=== PATIENT | female | born 1985 | race Caucasian/White ===

== ENCOUNTER 2017-03-08 14:00 | Inpatient (IN) ==
[2017-03-08] MEDS ORDERED: SODIUM CHLORIDE 0.9% 1,000 ML IV STA ×2 (14:11→17:15)
[2017-03-08 14:52] LABS: Basophils # 0.1 10*3/uL (0.0-0.2); Basophils % 0.4 % (0.0-0.8); Eosinophils # 0.1 10*3/uL (0.0-0.87); Eosinophils % 0.6 % (0.00-10.9); Hematocrit 44.7 VOL% (35.7-47.0); Hemoglobin 14.1 GM/DL (12.0-16.0); Immature Granulocytes % 1.5 %; Immature Granulocytes Absolute 0.21 #; Lymphocytes # 2.1 10*3/uL (1.4-4.0); Lymphocytes % 15.2 % (21.3-54.2); Mean Corpuscular HGB Conc 31.5 GM/DL (32-36); Mean Corpuscular Hemoglobin 33 PG (27-34); Mean Platelet Volume 11.3 FL (9.6-12.0); Monocytes # 0.4 10*3/uL (0.11-0.8); Monocytes % 2.9 % (1.7-12.7); Neutrophils # 10.9 10*3/uL (1.4-7.4); Neutrophils % 79.4 % (38.7-73.9); Platelet Count 336 T/CUMM (130-400); Red Blood Count 4.34 MC/CUMM (3.8-5.5); White Blood Count 13.7 T/CUMM (4-12)
[2017-03-08 15:23] LABS: Albumin 3.5 G/DL (3.4-5.0); Bilirubin,Total 0.8 MG/DL (0.2-1.0); Calcium 9.5 MG/DL (8.5-10.1); Osmolality,Calculated 316.2 MOS/KG (273-304); Potassium 5.4 MMOL/L (3.5-5.1); Total Protein 7.7 G/DL (6.4-8.3)
[2017-03-08] MEDS ORDERED: INSULIN REGULAR 100 UNIT/ML SUBCUT STA (15:27)
[2017-03-08] MEDS ORDERED: LEVOFLOXACIN INJ 750 MG in PREMIX 1 EACH IV STA (15:27)
[2017-03-08] MEDS ORDERED: PANTOPRAZOLE 40 MG VIAL IV STA (15:27)
[2017-03-08] MEDS ORDERED: METOCLOPRAMIDE 10 MG/2 ML VIAL IV STA (15:27)
[2017-03-08] MEDS ORDERED: SODIUM CHLORIDE 0.9% 2,000 ML IV STA (15:27)
[2017-03-08] MEDS ORDERED: INSULIN REGULAR 100 UNIT/ML IV STA (15:27)
[2017-03-08] MEDS ORDERED: ONDANSETRON 4 MG/2 ML VIAL IV STA (15:27)
[2017-03-08 15:33] LABS: ABG Base Excess -27.3 MMOL/L (-2.5-2.5); ABG HCO3 6.6 MMOL/L (20-26); ABG Oxygen Saturation 98.2 % (95-100)
--- NOTE | 2017-03-08 15:33 | Emergency Department Note ---
Arrival - Arrival Chief Complaint: Nausea/Vomiting/Diarrhea Stated Complaint: diabetic,n/v,blood sugar not good ED Nursing Triage Note: C/O Nausea and vomiting since SAT., + Diarrhea, denies checking temp., + chills., patients family at bedside and states that the patient had some type of procedure on the scalp by Dr.Mackey. clarke in triage > 500 Mode of Arrival: Stretcher Limitations: Altered Mental Status Source: Family Time Seen by Provider: 03/08/17 15:27 - History of Present Illness HPI Narrative: This 32-year-old white female insulin-dependent diabetic with chronic gastroparesis presents with 2 days of nausea, vomiting, and diarrhea in association with increasing lethargy and hyperventilation. During this timeframe the family reports the patient has taken no insulin. Currently the patient is responsive but is in obvious distress. Onset (ago): day(s) (Patient presents 2 days post onset of symptoms) Date of Last Menstrual Period: now Allergies/Adverse Reactions: Allergies Allergy/AdvReac Type Severity Reaction Status Date / Time aspirin Allergy Gastrointestinal Verified 03/08/17 14:10 Upset ketorolac [From Toradol] Allergy HIVES Verified 03/08/17 14:10 vancomycin Allergy HIVES Verified 03/08/17 14:10 ceftriaxone [From Rocephin] AdvReac Nausea Verified 03/08/17 14:10 doxycycline AdvReac Nausea Verified 03/08/17 14:10 Home Medications: Home Medications Medication Instructions Recorded Confirmed Type Duloxetine HCl [Cymbalta] 60 mg PO BEDTIME 07/15/15 10/21/16 History Esomeprazole Magnesium 40 mg PO DAILY PRN 01/11/16 10/21/16 History [Esomeprazole] Insulin Glargine [Lantus] 50 unit SUBCUT DAILY injection 03/17/16 10/21/16 Rx Insulin Lispro [HumaLOG] 15 unit SUBCUT TID W/MEALS ml 03/17/16 10/21/16 Rx traZODone [Desyrel] 50 mg PO BEDTIME 04/06/16 10/21/16 History Metoclopramide Tab [Reglan Tab] 5 mg PO ACHS #120 tablet 08/30/16 10/21/16 Rx Pantoprazole Tab [Protonix Tab] 40 mg PO DAILY #30 tablet 08/30/16 10/21/16 Rx Review of System - Review of System 12 point system: reviewed and no additional remarkable complaints except as stated - Review of System Constitutional: Present: as per HPI Respiratory: Present: as per HPI Gastrointestinal: Present: as per HPI Medical,Surgical,& Family Hx - Medical History Cardio: No history of: CAD Psychological: No history of: Psychiatric Problems Neurology: History of: Migraine, Peripheral Neuropathy No history of: Brain Aneurysm, Cerebral Hemorrhage, Cerebrovascular Accident , Cerebral Palsy, Dementia, Multiple Sclerosis, Parkinson's Disease, Seizures, TIA, Vertigo, Neurologocal Cancer HEENT: History of: Dental Problems (Poor dentation) Endocrine: History of: Diabetes Mellitus (IDDM) Gastrointestinal: History of: Liver Problems (elevated hepatic enzymes in sep 15 ), GI Problems (gastroparesis) Musculoskeletal: History of: Back/Neck Problems (Chronic back pain from pinched nerve) - Surgical History Cardiac Surgeries: Patient Denies: Cardiac Catheterization Thoracic Surgeries: Patient denies;: Organ Transplant, Lobectomy Neurologic Surgeries: Patient denies: Brain Aneurysm, Cerebral Hemorrhage, Neurologic Surgery HEENT Surgeries: Surgical HX of: Tonsilectomy & Adenoidectomy Abdominal Surgeries: Surgical HX of: Abdominal Surgery (c section) Reproductive Surgeries: Surgical HX of;: Section, Gynecologic Surgery - Family History Family History: Reports;: Family Diabetes, Family Heart Disease, Family Hypertension Denies;: Family Anesthesia Reaction, Family Cancer, Family Psychiatric Problems, Family Stroke - Social History Smoking Status: Current every day smoker Frequency of Alcohol Use: None Type of Drug Use: None Exam Physical Examination: GENERAL: Well developed, well nourished hyperventilating white female in moderate distress. HEENT: Normocephalic. No trauma. Moist mucous membranes. EOMI. PERRLA. ENT NML NECK: Supple. No adenopathy. CARDIAC: Regular. No murmurs. Heart rate 110 CHEST: Clear to auscultation. No respiratory distress. O2 sat 100% ABDOMEN: Soft. Nontender. Hyperactive bowel sounds. EXTREMITIES: No trauma. Normal ROM. No pedal edema. SKIN: No diaphoresis. No rash. NEURO: Alert. Oriented 3 but lethargic. Motor, sensory, vibratory intact. No focal deficits. Vital Signs: Vital Signs Temperature 96.7 F L 03/08/17 14:03 Pulse Rate 110 H 03/08/17 14:03 Respiratory Rate 30 H 03/08/17 14:03 Blood Pressure 67/49 03/08/17 14:03 O2 Sat by Pulse Oximetry 100 03/08/17 14:03 Course - Reevaluation(s) Reevaluation #1: Discussed with family the obvious need for admission - Consultations Consultation #1: Discussed with hospitalist service who will admit for further evaluation treatment peer Results - Labs CBC & BMP: 03/08/17 14:42 03/08/17 14:42 Labs: I reviewed the laboratory noted the gross abnormalities including a glucose greater than 1000 and the pH is 7.0 Disposition Clinical Impression: Diabetic ketoacidosis, Gastroparesis Case discussed with: patient's family Disposition: Still a Patient Condition: Guarded Instructions: Upper Respiratory Infection (ED) Forms: Work/School Release Time of Disposition: 15:49
[2017-03-08 15:34] LABS: ABG TCO2 2.7 MMOL/L (23-27)
[2017-03-08 15:35] LABS: ABG PCO2 9.7 MM HG (35-48); ABG PH 7.079 (7.35-7.45)
[2017-03-08] MEDS ORDERED: SODIUM BICARBONATE 50 MEQ/50 ML SYRINGE IV ONE (16:05)
[2017-03-08] MEDS ORDERED: SODIUM BICARBONATE 50 MEQ/50 ML VIAL IV STA (16:07)
--- NOTE | 2017-03-08 16:33 | Hospitalist History & Physical ---
<Lida Templeton - Last Filed: 03/08/17 16:16> Assessment and Plan - Time spent with patient Time spent with patient: Greater than 30 minutes (1) DKA (diabetic ketoacidoses) Status: Acute Assessment and plan: 03/08/17 admit to Critical Care IV fluids Insulin infusion NaBicarb PRN zofran Labs: A1c, lactic acid, CBC, BMP Potassium replacement protocol Repeat a.m. labs, close monitoring of glucose Will discuss with Dr Valadez for further recommendations with care Current Visit: No History of Present Illness Chief complaint: nausea and vomiting/elevated blood sugar History of present illness: Ms. Olmstead is a 32 year old white female w/PMHx diabetes, peripheral neuropathy , migraine, poor dental and chronic gastroparesis presented to the ED via EMS for nausea, vomiting and diarrhea x 3days. She reports shortness of breath this a.m and feeling increasingly weak. Denies chest pain, fever, or chills. Denies any bright red or tarry stools. In ED: WBC 13.7, Na 127, K 5.4, Anion Gap 41.4, BUN 37 and Creatinine 1.80, Glucose 1049. ABG: pH 7.079, pCO2 9.7, pO2 170.0, HCO3 6.6, Base Excess -27.3. She reports having 3 areas on head/ scalp that have been followed by Dr Jorge and Dr Mccann. 2 areas are scabbed over the third area posteriorly has a small area of minimal drainage. She just completed a prescription of Bactrim for the scalp area. Patient denies alcohol use and drug use. Smokes a pack per day. She lives at home with , child and a friend. SHx: , T&A. PCP: Dr Beltre After discussion with Dr Almeida in the ED and Dr Valadez with Hospital Services, it was agreed to admit patient to Critical Care for further treatment and close monitoring. Home medications will be reviewed and reconciliation to follow. Home Medications Medication Instructions Recorded Confirmed Type Duloxetine HCl [Cymbalta] 60 mg PO BEDTIME 07/15/15 03/08/17 History traZODone [Desyrel] 50 mg PO BEDTIME 04/06/16 03/08/17 History Albuterol Inhaler [Proventil 2 puff INH Q6H PRN 03/08/17 03/08/17 History Inhaler] Insulin Glargine [Lantus] 70 unit SUBCUT QAM 03/08/17 History Insulin Lispro [HumaLOG] 20 unit SUBCUT TIDAC 03/08/17 History Pantoprazole Tab [Protonix Tab] 40 mg PO QAM 03/08/17 03/08/17 History Pregabalin [Lyrica] 150 mg PO BID 03/08/17 03/08/17 History Zolpidem Tartrate [Zolpidem 5 mg PO BEDTIME 03/08/17 03/08/17 History Tartrate] Allergies Allergy/AdvReac Type Severity Reaction Status Date / Time aspirin Allergy Gastrointestinal Verified 03/08/17 14:10 Upset ketorolac [From Toradol] Allergy HIVES Verified 03/08/17 14:10 vancomycin Allergy HIVES Verified 03/08/17 14:10 ceftriaxone [From Rocephin] AdvReac Nausea Verified 03/08/17 14:10 doxycycline AdvReac Nausea Verified 03/08/17 14:10 Medical,Surgical,& Family Hx - Medical History Cardio: No history of: CAD Psychological: No history of: Psychiatric Problems Neurology: History of: Migraine, Peripheral Neuropathy No history of: Brain Aneurysm, Cerebral Hemorrhage, Cerebrovascular Accident , Cerebral Palsy, Dementia, Multiple Sclerosis, Parkinson's Disease, Seizures, TIA, Vertigo, Neurologocal Cancer HEENT: History of: Dental Problems (Poor dentation) Endocrine: History of: Diabetes Mellitus (IDDM) Gastrointestinal: History of: Liver Problems (elevated hepatic enzymes in sep 15 ), GI Problems (gastroparesis) Musculoskeletal: History of: Back/Neck Problems (Chronic back pain from pinched nerve) - Surgical History Cardiac Surgeries: Patient Denies: Cardiac Catheterization Thoracic Surgeries: Patient denies;: Organ Transplant, Lobectomy Neurologic Surgeries: Patient denies: Brain Aneurysm, Cerebral Hemorrhage, Neurologic Surgery HEENT Surgeries: Surgical HX of: Tonsilectomy & Adenoidectomy Abdominal Surgeries: Surgical HX of: Abdominal Surgery (c section) Reproductive Surgeries: Surgical HX of;: Section, Gynecologic Surgery - Family History Family History: Reports;: Family Diabetes, Family Heart Disease, Family Hypertension Denies;: Family Anesthesia Reaction, Family Cancer, Family Psychiatric Problems, Family Stroke - Social History Smoking Status: Current every day smoker (a pack per day) Frequency of Alcohol Use: None Type of Drug Use: None Marital Status: Lives With:: Spouse Functional capacity: independent ambulation - Constitutional Constitutional: Present: fatigue. Absent: chills, fever(s) - EENT Eyes: Absent: blurry vision Ears: Absent: decreased hearing Nose, mouth and throat: Absent: dysphagia, headache(s), sore throat, throat swelling, tongue swelling - Cardiovascular Cardiovascular: Absent: chest pain at rest, chest pain with activity, edema - Respiratory Respiratory: Present: dyspnea. Absent: cough, hemoptysis, wheezing, pain on inspiration - Gastrointestinal Gastrointestinal: Present: diarrhea, nausea. Absent: abdominal pain - Genitourinary Genitourinary: Absent: dysuria, flank pain - Musculoskeletal Musculoskeletal: Present: back pain (chronic) - Neurological Neurological: Absent: abnormal speech Exam - Constitutional Vitals: Period Temp Pulse Resp BP Sys/Pelletier Pulse Ox Last 24 Hr 96.7 F 110 30 67/49 100 General appearance: normal weight, mild distress - Head Head exam: Present: other - Eye Eye exam: Present: EOMI Pupils: Present: LUCA - Neck Neck exam: Present: normal inspection. Absent: thyromegaly - Respiratory Respiratory exam: Present: clear to auscultation bilaterally. Absent: stridor, wheezes - Cardiovascular Cardiovascular exam: Present: regular rate and rhythm - GI/Abdominal GI/Abdominal exam: Present: normal bowel sounds, soft. Absent: tenderness - Extremities Exam Extremities exam: Present: full ROM. Absent: edema - Neurological Exam Neurological exam: Present: alert, oriented X3 - Psychiatric Psychiatric exam: Present: normal affect - Skin Skin exam: Present: normal color, warm, dry Results - Labs CBC & BMP: 03/08/17 14:42 03/08/17 14:42 Lab Results: I have reviewed the past 24 hour labs Labs: ABG pH 7.079 pCo2 9.7 pO2 170.0 HCO3 6.6 Base Excess -27.3 <Dean Valadez - Last Filed: 03/08/17 17:19> History of Present Illness History of present illness: Patient seen and examined independently of BROADB[employer] INSTALLER Templeton, agree with history, assessment and plan as documented. Patient reports s/p multiple days of nausea, vomiting and diarrhea. UA is not back. But glucose 1049 with bicarb of 7. ABG 7.08/9.7/170. On exam patient mildly tachypneic but awake and alert, able to answer all questions. Patient being admitted to the intensive care unit. DKA- IV fluids, insulin infusion, DKA protocol Metabolic Acidosis- 2/2 DKA, given amp of bicarb in ED, monitor closely Hypotension- possibly 2/2 dehydration, IV fluids SIRS-meets criteria for sirs, no signs of infection currently, f/u ua, xcr, blood cultures, stool studies PATRICIA- most likely 2/2 dehydration, IV fluids Hyponatremia- most likely 2/2 dehydration, IV fluids Hyperkalemia- monitor Leukocytosis- possibly reactive, infectious work-up underway Nausea/Vomiting/Diarrhea- IV fluids, zofran prn, stool studies, c.diff Exam - Constitutional Vitals: Period Temp Pulse Resp BP Sys/Pelletier Pulse Ox Last 24 Hr 96.7 F 110 30 67/49 100 Results - Labs CBC & BMP: 03/08/17 14:42 03/08/17 14:42
[2017-03-08] MEDS ORDERED: METOCLOPRAMIDE 10 MG/2 ML VIAL ONE (16:40)
[2017-03-08] MEDS ORDERED: ONDANSETRON 4 MG/2 ML VIAL ONE (16:40)
[2017-03-08] MEDS ORDERED: PANTOPRAZOLE 40 MG VIAL IV ONE (16:40)
[2017-03-08] MEDS ORDERED: INSULIN REGULAR 100 UNIT/ML ONE ×2 (16:41→16:44)
[2017-03-08] MEDS ORDERED: LEVOFLOXACIN INJ 150 ML IV ONE (17:03)
[2017-03-08 17:14] LABS: Apearance,Urine Slightly Hazy (Clear); Bacteria,Urine Few /HPF (Few); Bilirubin,Urine Negative (Negative); Blood, Urine Small mg/dL (Negative); Glucose,Urine (UA) >=500 mg/dL (Negative); Hyaline Casts,Urine 3 /LPF (0-3); Ketones,Urine 80 mg/dL (Negative); Mucus,Urine Occasional /LPF (Occasional); Nitrite,Urine Negative (Negative); Protein,Urine Negative; Urine Color Yellow (Yellow); Urine Specific Gravity 1.017 (1.001-1.035); Urine Urobilinogen < 2.0 EU/DL (0.2-1.0); WBC,Urine 3 /HPF (0-6)
[2017-03-08] MEDS ORDERED: STERILE WATER IV PRN (17:37)
[2017-03-08] MEDS ORDERED: ONDANSETRON 4 MG/2 ML VIAL IV PRN (17:37)
[2017-03-08] MEDS ORDERED: ALBUTEROL 2.5 MG/3 ML NEB RESP TX PRN ×2 (17:37→19:00)
[2017-03-08] MEDS ORDERED: SODIUM ACETATE IV PRN (17:37)
[2017-03-08] MEDS ORDERED: MAGNESIUM SULF RIDER 4 GM in PREMIX 1 EACH IV PRN (17:37)
[2017-03-08] MEDS ORDERED: DEXTROSE 50% 25 GM/50 ML SYRINGE IV PRN ×2 (17:37)
[2017-03-08] MEDS ORDERED: MAGNESIUM SULF RIDER 2 GM in PREMIX 1 EACH IV PRN (17:37)
[2017-03-08] MEDS ORDERED: INSULIN REGULAR 100 UNIT/ML IV ONE (17:37)
[2017-03-08] MEDS ORDERED: SODIUM CHLORIDE 0.9% 1,000 ML IV ONE (17:37)
[2017-03-08] MEDS: INSULIN REGULAR DRIP 100 ML IV SCH (17:58)
[2017-03-08] MEDS: PANTOPRAZOLE 40 MG VIAL IV SCH (17:59)
[2017-03-08] MEDS: SODIUM CHLORIDE 0.9% 1,000 ML IV SCH ×2 (17:59→19:48)
[2017-03-08] MEDS ORDERED: SODIUM ACETATE 100 MEQ in DEXTROSE 5% 1,000 ML IV SCH (18:00)
[2017-03-08 18:29] LABS: Basophils # 0.1 10*3/uL (0.0-0.2); Basophils % 0.3 % (0.0-0.8); Eosinophils % 0.1 % (0.00-10.9); Hematocrit 39.9 VOL% (35.7-47.0); Hemoglobin 13.2 GM/DL (12.0-16.0); Immature Granulocytes % 1.2 %; Immature Granulocytes Absolute 0.28 #; Lymphocytes % 4.4 % (21.3-54.2); Mean Corpuscular HGB Conc 33.1 GM/DL (32-36); Mean Corpuscular Hemoglobin 34 PG (27-34); Mean Corpuscular Volume 101.3 FL (87-102); Mean Platelet Volume 11.2 FL (9.6-12.0); Monocytes # 1.4 10*3/uL (0.11-0.8); Monocytes % 6.2 % (1.7-12.7); Neutrophils % 87.8 % (38.7-73.9); Platelet Count 246 T/CUMM (130-400); Red Blood Count 3.94 MC/CUMM (3.8-5.5); Red Cell Distribution Width 12.9 % (9.3-17.3); White Blood Count 22.8 T/CUMM (4-12)
[2017-03-08 18:44] LABS: Magnesium 2.9 MG/DL (1.8-2.4); Phosphorous 8.3 MG/DL (2.5-4.9)
[2017-03-08 19:23] LABS: Osmolality,Calculated 318.8 MOS/KG (273-304); Potassium 4.6 MMOL/L (3.5-5.1)
--- NOTE | 2017-03-08 19:54 | XRay Report ---
Portable chest March 08, 2017 Indication: Shortness of breath Comparison images not available Findings: Cardiomediastinal contours are normal. Lungs are clear bilaterally. No acute osseous abnormalities. Impression: Normal chest PROCEDURE INTERPRETED AT [facility] DEPARTMENT OF RADIOLOGY Final Report Signed by: Luis Enrique Bishop
[2017-03-08 20:20] LABS: Lymphocytes 6 % (20-55); Macrocytosis Slight; Platelet Estimate Normal; Segmented Neutrophils 91 % (50-85); Total Cells Counted 100
[2017-03-08] MEDS ORDERED: PHENOL 1.4% THROAT SPRAY 177 ML BOTTLE PO PRN (20:55)
[2017-03-08] MEDS ORDERED: SODIUM CHLORIDE 0.9% 1,000 ML IV SCH (21:12)
[2017-03-08] MEDS: PREGABALIN 75 MG CAPSULE PO SCH (21:20)
[2017-03-08] MEDS: DULoxetine 30 MG CAPSULE PO SCH (21:20)
[2017-03-08 21:21] LABS: ABG Base Excess -17.9 MMOL/L (-2.5-2.5); ABG HCO3 11.3 MMOL/L (20-26); ABG Oxygen Saturation 97.3 % (95-100); ABG PH 7.262 (7.35-7.45); ABG TCO2 7.2 MMOL/L (23-27)
[2017-03-08] MEDS: ENOXAPARIN 30 MG/0.3 ML SYRINGE SUBCUT SCH (21:21)
[2017-03-08] MEDS: traZODone 50 MG TABLET PO SCH (21:21)
[2017-03-08 21:22] LABS: ABG PCO2 17.6 MM HG (35-48)
[2017-03-08 23:32] LABS: Calcium 7.7 MG/DL (8.5-10.1); Osmolality,Calculated 300.7 MOS/KG (273-304); Potassium 4.1 MMOL/L (3.5-5.1)
[2017-03-09] MEDS ORDERED: DEXTROSE 5% NACL 0.45% 1,000 ML IV SCH (01:00)
[2017-03-09] MEDS: DEXT 5% NACL 0.45% KCL 20 MEQ 20 MEQ/1,000 ML BAG IV SCH ×2 (01:10→05:01)
[2017-03-09 04:37] LABS: Basophils % 0.1 % (0.0-0.8); Eosinophils % 0.1 % (0.00-10.9); Hematocrit 30.3 VOL% (35.7-47.0); Immature Granulocytes % 0.8 %; Immature Granulocytes Absolute 0.12 #; Lymphocytes # 1.3 10*3/uL (1.4-4.0); Lymphocytes % 9.3 % (21.3-54.2); Mean Corpuscular HGB Conc 36.3 GM/DL (32-36); Mean Corpuscular Hemoglobin 33 PG (27-34); Mean Platelet Volume 9.9 FL (9.6-12.0); Monocytes % 6.9 % (1.7-12.7); Neutrophils % 82.8 % (38.7-73.9); Platelet Count 219 T/CUMM (130-400); Red Blood Count 3.33 MC/CUMM (3.8-5.5); Red Cell Distribution Width 12.8 % (9.3-17.3); White Blood Count 14.5 T/CUMM (4-12)
[2017-03-09 05:02] LABS: Lactic Acid 1.8 MMOL/L (0.4-2.0)
[2017-03-09 05:04] LABS: Calcium 7.5 MG/DL (8.5-10.1); Osmolality,Calculated 294.4 MOS/KG (273-304); Potassium 3.4 MMOL/L (3.5-5.1)
[2017-03-09 05:25] LABS: Calcium 7.7 MG/DL (8.5-10.1); Magnesium 2.1 MG/DL (1.8-2.4); Osmolality,Calculated 291.6 MOS/KG (273-304); Phosphorous 1.2 MG/DL (2.5-4.9); Potassium 3.4 MMOL/L (3.5-5.1); Thyroid Stimulating Hormone 0.195 uIU/ml (0.358-3.74)
[2017-03-09] MEDS: INSULIN REGULAR DRIP 100 ML IV SCH (06:41)
[2017-03-09] MEDS: POTASSIUM CHLORIDE RIDER 10 MEQ in PREMIX 1 EACH IV PRN ×3 (06:53→08:32)
[2017-03-09] MEDS: PREGABALIN 75 MG CAPSULE PO SCH ×2 (08:36→21:24)
[2017-03-09] MEDS ORDERED: SODIUM CHLORIDE 0.45% 1,000 ML IV SCH ×2 (09:12→10:00)
[2017-03-09] MEDS ORDERED: GLUCAGON 1 MG VIAL IM PRN (09:51)
[2017-03-09] MEDS ORDERED: DEXTROSE 50% 25 GM/50 ML SYRINGE IV PRN (09:51)
[2017-03-09 09:59] LABS: Calcium 7.4 MG/DL (8.5-10.1); Magnesium 1.9 MG/DL (1.8-2.4); Osmolality,Calculated 291.6 MOS/KG (273-304); Potassium 4.2 MMOL/L (3.5-5.1)
--- NOTE | 2017-03-09 10:12 | Hospitalist Progress Note ---
Assessment and Plan (1) Metabolic acidosis Status: Resolved Assessment and plan: 2/2 DKA Corrected Current Visit: Yes (2) Hypotension Status: Acute Assessment and plan: Improved At her baseline Current Visit: Yes (3) Leukocytosis Status: Acute Assessment and plan: No overt signs of infection Possible reactive Afebrile F/u blood cultures Current Visit: Yes (4) Nausea & vomiting Status: Resolved Assessment and plan: Resolved Current Visit: Yes (5) Diarrhea Status: Resolved Assessment and plan: Resolved before able to get stool samples Current Visit: No (6) DKA (diabetic ketoacidoses) Status: Acute Assessment and plan: Anion gap and bicarb corrected Glucoses improved Will start Lantus and discontinue insulin infusion Change IV fluids to 1/2NS Diabetic diet Can probably move out of the ICU later today Current Visit: No (7) PATRICIA (acute kidney injury) Status: Resolved Assessment and plan: 2/2 dehydration Corrected with IV fluids Current Visit: No Hospitalist: Subjective Interval history: No acute events overnight. Patient denies nausea, vomiting and diarrhea. She reports that she is hungry. Exam - Constitutional Vitals: Period Temp Pulse Resp BP Sys/Pelletier Pulse Ox Last 24 Hr 96.7 F-98.7 F 101-122 15-34 67-97/36-60 93-100 General appearance: normal weight - Head Head exam: Present: normocephalic, atraumatic - Eye Eye exam: Present: EOMI Pupils: Present: LUCA - ENT ENT exam: Present: normal exam - Neck Neck exam: Present: normal inspection - Respiratory Respiratory exam: Present: clear to auscultation bilaterally. Absent: rhonchi, wheezes - Cardiovascular Cardiovascular exam: Present: regular rate and rhythm - GI/Abdominal GI/Abdominal exam: Present: normal bowel sounds, soft. Absent: tenderness, rebound - Extremities Exam Extremities exam: Present: normal inspection - Back Exam Back exam: Present: normal inspection - Neurological Exam Neurological exam: Present: alert, oriented X3 - Psychiatric Psychiatric exam: Present: normal affect, normal mood - Skin Skin exam: Present: warm, intact Results - Labs CBC & BMP: 03/09/17 04:09 03/09/17 09:16 Specialty Discharge - Follow Up or Referrals
[2017-03-09] MEDS ORDERED: INSULIN GLARGINE 100 UNIT/ML SUBCUT SCH (11:30)
[2017-03-09] MEDS ORDERED: INSULIN REGULAR 100 UNIT/ML SUBCUT SCH (11:30)
[2017-03-09] MEDS: INSULIN REGULAR 100 UNIT/ML SUBCUT SCH ×3 (11:48→21:24)
[2017-03-09 14:23] LABS: Calcium 7.4 MG/DL (8.5-10.1); Magnesium 1.8 MG/DL (1.8-2.4); Osmolality,Calculated 288.4 MOS/KG (273-304)
[2017-03-09] MEDS: SODIUM CHLORIDE 0.45% 1,000 ML IV SCH (16:43)
[2017-03-09] MEDS: PANTOPRAZOLE 40 MG VIAL IV SCH (17:27)
[2017-03-09] MEDS: DULoxetine 30 MG CAPSULE PO SCH (21:24)
[2017-03-09] MEDS: traZODone 50 MG TABLET PO SCH (21:24)
[2017-03-09] MEDS: ENOXAPARIN 30 MG/0.3 ML SYRINGE SUBCUT SCH (21:24)
[2017-03-10] MEDS: SODIUM CHLORIDE 0.45% 1,000 ML IV SCH ×5 (00:19→17:50)
[2017-03-10 04:26] LABS: Basophils % 0.1 % (0.0-0.8); Eosinophils # 0.1 10*3/uL (0.0-0.87); Eosinophils % 1.6 % (0.00-10.9); Hematocrit 31.2 VOL% (35.7-47.0); Hemoglobin 10.8 GM/DL (12.0-16.0); Immature Granulocytes Absolute 0.08 #; Lymphocytes # 1.3 10*3/uL (1.4-4.0); Lymphocytes % 16.9 % (21.3-54.2); Mean Corpuscular HGB Conc 34.6 GM/DL (32-36); Mean Corpuscular Hemoglobin 33 PG (27-34); Mean Corpuscular Volume 94.3 FL (87-102); Mean Platelet Volume 10.2 FL (9.6-12.0); Monocytes # 0.6 10*3/uL (0.11-0.8); Monocytes % 6.9 % (1.7-12.7); Neutrophils # 5.8 10*3/uL (1.4-7.4); Neutrophils % 73.5 % (38.7-73.9); Platelet Count 162 T/CUMM (130-400); Red Blood Count 3.31 MC/CUMM (3.8-5.5); Red Cell Distribution Width 13.3 % (9.3-17.3)
[2017-03-10 04:52] LABS: Calcium 8.4 MG/DL (8.5-10.1); Osmolality,Calculated 283.3 MOS/KG (273-304); Potassium 3.3 MMOL/L (3.5-5.1)
[2017-03-10] MEDS: INSULIN REGULAR 100 UNIT/ML SUBCUT SCH ×4 (08:14→21:40)
[2017-03-10] MEDS: PREGABALIN 75 MG CAPSULE PO SCH ×2 (08:14→21:40)
[2017-03-10] MEDS: INSULIN GLARGINE 100 UNIT/ML SUBCUT SCH (08:19)
[2017-03-10] MEDS: POTASSIUM CHLORIDE RIDER 10 MEQ in PREMIX 1 EACH IV PRN ×5 (08:19→17:50)
--- NOTE | 2017-03-10 11:45 | Hospitalist Progress Note ---
Assessment and Plan (1) Metabolic acidosis Status: Resolved Assessment and plan: 2/2 DKA Corrected Current Visit: Yes (2) Hypotension Status: Acute Assessment and plan: Improved At her baseline Current Visit: Yes (3) Leukocytosis Status: Acute Assessment and plan: No overt signs of infection Possible reactive Afebrile blood cultures no growth to date Current Visit: Yes (4) Nausea & vomiting Status: Resolved Assessment and plan: Resolved Current Visit: Yes (5) Diarrhea Status: Acute Assessment and plan: Still with diarrhea C.diff and stool cultures negative Current Visit: No (6) DKA (diabetic ketoacidoses) Status: Resolved Assessment and plan: Anion gap and bicarb corrected Glucoses improved Will start Lantus and discontinue insulin infusion Change IV fluids to 1/2NS Diabetic diet Current Visit: No (7) PATRICIA (acute kidney injury) Status: Resolved Assessment and plan: 2/2 dehydration Corrected with IV fluids Current Visit: No Hospitalist: Subjective Interval history: No acute events overnight. Patient reports diarrhea, denies nausea or vomiting. Probable discharge tomorrow. Exam - Constitutional Vitals: Period Temp Pulse Resp BP Sys/Pelletier Pulse Ox Last 24 Hr 97.3 F-99.3 F 18-105 16-22 90-118/56-74 90-100 General appearance: normal weight - Head Head exam: Present: normocephalic, atraumatic - Eye Eye exam: Present: EOMI Pupils: Present: LUCA - ENT ENT exam: Present: normal exam - Neck Neck exam: Present: normal inspection - Respiratory Respiratory exam: Present: clear to auscultation bilaterally. Absent: rhonchi, wheezes - Cardiovascular Cardiovascular exam: Present: regular rate and rhythm - GI/Abdominal GI/Abdominal exam: Present: normal bowel sounds, soft. Absent: tenderness, rebound - Extremities Exam Extremities exam: Present: normal inspection - Back Exam Back exam: Present: normal inspection - Neurological Exam Neurological exam: Present: alert, oriented X3 - Psychiatric Psychiatric exam: Present: normal affect, normal mood - Skin Skin exam: Present: warm, intact Results - Labs CBC & BMP: 03/10/17 03:30 03/10/17 03:30 Specialty Discharge - Follow Up or Referrals
[2017-03-10] MEDS: PANTOPRAZOLE 40 MG VIAL IV SCH (17:50)
[2017-03-10] MEDS: traZODone 50 MG TABLET PO SCH (21:39)
[2017-03-10] MEDS: ENOXAPARIN 30 MG/0.3 ML SYRINGE SUBCUT SCH (21:39)
[2017-03-10] MEDS: DULoxetine 30 MG CAPSULE PO SCH (21:40)
[2017-03-11] MEDS: POTASSIUM CHLORIDE RIDER 10 MEQ in PREMIX 1 EACH IV PRN (01:25)
[2017-03-11] MEDS: SODIUM CHLORIDE 0.45% 1,000 ML IV SCH ×2 (01:30→08:19)
[2017-03-11 03:52] LABS: Calcium 8.2 MG/DL (8.5-10.1); Osmolality,Calculated 280.1 MOS/KG (273-304); Potassium 3.5 MMOL/L (3.5-5.1)
[2017-03-11] MEDS: INSULIN REGULAR 100 UNIT/ML SUBCUT SCH ×2 (08:18→12:43)
[2017-03-11] MEDS ORDERED: MUPIROCIN 2% OINT 22 GM TUBE TOP SCH (09:30)
[2017-03-11] MEDS: PREGABALIN 75 MG CAPSULE PO SCH (09:31)
[2017-03-11] MEDS: INSULIN GLARGINE 100 UNIT/ML SUBCUT SCH (09:32)
[2017-03-11 09:48] VITALS: BP 100/65
--- NOTE | 2017-03-11 10:42 | Discharge Summary ---
<Vi Benedictda - Last Filed: 03/11/17 10:34> Hospital Course - Hospital Course Hospital Course: This is a 32-year-old female that presented to the ED at [facility] on March 08, 2017 for the evaluation of nausea, vomiting, and diarrhea. Patient reported a medical history significant for insulin-dependent diabetes mellitus, chronic diabetic gastroparesis, current nicotine use, migraine headaches, peripheral neuropathy, chronic neck and back pain. Patient reported a surgical history significant for tonsillectomy, adenoidectomy, and section. Patient reports the onset of symptoms 2 days prior to presentation. She reported a gradual onset of nausea, vomiting, and diarrhea. In addition, she reported increasing lethargy and hyperventilation. The family was present at bedside reported that the patient has been too sick to take her insulin. They became alarmed when the patient's symptoms continue to persist prompting them to transfer her to the ED at [facility] for further evaluation. The patient was assessed at the time of ED presentation. The patient was noted to be grossly hyperglycemic with a blood glucose level noted at greater than 500. Labs were obtained which were significant for white blood cell count at 13.7, sodium 127, potassium 5.4, anion gap 41.4, BUN 37, creatinine 1.80, and glucose at 1049. Arterial blood gas reported pH at 7.07, PCO2 9.7, PO2 170.0, HCO3 6.6, and base excess at -27.3. The patient was subsequently admitted to [facility] and the diabetic ketoacidosis protocol was initiated. The patient was aggressively rehydrated and intravenous insulin infusions were initiated. The patient's condition gradually improved. The patient was transferred to the general medical surgical floor on March 10, 2017. The patient's blood sugars have remained stable. Her anion gap and bicarb are within normal limits. The patient has not experienced any significant overnight events. Today, we feel that she is indeed appropriate for discharge home to follow-up with her primary care physician as indicated. Specialty Discharge - Follow Up or Referrals Discharge Plan - Discharge Data Disposition: Disch To Home/Self Care - Discharge Medications New Mupirocin 2% Oint [Bactroban 2% Oint] 1 applic TOP BID #1 applic Continue Duloxetine HCl [Cymbalta] 60 mg PO BEDTIME Pregabalin [Lyrica] 150 mg PO BID Insulin Lispro [HumaLOG] 15 unit SUBCUT TIDAC Albuterol Inhaler [Proventil Inhaler] 2 puff INH Q6H PRN PRN Reason: Shortness Of Breath/Wheezing Zolpidem Tartrate 5 mg PO BEDTIME No Action Insulin Glargine [Lantus] 67 unit SUBCUT QAM - Follow Up or Referral - Forms/Instructions Forms: Work/School Release Instructions: Upper Respiratory Infection (ED) Exam - Constitutional Vitals: Period Temp Pulse Resp BP Sys/Pelletier Pulse Ox Last 24 Hr 97 F-99.0 F 85-104 16-20 100-144/65-92 90-100 Discharge Results Procedures and tests throughout hospitalization: Pending Orders 03/08/17 16:28 Blood Culture Stat Labs on day of discharge: Labs from last 24 hours 03/11/17 03/11/17 03/11/17 07:35 04:38 01:56 Sodium 142 Potassium 3.5 Chloride 109 H Carbon Dioxide 27 Anion Gap 9.5 BUN 6 L Creatinine 0.60 GFR Calculation 126 BUN/Creatinine Ratio 10.00 Glucose 104 POC Glucose 148 H 88 Calculated Osmolality 280.1 Calcium 8.2 L 03/10/17 03/10/17 03/10/17 23:13 19:45 15:30 Sodium Potassium 3.6 Chloride Carbon Dioxide Anion Gap BUN Creatinine GFR Calculation BUN/Creatinine Ratio Glucose POC Glucose 288 H 195 H Calculated Osmolality Calcium 03/10/17 12:33 Sodium Potassium Chloride Carbon Dioxide Anion Gap BUN Creatinine GFR Calculation BUN/Creatinine Ratio Glucose POC Glucose 124 H Calculated Osmolality Calcium Preliminary micro results at discharge 03/08/17 16:28 Blood Culture - Preliminary Blood No growth at 1 day 03/08/17 16:28 Blood Culture - Preliminary Blood No growth at 1 day DS: Provider Date of admission: 03/08/17 15:52 Primary care physician: . No PCP Attending physician on admission: Dean Valadez MD Consults: 03/08/17 17:37 Consult to [facility], Educator [CONS] Routine Reason for Founder And Chief Executive Officer: Diabetes Education Initial Insulin Education Consult Comment: INSULIN EDUCATION 03/08/17 18:34 Consult to [facility] Center, Educator [CONS] Routine Reason for Founder And Chief Executive Officer: Diabetes Education Consult to Pastoral Services [CONS] Routine Comment: Pastoral Screen: Request Health Policy Manager Visit Discharging clinician: Josiah Benedict CNP <Poncho Valadeze - Last Filed: 03/11/17 11:11> Hospital Course - Time spent with patient Time with patient DS: Less than 30 minutes (25) Diagnosis - Discharge Diagnosis (1) Metabolic acidosis Status: Resolved (2) Hypotension Status: Resolved (3) Leukocytosis Status: Resolved (4) Nausea & vomiting Status: Resolved (5) Diarrhea Status: Resolved (6) DKA (diabetic ketoacidoses) Status: Resolved (7) PATRICIA (acute kidney injury) Status: Resolved Discharge Plan - Discharge Data Condition at Discharge: Stable Discharge Diet: diabetic diet Activity: increase activity as tolerated Hygiene: no restrictions Weight Bearing at Discharge: weight bear as tolerated Contact your physician if you experience:: Nausea/Vomiting Exam - Constitutional General appearance: normal weight - Head Head exam: Present: normocephalic, atraumatic - Eye Eye exam: Present: EOMI Pupils: Present: LUCA - ENT ENT exam: Present: normal exam - Neck Neck exam: Present: normal inspection - Respiratory Respiratory exam: Present: clear to auscultation bilaterally. Absent: rhonchi, wheezes - Cardiovascular Cardiovascular exam: Present: regular rate and rhythm - GI/Abdominal GI/Abdominal exam: Present: normal bowel sounds, soft. Absent: tenderness, rebound - Extremities Exam Extremities exam: Present: normal inspection - Back Exam Back exam: Present: normal inspection - Neurological Exam Neurological exam: Present: alert, oriented X3 - Psychiatric Psychiatric exam: Present: normal affect, normal mood - Skin Skin exam: Present: warm, intact
[2017-03-11] MEDS ORDERED: ENOXAPARIN 40 MG/0.4 ML SYRINGE SUBCUT SCH (21:00)
== END 2017-03-11 12:55 | disposition home or self-care (01) | DRG 420 ==
LOC: N.ED 14:00 → N.EDINP 15:52 → N.ICU 17:28 → N.5E 03-09 18:03
PROVIDERS: ADMIT Internal Medicine; ATTEND Internal Medicine

== ENCOUNTER 2017-09-10 09:52 | Inpatient (IN) ==
[2017-09-10] MEDS ORDERED: DEXTROSE 50% 25 GM/50 ML SYRINGE IV ONE ×2 (10:11→10:49)
[2017-09-10] MEDS ORDERED: DEXTROSE 50% 25 GM/50 ML VIAL IV STA ×3 (10:16→12:10)
[2017-09-10 11:00] LABS: Basophils % 0.6 % (0.0-0.8); Eosinophils # 0.1 10*3/uL (0.0-0.87); Eosinophils % 1.9 % (0.00-10.9); Hematocrit 35.5 VOL% (35.7-47.0); Hemoglobin 11.7 GM/DL (12.0-16.0); Immature Granulocytes % 0.6 %; Immature Granulocytes Absolute 0.03 #; Lymphocytes # 0.9 10*3/uL (1.4-4.0); Lymphocytes % 17.7 % (21.3-54.2); Mean Corpuscular Hemoglobin 31 PG (27-34); Mean Corpuscular Volume 94.2 FL (87-102); Mean Platelet Volume 10.1 FL (9.6-12.0); Monocytes # 0.5 10*3/uL (0.11-0.8); Monocytes % 9.9 % (1.7-12.7); Neutrophils # 3.4 10*3/uL (1.4-7.4); Neutrophils % 69.3 % (38.7-73.9); Platelet Count 228 T/CUMM (130-400); Red Blood Count 3.77 MC/CUMM (3.8-5.5); Red Cell Distribution Width 13.4 % (9.3-17.3); White Blood Count 4.9 T/CUMM (4-12)
[2017-09-10] MEDS ORDERED: DEXTROSE 5% NACL 0.45% 1,000 ML IV SCH (11:00)
[2017-09-10 11:29] LABS: Alanine Aminotransferase 43 U/L (13-56); Albumin 2.9 G/DL (3.4-5.0); Alkaline Phosphatase 129 U/L (45-117); Aspartate Amino Transferase 32 U/L (0-37); Bilirubin,Total < 0.39 MG/DL (0.2-1.0); Blood Urea Nitrogen 11 MG/DL (7-18); Calcium 8.7 MG/DL (8.5-10.1); Glucose 64 MG/DL (74-106); Osmolality,Calculated 277.3 MOS/KG (273-304); Potassium 3.3 MMOL/L (3.5-5.1); Sodium 141 MMOL/L (136-145); Total Protein 7.2 G/DL (6.4-8.3)
[2017-09-10] MEDS ORDERED: ONDANSETRON 4 MG/2 ML VIAL IV STA (11:38)
[2017-09-10] MEDS ORDERED: ONDANSETRON 4 MG/2 ML VIAL ONE (11:39)
[2017-09-10 12:10] LABS: Apearance,Urine CLEAR (Clear); Bilirubin,Urine Negative (Negative); Blood, Urine Moderate mg/dL (Negative); Glucose,Urine (UA) >=500 mg/dL (Negative); Ketones,Urine Negative (Negative); Mucus,Urine Occasional /LPF (Occasional); Nitrite,Urine Negative (Negative); Protein,Urine Negative; RBC,Urine 4 /HPF (0-4); Squamous Epithelial Cell,Urine Occasional /HPF (0-10); Urine Color Straw (Yellow); Urine Specific Gravity 1.015 (1.001-1.035); Urine Urobilinogen < 2.0 EU/DL (0.2-1.0); WBC,Urine 1 /HPF (0-6)
[2017-09-10 12:19] LABS: Barbiturates Screen,Urine Negative (Negative); Benzodiazepines Screen,Urine Negative (Negative); Cannabinoid Screen,Urine Negative (Negative); Opiate Screen,Urine Negative (Negative); Phencyclidine Screen,Urine Negative (Negative)
[2017-09-10] MEDS ORDERED: DEXTROSE 10% 250 ML IV ONE (12:59)
[2017-09-10] MEDS: DEXTROSE 10% 1,000 ML IV SCH ×2 (13:17→16:42)
[2017-09-10] MEDS ORDERED: GLUCAGON 1 MG VIAL IM PRN (13:28)
[2017-09-10] MEDS ORDERED: DEXTROSE 50% 25 GM/50 ML VIAL IV PRN (13:28)
[2017-09-10] MEDS ORDERED: ALBUTEROL 2.5 MG/3 ML NEB RESP TX PRN (13:31)
[2017-09-10] MEDS ORDERED: NON-FORMULARY MEDICATION (Tizanidine Hcl [Zanaflex] 2 MG) PO SCH (13:45)
[2017-09-10] MEDS ORDERED: AMITRIPTYLINE 10 MG TABLET PO SCH (14:00)
[2017-09-10] MEDS ORDERED: POTASSIUM CHLORIDE RIDER 10 MEQ in PREMIX 1 EACH IV PRN (15:39)
[2017-09-10] MEDS ORDERED: MAGNESIUM SULF RIDER 2 GM in PREMIX 1 EACH IV PRN (15:39)
[2017-09-10] MEDS ORDERED: MAGNESIUM SULF RIDER 4 GM in PREMIX 1 EACH IV PRN (15:39)
[2017-09-10] MEDS: NICOTINE 21 MG/24 HR PATCH TRANSDERM SCH (16:41)
[2017-09-10] MEDS ORDERED: NON-FORMULARY MEDICATION (Pregabalin [Lyrica] 150 MG) PO SCH (21:00)
[2017-09-10] MEDS: traMADol 50 MG TABLET PO PRN (21:56)
[2017-09-10] MEDS: DOCUSATE SODIUM 100 MG CAPSULE PO SCH (22:04)
[2017-09-11] MEDS: DEXTROSE 10% 1,000 ML IV SCH (04:45)
[2017-09-11 05:39] LABS: Basophils % 0.5 % (0.0-0.8); Eosinophils # 0.1 10*3/uL (0.0-0.87); Eosinophils % 1.8 % (0.00-10.9); Hematocrit 39.2 VOL% (35.7-47.0); Hemoglobin 12.8 GM/DL (12.0-16.0); Immature Granulocytes % 0.2 %; Immature Granulocytes Absolute 0.01 #; Lymphocytes # 1.6 10*3/uL (1.4-4.0); Mean Corpuscular HGB Conc 32.7 GM/DL (32-36); Mean Corpuscular Hemoglobin 31 PG (27-34); Mean Corpuscular Volume 94.2 FL (87-102); Mean Platelet Volume 9.5 FL (9.6-12.0); Monocytes # 0.6 10*3/uL (0.11-0.8); Monocytes % 9.3 % (1.7-12.7); Neutrophils % 63.2 % (38.7-73.9); Platelet Count 308 T/CUMM (130-400); Red Blood Count 4.16 MC/CUMM (3.8-5.5); Red Cell Distribution Width 13.4 % (9.3-17.3); White Blood Count 6.2 T/CUMM (4-12)
[2017-09-11 06:05] LABS: Bilirubin,Total 0.7 MG/DL (0.2-1.0); Calcium 8.7 MG/DL (8.5-10.1); Potassium 3.3 MMOL/L (3.5-5.1); Total Protein 7.3 G/DL (6.4-8.3)
[2017-09-11 08:08] VITALS: BP 105/61
[2017-09-11] MEDS: traMADol 50 MG TABLET PO PRN (08:55)
[2017-09-11] MEDS: DOCUSATE SODIUM 100 MG CAPSULE PO SCH (08:56)
[2017-09-11] MEDS ORDERED: PANTOPRAZOLE 40 MG TABLET PO SCH (09:00)
[2017-09-11] MEDS ORDERED: POTASSIUM CHLORIDE 20 MEQ TABLET PO ONE (10:00)
[2017-09-11] MEDS: NICOTINE 21 MG/24 HR PATCH TRANSDERM SCH (10:22)
[2017-09-11] MEDS ORDERED: ZALEPLON 5 MG CAPSULE PO SCH (21:00)
[2017-09-11] MEDS ORDERED: DULoxetine 30 MG CAPSULE PO SCH (21:00)
== END 2017-09-11 11:15 | disposition home or self-care (01) | DRG 420 ==
LOC: EDBD → EDUNIT# → N.ED 09:52 → N.2E 13:23

== ENCOUNTER 2017-11-18 11:33 | Inpatient (IN) ==
[2017-11-18] MEDS ORDERED: NICOTINE 21 MG/24 HR PATCH TRANSDERM PRN (11:43)
[2017-11-18] MEDS ORDERED: DEXTROSE 50% 25 GM/50 ML VIAL IV PRN (11:43)
[2017-11-18] MEDS ORDERED: MORPHINE 4 MG/1 ML VIAL IV PRN (11:43)
[2017-11-18] MEDS ORDERED: GLUCAGON 1 MG VIAL IM PRN ×2 (11:43→11:45)
[2017-11-18] MEDS ORDERED: ENOXAPARIN 40 MG/0.4 ML SYRINGE SUBCUT SCH (12:00)
[2017-11-18] MEDS: ONDANSETRON 4 MG/2 ML VIAL IV PRN (14:20)
[2017-11-18] MEDS: SODIUM CHLORIDE 0.9% 1,000 ML IV SCH ×2 (14:22→21:55)
[2017-11-18] MEDS ORDERED: SODIUM CHLORIDE 0.9% 1,000 ML IV ONE (14:51)
[2017-11-18] MEDS ORDERED: ACETAMINOPHEN 325 MG TABLET PO PRN ×2 (14:52)
[2017-11-18] MEDS ORDERED: ALBUTEROL 2.5 MG/3 ML NEB RESP TX PRN (15:21)
[2017-11-18 15:46] LABS: Basophils % 0.4 % (0.0-0.8); Eosinophils # 0.1 10*3/uL (0.0-0.87); Eosinophils % 2.4 % (0.00-10.9); Hematocrit 35.8 VOL% (35.7-47.0); Hemoglobin 12.1 GM/DL (12.0-16.0); Immature Granulocytes % 0.2 %; Immature Granulocytes Absolute 0.01 #; Lymphocytes # 0.9 10*3/uL (1.4-4.0); Lymphocytes % 19.1 % (21.3-54.2); Mean Corpuscular HGB Conc 33.8 GM/DL (32-36); Mean Corpuscular Hemoglobin 31 PG (27-34); Mean Corpuscular Volume 90.2 FL (87-102); Mean Platelet Volume 11.1 FL (9.6-12.0); Monocytes # 0.4 10*3/uL (0.11-0.8); Monocytes % 7.5 % (1.7-12.7); Neutrophils # 3.5 10*3/uL (1.4-7.4); Neutrophils % 70.4 % (38.7-73.9); Platelet Count 193 T/CUMM (130-400); Red Blood Count 3.97 MC/CUMM (3.8-5.5); Red Cell Distribution Width 13.3 % (9.3-17.3); White Blood Count 4.9 T/CUMM (4-12)
[2017-11-18 16:09] LABS: Albumin 2.8 G/DL (3.4-5.0); Bilirubin,Total 1.1 MG/DL (0.2-1.0)
[2017-11-18 16:10] LABS: ABG Base Excess 0.3 MMOL/L (-2.5-2.5); ABG HCO3 23.7 MMOL/L (20-26); ABG Oxygen Saturation 98.7 % (95-100); ABG PCO2 34.1 MM HG (35-48); ABG PH 7.459 (7.35-7.45); ABG TCO2 24.7 MMOL/L (23-27); Allen Test Positive; Pt O2 Delivery Device Room Air
[2017-11-18 16:10] LABS: Osmolality,Calculated 291.4 MOS/KG (273-304); Potassium 3.9 MMOL/L (3.5-5.1)
[2017-11-18 16:12] LABS: Calcium 8.4 MG/DL (8.5-10.1)
[2017-11-18] MEDS ORDERED: ERYTHROMYCIN ETHYLSUCCINATE 40 MG/ML 100 ML/BOTTLE PO SCH (16:30)
[2017-11-18] MEDS: INSULIN REGULAR 100 UNIT/ML SUBCUT SCH ×2 (17:52→21:59)
[2017-11-18] MEDS: INSULIN GLARGINE 100 UNIT/ML SUBCUT SCH (17:52)
[2017-11-18 18:27] LABS: Apearance,Urine CLEAR (Clear); Bacteria,Urine Occasional /HPF (Few); Bilirubin,Urine Negative (Negative); Blood, Urine Small mg/dL (Negative); Glucose,Urine (UA) >=500 mg/dL (Negative); Ketones,Urine 20 mg/dL (Negative); Nitrite,Urine Negative (Negative); Protein,Urine Negative; RBC,Urine 1 /HPF (0-4); Squamous Epithelial Cell,Urine Occasional /HPF (0-10); Urine Color Yellow (Yellow); Urine Specific Gravity 1.026 (1.001-1.035); Urine Urobilinogen < 2.0 EU/DL (0.2-1.0)
[2017-11-18] MEDS: DULoxetine 30 MG CAPSULE PO SCH (21:50)
[2017-11-18] MEDS: PREGABALIN 75 MG CAPSULE PO SCH (21:50)
[2017-11-18] MEDS: ENOXAPARIN 40 MG/0.4 ML SYRINGE SUBCUT SCH (21:51)
[2017-11-19] MEDS: DEXTROSE 50% 25 GM/50 ML VIAL IV PRN (02:01)
[2017-11-19] MEDS: SODIUM CHLORIDE 0.9% 1,000 ML IV SCH ×2 (04:33→11:45)
[2017-11-19 06:20] LABS: Basophils % 0.5 % (0.0-0.8); Eosinophils # 0.1 10*3/uL (0.0-0.87); Eosinophils % 1.4 % (0.00-10.9); Hematocrit 34.4 VOL% (35.7-47.0); Hemoglobin 11.9 GM/DL (12.0-16.0); Immature Granulocytes % 0.2 %; Immature Granulocytes Absolute 0.01 #; Lymphocytes # 1.2 10*3/uL (1.4-4.0); Mean Corpuscular HGB Conc 34.6 GM/DL (32-36); Mean Corpuscular Hemoglobin 31 PG (27-34); Mean Corpuscular Volume 88.2 FL (87-102); Mean Platelet Volume 10.4 FL (9.6-12.0); Monocytes # 0.5 10*3/uL (0.11-0.8); Monocytes % 9.2 % (1.7-12.7); Neutrophils # 3.9 10*3/uL (1.4-7.4); Neutrophils % 67.7 % (38.7-73.9); Platelet Count 198 T/CUMM (130-400); Red Cell Distribution Width 13.6 % (9.3-17.3); White Blood Count 5.8 T/CUMM (4-12)
[2017-11-19 06:45] LABS: Albumin 2.6 G/DL (3.4-5.0); Bilirubin,Total 0.4 MG/DL (0.2-1.0); Calcium 8.6 MG/DL (8.5-10.1); Total Protein 5.8 G/DL (6.4-8.3)
[2017-11-19 06:46] LABS: Potassium 3.6 MMOL/L (3.5-5.1)
[2017-11-19] MEDS: INSULIN REGULAR 100 UNIT/ML SUBCUT SCH ×4 (09:47→22:42)
[2017-11-19] MEDS: PREGABALIN 75 MG CAPSULE PO SCH ×3 (09:54→22:41)
[2017-11-19] MEDS: ENOXAPARIN 40 MG/0.4 ML SYRINGE SUBCUT SCH ×2 (09:54→22:42)
[2017-11-19] MEDS: INSULIN GLARGINE 100 UNIT/ML SUBCUT SCH (09:55)
[2017-11-19] MEDS: traMADol 50 MG TABLET PO PRN ×2 (14:35→22:48)
[2017-11-19] MEDS: LACTOBACILLUS ACIDOPHILUS/BULGARICUS CAPLET PO SCH (15:17)
[2017-11-19] MEDS: traZODone 50 MG TABLET PO SCH (22:41)
[2017-11-19] MEDS: DULoxetine 30 MG CAPSULE PO SCH (22:41)
[2017-11-20] MEDS: DEXTROSE 50% 25 GM/50 ML VIAL IV PRN (03:40)
[2017-11-20] MEDS: INSULIN REGULAR 100 UNIT/ML SUBCUT SCH ×4 (07:39→21:37)
[2017-11-20] MEDS: PREGABALIN 75 MG CAPSULE PO SCH ×3 (08:29→20:52)
[2017-11-20] MEDS: LACTOBACILLUS ACIDOPHILUS/BULGARICUS CAPLET PO SCH (08:29)
[2017-11-20] MEDS: ENOXAPARIN 40 MG/0.4 ML SYRINGE SUBCUT SCH (08:29)
[2017-11-20 10:01] LABS: Basophils % 0.8 % (0.0-0.8); Eosinophils # 0.1 10*3/uL (0.0-0.87); Hematocrit 37.4 VOL% (35.7-47.0); Hemoglobin 12.5 GM/DL (12.0-16.0); Immature Granulocytes % 0.4 %; Immature Granulocytes Absolute 0.02 #; Lymphocytes # 0.8 10*3/uL (1.4-4.0); Lymphocytes % 16.6 % (21.3-54.2); Mean Corpuscular HGB Conc 33.4 GM/DL (32-36); Mean Corpuscular Hemoglobin 31 PG (27-34); Mean Corpuscular Volume 92.1 FL (87-102); Monocytes # 0.4 10*3/uL (0.11-0.8); Monocytes % 7.9 % (1.7-12.7); Neutrophils # 3.6 10*3/uL (1.4-7.4); Neutrophils % 72.3 % (38.7-73.9); Platelet Count 216 T/CUMM (130-400); Red Blood Count 4.06 MC/CUMM (3.8-5.5); Red Cell Distribution Width 13.7 % (9.3-17.3)
[2017-11-20] MEDS: BISACODYL 5 MG TABLET PO SCH ×2 (11:34→17:22)
[2017-11-20] MEDS: traMADol 50 MG TABLET PO PRN (14:40)
[2017-11-20] MEDS: ONDANSETRON 4 MG/2 ML VIAL IV PRN (14:40)
[2017-11-20] MEDS ORDERED: POLYETHYLENE GLYCOL POWDER 255 GM BOTTLE PO ONE (18:00)
[2017-11-20] MEDS: traZODone 50 MG TABLET PO SCH (20:52)
[2017-11-20] MEDS: DULoxetine 30 MG CAPSULE PO SCH (20:52)
[2017-11-20] MEDS: PROMETHAZINE 25 MG/1 ML VIAL IM PRN (20:52)
[2017-11-20] MEDS ORDERED: MAGNESIUM CITRATE 300 ML BOTTLE PO ONE (21:00)
[2017-11-21] MEDS: BISACODYL 5 MG TABLET PO SCH
[2017-11-21] MEDS: DEXTROSE 50% 25 GM/50 ML VIAL IV PRN (03:55)
[2017-11-21 07:03] LABS: Basophils % 0.4 % (0.0-0.8); Eosinophils # 0.1 10*3/uL (0.0-0.87); Eosinophils % 1.7 % (0.00-10.9); Hematocrit 40.3 VOL% (35.7-47.0); Hemoglobin 13.3 GM/DL (12.0-16.0); Immature Granulocytes % 0.4 %; Immature Granulocytes Absolute 0.02 #; Lymphocytes # 1.1 10*3/uL (1.4-4.0); Lymphocytes % 22.6 % (21.3-54.2); Mean Corpuscular Hemoglobin 30 PG (27-34); Mean Platelet Volume 10.2 FL (9.6-12.0); Monocytes # 0.4 10*3/uL (0.11-0.8); Monocytes % 8.9 % (1.7-12.7); Neutrophils # 3.1 10*3/uL (1.4-7.4); Platelet Count 222 T/CUMM (130-400); Red Blood Count 4.38 MC/CUMM (3.8-5.5); Red Cell Distribution Width 13.8 % (9.3-17.3); White Blood Count 4.7 T/CUMM (4-12)
[2017-11-21 07:46] LABS: Calcium 8.6 MG/DL (8.5-10.1); Osmolality,Calculated 280.5 MOS/KG (273-304)
[2017-11-21] MEDS ORDERED: CIPROFLOXACIN 500 MG TABLET PO SCH (09:00)
[2017-11-21] MEDS ORDERED: COLESTIPOL 1 GM TABLET PO SCH (09:00)
[2017-11-21] MEDS: LACTOBACILLUS ACIDOPHILUS/BULGARICUS CAPLET PO SCH (09:31)
[2017-11-21] MEDS: PREGABALIN 75 MG CAPSULE PO SCH ×3 (09:31→20:29)
[2017-11-21] MEDS: INSULIN REGULAR 100 UNIT/ML SUBCUT SCH ×4 (09:31→21:38)
[2017-11-21] MEDS ORDERED: INSULIN GLARGINE 100 UNIT/ML SUBCUT SCH (11:30)
[2017-11-21] MEDS: traMADol 50 MG TABLET PO PRN (12:26)
[2017-11-21] MEDS: COLESTIPOL 1 GM TABLET PO SCH ×2 (12:27→20:29)
[2017-11-21] MEDS: ONDANSETRON 4 MG/2 ML VIAL IV PRN (12:58)
[2017-11-21] MEDS: INSULIN LISPRO 100 UNIT/ML SUBCUT SCH (17:19)
[2017-11-21] MEDS: traZODone 50 MG TABLET PO SCH (20:29)
[2017-11-21] MEDS: DULoxetine 30 MG CAPSULE PO SCH (20:29)
[2017-11-21] MEDS: INSULIN GLARGINE 100 UNIT/ML SUBCUT SCH (21:38)
[2017-11-22 06:22] LABS: Basophils % 0.6 % (0.0-0.8); Eosinophils # 0.1 10*3/uL (0.0-0.87); Eosinophils % 2.6 % (0.00-10.9); Hematocrit 35.2 VOL% (35.7-47.0); Hemoglobin 11.7 GM/DL (12.0-16.0); Immature Granulocytes % 0.4 %; Immature Granulocytes Absolute 0.02 #; Lymphocytes # 1.2 10*3/uL (1.4-4.0); Lymphocytes % 22.6 % (21.3-54.2); Mean Corpuscular HGB Conc 33.2 GM/DL (32-36); Mean Corpuscular Hemoglobin 31 PG (27-34); Mean Corpuscular Volume 91.9 FL (87-102); Mean Platelet Volume 10.1 FL (9.6-12.0); Monocytes # 0.5 10*3/uL (0.11-0.8); Neutrophils # 3.5 10*3/uL (1.4-7.4); Neutrophils % 64.8 % (38.7-73.9); Platelet Count 201 T/CUMM (130-400); Red Blood Count 3.83 MC/CUMM (3.8-5.5); Red Cell Distribution Width 13.7 % (9.3-17.3); White Blood Count 5.4 T/CUMM (4-12)
[2017-11-22 06:49] LABS: Calcium 8.2 MG/DL (8.5-10.1); Osmolality,Calculated 280.5 MOS/KG (273-304); Potassium 3.7 MMOL/L (3.5-5.1)
[2017-11-22] MEDS ORDERED: DIPHENOXYLATE/ATROPINE 2.5-0.025 MG TABLET PO PRN (07:07)
[2017-11-22] MEDS ORDERED: MAGNESIUM SULF RIDER 4 GM in PREMIX 1 EACH IV PRN (08:52)
[2017-11-22] MEDS ORDERED: MAGNESIUM SULF RIDER 2 GM in PREMIX 1 EACH IV PRN (08:52)
[2017-11-22] MEDS: PREGABALIN 75 MG CAPSULE PO SCH ×3 (09:05→21:07)
[2017-11-22] MEDS: CIPROFLOXACIN 500 MG TABLET PO SCH ×2 (09:05→21:07)
[2017-11-22] MEDS: INSULIN REGULAR 100 UNIT/ML SUBCUT SCH ×3 (09:05→16:08)
[2017-11-22] MEDS: INSULIN LISPRO 100 UNIT/ML SUBCUT SCH ×2 (09:05→16:09)
[2017-11-22] MEDS: INSULIN GLARGINE 100 UNIT/ML SUBCUT SCH (09:06)
[2017-11-22] MEDS ORDERED: FLUCONAZOLE 200 MG TABLET PO ONE (10:10)
[2017-11-22] MEDS: BACITRACIN OINT 0.9 GM PACK TOP SCH (16:51)
[2017-11-22] MEDS: PROMETHAZINE 25 MG/1 ML VIAL IM PRN (18:32)
[2017-11-22] MEDS: traMADol 50 MG TABLET PO PRN (21:07)
[2017-11-22] MEDS: traZODone 50 MG TABLET PO SCH (21:07)
[2017-11-23] MEDS: INSULIN REGULAR 100 UNIT/ML SUBCUT SCH ×5 (00:26→21:06)
[2017-11-23 06:27] LABS: Calcium 8.7 MG/DL (8.5-10.1); Osmolality,Calculated 285.8 MOS/KG (273-304); Potassium 3.9 MMOL/L (3.5-5.1)
[2017-11-23] MEDS: INSULIN LISPRO 100 UNIT/ML SUBCUT SCH ×2 (09:11→17:08)
[2017-11-23] MEDS: DIPHENOXYLATE/ATROPINE 2.5-0.025 MG TABLET PO SCH ×4 (09:12→21:05)
[2017-11-23] MEDS: PREGABALIN 75 MG CAPSULE PO SCH ×3 (09:12→21:05)
[2017-11-23] MEDS: BACITRACIN OINT 0.9 GM PACK TOP SCH (09:12)
[2017-11-23] MEDS: CIPROFLOXACIN 500 MG TABLET PO SCH ×2 (09:12→21:05)
[2017-11-23] MEDS: INSULIN GLARGINE 100 UNIT/ML SUBCUT SCH (09:16)
[2017-11-23] MEDS ORDERED: FLUCONAZOLE 150 MG TABLET PO ONE (10:10)
[2017-11-23] MEDS: traMADol 50 MG TABLET PO PRN (21:04)
[2017-11-23] MEDS: traZODone 50 MG TABLET PO SCH (21:04)
[2017-11-24 07:25] VITALS: BP 90/63
[2017-11-24] MEDS: INSULIN GLARGINE 100 UNIT/ML SUBCUT SCH (09:40)
[2017-11-24] MEDS: INSULIN REGULAR 100 UNIT/ML SUBCUT SCH ×2 (09:40→12:37)
[2017-11-24] MEDS: INSULIN LISPRO 100 UNIT/ML SUBCUT SCH (09:40)
[2017-11-24] MEDS: BACITRACIN OINT 0.9 GM PACK TOP SCH (09:41)
[2017-11-24] MEDS: traMADol 50 MG TABLET PO PRN (09:41)
[2017-11-24] MEDS: CIPROFLOXACIN 500 MG TABLET PO SCH (09:41)
[2017-11-24] MEDS: PREGABALIN 75 MG CAPSULE PO SCH (09:41)
[2017-11-24] MEDS: DIPHENOXYLATE/ATROPINE 2.5-0.025 MG TABLET PO SCH (09:41)
== END 2017-11-24 12:34 | disposition home or self-care (01) | DRG 249 ==
LOC: N.5E → SUATTDRO 16:42
PROVIDERS: ADMIT Family Medicine; ATTEND Family Medicine

== ENCOUNTER 2017-11-30 16:59 | Inpatient (IN) ==
[2017-11-30] MEDS ORDERED: SODIUM CHLORIDE 0.9% 2,000 ML IV STA (17:38)
[2017-11-30] MEDS ORDERED: ONDANSETRON 4 MG/2 ML VIAL IV STA (17:39)
[2017-11-30 18:12] LABS: Basophils % 0.2 % (0.0-0.8); Hemoglobin 15.1 GM/DL (12.0-16.0); Immature Granulocytes % 1.3 %; Immature Granulocytes Absolute 0.28 #; Lymphocytes # 0.7 10*3/uL (1.4-4.0); Lymphocytes % 3.2 % (21.3-54.2); Mean Corpuscular HGB Conc 36.9 GM/DL (32-36); Mean Corpuscular Hemoglobin 31 PG (27-34); Mean Corpuscular Volume 82.8 FL (87-102); Mean Platelet Volume 10.4 FL (9.6-12.0); Monocytes # 1.1 10*3/uL (0.11-0.8); Monocytes % 5.1 % (1.7-12.7); Neutrophils # 19.7 10*3/uL (1.4-7.4); Neutrophils % 90.2 % (38.7-73.9); Platelet Count 359 T/CUMM (130-400); Red Blood Count 4.94 MC/CUMM (3.8-5.5); Red Cell Distribution Width 12.9 % (9.3-17.3); White Blood Count 21.8 T/CUMM (4-12)
[2017-11-30 18:13] LABS: Hematocrit 41.1 VOL% (35.7-47.0)
[2017-11-30 18:13] LABS: Apearance,Urine Slightly Hazy (Clear); Bacteria,Urine Occasional /HPF (Few); Bilirubin,Urine Negative (Negative); Blood, Urine Moderate mg/dL (Negative); Glucose,Urine (UA) >=500 mg/dL (Negative); Ketones,Urine 80 mg/dL (Negative); Nitrite,Urine Negative (Negative); Protein,Urine 100 MG/DL; Squamous Epithelial Cell,Urine Occasional /HPF (0-10); Urine Color Yellow (Yellow); Urine Specific Gravity 1.015 (1.001-1.035); Urine Urobilinogen < 2.0 EU/DL (0.2-1.0); WBC,Urine <1 /HPF (0-6)
[2017-11-30 18:18] LABS: Albumin 3.4 G/DL (3.4-5.0); Bilirubin,Direct 0.1 MG/DL (0.0-0.20); Bilirubin,Indirect 0.4 MG/DL (0.0-1.0); Bilirubin,Total 0.5 MG/DL (0.2-1.0); Calcium 8.9 MG/DL (8.5-10.1); Osmolality,Calculated 262.6 MOS/KG (273-304); Potassium 5.7 MMOL/L (3.5-5.1); Total Protein 8.5 G/DL (6.4-8.3)
[2017-11-30 18:35] LABS: Barbiturates Screen,Urine Negative (Negative); Benzodiazepines Screen,Urine Negative (Negative); Cannabinoid Screen,Urine Negative (Negative); Opiate Screen,Urine Negative (Negative); Phencyclidine Screen,Urine Negative (Negative)
[2017-11-30] MEDS ORDERED: PIPERACILLIN/TAZOBACTAM 3,375 MG in SODIUM CHLORIDE 0.9% 100 ML IV STA (19:09)
[2017-11-30 19:14] LABS: Band Neutrophils 2 % (0-10); Lymphocytes 2 % (20-55); Platelet Estimate Normal; Segmented Neutrophils 92 % (50-85); Total Cells Counted 100
[2017-11-30] MEDS ORDERED: AZITHROMYCIN INJ 500 MG in SODIUM CHLORIDE 0.9% 250 ML IV STA (19:18)
[2017-11-30] MEDS ORDERED: ALBUTEROL 2.5 MG/3 ML NEB RESP TX PRN (21:45)
[2017-11-30] MEDS ORDERED: SODIUM CHLORIDE 0.9% 1,000 ML IV ONE (21:45)
[2017-11-30] MEDS: PREGABALIN 75 MG CAPSULE PO SCH (22:15)
[2017-11-30] MEDS: DULoxetine 30 MG CAPSULE PO SCH (22:15)
[2017-11-30] MEDS ORDERED: PROMETHAZINE 25 MG/1 ML VIAL IM PRN (22:42)
[2017-11-30] MEDS: ONDANSETRON 4 MG/2 ML VIAL IV PRN (23:35)
[2017-12-01] MEDS: LINEZOLID INJ 600 MG in PREMIX 1 EACH IV SCH ×2 (01:33→18:35)
[2017-12-01] MEDS ORDERED: SODIUM CHLORIDE 0.9% 500 ML IV ONE (02:06)
[2017-12-01] MEDS: SODIUM CHLORIDE 0.9% 1,000 ML IV SCH ×4 (02:37→23:06)
[2017-12-01] MEDS: ONDANSETRON 4 MG/2 ML VIAL IV PRN ×3 (04:17→15:44)
[2017-12-01] MEDS: PIPERACILLIN/TAZOBACTAM 3,375 MG in SODIUM CHLORIDE 0.9% 100 ML IV SCH ×3 (05:21→22:02)
[2017-12-01 06:02] LABS: Basophils % 0.1 % (0.0-0.8); Eosinophils % 0.3 % (0.00-10.9); Hematocrit 34.4 VOL% (35.7-47.0); Hemoglobin 12.3 GM/DL (12.0-16.0); Immature Granulocytes % 0.4 %; Immature Granulocytes Absolute 0.05 #; Lymphocytes % 9.2 % (21.3-54.2); Mean Corpuscular HGB Conc 35.8 GM/DL (32-36); Mean Corpuscular Hemoglobin 30 PG (27-34); Mean Corpuscular Volume 84.1 FL (87-102); Mean Platelet Volume 10.1 FL (9.6-12.0); Monocytes # 0.8 10*3/uL (0.11-0.8); Monocytes % 6.9 % (1.7-12.7); Neutrophils # 9.4 10*3/uL (1.4-7.4); Neutrophils % 83.1 % (38.7-73.9); Platelet Count 250 T/CUMM (130-400); Red Blood Count 4.09 MC/CUMM (3.8-5.5); Red Cell Distribution Width 13.4 % (9.3-17.3); White Blood Count 11.3 T/CUMM (4-12)
[2017-12-01 06:32] LABS: Calcium 8.1 MG/DL (8.5-10.1); Osmolality,Calculated 277.8 MOS/KG (273-304); Potassium 3.7 MMOL/L (3.5-5.1)
[2017-12-01] MEDS: INSULIN LISPRO 100 UNIT/ML SUBCUT SCH ×3 (08:12→19:27)
[2017-12-01] MEDS: PREGABALIN 75 MG CAPSULE PO SCH ×3 (08:45→20:20)
[2017-12-01] MEDS: ENOXAPARIN 40 MG/0.4 ML SYRINGE SUBCUT SCH (08:46)
[2017-12-01] MEDS: TOPIRAMATE 25 MG TABLET PO SCH (08:46)
[2017-12-01] MEDS: INSULIN GLARGINE 100 UNIT/ML SUBCUT SCH (08:47)
[2017-12-01 10:08] LABS: HIV Antigen/Antibody Result Nonreactive (Nonreactive)
[2017-12-01] MEDS ORDERED: DEXTROSE 50% 25 GM/50 ML VIAL IV PRN (11:49)
[2017-12-01] MEDS ORDERED: GLUCAGON 1 MG VIAL IM PRN (11:49)
[2017-12-01] MEDS: DULoxetine 30 MG CAPSULE PO SCH (20:20)
[2017-12-02] MEDS: LINEZOLID INJ 600 MG in PREMIX 1 EACH IV SCH ×2 (02:40→15:35)
[2017-12-02] MEDS: ONDANSETRON 4 MG/2 ML VIAL IV PRN (03:13)
[2017-12-02 04:28] LABS: Basophils % 0.1 % (0.0-0.8); Eosinophils % 0.2 % (0.00-10.9); Hematocrit 33.1 VOL% (35.7-47.0); Hemoglobin 12.2 GM/DL (12.0-16.0); Immature Granulocytes % 0.4 %; Immature Granulocytes Absolute 0.04 #; Lymphocytes # 1.1 10*3/uL (1.4-4.0); Lymphocytes % 11.5 % (21.3-54.2); Mean Corpuscular HGB Conc 36.9 GM/DL (32-36); Mean Corpuscular Hemoglobin 31 PG (27-34); Mean Platelet Volume 10.5 FL (9.6-12.0); Monocytes # 0.5 10*3/uL (0.11-0.8); Monocytes % 5.3 % (1.7-12.7); Neutrophils # 7.6 10*3/uL (1.4-7.4); Neutrophils % 82.5 % (38.7-73.9); Platelet Count 255 T/CUMM (130-400); Red Blood Count 3.94 MC/CUMM (3.8-5.5); Red Cell Distribution Width 14.4 % (9.3-17.3); White Blood Count 9.2 T/CUMM (4-12)
[2017-12-02 05:12] LABS: Calcium 8.1 MG/DL (8.5-10.1); Osmolality,Calculated 276.7 MOS/KG (273-304); Potassium 3.3 MMOL/L (3.5-5.1)
[2017-12-02] MEDS: SODIUM CHLORIDE 0.9% 1,000 ML IV SCH ×4 (05:42→18:08)
[2017-12-02] MEDS: PIPERACILLIN/TAZOBACTAM 3,375 MG in SODIUM CHLORIDE 0.9% 100 ML IV SCH ×3 (05:42→21:59)
[2017-12-02] MEDS: INSULIN LISPRO 100 UNIT/ML SUBCUT SCH ×4 (07:29→21:08)
[2017-12-02] MEDS: ENOXAPARIN 40 MG/0.4 ML SYRINGE SUBCUT SCH (09:27)
[2017-12-02] MEDS: PREGABALIN 75 MG CAPSULE PO SCH ×3 (09:29→21:06)
[2017-12-02] MEDS: INSULIN GLARGINE 100 UNIT/ML SUBCUT SCH (09:29)
[2017-12-02] MEDS: TOPIRAMATE 25 MG TABLET PO SCH (09:29)
[2017-12-02] MEDS ORDERED: DEXTROSE 50% 25 GM/50 ML VIAL IV PRN (11:42)
[2017-12-02] MEDS ORDERED: POTASSIUM CHLORIDE 20 MEQ TABLET PO ONE (11:42)
[2017-12-02] MEDS ORDERED: GLUCAGON 1 MG VIAL IM PRN (11:42)
[2017-12-02] MEDS: DULoxetine 30 MG CAPSULE PO SCH (21:06)
[2017-12-03] MEDS: ONDANSETRON 4 MG/2 ML VIAL IV PRN (01:28)
[2017-12-03] MEDS ORDERED: LINEZOLID 600 MG/300 ML PREMIX IV ONE (02:28)
[2017-12-03] MEDS: LINEZOLID INJ 600 MG in PREMIX 1 EACH IV SCH ×2 (02:31→16:19)
[2017-12-03] MEDS: PIPERACILLIN/TAZOBACTAM 3,375 MG in SODIUM CHLORIDE 0.9% 100 ML IV SCH ×3 (06:04→22:52)
[2017-12-03] MEDS: SODIUM CHLORIDE 0.9% 1,000 ML IV SCH ×2 (07:23→14:44)
[2017-12-03 07:53] LABS: Calcium 8.5 MG/DL (8.5-10.1); Osmolality,Calculated 287.5 MOS/KG (273-304); Potassium 3.1 MMOL/L (3.5-5.1)
[2017-12-03 08:31] LABS: Total Protein (Chem) 7.4 G/DL (6.4-8.3)
[2017-12-03] MEDS: PREGABALIN 75 MG CAPSULE PO SCH ×3 (09:03→20:33)
[2017-12-03] MEDS: TOPIRAMATE 25 MG TABLET PO SCH (09:03)
[2017-12-03] MEDS: ENOXAPARIN 40 MG/0.4 ML SYRINGE SUBCUT SCH (09:03)
[2017-12-03] MEDS: INSULIN LISPRO 100 UNIT/ML SUBCUT SCH ×4 (09:04→20:32)
[2017-12-03 10:22] LABS: Basophils % 0.4 % (0.0-0.8); Eosinophils # 0.1 10*3/uL (0.0-0.87); Hematocrit 30.6 VOL% (35.7-47.0); Hemoglobin 10.8 GM/DL (12.0-16.0); Immature Granulocytes % 0.8 %; Immature Granulocytes Absolute 0.04 #; Lymphocytes # 0.8 10*3/uL (1.4-4.0); Mean Corpuscular HGB Conc 35.3 GM/DL (32-36); Mean Corpuscular Hemoglobin 30 PG (27-34); Mean Platelet Volume 10.3 FL (9.6-12.0); Monocytes # 0.3 10*3/uL (0.11-0.8); Monocytes % 5.2 % (1.7-12.7); Neutrophils # 3.9 10*3/uL (1.4-7.4); Neutrophils % 77.6 % (38.7-73.9); Platelet Count 197 T/CUMM (130-400); Red Blood Count 3.56 MC/CUMM (3.8-5.5); Red Cell Distribution Width 14.5 % (9.3-17.3)
[2017-12-03 11:03] LABS: Albumin (SPE) 3.8 G/DL (3.2-5.3); Albumin (SPE) Rel % 51.3 %; Alpha 1 (SPE) 0.3 G/DL (0.1-0.4); Alpha 1 (SPE) Rel % 3.4 %; Alpha 2 (SPE) 0.9 G/DL (0.4-1.0); Alpha 2 (SPE) Rel % 13.2 %; Beta (SPE) 0.8 G/DL (0.5-1.1); Beta (SPE) Rel % 10.2 %; Gamma (SPE) 1.6 G/DL (0.7-1.7); Gamma (SPE) Rel % 21.9 %
[2017-12-03] MEDS: POTASSIUM CHLORIDE 20 MEQ TABLET PO SCH ×4 (12:24→22:51)
[2017-12-03] MEDS: DULoxetine 30 MG CAPSULE PO SCH (20:33)
[2017-12-04] MEDS: LINEZOLID INJ 600 MG in PREMIX 1 EACH IV SCH ×2 (03:53→14:43)
[2017-12-04] MEDS: SODIUM CHLORIDE 0.9% 1,000 ML IV SCH (03:57)
[2017-12-04] MEDS: ONDANSETRON 4 MG/2 ML VIAL IV PRN ×2 (04:01→08:06)
[2017-12-04] MEDS: PIPERACILLIN/TAZOBACTAM 3,375 MG in SODIUM CHLORIDE 0.9% 100 ML IV SCH ×3 (05:58→22:38)
[2017-12-04] MEDS: INSULIN LISPRO 100 UNIT/ML SUBCUT SCH ×4 (08:06→20:53)
[2017-12-04 08:39] LABS: Calcium 8.7 MG/DL (8.5-10.1); Osmolality,Calculated 290.2 MOS/KG (273-304); Potassium 4.8 MMOL/L (3.5-5.1)
[2017-12-04] MEDS: ENOXAPARIN 40 MG/0.4 ML SYRINGE SUBCUT SCH (08:59)
[2017-12-04] MEDS ORDERED: POTASSIUM CHLORIDE INJ 30 MEQ in LACTATED RINGERS 1,000 ML IV SCH (09:00)
[2017-12-04] MEDS ORDERED: LACTATED RINGERS 1,000 ML IV SCH (11:00)
[2017-12-04] MEDS: PREGABALIN 75 MG CAPSULE PO SCH ×3 (11:05→20:54)
[2017-12-04] MEDS: TOPIRAMATE 25 MG TABLET PO SCH (13:58)
[2017-12-04] MEDS ORDERED: GLUCAGON 1 MG VIAL IM PRN (16:12)
[2017-12-04] MEDS ORDERED: DEXTROSE 50% 25 GM/50 ML VIAL IV PRN (16:12)
[2017-12-04] MEDS ORDERED: INSULIN NPH 100 UNIT/ML SUBCUT SCH (16:30)
[2017-12-04] MEDS: DULoxetine 30 MG CAPSULE PO SCH (20:53)
[2017-12-05] MEDS: LINEZOLID INJ 600 MG in PREMIX 1 EACH IV SCH (04:20)
[2017-12-05 06:08] LABS: Calcium 8.8 MG/DL (8.5-10.1); Osmolality,Calculated 282.8 MOS/KG (273-304); Potassium 3.9 MMOL/L (3.5-5.1)
[2017-12-05] MEDS: PIPERACILLIN/TAZOBACTAM 3,375 MG in SODIUM CHLORIDE 0.9% 100 ML IV SCH (07:14)
[2017-12-05] MEDS: INSULIN NPH 100 UNIT/ML SUBCUT SCH ×2 (09:49→17:40)
[2017-12-05] MEDS: INSULIN LISPRO 100 UNIT/ML SUBCUT SCH ×4 (09:49→21:35)
[2017-12-05] MEDS: ENOXAPARIN 40 MG/0.4 ML SYRINGE SUBCUT SCH (09:50)
[2017-12-05] MEDS: TOPIRAMATE 25 MG TABLET PO SCH (09:53)
[2017-12-05] MEDS: PREGABALIN 75 MG CAPSULE PO SCH ×3 (09:53→21:34)
[2017-12-05] MEDS: METOCLOPRAMIDE 10 MG TABLET PO SCH ×2 (11:38→17:40)
[2017-12-05 17:31] LABS: Cryptosporidium Antigen Stool Negative (Negative)
[2017-12-05] MEDS: DULoxetine 30 MG CAPSULE PO SCH (21:34)
[2017-12-06] MEDS: INSULIN LISPRO 100 UNIT/ML SUBCUT SCH ×4 (09:12→21:54)
[2017-12-06] MEDS: CHOLESTYRAMINE/ASPARTAME 4 GM PACK PO SCH ×3 (09:13→21:57)
[2017-12-06] MEDS: INSULIN NPH 100 UNIT/ML SUBCUT SCH (09:14)
[2017-12-06] MEDS: PREGABALIN 75 MG CAPSULE PO SCH ×3 (09:15→21:53)
[2017-12-06] MEDS: METOCLOPRAMIDE 10 MG TABLET PO SCH ×3 (09:15→17:55)
[2017-12-06] MEDS: TOPIRAMATE 25 MG TABLET PO SCH (09:15)
[2017-12-06] MEDS ORDERED: SKIN HEALING OINT (AQUAPHOR) 50 GM TUBE TOP PRN (10:48)
[2017-12-06] MEDS: ENOXAPARIN 40 MG/0.4 ML SYRINGE SUBCUT SCH (11:30)
[2017-12-06 14:19] LABS: Coproporphyrin, Tetra 15 nmol/L (<=110); Interpretation SEE COMMENTS; Uroporphyrin, Octa 3 nmol/L (<=30)
[2017-12-06] MEDS ORDERED: INSULIN NPH 100 UNIT/ML SUBCUT SCH (16:30)
[2017-12-06] MEDS: DULoxetine 30 MG CAPSULE PO SCH (21:53)
[2017-12-07] MEDS: INSULIN NPH 100 UNIT/ML SUBCUT SCH (07:57)
[2017-12-07] MEDS: INSULIN LISPRO 100 UNIT/ML SUBCUT SCH ×4 (07:57→21:41)
[2017-12-07] MEDS: METOCLOPRAMIDE 10 MG TABLET PO SCH ×3 (07:57→18:26)
[2017-12-07] MEDS: PREGABALIN 75 MG CAPSULE PO SCH ×3 (08:00→21:41)
[2017-12-07] MEDS: ENOXAPARIN 40 MG/0.4 ML SYRINGE SUBCUT SCH (08:00)
[2017-12-07] MEDS: TOPIRAMATE 25 MG TABLET PO SCH (08:01)
[2017-12-07] MEDS: CHOLESTYRAMINE/ASPARTAME 4 GM PACK PO SCH ×2 (08:01→21:41)
[2017-12-07] MEDS ORDERED: ALUMINUM/MAGNES/SIMETH MAX STR 30 ML UDCUP PO PRN (11:32)
[2017-12-07] MEDS ORDERED: INSULIN NPH 100 UNIT/ML SUBCUT SCH (11:35)
[2017-12-07] MEDS: ALBUTEROL/IPRATROPIUM 3 ML NEB RESP TX SCH ×2 (14:24→19:19)
[2017-12-07] MEDS: DULoxetine 30 MG CAPSULE PO SCH (21:41)
[2017-12-07] MEDS: ONDANSETRON 4 MG/2 ML VIAL IV PRN (22:41)
[2017-12-08] MEDS: ALBUTEROL/IPRATROPIUM 3 ML NEB RESP TX SCH ×4 (00:19→11:00)
[2017-12-08 07:22] LABS: Basophils % 0.5 % (0.0-0.8); Eosinophils # 0.2 10*3/uL (0.0-0.87); Immature Granulocytes % 0.5 %; Immature Granulocytes Absolute 0.02 #; Lymphocytes # 1.3 10*3/uL (1.4-4.0); Lymphocytes % 32.5 % (21.3-54.2); Mean Corpuscular HGB Conc 34.4 GM/DL (32-36); Mean Corpuscular Hemoglobin 30 PG (27-34); Mean Corpuscular Volume 88.4 FL (87-102); Mean Platelet Volume 9.4 FL (9.6-12.0); Monocytes # 0.5 10*3/uL (0.11-0.8); Monocytes % 11.9 % (1.7-12.7); Neutrophils % 49.6 % (38.7-73.9); Platelet Count 253 T/CUMM (130-400); Red Blood Count 3.62 MC/CUMM (3.8-5.5); Red Cell Distribution Width 13.4 % (9.3-17.3)
[2017-12-08 07:30] VITALS: BP 112/73
[2017-12-08 07:50] LABS: Calcium 8.4 MG/DL (8.5-10.1); Osmolality,Calculated 285.7 MOS/KG (273-304); Potassium 3.7 MMOL/L (3.5-5.1)
[2017-12-08] MEDS: CHOLESTYRAMINE/ASPARTAME 4 GM PACK PO SCH (10:05)
[2017-12-08] MEDS: METOCLOPRAMIDE 10 MG TABLET PO SCH (10:05)
[2017-12-08] MEDS: TOPIRAMATE 25 MG TABLET PO SCH (10:06)
[2017-12-08] MEDS: ENOXAPARIN 40 MG/0.4 ML SYRINGE SUBCUT SCH (10:06)
[2017-12-08] MEDS: INSULIN NPH 100 UNIT/ML SUBCUT SCH (10:07)
[2017-12-08] MEDS: INSULIN LISPRO 100 UNIT/ML SUBCUT SCH (10:08)
[2017-12-08] MEDS ORDERED: PREGABALIN 75 MG CAPSULE PO SCH (10:17)
[2017-12-08] MEDS ORDERED: FLUCONAZOLE 150 MG TABLET PO ONE (10:23)
[2017-12-08] MEDS: PREGABALIN 75 MG CAPSULE PO SCH (11:30)
== END 2017-12-08 12:30 | disposition home or self-care (01) | DRG 720 ==
LOC: EDBD → EDUNIT# → N.ED 16:59 → N.EDINP 20:03 → SUATTDRO 20:03 → N.CC 21:39 → N.5E 12-02 17:25
PROVIDERS: ADMIT Internal Medicine Infectious Disease; ATTEND Internal Medicine

== ENCOUNTER 2018-02-23 06:12 | Inpatient (IN) ==
[2018-02-23] MEDS ORDERED: DEXTROSE 50% 25 GM/50 ML VIAL IV PRN (06:39)
[2018-02-23] MEDS ORDERED: INSULIN REGULAR 100 UNIT/ML IV ONE ×2 (06:39→13:12)
[2018-02-23] MEDS ORDERED: SODIUM CHLORIDE 0.9% 2,000 ML IV STA ×2 (06:42→08:04)
[2018-02-23 06:54] LABS: Basophils # 0.1 10*3/uL (0.0-0.2); Basophils % 0.4 % (0.0-0.8); Eosinophils # 0.2 10*3/uL (0.0-0.87); Eosinophils % 0.7 % (0.00-10.9); Hematocrit 36.8 VOL% (35.7-47.0); Hemoglobin 11.4 GM/DL (12.0-16.0); Immature Granulocytes % 0.9 %; Immature Granulocytes Absolute 0.21 #; Lymphocytes # 2.4 10*3/uL (1.4-4.0); Lymphocytes % 10.8 % (21.3-54.2); Mean Corpuscular Hemoglobin 31 PG (27-34); Mean Corpuscular Volume 101.4 FL (87-102); Mean Platelet Volume 9.9 FL (9.6-12.0); Monocytes # 0.7 10*3/uL (0.11-0.8); Neutrophils # 18.8 10*3/uL (1.4-7.4); Neutrophils % 84.2 % (38.7-73.9); Platelet Count 451 T/CUMM (130-400); Red Blood Count 3.63 MC/CUMM (3.8-5.5); Red Cell Distribution Width 13.2 % (9.3-17.3); White Blood Count 22.3 T/CUMM (4-12)
[2018-02-23] MEDS ORDERED: INSULIN REGULAR DRIP 100 ML IV SCH (07:00)
[2018-02-23 07:10] LABS: ABG Base Excess -30.2 MMOL/L (-2.5-2.5); ABG HCO3 1.5 MMOL/L (20-26); ABG Oxygen Saturation 97.2 % (95-100); ABG PH 6.878 (7.35-7.45); ABG PO2 149.4 MM HG (80-95); ABG TCO2 1.7 MMOL/L (23-27)
[2018-02-23 07:13] LABS: ABG PCO2 8.1 MM HG (35-48)
[2018-02-23 07:15] LABS: Calcium 8.2 MG/DL (8.5-10.1); Osmolality,Calculated 306.7 MOS/KG (273-304); Potassium 4.5 MMOL/L (3.5-5.1)
[2018-02-23] MEDS ORDERED: SODIUM BICARBONATE 50 MEQ/50 ML VIAL IV STA (07:17)
[2018-02-23] MEDS ORDERED: SODIUM BICARBONATE 50 MEQ/50 ML SYRINGE IV ONE (07:35)
[2018-02-23 07:48] LABS: Lymphocytes 9 % (20-55); Segmented Neutrophils 87 % (50-85); Total Cells Counted 100
[2018-02-23 07:56] LABS: Apearance,Urine CLEAR (Clear); Bacteria,Urine Occasional /HPF (Few); Bilirubin,Urine Negative (Negative); Blood, Urine Small mg/dL (Negative); Glucose,Urine (UA) >=500 mg/dL (Negative); Ketones,Urine 80 mg/dL (Negative); Nitrite,Urine Negative (Negative); Protein,Urine Negative; RBC,Urine 1 /HPF (0-4); Urine Color Straw (Yellow); Urine Specific Gravity 1.014 (1.001-1.035); Urine Urobilinogen < 2.0 EU/DL (0.2-1.0); WBC,Urine 2 /HPF (0-6)
[2018-02-23] MEDS ORDERED: SODIUM BICARBONATE 50 MEQ/50 ML SYRINGE IV STA (08:05)
[2018-02-23] MEDS ORDERED: ACETAMINOPHEN 325 MG TABLET PO PRN (09:18)
[2018-02-23] MEDS: SODIUM CHLORIDE 0.9% 1,000 ML IV SCH ×3 (09:50→11:35)
[2018-02-23 09:53] LABS: Calcium 7.6 MG/DL (8.5-10.1); Potassium 3.9 MMOL/L (3.5-5.1)
[2018-02-23 09:56] LABS: Osmolality,Calculated 312.8 MOS/KG (273-304)
[2018-02-23] MEDS: PANTOPRAZOLE 40 MG TABLET PO SCH (10:51)
[2018-02-23] MEDS: POTASSIUM CHLORIDE 10 MEQ TABLET PO SCH (10:51)
[2018-02-23] MEDS: INSULIN GLARGINE 100 UNIT/ML SUBCUT SCH (10:54)
[2018-02-23] MEDS: ENOXAPARIN 40 MG/0.4 ML SYRINGE SUBCUT SCH (10:55)
[2018-02-23] MEDS: MEROPENEM 1,000 MG in SODIUM CHLORIDE 0.9% 100 ML IV SCH ×2 (11:01→18:40)
[2018-02-23] MEDS: ONDANSETRON 4 MG/2 ML VIAL IV PRN ×2 (13:12→20:23)
[2018-02-23] MEDS ORDERED: DOPamine 800 MG/250 ML PREMIX IV PRN (13:24)
[2018-02-23] MEDS ORDERED: DOPamine 800 MG/250 ML PREMIX IV ONE (13:37)
[2018-02-23] MEDS ORDERED: SODIUM CHLORIDE 0.9% 1,000 ML IV SCH (14:00)
[2018-02-23 14:10] LABS: Potassium 3.7 MMOL/L (3.5-5.1)
[2018-02-23] MEDS: POTASSIUM CHLORIDE RIDER 10 MEQ in PREMIX 1 EACH IV SCH ×3 (15:25→20:01)
[2018-02-23 17:40] LABS: Calcium 6.9 MG/DL (8.5-10.1); Osmolality,Calculated 294.8 MOS/KG (273-304)
[2018-02-23] MEDS ORDERED: DEXTROSE 5% NACL 0.45% 1,000 ML IV SCH (20:00)
[2018-02-23] MEDS ORDERED: MAGNESIUM SULF RIDER 4 GM in PREMIX 1 EACH IV ONE (20:00)
[2018-02-23] MEDS ORDERED: POTASSIUM CHLORIDE RIDER 10 MEQ in PREMIX 1 EACH IV SCH (20:00)
[2018-02-23] MEDS: DEXT 5% NACL 0.45% KCL 10 MEQ 10 MEQ/1,000 ML BAG IV SCH (20:09)
[2018-02-24 00:59] LABS: Calcium 7.2 MG/DL (8.5-10.1)
[2018-02-24 01:00] LABS: Osmolality,Calculated 285.7 MOS/KG (273-304); Potassium 3.6 MMOL/L (3.5-5.1)
[2018-02-24] MEDS: MEROPENEM 1,000 MG in SODIUM CHLORIDE 0.9% 100 ML IV SCH ×3 (01:40→19:20)
[2018-02-24] MEDS: POTASSIUM CHLORIDE RIDER 10 MEQ in PREMIX 1 EACH IV PRN ×2 (01:41→02:36)
[2018-02-24] MEDS: DEXT 5% NACL 0.45% KCL 10 MEQ 10 MEQ/1,000 ML BAG IV SCH ×3 (02:37→16:06)
[2018-02-24 05:02] LABS: Basophils % 0.3 % (0.0-0.8); Eosinophils # 0.1 10*3/uL (0.0-0.87); Eosinophils % 0.5 % (0.00-10.9); Hematocrit 28.6 VOL% (35.7-47.0); Hemoglobin 9.6 GM/DL (12.0-16.0); Immature Granulocytes % 0.6 %; Immature Granulocytes Absolute 0.07 #; Lymphocytes # 1.5 10*3/uL (1.4-4.0); Mean Corpuscular HGB Conc 33.6 GM/DL (32-36); Mean Corpuscular Hemoglobin 31 PG (27-34); Mean Corpuscular Volume 91.7 FL (87-102); Mean Platelet Volume 10.3 FL (9.6-12.0); Monocytes # 0.5 10*3/uL (0.11-0.8); Monocytes % 4.5 % (1.7-12.7); Neutrophils # 9.2 10*3/uL (1.4-7.4); Neutrophils % 81.1 % (38.7-73.9); Platelet Count 262 T/CUMM (130-400); Red Blood Count 3.12 MC/CUMM (3.8-5.5); Red Cell Distribution Width 13.4 % (9.3-17.3); White Blood Count 11.4 T/CUMM (4-12)
[2018-02-24 05:25] LABS: Band Neutrophils 1 % (0-10); Eosinophils 3 % (0-10); Hypochromasia 1+; Lymphocytes 11 % (20-55); Platelet Estimate Adequate; Segmented Neutrophils 83 % (50-85); Total Cells Counted 100
[2018-02-24 07:58] LABS: Calcium 7.2 MG/DL (8.5-10.1); Osmolality,Calculated 283.8 MOS/KG (273-304); Potassium 3.7 MMOL/L (3.5-5.1)
[2018-02-24] MEDS: POTASSIUM CHLORIDE 10 MEQ TABLET PO SCH (09:54)
[2018-02-24] MEDS: INSULIN GLARGINE 100 UNIT/ML SUBCUT SCH (09:54)
[2018-02-24] MEDS: PANTOPRAZOLE 40 MG TABLET PO SCH (09:54)
[2018-02-24] MEDS: ENOXAPARIN 40 MG/0.4 ML SYRINGE SUBCUT SCH (09:55)
[2018-02-24 14:46] LABS: Calcium 7.7 MG/DL (8.5-10.1); Osmolality,Calculated 282.1 MOS/KG (273-304); Potassium 3.7 MMOL/L (3.5-5.1)
[2018-02-24] MEDS: ZINC OXIDE PASTE 113 GM TUBE TOP SCH ×2 (15:57→23:57)
[2018-02-24] MEDS ORDERED: GLUCAGON 1 MG VIAL IM PRN (17:07)
[2018-02-24] MEDS ORDERED: DEXTROSE 50% 25 GM/50 ML VIAL IV PRN (17:07)
[2018-02-24] MEDS ORDERED: INSULIN REGULAR 100 UNIT/ML SUBCUT SCH (20:00)
[2018-02-24] MEDS: INSULIN REGULAR 100 UNIT/ML SUBCUT SCH (23:57)
[2018-02-25] MEDS: MEROPENEM 1,000 MG in SODIUM CHLORIDE 0.9% 100 ML IV SCH ×2 (02:41→11:58)
[2018-02-25] MEDS: INSULIN REGULAR 100 UNIT/ML SUBCUT SCH ×2 (04:00→09:08)
[2018-02-25 04:17] VITALS: BP 128/81
[2018-02-25 04:50] LABS: Eosinophils # 0.1 10*3/uL (0.0-0.87); Eosinophils % 1.4 % (0.00-10.9); Hematocrit 27.1 VOL% (35.7-47.0); Hemoglobin 9.3 GM/DL (12.0-16.0); Immature Granulocytes % 0.3 %; Immature Granulocytes Absolute 0.02 #; Lymphocytes # 0.9 10*3/uL (1.4-4.0); Lymphocytes % 13.4 % (21.3-54.2); Mean Corpuscular HGB Conc 34.3 GM/DL (32-36); Mean Corpuscular Hemoglobin 31 PG (27-34); Mean Corpuscular Volume 90.9 FL (87-102); Mean Platelet Volume 9.5 FL (9.6-12.0); Monocytes # 0.4 10*3/uL (0.11-0.8); Monocytes % 6.2 % (1.7-12.7); Neutrophils # 5.1 10*3/uL (1.4-7.4); Neutrophils % 78.7 % (38.7-73.9); Platelet Count 197 T/CUMM (130-400); Red Blood Count 2.98 MC/CUMM (3.8-5.5); Red Cell Distribution Width 13.7 % (9.3-17.3); White Blood Count 6.4 T/CUMM (4-12)
[2018-02-25 05:28] LABS: Albumin 2.1 G/DL (3.4-5.0); Bilirubin,Total 0.6 MG/DL (0.2-1.0); Calcium 7.8 MG/DL (8.5-10.1); Osmolality,Calculated 275.4 MOS/KG (273-304); Potassium 3.3 MMOL/L (3.5-5.1); Total Protein 5.7 G/DL (6.4-8.3)
[2018-02-25] MEDS: PANTOPRAZOLE 40 MG TABLET PO SCH (09:04)
[2018-02-25] MEDS: POTASSIUM CHLORIDE 10 MEQ TABLET PO SCH (09:04)
[2018-02-25] MEDS: INSULIN GLARGINE 100 UNIT/ML SUBCUT SCH (09:05)
[2018-02-25] MEDS: ZINC OXIDE PASTE 113 GM TUBE TOP SCH (09:07)
[2018-02-25] MEDS: ENOXAPARIN 40 MG/0.4 ML SYRINGE SUBCUT SCH (12:01)
== END 2018-02-25 13:43 | disposition home or self-care (01) | DRG 420 ==
LOC: EDUNIT# → EDBD → N.ED 06:12 → SUATTDRO 07:23 → N.EDINP 07:23 → N.CC 08:55
PROVIDERS: ADMIT Internal Medicine; ATTEND Hospitalist

== ENCOUNTER 2018-03-11 00:08 | Inpatient (IN) ==
[2018-03-11] MEDS ORDERED: SODIUM CHLORIDE 0.9% 1,000 ML IV STA (00:21)
[2018-03-11 00:33] LABS: ABG Base Excess -29.6 MMOL/L (-2.5-2.5); ABG HCO3 1.5 MMOL/L (20-26); ABG PO2 146.9 MM HG (80-95); ABG TCO2 1.8 MMOL/L (23-27)
[2018-03-11 00:36] LABS: ABG PCO2 7.8 MM HG (35-48); ABG PH 6.905 (7.35-7.45)
[2018-03-11] MEDS ORDERED: SODIUM BICARBONATE 50 MEQ/50 ML SYRINGE IV ONE ×3 (00:36→03:52)
[2018-03-11 00:54] LABS: Basophils # 0.1 10*3/uL (0.0-0.2); Basophils % 0.6 % (0.0-0.8); Eosinophils # 0.1 10*3/uL (0.0-0.87); Eosinophils % 0.3 % (0.00-10.9); Hematocrit 39.8 VOL% (35.7-47.0); Immature Granulocytes % 2.1 %; Immature Granulocytes Absolute 0.42 #; Lymphocytes # 1.8 10*3/uL (1.4-4.0); Lymphocytes % 9.1 % (21.3-54.2); Mean Corpuscular HGB Conc 30.2 GM/DL (32-36); Mean Corpuscular Hemoglobin 32 PG (27-34); Mean Platelet Volume 11.3 FL (9.6-12.0); Monocytes % 5.2 % (1.7-12.7); NRBC # 0.03 10*3/uL; Neutrophils # 16.6 10*3/uL (1.4-7.4); Neutrophils % 82.7 % (38.7-73.9); Platelet Count 462 T/CUMM (130-400); Red Blood Count 3.79 MC/CUMM (3.8-5.5); Red Cell Distribution Width 13.6 % (9.3-17.3); White Blood Count 20.1 T/CUMM (4-12)
[2018-03-11 01:01] LABS: Calcium 8.9 MG/DL (8.5-10.1); Osmolality,Calculated 308.5 MOS/KG (273-304); Potassium 5.8 MMOL/L (3.5-5.1); Total Protein 7.5 G/DL (6.4-8.3)
[2018-03-11] MEDS ORDERED: INSULIN REGULAR 100 UNIT/ML IV STA (01:19)
[2018-03-11] MEDS ORDERED: INSULIN REGULAR DRIP 100 ML IV PRN (01:20)
[2018-03-11] MEDS ORDERED: LACTATED RINGERS 1,000 ML IV SCH (01:30)
[2018-03-11 01:41] LABS: ABG Base Excess -29.3 MMOL/L (-2.5-2.5); ABG HCO3 5.3 MMOL/L (20-26); ABG Oxygen Saturation 98.4 % (95-100); ABG TCO2 5.3 MMOL/L (23-27); Allen Test Positive; Pt O2 Delivery Device Ventilator
[2018-03-11 01:43] LABS: ABG PH 6.801 (7.35-7.45)
[2018-03-11 01:46] LABS: Band Neutrophils 4 % (0-10); Lymphocytes 12 % (20-55); Segmented Neutrophils 80 % (50-85); Total Cells Counted 100
[2018-03-11 01:49] LABS: Platelet Estimate Normal
[2018-03-11 01:50] LABS: Burr Cells Few; Macrocytosis 2+
[2018-03-11] MEDS ORDERED: LACTATED RINGERS 1,000 ML IV ONE (01:57)
[2018-03-11] MEDS ORDERED: SODIUM BICARB INJ 50 MEQ in SODIUM CHLORIDE 0.45% 1,000 ML IV SCH (02:00)
[2018-03-11] MEDS ORDERED: PROPOFOL 200 MG/20 ML VIAL IV ONE (02:03)
[2018-03-11] MEDS ORDERED: NOREPINEPHRINE 4 MG/4 ML VIAL IV ONE (02:05)
[2018-03-11] MEDS: fentaNYL INJ 1,250 MCG in SODIUM CHLORIDE 0.9% 225 ML IV PRN ×6 (02:09→22:10)
[2018-03-11] MEDS: NOREPINEPHRINE 8 MG in SODIUM CHLORIDE 0.9% 242 ML IV PRN ×2 (02:09→14:24)
[2018-03-11 02:18] LABS: Lactic Acid 2.3 MMOL/L (0.4-2.0)
[2018-03-11] MEDS ORDERED: VECURONIUM 10 MG VIAL IV ONE ×2 (02:18→02:20)
[2018-03-11 02:33] LABS: ABG Base Excess -28.4 MMOL/L (-2.5-2.5); ABG HCO3 5.7 MMOL/L (20-26); ABG Oxygen Saturation 97.9 % (95-100); ABG PCO2 27.6 MM HG (35-48); Allen Test Positive; Pt O2 Delivery Device Ventilator
[2018-03-11 02:36] LABS: ABG PH 6.858 (7.35-7.45)
[2018-03-11] MEDS ORDERED: SODIUM CHLORIDE 0.9% 1,000 ML IV SCH (03:00)
[2018-03-11 03:14] LABS: Apearance,Urine CLEAR (Clear); Bacteria,Urine Many /HPF (Few); Bilirubin,Urine Negative (Negative); Blood, Urine Small mg/dL (Negative); Glucose,Urine (UA) >=500 mg/dL (Negative); Ketones,Urine 80 mg/dL (Negative); Mucus,Urine Occasional /LPF (Occasional); Nitrite,Urine Negative (Negative); Protein,Urine 30 MG/DL; RBC,Urine <1 /HPF (0-4); Squamous Epithelial Cell,Urine Occasional /HPF (0-10); Urine Color Yellow (Yellow); Urine Specific Gravity 1.014 (1.001-1.035); Urine Urobilinogen < 2.0 EU/DL (0.2-1.0); WBC,Urine 2 /HPF (0-6)
[2018-03-11 03:18] LABS: Albumin 2.7 G/DL (3.4-5.0); Bilirubin,Total 0.5 MG/DL (0.2-1.0); Calcium 8.2 MG/DL (8.5-10.1); Osmolality,Calculated 315.1 MOS/KG (273-304); Potassium 5.4 MMOL/L (3.5-5.1); Total Protein 6.6 G/DL (6.4-8.3)
[2018-03-11 03:22] LABS: Lactic Acid 2.4 MMOL/L (0.4-2.0)
[2018-03-11] MEDS ORDERED: SODIUM BICARBONATE PEDIATRIC 5 MEQ/10 ML SYRINGE ONE (03:50)
[2018-03-11] MEDS ORDERED: SODIUM BICARBONATE 50 MEQ/50 ML VIAL IV ONE (03:55)
[2018-03-11] MEDS: PROPOFOL 1,000 MG/100 ML BOTTLE IV SCH ×3 (05:26→18:37)
[2018-03-11 05:27] LABS: ABG Base Excess -19.1 MMOL/L (-2.5-2.5); ABG HCO3 10.5 MMOL/L (20-26); ABG Oxygen Saturation 98.6 % (95-100); ABG PCO2 31.2 MM HG (35-48); ABG TCO2 9.2 MMOL/L (23-27)
[2018-03-11 05:28] LABS: ABG PH 7.104 (7.35-7.45)
[2018-03-11] MEDS: INSULIN REGULAR DRIP 100 ML IV PRN ×2 (05:30→07:22)
[2018-03-11] MEDS ORDERED: SODIUM CHLORIDE 0.9% 2,000 ML IV ONE (06:25)
[2018-03-11] MEDS ORDERED: ETOMIDATE 20 MG/10 ML VIAL IV ONE (06:28)
[2018-03-11] MEDS ORDERED: ROCURONIUM 100 MG/10 ML VIAL IV ONE (06:28)
[2018-03-11 07:00] LABS: Calcium 7.5 MG/DL (8.5-10.1); Potassium 3.7 MMOL/L (3.5-5.1)
[2018-03-11] MEDS ORDERED: PANTOPRAZOLE 40 MG VIAL IV SCH (09:00)
[2018-03-11] MEDS: ENOXAPARIN 40 MG/0.4 ML SYRINGE SUBCUT SCH (09:14)
[2018-03-11] MEDS: POTASSIUM CHLORIDE 20 MEQ/15 ML UDCUP PER TUBE SCH ×4 (09:14→17:40)
[2018-03-11] MEDS: PANTOPRAZOLE 40 MG VIAL IV SCH ×2 (09:21→21:45)
[2018-03-11] MEDS ORDERED: SODIUM CHLORIDE 0.9% 2,000 ML IV SCH (09:40)
[2018-03-11] MEDS ORDERED: SODIUM CHLORIDE 0.9% 1,000 ML IV ONE (09:49)
[2018-03-11 12:53] LABS: Osmolality,Calculated 295.6 MOS/KG (273-304); Potassium 3.4 MMOL/L (3.5-5.1)
[2018-03-11] MEDS: DEXT 5% NACL 0.9% KCL 20 MEQ 20 MEQ/1,000 ML BAG IV SCH ×2 (14:22→21:10)
[2018-03-11 19:44] LABS: Calcium 6.9 MG/DL (8.5-10.1); Osmolality,Calculated 299.6 MOS/KG (273-304); Potassium 4.8 MMOL/L (3.5-5.1)
[2018-03-12] MEDS: PROPOFOL 1,000 MG/100 ML BOTTLE IV SCH ×3 (01:31→16:01)
[2018-03-12] MEDS: fentaNYL INJ 2,500 MCG in SODIUM CHLORIDE 0.9% 450 ML IV PRN ×3 (01:34→18:21)
[2018-03-12 03:28] LABS: ABG Base Excess -1.5 MMOL/L (-2.5-2.5); ABG HCO3 23.2 MMOL/L (20-26); ABG Oxygen Saturation 99.8 % (95-100); ABG PCO2 33.4 MM HG (35-48); ABG PH 7.431 (7.35-7.45); ABG TCO2 20.2 MMOL/L (23-27)
[2018-03-12] MEDS: DEXT 5% NACL 0.9% KCL 20 MEQ 20 MEQ/1,000 ML BAG IV SCH ×4 (03:51→23:56)
[2018-03-12 04:41] LABS: Basophils % 0.3 % (0.0-0.8); Eosinophils # 0.1 10*3/uL (0.0-0.87); Eosinophils % 1.2 % (0.00-10.9); Hematocrit 26.7 VOL% (35.7-47.0); Hemoglobin 9.2 GM/DL (12.0-16.0); Immature Granulocytes % 0.5 %; Immature Granulocytes Absolute 0.04 #; Lymphocytes # 1.2 10*3/uL (1.4-4.0); Lymphocytes % 16.1 % (21.3-54.2); Mean Corpuscular HGB Conc 34.5 GM/DL (32-36); Mean Corpuscular Hemoglobin 32 PG (27-34); Mean Corpuscular Volume 91.8 FL (87-102); Mean Platelet Volume 9.6 FL (9.6-12.0); Monocytes # 0.5 10*3/uL (0.11-0.8); Monocytes % 7.1 % (1.7-12.7); Neutrophils # 5.6 10*3/uL (1.4-7.4); Neutrophils % 74.8 % (38.7-73.9); Platelet Count 237 T/CUMM (130-400); Red Blood Count 2.91 MC/CUMM (3.8-5.5); Red Cell Distribution Width 14.5 % (9.3-17.3); White Blood Count 7.5 T/CUMM (4-12)
[2018-03-12 05:06] LABS: Osmolality,Calculated 294.3 MOS/KG (273-304); Potassium 3.9 MMOL/L (3.5-5.1)
[2018-03-12] MEDS: ENOXAPARIN 40 MG/0.4 ML SYRINGE SUBCUT SCH (09:13)
[2018-03-12] MEDS: PANTOPRAZOLE 40 MG VIAL IV SCH ×2 (09:14→21:08)
[2018-03-12] MEDS ORDERED: MAGNESIUM SULF RIDER 4 GM in PREMIX 1 EACH IV ONE (09:53)
[2018-03-12] MEDS: INSULIN LISPRO 100 UNIT/ML SUBCUT SCH ×2 (12:07→18:04)
[2018-03-12] MEDS: INSULIN GLARGINE 100 UNIT/ML SUBCUT SCH (12:07)
[2018-03-13] MEDS: INSULIN LISPRO 100 UNIT/ML SUBCUT SCH ×4 (00:14→18:38)
[2018-03-13] MEDS: PROPOFOL 1,000 MG/100 ML BOTTLE IV SCH ×3 (00:15→23:00)
[2018-03-13] MEDS: NOREPINEPHRINE 8 MG in SODIUM CHLORIDE 0.9% 242 ML IV PRN (01:51)
[2018-03-13] MEDS: fentaNYL INJ 2,500 MCG in SODIUM CHLORIDE 0.9% 450 ML IV PRN ×2 (03:46→13:15)
[2018-03-13 04:12] LABS: ABG Base Excess -2.9 MMOL/L (-2.5-2.5); ABG HCO3 22.1 MMOL/L (20-26); ABG PCO2 39.4 MM HG (35-48); ABG PH 7.367 (7.35-7.45); ABG PO2 104.2 MM HG (80-95); ABG TCO2 23.3 MMOL/L (23-27); Pt O2 Delivery Device Ventilator
[2018-03-13 05:33] LABS: Calcium 7.5 MG/DL (8.5-10.1); Osmolality,Calculated 288.8 MOS/KG (273-304); Potassium 4.5 MMOL/L (3.5-5.1)
[2018-03-13] MEDS: DEXT 5% NACL 0.9% KCL 20 MEQ 20 MEQ/1,000 ML BAG IV SCH ×2 (05:54→06:13)
[2018-03-13 06:28] LABS: ABG Oxygen Saturation 97.6 % (95-100)
[2018-03-13] MEDS: PANTOPRAZOLE 40 MG VIAL IV SCH ×2 (09:51→21:38)
[2018-03-13] MEDS: INSULIN GLARGINE 100 UNIT/ML SUBCUT SCH (09:51)
[2018-03-13] MEDS: ENOXAPARIN 40 MG/0.4 ML SYRINGE SUBCUT SCH (09:52)
[2018-03-13] MEDS: LACTATED RINGERS 1,000 ML IV SCH ×2 (12:30→21:38)
[2018-03-13] MEDS: LEVOFLOXACIN INJ 750 MG in PREMIX 1 EACH IV SCH (14:31)
[2018-03-13 14:58] LABS: Apearance,Urine CLOUDY (Clear); Bacteria,Urine Occasional /HPF (Few); Bilirubin,Urine Negative (Negative); Blood, Urine Moderate mg/dL (Negative); Glucose,Urine (UA) Negative (Negative); Ketones,Urine Negative (Negative); Mucus,Urine Few /LPF (Occasional); Nitrite,Urine Positive (Negative); Protein,Urine Negative; RBC,Urine 39 /HPF (0-4); Squamous Epithelial Cell,Urine Occasional /HPF (0-10); Urine Color Red (Yellow); Urine Specific Gravity 1.011 (1.001-1.035); Urine Urobilinogen < 2.0 EU/DL (0.2-1.0); WBC,Urine 30 /HPF (0-6)
[2018-03-14] MEDS: fentaNYL INJ 2,500 MCG in SODIUM CHLORIDE 0.9% 450 ML IV PRN ×2 (01:32→11:53)
[2018-03-14] MEDS: INSULIN LISPRO 100 UNIT/ML SUBCUT SCH ×4 (01:33→18:07)
[2018-03-14 04:25] LABS: Pt O2 Delivery Device Ventilator
[2018-03-14 04:27] LABS: ABG Base Excess 2.3 MMOL/L (-2.5-2.5); ABG HCO3 26.5 MMOL/L (20-26); ABG Oxygen Saturation 99.1 % (95-100); ABG PCO2 42.2 MM HG (35-48); ABG PH 7.416 (7.35-7.45); ABG TCO2 25.2 MMOL/L (23-27)
[2018-03-14] MEDS: PROPOFOL 1,000 MG/100 ML BOTTLE IV SCH ×2 (06:12→09:01)
[2018-03-14] MEDS: LACTATED RINGERS 1,000 ML IV SCH ×3 (06:13→23:23)
[2018-03-14 06:52] LABS: Calcium 7.9 MG/DL (8.5-10.1); Osmolality,Calculated 278.3 MOS/KG (273-304); Potassium 3.9 MMOL/L (3.5-5.1)
[2018-03-14] MEDS: PANTOPRAZOLE 40 MG VIAL IV SCH ×2 (08:41→20:28)
[2018-03-14] MEDS: INSULIN GLARGINE 100 UNIT/ML SUBCUT SCH (08:48)
[2018-03-14] MEDS: ENOXAPARIN 40 MG/0.4 ML SYRINGE SUBCUT SCH (08:49)
[2018-03-14] MEDS: LEVOFLOXACIN INJ 750 MG in PREMIX 1 EACH IV SCH (12:14)
[2018-03-15] MEDS: ALBUTEROL/IPRATROPIUM 3 ML NEB RESP TX SCH ×7 (00:11→23:38)
[2018-03-15] MEDS: INSULIN LISPRO 100 UNIT/ML SUBCUT SCH ×4 (01:29→18:03)
[2018-03-15] MEDS: MORPHINE 4 MG/1 ML VIAL IV PRN ×4 (01:29→21:40)
[2018-03-15 06:19] LABS: Basophils % 0.2 % (0.0-0.8); Eosinophils # 0.1 10*3/uL (0.0-0.87); Eosinophils % 1.2 % (0.00-10.9); Hematocrit 23.9 VOL% (35.7-47.0); Hemoglobin 7.9 GM/DL (12.0-16.0); Immature Granulocytes % 0.4 %; Immature Granulocytes Absolute 0.02 #; Lymphocytes # 0.6 10*3/uL (1.4-4.0); Lymphocytes % 12.9 % (21.3-54.2); Mean Corpuscular HGB Conc 33.1 GM/DL (32-36); Mean Corpuscular Hemoglobin 32 PG (27-34); Monocytes # 0.4 10*3/uL (0.11-0.8); Monocytes % 7.2 % (1.7-12.7); Neutrophils # 3.8 10*3/uL (1.4-7.4); Neutrophils % 78.1 % (38.7-73.9); Platelet Count 138 T/CUMM (130-400); Red Blood Count 2.49 MC/CUMM (3.8-5.5); Red Cell Distribution Width 13.5 % (9.3-17.3); White Blood Count 4.9 T/CUMM (4-12)
[2018-03-15 06:52] LABS: Calcium 8.6 MG/DL (8.5-10.1); Osmolality,Calculated 279.1 MOS/KG (273-304); Potassium 3.5 MMOL/L (3.5-5.1)
[2018-03-15] MEDS: LACTATED RINGERS 1,000 ML IV SCH ×2 (07:39→17:16)
[2018-03-15] MEDS: PANTOPRAZOLE 40 MG VIAL IV SCH ×2 (08:58→20:27)
[2018-03-15] MEDS: ENOXAPARIN 40 MG/0.4 ML SYRINGE SUBCUT SCH (09:02)
[2018-03-15] MEDS: INSULIN GLARGINE 100 UNIT/ML SUBCUT SCH (09:03)
[2018-03-15] MEDS ORDERED: MAGNESIUM SULF RIDER 2 GM in PREMIX 1 EACH IV ONE (12:10)
[2018-03-15] MEDS ORDERED: GLUCAGON 1 MG VIAL IM PRN (14:09)
[2018-03-15] MEDS ORDERED: DEXTROSE 50% 25 GM/50 ML VIAL IV PRN (14:09)
[2018-03-15] MEDS: LEVOFLOXACIN INJ 750 MG in PREMIX 1 EACH IV SCH (14:22)
[2018-03-15] MEDS: LINEZOLID INJ 600 MG in PREMIX 1 EACH IV SCH (23:05)
[2018-03-16] MEDS: INSULIN LISPRO 100 UNIT/ML SUBCUT SCH ×6 (01:13→20:53)
[2018-03-16] MEDS: ALBUTEROL/IPRATROPIUM 3 ML NEB RESP TX SCH ×6 (01:30→22:40)
[2018-03-16] MEDS: LACTATED RINGERS 1,000 ML IV SCH ×3 (03:00→18:01)
[2018-03-16] MEDS: MORPHINE 4 MG/1 ML VIAL IV PRN ×2 (03:59→12:11)
[2018-03-16 05:52] LABS: Basophils % 0.2 % (0.0-0.8); Eosinophils # 0.1 10*3/uL (0.0-0.87); Eosinophils % 2.2 % (0.00-10.9); Hemoglobin 7.6 GM/DL (12.0-16.0); Immature Granulocytes % 0.7 %; Immature Granulocytes Absolute 0.03 #; Lymphocytes # 0.5 10*3/uL (1.4-4.0); Lymphocytes % 10.9 % (21.3-54.2); Mean Corpuscular HGB Conc 31.7 GM/DL (32-36); Mean Corpuscular Hemoglobin 30 PG (27-34); Mean Platelet Volume 9.8 FL (9.6-12.0); Monocytes # 0.4 10*3/uL (0.11-0.8); Monocytes % 8.5 % (1.7-12.7); Neutrophils # 3.5 10*3/uL (1.4-7.4); Neutrophils % 77.5 % (38.7-73.9); Platelet Count 160 T/CUMM (130-400); Red Cell Distribution Width 13.5 % (9.3-17.3); White Blood Count 4.5 T/CUMM (4-12)
[2018-03-16 06:10] LABS: Albumin 1.6 G/DL (3.4-5.0); Bilirubin,Total 0.4 MG/DL (0.2-1.0); Calcium 8.6 MG/DL (8.5-10.1); Osmolality,Calculated 282.1 MOS/KG (273-304); Potassium 3.3 MMOL/L (3.5-5.1); Total Protein 5.4 G/DL (6.4-8.3)
[2018-03-16] MEDS: INSULIN GLARGINE 100 UNIT/ML SUBCUT SCH (09:53)
[2018-03-16] MEDS: PANTOPRAZOLE 40 MG VIAL IV SCH (09:54)
[2018-03-16] MEDS: POTASSIUM CHLORIDE 20 MEQ TABLET PO SCH ×4 (12:04→20:52)
[2018-03-16] MEDS: LEVOFLOXACIN INJ 750 MG in PREMIX 1 EACH IV SCH (12:05)
[2018-03-16] MEDS ORDERED: DEXTROSE 50% 25 GM/50 ML VIAL IV PRN (12:33)
[2018-03-16] MEDS ORDERED: GLUCAGON 1 MG VIAL IM PRN (12:33)
[2018-03-16] MEDS: LINEZOLID INJ 600 MG in PREMIX 1 EACH IV SCH (15:21)
[2018-03-16] MEDS: PANTOPRAZOLE 40 MG TABLET PO SCH (20:54)
[2018-03-17] MEDS ORDERED: MORPHINE 4 MG/1 ML VIAL IV PRN (01:39)
[2018-03-17] MEDS: LINEZOLID INJ 600 MG in PREMIX 1 EACH IV SCH (01:44)
[2018-03-17] MEDS: ALBUTEROL/IPRATROPIUM 3 ML NEB RESP TX SCH ×3 (02:46→11:00)
[2018-03-17 06:26] LABS: Calcium 8.4 MG/DL (8.5-10.1); Osmolality,Calculated 291.3 MOS/KG (273-304); Potassium 4.7 MMOL/L (3.5-5.1)
[2018-03-17] MEDS: INSULIN LISPRO 100 UNIT/ML SUBCUT SCH ×4 (09:39→11:49)
[2018-03-17] MEDS: INSULIN GLARGINE 100 UNIT/ML SUBCUT SCH (09:40)
[2018-03-17] MEDS: PANTOPRAZOLE 40 MG TABLET PO SCH (09:41)
[2018-03-17] MEDS: LEVOFLOXACIN INJ 750 MG in PREMIX 1 EACH IV SCH (11:54)
[2018-03-17 12:09] VITALS: BP 109/80
[2018-03-18 16:27] LABS: HIT Interpretation Negative (Negative)
== END 2018-03-17 14:07 | disposition left against medical advice (07) | DRG 420 ==
LOC: EDUNIT# → N.ED 00:08 → SUATTDRO 03:01 → N.EDINP 03:01 → N.CC 03:18
PROVIDERS: ADMIT Internal Medicine; ATTEND Internal Medicine

== ENCOUNTER 2018-06-02 07:21 | Inpatient (IN) ==
[2018-06-02] MEDS ORDERED: SODIUM CHLORIDE 0.9% 1,000 ML IV ONE ×2 (07:44→08:40)
[2018-06-02] MEDS ORDERED: INSULIN REGULAR 100 UNIT/ML IV ONE ×2 (07:51→08:30)
[2018-06-02] MEDS ORDERED: LACTATED RINGERS 1,000 ML IV SCH (08:00)
[2018-06-02] MEDS ORDERED: ONDANSETRON 4 MG/2 ML VIAL ONE (08:04)
[2018-06-02 08:10] LABS: Calcium 9.6 MG/DL (8.5-10.1); Osmolality,Calculated 289.8 MOS/KG (273-304)
[2018-06-02] MEDS ORDERED: POTASSIUM CHLORIDE INJ 10 MEQ in SODIUM CHLORIDE 0.9% 1,000 ML IV SCH ×2 (09:00→12:00)
[2018-06-02] MEDS ORDERED: MORPHINE 4 MG/1 ML VIAL IV PRN (09:21)
[2018-06-02] MEDS ORDERED: INSULIN REGULAR DRIP 100 ML IV PRN (09:21)
[2018-06-02] MEDS ORDERED: SODIUM CHLORIDE 0.9% 1,000 ML IV SCH (09:21)
[2018-06-02] MEDS: ONDANSETRON 4 MG/2 ML VIAL IV PRN ×3 (09:41→23:34)
[2018-06-02] MEDS ORDERED: INFLUENZA VIRUS VACCINE 0.5 ML SYRINGE IM ONE (09:49)
[2018-06-02 10:08] LABS: Apearance,Urine CLEAR (Clear); Bilirubin,Urine Negative (Negative); Blood, Urine Moderate mg/dL (Negative); Glucose,Urine (UA) >=500 mg/dL (Negative); Hyaline Casts,Urine 12 /LPF (0-3); Ketones,Urine 80 mg/dL (Negative); Mucus,Urine Occasional /LPF (Occasional); Nitrite,Urine Negative (Negative); Protein,Urine 30 MG/DL; RBC,Urine 1 /HPF (0-4); Squamous Epithelial Cell,Urine Occasional /HPF (0-10); Urine Color Straw (Yellow); Urine Specific Gravity 1.014 (1.001-1.035); Urine Urobilinogen < 2.0 EU/DL (0.2-1.0); WBC,Urine <1 /HPF (0-6)
[2018-06-02 10:15] LABS: Basophils % 0.2 % (0.0-0.8); Eosinophils % 0.1 % (0.00-10.9); Hematocrit 38.7 VOL% (35.7-47.0); Hemoglobin 12.8 GM/DL (12.0-16.0); Immature Granulocytes % 0.6 %; Immature Granulocytes Absolute 0.09 #; Lymphocytes # 0.7 10*3/uL (1.4-4.0); Lymphocytes % 4.3 % (21.3-54.2); Mean Corpuscular HGB Conc 33.1 GM/DL (32-36); Mean Corpuscular Hemoglobin 30 PG (27-34); Mean Corpuscular Volume 91.7 FL (87-102); Mean Platelet Volume 10.5 FL (9.6-12.0); Monocytes # 0.5 10*3/uL (0.11-0.8); Monocytes % 3.3 % (1.7-12.7); Neutrophils # 14.2 10*3/uL (1.4-7.4); Neutrophils % 91.5 % (38.7-73.9); Platelet Count 313 T/CUMM (130-400); Red Blood Count 4.22 MC/CUMM (3.8-5.5); Red Cell Distribution Width 12.4 % (9.3-17.3); White Blood Count 15.5 T/CUMM (4-12)
[2018-06-02 10:23] LABS: Calcium 8.8 MG/DL (8.5-10.1); Osmolality,Calculated 296.2 MOS/KG (273-304)
[2018-06-02 10:26] LABS: Troponin I < 0.015 NG/ML (0.00-0.045)
[2018-06-02 10:27] LABS: Lactic Acid 1.6 MMOL/L (0.4-2.0)
[2018-06-02 10:42] LABS: Band Neutrophils 9 % (0-10); Lymphocytes 4 % (20-55); Platelet Estimate Normal; Segmented Neutrophils 86 % (50-85); Total Cells Counted 100
[2018-06-02 10:43] LABS: Anisocytosis Slight; Macrocytosis Slight
[2018-06-02] MEDS: ENOXAPARIN 30 MG/0.3 ML SYRINGE SUBCUT SCH (10:56)
[2018-06-02] MEDS: MUPIROCIN 2% OINT 22 GM TUBE TOP SCH ×2 (16:20→21:42)
[2018-06-02 16:42] LABS: Calcium 8.2 MG/DL (8.5-10.1); Osmolality,Calculated 279.8 MOS/KG (273-304)
[2018-06-02] MEDS: POTASSIUM CHLORIDE INJ 10 MEQ in DEXTROSE 5% NACL 0.9% 1,000 ML IV SCH (18:19)
[2018-06-02 21:35] LABS: Calcium 8.2 MG/DL (8.5-10.1); Osmolality,Calculated 277.5 MOS/KG (273-304); Potassium 3.9 MMOL/L (3.5-5.1)
[2018-06-02] MEDS: INSULIN GLARGINE 100 UNIT/ML SUBCUT SCH (21:42)
[2018-06-02] MEDS: PANTOPRAZOLE 40 MG VIAL IV SCH (21:43)
[2018-06-03] MEDS ORDERED: DEXTROSE 50% 25 GM/50 ML SYRINGE IV ONE (00:20)
[2018-06-03] MEDS ORDERED: DEXTROSE 50% 25 GM/50 ML SYRINGE IV PRN (00:23)
[2018-06-03] MEDS: POTASSIUM CHLORIDE INJ 10 MEQ in DEXTROSE 5% NACL 0.9% 1,000 ML IV SCH ×2 (02:12→10:12)
[2018-06-03 03:56] LABS: Basophils % 0.1 % (0.0-0.8); Eosinophils # 0.1 10*3/uL (0.0-0.87); Eosinophils % 1.6 % (0.00-10.9); Hematocrit 31.1 VOL% (35.7-47.0); Hemoglobin 10.4 GM/DL (12.0-16.0); Immature Granulocytes % 0.2 %; Immature Granulocytes Absolute 0.02 #; Lymphocytes # 1.7 10*3/uL (1.4-4.0); Lymphocytes % 21.1 % (21.3-54.2); Mean Corpuscular HGB Conc 33.4 GM/DL (32-36); Mean Corpuscular Hemoglobin 30 PG (27-34); Mean Corpuscular Volume 89.6 FL (87-102); Mean Platelet Volume 10.3 FL (9.6-12.0); Monocytes # 0.5 10*3/uL (0.11-0.8); Monocytes % 5.8 % (1.7-12.7); Neutrophils # 5.9 10*3/uL (1.4-7.4); Neutrophils % 71.2 % (38.7-73.9); Platelet Count 252 T/CUMM (130-400); Red Blood Count 3.47 MC/CUMM (3.8-5.5); Red Cell Distribution Width 12.5 % (9.3-17.3); White Blood Count 8.2 T/CUMM (4-12)
[2018-06-03 04:05] LABS: Osmolality,Calculated 280.3 MOS/KG (273-304); Potassium 3.5 MMOL/L (3.5-5.1)
[2018-06-03 04:10] LABS: Troponin I < 0.015 NG/ML (0.00-0.045)
[2018-06-03] MEDS ORDERED: GLUCAGON 1 MG VIAL IM PRN (04:37)
[2018-06-03] MEDS: INSULIN REGULAR 100 UNIT/ML SUBCUT SCH ×2 (06:28→07:43)
[2018-06-03] MEDS: PANTOPRAZOLE 40 MG VIAL IV SCH ×2 (09:30→21:07)
[2018-06-03] MEDS: ENOXAPARIN 30 MG/0.3 ML SYRINGE SUBCUT SCH (09:31)
[2018-06-03] MEDS: MUPIROCIN 2% OINT 22 GM TUBE TOP SCH ×2 (09:37→21:11)
[2018-06-03] MEDS: AZITHROMYCIN INJ 250 MG in SODIUM CHLORIDE 0.9% 250 ML IV SCH (09:51)
[2018-06-03] MEDS ORDERED: LIDOCAINE 100 MG/5 ML SYRINGE ONE (10:00)
[2018-06-03] MEDS ORDERED: PROPOFOL 200 MG/20 ML VIAL IV ONE (10:00)
[2018-06-03] MEDS ORDERED: INSULIN REGULAR 100 UNIT/ML SUBCUT SCH (12:00)
[2018-06-03] MEDS ORDERED: diphenhydrAMINE CAP 25 MG CAPSULE PO PRN (12:02)
[2018-06-03] MEDS: INSULIN LISPRO 100 UNIT/ML SUBCUT SCH ×2 (12:57→15:57)
[2018-06-03] MEDS ORDERED: MAGNESIUM CITRATE 300 ML BOTTLE PO ONE (18:00)
[2018-06-03] MEDS: INSULIN GLARGINE 100 UNIT/ML SUBCUT SCH (21:07)
[2018-06-04 06:26] LABS: Calcium 8.6 MG/DL (8.5-10.1); Osmolality,Calculated 284.4 MOS/KG (273-304); Potassium 3.1 MMOL/L (3.5-5.1)
[2018-06-04 07:59] VITALS: BP 138/92
[2018-06-04] MEDS ORDERED: ENOXAPARIN 40 MG/0.4 ML SYRINGE SUBCUT SCH (09:00)
[2018-06-04] MEDS ORDERED: INSULIN LISPRO 100 UNIT/ML SUBCUT SCH (09:00)
[2018-06-04] MEDS: INSULIN LISPRO 100 UNIT/ML SUBCUT SCH (10:38)
[2018-06-04] MEDS: MUPIROCIN 2% OINT 22 GM TUBE TOP SCH (10:39)
[2018-06-04] MEDS: PANTOPRAZOLE 40 MG VIAL IV SCH (10:39)
[2018-06-04] MEDS: AZITHROMYCIN INJ 250 MG in SODIUM CHLORIDE 0.9% 250 ML IV SCH (10:59)
== END 2018-06-04 11:29 | disposition home or self-care (01) | DRG 420 ==
LOC: SUATTDRO → N.GILAB 07:21 → N.ICU 08:33 → SUATTDRO 08:33 → N.ICU 09:14 → N.2E 06-03 11:59
PROVIDERS: ADMIT Internal Medicine Gastroenterology; ATTEND Internal Medicine
PROC: COLONBX (2018-06-03 08:05)

== ENCOUNTER 2018-06-10 07:19 | Inpatient (IN) ==
[2018-06-10] MEDS ORDERED: INSULIN REGULAR 100 UNIT/ML IV STA (07:33)
[2018-06-10] MEDS ORDERED: SODIUM CHLORIDE 0.9% 1,000 ML IV STA (07:33)
[2018-06-10] MEDS ORDERED: ONDANSETRON 4 MG/2 ML VIAL IV STA (07:34)
[2018-06-10 08:08] LABS: ABG Base Excess -22.7 MMOL/L (-2.5-2.5); ABG HCO3 4.2 MMOL/L (20-26); ABG Oxygen Saturation 96.7 % (95-100); ABG PO2 110.2 MM HG (80-95); ABG TCO2 4.6 MMOL/L (23-27)
[2018-06-10 08:08] LABS: Basophils % 0.3 % (0.0-0.8); Eosinophils % 0.3 % (0.00-10.9); Hematocrit 38.5 VOL% (35.7-47.0); Hemoglobin 12.3 GM/DL (12.0-16.0); Immature Granulocytes % 0.9 %; Lymphocytes # 0.9 10*3/uL (1.4-4.0); Lymphocytes % 7.7 % (21.3-54.2); Mean Corpuscular HGB Conc 31.9 GM/DL (32-36); Mean Corpuscular Hemoglobin 30 PG (27-34); Mean Corpuscular Volume 93.9 FL (87-102); Mean Platelet Volume 10.4 FL (9.6-12.0); Monocytes # 0.1 10*3/uL (0.11-0.8); Monocytes % 0.9 % (1.7-12.7); Neutrophils # 10.6 10*3/uL (1.4-7.4); Neutrophils % 89.9 % (38.7-73.9); Platelet Count 296 T/CUMM (130-400); Red Cell Distribution Width 12.4 % (9.3-17.3); White Blood Count 11.7 T/CUMM (4-12)
[2018-06-10 08:10] LABS: ABG PH 7.131 (7.35-7.45)
[2018-06-10] MEDS ORDERED: INSULIN REGULAR DRIP 100 ML IV PRN (08:16)
[2018-06-10 08:22] LABS: Apearance,Urine CLEAR (Clear); Bacteria,Urine Occasional /HPF (Few); Bilirubin,Urine Negative (Negative); Blood, Urine Small mg/dL (Negative); Glucose,Urine (UA) >=500 mg/dL (Negative); Ketones,Urine 80 mg/dL (Negative); Mucus,Urine Occasional /LPF (Occasional); Nitrite,Urine Positive (Negative); Protein,Urine Negative; RBC,Urine <1 /HPF (0-4); Squamous Epithelial Cell,Urine Occasional /HPF (0-10); Urine Color Straw (Yellow); Urine Specific Gravity 1.018 (1.001-1.035); Urine Urobilinogen < 2.0 EU/DL (0.2-1.0); WBC,Urine 1 /HPF (0-6)
[2018-06-10] MEDS ORDERED: SODIUM CHLORIDE 0.45% 1,000 ML IV SCH (08:30)
[2018-06-10 08:31] LABS: Alanine Aminotransferase 16 U/L (13-56); Albumin 3.2 G/DL (3.4-5.0); Alkaline Phosphatase 150 U/L (45-117); Aspartate Amino Transferase 7 U/L (0-37); Bilirubin,Total < 0.39 MG/DL (0.2-1.0); Blood Urea Nitrogen 22 MG/DL (7-18); Calcium 8.8 MG/DL (8.5-10.1); Potassium 3.3 MMOL/L (3.5-5.1); Sodium 136 MMOL/L (136-145)
[2018-06-10 08:40] LABS: Glucose 535 MG/DL (74-106)
[2018-06-10] MEDS ORDERED: SODIUM CHLORIDE 0.9% 1,000 ML IV SCH (09:03)
[2018-06-10] MEDS ORDERED: ALBUTEROL 2.5 MG/3 ML NEB RESP TX PRN (09:30)
[2018-06-10] MEDS: PARoxetine 20 MG TABLET PO SCH (10:27)
[2018-06-10] MEDS: PREGABALIN 75 MG CAPSULE PO SCH ×3 (10:27→20:46)
[2018-06-10] MEDS: ENOXAPARIN 40 MG/0.4 ML SYRINGE SUBCUT SCH (10:27)
[2018-06-10] MEDS: POTASSIUM CHLORIDE RIDER 10 MEQ in PREMIX 1 EACH IV SCH ×4 (10:27→13:25)
[2018-06-10] MEDS: PANTOPRAZOLE 40 MG VIAL IV SCH ×2 (10:28→20:46)
[2018-06-10 10:45] LABS: Calcium 8.5 MG/DL (8.5-10.1); Osmolality,Calculated 290.7 MOS/KG (273-304); Potassium 3.7 MMOL/L (3.5-5.1)
[2018-06-10] MEDS: DEXTROSE 5% NACL 0.9% 1,000 ML IV SCH ×3 (12:15→22:14)
[2018-06-10] MEDS: ONDANSETRON 4 MG/2 ML VIAL IV PRN (13:00)
[2018-06-10 15:03] LABS: Osmolality,Calculated 279.5 MOS/KG (273-304); Potassium 4.1 MMOL/L (3.5-5.1)
[2018-06-10] MEDS ORDERED: MAGNESIUM SULF RIDER 4 GM in PREMIX 1 EACH IV ONE (15:33)
[2018-06-10] MEDS: BACITRACIN OINT 0.9 GM PACK TOP SCH (15:57)
[2018-06-10] MEDS: INSULIN GLARGINE 100 UNIT/ML SUBCUT SCH (20:46)
[2018-06-10 21:00] LABS: Osmolality,Calculated 283.1 MOS/KG (273-304); Potassium 3.8 MMOL/L (3.5-5.1)
[2018-06-10] MEDS: POTASSIUM CHLORIDE 20 MEQ TABLET PO PRN (21:20)
[2018-06-11] MEDS ORDERED: DEXTROSE 50% 25 GM/50 ML SYRINGE IV ONE (01:03)
[2018-06-11] MEDS ORDERED: DEXTROSE 50% 25 GM/50 ML SYRINGE IV PRN ×2 (01:18→01:26)
[2018-06-11 02:43] LABS: Basophils % 0.1 % (0.0-0.8); Eosinophils # 0.1 10*3/uL (0.0-0.87); Eosinophils % 1.2 % (0.00-10.9); Hematocrit 29.5 VOL% (35.7-47.0); Hemoglobin 9.9 GM/DL (12.0-16.0); Immature Granulocytes % 0.4 %; Immature Granulocytes Absolute 0.03 #; Lymphocytes # 1.6 10*3/uL (1.4-4.0); Lymphocytes % 21.9 % (21.3-54.2); Mean Corpuscular HGB Conc 33.6 GM/DL (32-36); Mean Corpuscular Hemoglobin 30 PG (27-34); Mean Corpuscular Volume 90.2 FL (87-102); Mean Platelet Volume 10.1 FL (9.6-12.0); Monocytes # 0.5 10*3/uL (0.11-0.8); Monocytes % 7.3 % (1.7-12.7); Neutrophils # 5.1 10*3/uL (1.4-7.4); Neutrophils % 69.1 % (38.7-73.9); Platelet Count 207 T/CUMM (130-400); Red Blood Count 3.27 MC/CUMM (3.8-5.5); Red Cell Distribution Width 12.6 % (9.3-17.3); White Blood Count 7.4 T/CUMM (4-12)
[2018-06-11 03:04] LABS: Calcium 7.5 MG/DL (8.5-10.1); Potassium 3.5 MMOL/L (3.5-5.1)
[2018-06-11 03:08] LABS: Troponin I 0.023 NG/ML (0.00-0.045)
[2018-06-11] MEDS: DEXTROSE 5% NACL 0.9% 1,000 ML IV SCH ×3 (03:21→12:52)
[2018-06-11] MEDS: POTASSIUM CHLORIDE 20 MEQ TABLET PO PRN ×2 (03:30→05:20)
[2018-06-11] MEDS: INSULIN REGULAR 100 UNIT/ML SUBCUT SCH ×4 (08:49→21:11)
[2018-06-11] MEDS: BACITRACIN OINT 0.9 GM PACK TOP SCH (09:01)
[2018-06-11] MEDS: PARoxetine 20 MG TABLET PO SCH (09:01)
[2018-06-11] MEDS: PREGABALIN 75 MG CAPSULE PO SCH ×3 (09:01→21:10)
[2018-06-11] MEDS: PANTOPRAZOLE 40 MG TABLET PO SCH ×2 (09:01→21:11)
[2018-06-11] MEDS: ENOXAPARIN 40 MG/0.4 ML SYRINGE SUBCUT SCH (09:03)
[2018-06-11] MEDS: INSULIN GLARGINE 100 UNIT/ML SUBCUT SCH (21:11)
[2018-06-12] MEDS: ENOXAPARIN 40 MG/0.4 ML SYRINGE SUBCUT SCH (09:37)
[2018-06-12] MEDS: INSULIN REGULAR 100 UNIT/ML SUBCUT SCH ×4 (09:37→22:03)
[2018-06-12] MEDS: BACITRACIN OINT 0.9 GM PACK TOP SCH (09:38)
[2018-06-12] MEDS: PREGABALIN 75 MG CAPSULE PO SCH ×3 (09:38→22:02)
[2018-06-12] MEDS: PARoxetine 20 MG TABLET PO SCH (09:38)
[2018-06-12] MEDS: PANTOPRAZOLE 40 MG TABLET PO SCH ×2 (09:39→22:02)
[2018-06-12] MEDS ORDERED: LEVOFLOXACIN INJ 500 MG in PREMIX 1 EACH IV SCH (11:30)
[2018-06-12] MEDS: ONDANSETRON 4 MG/2 ML VIAL IV PRN (16:24)
[2018-06-12] MEDS: LISINOPRIL 10 MG TABLET PO SCH ×2 (16:25→22:09)
[2018-06-12] MEDS ORDERED: ZALEPLON 5 MG CAPSULE PO PRN (21:24)
[2018-06-12] MEDS: NITROFURANTOIN MACRO/MONO 100 MG CAPSULE PO SCH (22:02)
[2018-06-12] MEDS: INSULIN GLARGINE 100 UNIT/ML SUBCUT SCH (22:02)
[2018-06-13 04:47] LABS: Basophils % 0.3 % (0.0-0.8); Eosinophils # 0.1 10*3/uL (0.0-0.87); Eosinophils % 3.2 % (0.00-10.9); Hematocrit 32.2 VOL% (35.7-47.0); Hemoglobin 10.6 GM/DL (12.0-16.0); Immature Granulocytes % 0.3 %; Immature Granulocytes Absolute 0.01 #; Lymphocytes # 1.1 10*3/uL (1.4-4.0); Mean Corpuscular HGB Conc 32.9 GM/DL (32-36); Mean Corpuscular Hemoglobin 30 PG (27-34); Mean Corpuscular Volume 89.7 FL (87-102); Mean Platelet Volume 10.5 FL (9.6-12.0); Monocytes # 0.4 10*3/uL (0.11-0.8); Monocytes % 12.4 % (1.7-12.7); Neutrophils # 1.5 10*3/uL (1.4-7.4); Neutrophils % 47.8 % (38.7-73.9); Platelet Count 186 T/CUMM (130-400); Red Blood Count 3.59 MC/CUMM (3.8-5.5); Red Cell Distribution Width 12.5 % (9.3-17.3); White Blood Count 3.1 T/CUMM (4-12)
[2018-06-13 05:14] LABS: Calcium 8.5 MG/DL (8.5-10.1); Osmolality,Calculated 282.8 MOS/KG (273-304); Potassium 3.5 MMOL/L (3.5-5.1)
[2018-06-13 05:20] LABS: Risk Ratio 3.22; VLDL CHOLESTEROL 39.6 MG/DL
[2018-06-13] MEDS: INSULIN REGULAR 100 UNIT/ML SUBCUT SCH ×2 (09:11→11:59)
[2018-06-13] MEDS: INSULIN GLARGINE 100 UNIT/ML SUBCUT SCH (09:17)
[2018-06-13] MEDS: ENOXAPARIN 40 MG/0.4 ML SYRINGE SUBCUT SCH (09:17)
[2018-06-13] MEDS: PARoxetine 20 MG TABLET PO SCH (09:18)
[2018-06-13] MEDS: LISINOPRIL 10 MG TABLET PO SCH (09:18)
[2018-06-13] MEDS: PREGABALIN 75 MG CAPSULE PO SCH ×2 (09:18→15:05)
[2018-06-13] MEDS: BACITRACIN OINT 0.9 GM PACK TOP SCH (09:18)
[2018-06-13] MEDS: NITROFURANTOIN MACRO/MONO 100 MG CAPSULE PO SCH (09:18)
[2018-06-13] MEDS: PANTOPRAZOLE 40 MG TABLET PO SCH (09:18)
[2018-06-13 11:58] VITALS: BP 177/98
[2018-06-13] MEDS ORDERED: AMOXICILLIN/CLAV 875 MG TABLET PO SCH (15:00)
== END 2018-06-13 15:06 | disposition home or self-care (01) | DRG 420 ==
LOC: EDUNIT# → EDBD → N.ED 07:19 → SUATTDRO 08:33 → N.EDINP 08:48 → N.ICU 08:57 → N.2E 06-11 14:42
PROVIDERS: ADMIT Internal Medicine; ATTEND Internal Medicine

== ENCOUNTER 2018-06-27 19:31 | Inpatient (IN) ==
[2018-06-27] MEDS ORDERED: METOCLOPRAMIDE 10 MG/2 ML VIAL IV STA (19:51)
[2018-06-27] MEDS ORDERED: ONDANSETRON 4 MG/2 ML VIAL IV STA (19:51)
[2018-06-27] MEDS ORDERED: SODIUM CHLORIDE 0.9% 2,000 ML IV STA (19:51)
[2018-06-27] MEDS ORDERED: INSULIN REGULAR 100 UNIT/ML IV STA (19:55)
[2018-06-27] MEDS ORDERED: INSULIN REGULAR 100 UNIT/ML SUBCUT STA (19:55)
[2018-06-27 20:34] LABS: Basophils % 0.4 % (0.0-0.8); Eosinophils % 0.6 % (0.00-10.9); Hematocrit 42.8 VOL% (35.7-47.0); Hemoglobin 13.9 GM/DL (12.0-16.0); Immature Granulocytes % 0.3 %; Immature Granulocytes Absolute 0.02 #; Lymphocytes # 1.1 10*3/uL (1.4-4.0); Lymphocytes % 15.7 % (21.3-54.2); Mean Corpuscular HGB Conc 32.5 GM/DL (32-36); Mean Corpuscular Hemoglobin 30 PG (27-34); Mean Corpuscular Volume 92.2 FL (87-102); Mean Platelet Volume 10.7 FL (9.6-12.0); Monocytes # 0.2 10*3/uL (0.11-0.8); Monocytes % 2.7 % (1.7-12.7); Neutrophils # 5.4 10*3/uL (1.4-7.4); Neutrophils % 80.3 % (38.7-73.9); Platelet Count 311 T/CUMM (130-400); Red Blood Count 4.64 MC/CUMM (3.8-5.5); White Blood Count 6.7 T/CUMM (4-12)
[2018-06-27] MEDS ORDERED: CLINDAMYCIN INJ 900 MG in PREMIX 1 EACH IV STA (20:54)
[2018-06-27 20:58] LABS: Alanine Aminotransferase 23 U/L (13-56); Alkaline Phosphatase 184 U/L (45-117); Amylase 30 U/L (25-115); Aspartate Amino Transferase 7 U/L (0-37); Blood Urea Nitrogen 23 MG/DL (7-18); Calcium 10.2 MG/DL (8.5-10.1); Glucose 484 MG/DL (74-106); Osmolality,Calculated 282.9 MOS/KG (273-304); Potassium 3.9 MMOL/L (3.5-5.1); Sodium 129 MMOL/L (136-145)
[2018-06-27 21:03] LABS: Apearance,Urine CLEAR (Clear); Bilirubin,Urine Negative (Negative); Blood, Urine Small mg/dL (Negative); Glucose,Urine (UA) >=500 mg/dL (Negative); Ketones,Urine 80 mg/dL (Negative); Nitrite,Urine Negative (Negative); Protein,Urine Negative; RBC,Urine <1 /HPF (0-4); Squamous Epithelial Cell,Urine Occasional /HPF (0-10); Urine Color Yellow (Yellow); Urine Specific Gravity 1.021 (1.001-1.035); Urine Urobilinogen < 2.0 EU/DL (0.2-1.0); WBC,Urine <1 /HPF (0-6)
[2018-06-27 21:06] LABS: Lactic Acid 2.8 MMOL/L (0.4-2.0)
[2018-06-27 21:47] LABS: Sedimentation Rate-Westergren 7 MM/HR (0-20)
[2018-06-27] MEDS ORDERED: DEXTROSE 50% 25 GM/50 ML SYRINGE IV PRN ×2 (22:15)
[2018-06-27] MEDS ORDERED: MAGNESIUM SULF RIDER 4 GM in PREMIX 1 EACH IV PRN (22:15)
[2018-06-27] MEDS ORDERED: SODIUM PHOSPHATE INJ 18.1 MMOL in SODIUM CHLORIDE 0.9% 250 ML IV PRN (22:15)
[2018-06-27] MEDS ORDERED: SODIUM BICARB INJ 100 MEQ in STERILE WATER INJ 400 ML IV PRN (22:15)
[2018-06-27] MEDS ORDERED: MAGNESIUM SULF RIDER 2 GM in PREMIX 1 EACH IV PRN (22:15)
[2018-06-27] MEDS ORDERED: ONDANSETRON 4 MG/2 ML VIAL IV PRN (22:37)
[2018-06-27] MEDS ORDERED: ALBUTEROL 2.5 MG/3 ML NEB RESP TX PRN (22:37)
[2018-06-27] MEDS ORDERED: ACETAMINOPHEN 325 MG TABLET PO PRN (22:37)
[2018-06-27] MEDS: ENOXAPARIN 40 MG/0.4 ML SYRINGE SUBCUT SCH (23:08)
[2018-06-27] MEDS: CEFTAROLINE 400 MG in SODIUM CHLORIDE 0.9% 100 ML IV SCH (23:29)
[2018-06-28] MEDS: DEXTROSE 5% NACL 0.9% 1,000 ML IV SCH ×2 (00:29→04:30)
[2018-06-28 00:46] LABS: Basophils % 0.4 % (0.0-0.8); Eosinophils # 0.1 10*3/uL (0.0-0.87); Eosinophils % 0.7 % (0.00-10.9); Hematocrit 31.2 VOL% (35.7-47.0); Hemoglobin 10.6 GM/DL (12.0-16.0); Immature Granulocytes % 0.3 %; Immature Granulocytes Absolute 0.02 #; Lymphocytes % 26.7 % (21.3-54.2); Mean Corpuscular Hemoglobin 30 PG (27-34); Mean Corpuscular Volume 88.1 FL (87-102); Mean Platelet Volume 10.3 FL (9.6-12.0); Monocytes # 0.6 10*3/uL (0.11-0.8); Monocytes % 7.5 % (1.7-12.7); Neutrophils # 4.8 10*3/uL (1.4-7.4); Neutrophils % 64.4 % (38.7-73.9); Platelet Count 253 T/CUMM (130-400); Red Blood Count 3.54 MC/CUMM (3.8-5.5); Red Cell Distribution Width 12.8 % (9.3-17.3); White Blood Count 7.4 T/CUMM (4-12)
[2018-06-28 01:06] LABS: Calcium 8.1 MG/DL (8.5-10.1); Osmolality,Calculated 278.5 MOS/KG (273-304); Potassium 3.5 MMOL/L (3.5-5.1)
[2018-06-28 01:13] LABS: ABG Base Excess -5.1 MMOL/L (-2.5-2.5); ABG HCO3 20.1 MMOL/L (20-26); ABG Oxygen Saturation 93.5 % (95-100); ABG PCO2 38.1 MM HG (35-48); ABG PH 7.334 (7.35-7.45); ABG PO2 67.7 MM HG (80-95); ABG TCO2 18.5 MMOL/L (23-27); Allen Test Positive; Pt O2 Delivery Device Room Air
[2018-06-28] MEDS: POTASSIUM CHLORIDE RIDER 10 MEQ in PREMIX 1 EACH IV PRN ×3 (02:45→05:00)
[2018-06-28] MEDS ORDERED: INSULIN REGULAR DRIP 100 ML IV PRN (06:10)
[2018-06-28 07:12] LABS: Calcium 7.6 MG/DL (8.5-10.1); Osmolality,Calculated 286.7 MOS/KG (273-304); Potassium 4.7 MMOL/L (3.5-5.1)
[2018-06-28] MEDS ORDERED: ONDANSETRON 4 MG TABLET PO PRN (07:13)
[2018-06-28] MEDS ORDERED: POTASSIUM CHLORIDE INJ 10 MEQ in DEXTROSE 5% NACL 0.9% 1,000 ML IV SCH (08:00)
[2018-06-28] MEDS: INSULIN GLARGINE 100 UNIT/ML SUBCUT SCH ×2 (09:12→20:14)
[2018-06-28] MEDS: INSULIN REGULAR 100 UNIT/ML SUBCUT SCH ×5 (09:12→23:27)
[2018-06-28] MEDS: MUPIROCIN 2% OINT 22 GM TUBE TOP SCH ×2 (09:12→20:19)
[2018-06-28] MEDS: PARoxetine 20 MG TABLET PO SCH (09:13)
[2018-06-28] MEDS: PREGABALIN 75 MG CAPSULE PO SCH ×3 (09:13→20:13)
[2018-06-28] MEDS: PANTOPRAZOLE 40 MG TABLET PO SCH ×2 (09:13→20:14)
[2018-06-28] MEDS ORDERED: INSULIN REGULAR 100 UNIT/ML SUBCUT SCH (10:00)
[2018-06-28] MEDS ORDERED: ALBUTEROL 2.5 MG/3 ML NEB RESP TX PRN (11:00)
[2018-06-28] MEDS: CEFTAROLINE 400 MG in SODIUM CHLORIDE 0.9% 100 ML IV SCH ×2 (11:49→23:26)
[2018-06-28 12:04] LABS: Calcium 7.5 MG/DL (8.5-10.1); Osmolality,Calculated 283.8 MOS/KG (273-304); Potassium 3.9 MMOL/L (3.5-5.1)
[2018-06-28] MEDS ORDERED: LOPERAMIDE 2 MG CAPSULE PO PRN (17:12)
[2018-06-28] MEDS ORDERED: SODIUM CHLORIDE 0.65% NASAL SPRAY 45 ML BOTTLE BOTH NARES PRN (20:44)
[2018-06-28] MEDS: ENOXAPARIN 40 MG/0.4 ML SYRINGE SUBCUT SCH (23:26)
[2018-06-29] MEDS: INSULIN REGULAR 100 UNIT/ML SUBCUT SCH ×5 (04:09→21:38)
[2018-06-29 05:00] LABS: Osmolality,Calculated 284.8 MOS/KG (273-304); Potassium 3.4 MMOL/L (3.5-5.1)
[2018-06-29] MEDS: POTASSIUM CHLORIDE RIDER 10 MEQ in PREMIX 1 EACH IV PRN ×2 (06:13→07:58)
[2018-06-29] MEDS: MUPIROCIN 2% OINT 22 GM TUBE TOP SCH ×2 (08:48→21:39)
[2018-06-29] MEDS: POTASSIUM CHLORIDE 20 MEQ TABLET PO SCH ×3 (08:48→16:55)
[2018-06-29] MEDS: INSULIN GLARGINE 100 UNIT/ML SUBCUT SCH ×2 (08:48→21:32)
[2018-06-29] MEDS: PARoxetine 20 MG TABLET PO SCH (08:49)
[2018-06-29] MEDS: PREGABALIN 75 MG CAPSULE PO SCH ×3 (08:49→21:32)
[2018-06-29] MEDS: PANTOPRAZOLE 40 MG TABLET PO SCH ×2 (08:49→21:32)
[2018-06-29] MEDS: LISINOPRIL 5 MG TABLET PO SCH (12:39)
[2018-06-29] MEDS ORDERED: LEVOFLOXACIN 500 MG TABLET PO SCH (13:00)
[2018-06-29] MEDS: ENOXAPARIN 40 MG/0.4 ML SYRINGE SUBCUT SCH (21:31)
[2018-06-30 06:11] LABS: Calcium 8.7 MG/DL (8.5-10.1); Osmolality,Calculated 289.3 MOS/KG (273-304); Potassium 4.6 MMOL/L (3.5-5.1)
[2018-06-30 08:17] VITALS: BP 144/94
[2018-06-30] MEDS ORDERED: MORPHINE 4 MG/1 ML VIAL IV PRN (08:29)
[2018-06-30] MEDS: INSULIN GLARGINE 100 UNIT/ML SUBCUT SCH (09:51)
[2018-06-30] MEDS: PREGABALIN 75 MG CAPSULE PO SCH (09:52)
[2018-06-30] MEDS: PANTOPRAZOLE 40 MG TABLET PO SCH (09:52)
[2018-06-30] MEDS: INSULIN REGULAR 100 UNIT/ML SUBCUT SCH (09:52)
[2018-06-30] MEDS: LISINOPRIL 5 MG TABLET PO SCH (09:52)
[2018-06-30] MEDS: PARoxetine 20 MG TABLET PO SCH (09:52)
[2018-06-30] MEDS: MUPIROCIN 2% OINT 22 GM TUBE TOP SCH (09:53)
== END 2018-06-30 10:31 | disposition home or self-care (01) | DRG 420 ==
LOC: EDBD → EDUNIT# → N.ED 19:31 → SUATTDRO 22:12 → N.EDINP 22:12 → N.ICU 22:41 → N.2E 06-29 12:02
PROVIDERS: ADMIT Internal Medicine; ATTEND Internal Medicine Infectious Disease

== ENCOUNTER 2018-07-11 10:32 | Inpatient (IN) ==
[2018-07-11] MEDS ORDERED: ONDANSETRON 4 MG/2 ML VIAL IV STA (11:03)
[2018-07-11] MEDS ORDERED: SODIUM CHLORIDE 0.9% 1,000 ML IV STA ×2 (11:03→12:03)
[2018-07-11 11:15] LABS: Basophils % 0.3 % (0.0-0.8); Eosinophils % 0.2 % (0.00-10.9); Hematocrit 36.7 VOL% (35.7-47.0); Hemoglobin 11.9 GM/DL (12.0-16.0); Immature Granulocytes % 0.5 %; Immature Granulocytes Absolute 0.06 #; Lymphocytes # 1.7 10*3/uL (1.4-4.0); Lymphocytes % 13.9 % (21.3-54.2); Mean Corpuscular HGB Conc 32.4 GM/DL (32-36); Mean Corpuscular Hemoglobin 30 PG (27-34); Mean Corpuscular Volume 91.1 FL (87-102); Mean Platelet Volume 10.6 FL (9.6-12.0); Monocytes # 0.6 10*3/uL (0.11-0.8); Monocytes % 4.5 % (1.7-12.7); Neutrophils % 80.6 % (38.7-73.9); Platelet Count 251 T/CUMM (130-400); Red Blood Count 4.03 MC/CUMM (3.8-5.5); Red Cell Distribution Width 13.9 % (9.3-17.3); White Blood Count 12.4 T/CUMM (4-12)
[2018-07-11] MEDS ORDERED: INSULIN REGULAR 100 UNIT/ML IV STA (11:24)
[2018-07-11] MEDS ORDERED: ZALEPLON 5 MG CAPSULE PO PRN (12:17)
[2018-07-11] MEDS ORDERED: INSULIN REGULAR 100 UNIT/ML IV ONE (12:17)
[2018-07-11] MEDS ORDERED: SODIUM BICARB INJ 100 MEQ in STERILE WATER INJ 400 ML IV PRN (12:17)
[2018-07-11] MEDS ORDERED: SODIUM CHLORIDE 0.9% 1,000 ML IV ONE (12:17)
[2018-07-11] MEDS ORDERED: ONDANSETRON 4 MG/2 ML VIAL IV PRN (12:17)
[2018-07-11] MEDS ORDERED: SODIUM PHOSPHATE INJ 17 MMOL in SODIUM CHLORIDE 0.9% 250 ML IV PRN (12:17)
[2018-07-11] MEDS ORDERED: MAGNESIUM SULF RIDER 4 GM in PREMIX 1 EACH IV PRN (12:17)
[2018-07-11] MEDS ORDERED: GLUCAGON 1 MG VIAL IM PRN (12:17)
[2018-07-11] MEDS ORDERED: ACETAMINOPHEN 325 MG TABLET PO PRN (12:17)
[2018-07-11] MEDS ORDERED: DEXTROSE 50% 25 GM/50 ML VIAL IV PRN ×3 (12:17)
[2018-07-11] MEDS ORDERED: MAGNESIUM SULF RIDER 2 GM in PREMIX 1 EACH IV PRN (12:17)
[2018-07-11] MEDS ORDERED: POTASSIUM CHLORIDE RIDER 10 MEQ in PREMIX 1 EACH IV PRN (12:17)
[2018-07-11 12:18] LABS: Albumin 3.2 G/DL (3.4-5.0); Bilirubin,Total 0.4 MG/DL (0.2-1.0); Calcium 9.3 MG/DL (8.5-10.1); Osmolality,Calculated 281.4 MOS/KG (273-304); Potassium 3.4 MMOL/L (3.5-5.1)
[2018-07-11] MEDS ORDERED: INSULIN REGULAR DRIP 100 ML IV SCH (12:30)
[2018-07-11] MEDS ORDERED: POTASSIUM CHLORIDE 20 MEQ TABLET PO ONE (12:34)
[2018-07-11] MEDS ORDERED: DEXTROSE 5% NACL 0.9% 1,000 ML IV SCH ×2 (14:30→16:30)
[2018-07-11 14:43] LABS: Calcium 9.2 MG/DL (8.5-10.1); Osmolality,Calculated 276.8 MOS/KG (273-304); Potassium 4.1 MMOL/L (3.5-5.1)
[2018-07-11] MEDS: SODIUM CHLORIDE 0.9% 1,000 ML IV SCH ×2 (14:50→16:10)
[2018-07-11] MEDS: PREGABALIN 75 MG CAPSULE PO SCH ×2 (15:19→21:15)
[2018-07-11] MEDS: ENOXAPARIN 40 MG/0.4 ML SYRINGE SUBCUT SCH (15:19)
[2018-07-11] MEDS: LEVOFLOXACIN INJ 750 MG in PREMIX 1 EACH IV SCH (15:53)
[2018-07-11] MEDS ORDERED: SODIUM CHLORIDE 0.9% 1,000 ML IV SCH (17:17)
[2018-07-11 20:09] LABS: Osmolality,Calculated 279.5 MOS/KG (273-304); Potassium 4.2 MMOL/L (3.5-5.1)
[2018-07-11] MEDS: DEXT 5% NACL 0.45% KCL 20 MEQ 20 MEQ/1,000 ML BAG IV SCH (20:26)
[2018-07-11] MEDS: MUPIROCIN 2% OINT 22 GM TUBE TOP SCH (21:14)
[2018-07-11] MEDS: PANTOPRAZOLE 40 MG TABLET PO SCH (21:15)
[2018-07-11 22:16] LABS: Calcium 8.4 MG/DL (8.5-10.1); Osmolality,Calculated 278.4 MOS/KG (273-304); Potassium 3.9 MMOL/L (3.5-5.1)
[2018-07-11 23:10] LABS: Apearance,Urine Slightly Hazy (Clear); Bacteria,Urine Many /HPF (Few); Bilirubin,Urine Negative (Negative); Blood, Urine Small mg/dL (Negative); Glucose,Urine (UA) >=500 mg/dL (Negative); Ketones,Urine 20 mg/dL (Negative); Mucus,Urine Few /LPF (Occasional); Nitrite,Urine Positive (Negative); Protein,Urine Negative; Squamous Epithelial Cell,Urine Occasional /HPF (0-10); Urine Color Yellow (Yellow); Urine Specific Gravity 1.017 (1.001-1.035); Urine Urobilinogen < 2.0 EU/DL (0.2-1.0); WBC,Urine 11 /HPF (0-6)
[2018-07-12] MEDS: DEXT 5% NACL 0.45% KCL 20 MEQ 20 MEQ/1,000 ML BAG IV SCH (00:43)
[2018-07-12] MEDS ORDERED: DEXTROSE 50% 25 GM/50 ML SYRINGE IV PRN ×2 (01:30)
[2018-07-12] MEDS ORDERED: SODIUM CHLORIDE 0.45% 1,000 ML IV SCH (05:17)
[2018-07-12 07:36] LABS: Basophils % 0.4 % (0.0-0.8); Eosinophils # 0.1 10*3/uL (0.0-0.87); Eosinophils % 1.9 % (0.00-10.9); Hematocrit 31.1 VOL% (35.7-47.0); Hemoglobin 10.1 GM/DL (12.0-16.0); Immature Granulocytes % 0.2 %; Immature Granulocytes Absolute 0.01 #; Lymphocytes # 1.1 10*3/uL (1.4-4.0); Lymphocytes % 22.4 % (21.3-54.2); Mean Corpuscular HGB Conc 32.5 GM/DL (32-36); Mean Corpuscular Hemoglobin 30 PG (27-34); Mean Corpuscular Volume 92.3 FL (87-102); Mean Platelet Volume 10.1 FL (9.6-12.0); Monocytes # 0.3 10*3/uL (0.11-0.8); Monocytes % 7.1 % (1.7-12.7); Neutrophils # 3.2 10*3/uL (1.4-7.4); Platelet Count 164 T/CUMM (130-400); Red Blood Count 3.37 MC/CUMM (3.8-5.5); Red Cell Distribution Width 14.6 % (9.3-17.3); White Blood Count 4.8 T/CUMM (4-12)
[2018-07-12 08:04] LABS: Albumin 2.3 G/DL (3.4-5.0); Bilirubin,Total 0.4 MG/DL (0.2-1.0); Calcium 8.3 MG/DL (8.5-10.1); Osmolality,Calculated 282.3 MOS/KG (273-304); Potassium 4.2 MMOL/L (3.5-5.1); Total Protein 6.1 G/DL (6.4-8.3)
[2018-07-12] MEDS ORDERED: PANTOPRAZOLE 40 MG TABLET PO SCH (09:00)
[2018-07-12] MEDS: MUPIROCIN 2% OINT 22 GM TUBE TOP SCH ×2 (09:40→21:05)
[2018-07-12] MEDS: PANTOPRAZOLE 40 MG TABLET PO SCH ×2 (09:40→20:54)
[2018-07-12] MEDS: PREGABALIN 75 MG CAPSULE PO SCH ×3 (09:44→20:54)
[2018-07-12] MEDS ORDERED: INSULIN GLARGINE 100 UNIT/ML SUBCUT ONE (10:50)
[2018-07-12] MEDS: INSULIN REGULAR 100 UNIT/ML SUBCUT SCH ×3 (12:21→21:05)
[2018-07-12] MEDS: INSULIN LISPRO 100 UNIT/ML SUBCUT SCH ×2 (12:24→16:50)
[2018-07-12] MEDS: LEVOFLOXACIN INJ 750 MG in PREMIX 1 EACH IV SCH (15:08)
[2018-07-12] MEDS: ENOXAPARIN 40 MG/0.4 ML SYRINGE SUBCUT SCH (15:13)
[2018-07-12] MEDS ORDERED: INSULIN GLARGINE 100 UNIT/ML SUBCUT SCH ×3 (21:00)
[2018-07-13] MEDS: INSULIN REGULAR 100 UNIT/ML SUBCUT SCH ×3 (08:35→16:45)
[2018-07-13] MEDS: INSULIN LISPRO 100 UNIT/ML SUBCUT SCH ×3 (08:36→17:02)
[2018-07-13] MEDS: PANTOPRAZOLE 40 MG TABLET PO SCH (08:37)
[2018-07-13] MEDS: PREGABALIN 75 MG CAPSULE PO SCH ×2 (08:37→16:04)
[2018-07-13] MEDS: MUPIROCIN 2% OINT 22 GM TUBE TOP SCH (10:10)
[2018-07-13] MEDS: LEVOFLOXACIN INJ 750 MG in PREMIX 1 EACH IV SCH (13:18)
[2018-07-13] MEDS: ENOXAPARIN 40 MG/0.4 ML SYRINGE SUBCUT SCH (13:18)
[2018-07-13 16:29] VITALS: BP 134/101
== END 2018-07-13 18:07 | disposition home or self-care (01) | DRG 420 ==
LOC: N.ED 10:32 → N.EDINP 12:17 → SUATTDRO 12:17 → N.ICU 13:08 → N.5E 07-12 17:20
PROVIDERS: ADMIT Family Medicine; ATTEND Internal Medicine

== ENCOUNTER 2018-07-31 12:13 | Inpatient (IN) ==
[2018-07-31] MEDS ORDERED: SODIUM CHLORIDE 0.9% 1,000 ML IV STA (12:51)
[2018-07-31 13:09] LABS: Basophils % 0.3 % (0.0-0.8); Eosinophils % 0.3 % (0.00-10.9); Hematocrit 33.5 VOL% (35.7-47.0); Hemoglobin 11.1 GM/DL (12.0-16.0); Immature Granulocytes % 0.4 %; Immature Granulocytes Absolute 0.04 #; Mean Corpuscular HGB Conc 33.1 GM/DL (32-36); Mean Corpuscular Hemoglobin 31 PG (27-34); Mean Corpuscular Volume 93.3 FL (87-102); Mean Platelet Volume 10.4 FL (9.6-12.0); Monocytes # 0.4 10*3/uL (0.11-0.8); Monocytes % 4.9 % (1.7-12.7); Neutrophils # 7.5 10*3/uL (1.4-7.4); Neutrophils % 83.1 % (38.7-73.9); Platelet Count 283 T/CUMM (130-400); Red Blood Count 3.59 MC/CUMM (3.8-5.5); Red Cell Distribution Width 14.9 % (9.3-17.3)
[2018-07-31 13:31] LABS: Apearance,Urine Slightly Hazy (Clear); Bilirubin,Urine Negative (Negative); Blood, Urine Negative (Negative); Glucose,Urine (UA) >=500 mg/dL (Negative); Ketones,Urine 5 mg/dL (Negative); Mucus,Urine Occasional /LPF (Occasional); Nitrite,Urine Positive (Negative); Protein,Urine Negative; RBC,Urine 2 /HPF (0-4); Squamous Epithelial Cell,Urine Occasional /HPF (0-10); Urine Color Yellow (Yellow); Urine Specific Gravity 1.027 (1.001-1.035); Urine Urobilinogen < 2.0 EU/DL (0.2-1.0); WBC,Urine 4 /HPF (0-6)
[2018-07-31 13:34] LABS: Albumin 2.9 G/DL (3.4-5.0); Bilirubin,Total 0.7 MG/DL (0.2-1.0); Calcium 9.4 MG/DL (8.5-10.1); Osmolality,Calculated 288.9 MOS/KG (273-304); Potassium 4.8 MMOL/L (3.5-5.1); Total Protein 7.7 G/DL (6.4-8.3)
[2018-07-31] MEDS ORDERED: INSULIN REGULAR 100 UNIT/ML IV STA (13:49)
[2018-07-31] MEDS ORDERED: INSULIN REGULAR 100 UNIT/ML ONE (13:52)
[2018-07-31] MEDS ORDERED: PROMETHAZINE 25 MG/1 ML VIAL IM PRN (14:43)
[2018-07-31] MEDS ORDERED: ACETAMINOPHEN 325 MG TABLET PO PRN (14:43)
[2018-07-31] MEDS ORDERED: ONDANSETRON 4 MG/2 ML VIAL IV PRN (14:43)
[2018-07-31] MEDS ORDERED: GLUCAGON 1 MG VIAL IM PRN (14:43)
[2018-07-31] MEDS ORDERED: DEXTROSE 50% 25 GM/50 ML SYRINGE IV PRN (14:43)
[2018-07-31] MEDS ORDERED: ALBUTEROL 2.5 MG/3 ML NEB RESP TX PRN (14:47)
[2018-07-31] MEDS ORDERED: ONDANSETRON 4 MG TABLET PO PRN (14:47)
[2018-07-31] MEDS ORDERED: SODIUM CHLORIDE 0.9% 2,000 ML IV ONE (17:13)
[2018-07-31] MEDS: INSULIN REGULAR 100 UNIT/ML SUBCUT SCH (17:47)
[2018-07-31] MEDS: SODIUM CHLORIDE 0.9% 1,000 ML IV SCH (17:47)
[2018-07-31] MEDS: PIPERACILLIN/TAZOBACTAM 3,375 MG in SODIUM CHLORIDE 0.9% 100 ML IV SCH (17:47)
[2018-07-31] MEDS: INSULIN LISPRO 100 UNIT/ML SUBCUT SCH (17:48)
[2018-07-31] MEDS ORDERED: INSULIN GLARGINE 100 UNIT/ML SUBCUT SCH (21:00)
[2018-07-31] MEDS: ENOXAPARIN 40 MG/0.4 ML SYRINGE SUBCUT SCH (21:11)
[2018-07-31] MEDS: PREGABALIN 75 MG CAPSULE PO SCH (21:12)
[2018-07-31] MEDS: PANTOPRAZOLE 40 MG TABLET PO SCH (21:12)
[2018-07-31] MEDS: diphenhydrAMINE CAP 50 MG CAPSULE PO SCH (21:50)
[2018-07-31] MEDS: VANCOMYCIN INJ 1,000 MG in SODIUM CHLORIDE 0.9% 250 ML IV SCH (22:45)
[2018-08-01] MEDS: MUPIROCIN 2% OINT 22 GM TUBE TOP SCH ×3 (00:33→20:21)
[2018-08-01] MEDS: INSULIN REGULAR 100 UNIT/ML SUBCUT SCH ×5 (01:52→23:32)
[2018-08-01] MEDS: PIPERACILLIN/TAZOBACTAM 3,375 MG in SODIUM CHLORIDE 0.9% 100 ML IV SCH ×3 (01:53→20:22)
[2018-08-01 05:47] LABS: Basophils % 0.2 % (0.0-0.8); Eosinophils # 0.1 10*3/uL (0.0-0.87); Eosinophils % 1.7 % (0.00-10.9); Hematocrit 29.1 VOL% (35.7-47.0); Hemoglobin 9.3 GM/DL (12.0-16.0); Immature Granulocytes % 0.3 %; Immature Granulocytes Absolute 0.02 #; Lymphocytes # 1.3 10*3/uL (1.4-4.0); Lymphocytes % 21.7 % (21.3-54.2); Mean Corpuscular Hemoglobin 30 PG (27-34); Mean Corpuscular Volume 95.1 FL (87-102); Mean Platelet Volume 10.5 FL (9.6-12.0); Monocytes # 0.5 10*3/uL (0.11-0.8); Monocytes % 8.3 % (1.7-12.7); Neutrophils # 3.9 10*3/uL (1.4-7.4); Neutrophils % 67.8 % (38.7-73.9); Platelet Count 234 T/CUMM (130-400); Red Blood Count 3.06 MC/CUMM (3.8-5.5); Red Cell Distribution Width 15.3 % (9.3-17.3); White Blood Count 5.8 T/CUMM (4-12)
[2018-08-01 06:19] LABS: Albumin 2.2 G/DL (3.4-5.0); Bilirubin,Total 0.5 MG/DL (0.2-1.0); Calcium 8.2 MG/DL (8.5-10.1); Osmolality,Calculated 280.3 MOS/KG (273-304); Potassium 3.3 MMOL/L (3.5-5.1); Risk Ratio 3.86; Thyroid Stimulating Hormone 0.969 uIU/ml (0.358-3.74); Total Protein 6.2 G/DL (6.4-8.3); VLDL CHOLESTEROL 53.8 MG/DL
[2018-08-01] MEDS ORDERED: PANTOPRAZOLE 40 MG TABLET PO SCH (09:00)
[2018-08-01] MEDS: LISINOPRIL 5 MG TABLET PO SCH (09:40)
[2018-08-01] MEDS: POTASSIUM CHLORIDE 20 MEQ TABLET PO SCH ×2 (09:40→12:31)
[2018-08-01] MEDS: INSULIN LISPRO 100 UNIT/ML SUBCUT SCH ×4 (09:40→18:16)
[2018-08-01] MEDS: diphenhydrAMINE CAP 50 MG CAPSULE PO SCH (09:40)
[2018-08-01] MEDS: PREGABALIN 75 MG CAPSULE PO SCH ×2 (09:40→20:20)
[2018-08-01] MEDS: PANTOPRAZOLE 40 MG TABLET PO SCH ×2 (09:40→20:19)
[2018-08-01] MEDS: SODIUM CHLORIDE 0.9% 1,000 ML IV SCH ×3 (10:17→22:13)
[2018-08-01] MEDS: VANCOMYCIN INJ 1,000 MG in SODIUM CHLORIDE 0.9% 250 ML IV SCH (10:33)
[2018-08-01] MEDS ORDERED: LIDOCAINE 1% 20 ML VIAL ONE (12:24)
[2018-08-01] MEDS ORDERED: MIDAZOLAM 2 MG/2 ML VIAL ONE (14:29)
[2018-08-01] MEDS ORDERED: GLUCAGON 1 MG VIAL IM PRN (15:57)
[2018-08-01] MEDS ORDERED: DEXTROSE 50% 25 GM/50 ML VIAL IV PRN (15:57)
[2018-08-01] MEDS: ENOXAPARIN 40 MG/0.4 ML SYRINGE SUBCUT SCH (20:19)
[2018-08-01] MEDS: INSULIN GLARGINE 100 UNIT/ML SUBCUT SCH (20:21)
[2018-08-02] MEDS: diphenhydrAMINE CAP 50 MG CAPSULE PO SCH ×2 (01:05→13:15)
[2018-08-02] MEDS: VANCOMYCIN INJ 1,000 MG in SODIUM CHLORIDE 0.9% 250 ML IV SCH ×2 (01:42→14:05)
[2018-08-02] MEDS: PIPERACILLIN/TAZOBACTAM 3,375 MG in SODIUM CHLORIDE 0.9% 100 ML IV SCH ×2 (04:36→17:01)
[2018-08-02] MEDS: SODIUM CHLORIDE 0.9% 1,000 ML IV SCH (04:48)
[2018-08-02] MEDS: INSULIN REGULAR 100 UNIT/ML SUBCUT SCH ×3 (05:47→17:47)
[2018-08-02 06:52] LABS: Basophils % 0.5 % (0.0-0.8); Eosinophils # 0.1 10*3/uL (0.0-0.87); Eosinophils % 1.8 % (0.00-10.9); Hematocrit 28.5 VOL% (35.7-47.0); Hemoglobin 9.1 GM/DL (12.0-16.0); Immature Granulocytes % 0.5 %; Immature Granulocytes Absolute 0.02 #; Lymphocytes # 1.1 10*3/uL (1.4-4.0); Lymphocytes % 28.4 % (21.3-54.2); Mean Corpuscular HGB Conc 31.9 GM/DL (32-36); Mean Corpuscular Hemoglobin 31 PG (27-34); Mean Corpuscular Volume 97.6 FL (87-102); Mean Platelet Volume 10.5 FL (9.6-12.0); Monocytes # 0.4 10*3/uL (0.11-0.8); Monocytes % 9.1 % (1.7-12.7); Neutrophils # 2.4 10*3/uL (1.4-7.4); Neutrophils % 59.7 % (38.7-73.9); Platelet Count 195 T/CUMM (130-400); Red Blood Count 2.92 MC/CUMM (3.8-5.5); Red Cell Distribution Width 15.6 % (9.3-17.3); White Blood Count 3.9 T/CUMM (4-12)
[2018-08-02 07:06] LABS: Calcium 7.9 MG/DL (8.5-10.1); Osmolality,Calculated 289.3 MOS/KG (273-304); Potassium 3.7 MMOL/L (3.5-5.1)
[2018-08-02] MEDS: PREGABALIN 75 MG CAPSULE PO SCH ×2 (08:43→20:59)
[2018-08-02] MEDS: LISINOPRIL 5 MG TABLET PO SCH (08:43)
[2018-08-02] MEDS: PANTOPRAZOLE 40 MG TABLET PO SCH ×2 (08:43→20:59)
[2018-08-02] MEDS: INSULIN LISPRO 100 UNIT/ML SUBCUT SCH ×3 (08:44→17:48)
[2018-08-02] MEDS: MUPIROCIN 2% OINT 22 GM TUBE TOP SCH ×3 (08:46→21:01)
[2018-08-02] MEDS ORDERED: SODIUM CHLORIDE 0.9% 1,000 ML IV SCH (10:30)
[2018-08-02] MEDS: FLUCONAZOLE 200 MG TABLET PO SCH (12:22)
[2018-08-02] MEDS: SODIUM HYPOCHLORITE 0.25% IRRIG 473 ML BOTTLE TOP SCH (12:24)
[2018-08-02] MEDS: CHLORHEXIDINE 4% SOLN 118 ML BOTTLE TOP SCH (12:24)
[2018-08-02] MEDS ORDERED: hydrOXYzine HCL 25 MG TABLET PO PRN (13:29)
[2018-08-02] MEDS ORDERED: NICOTINE 21 MG/24 HR PATCH TRANSDERM PRN (18:30)
[2018-08-02] MEDS: INSULIN GLARGINE 100 UNIT/ML SUBCUT SCH (20:59)
[2018-08-02] MEDS: ENOXAPARIN 40 MG/0.4 ML SYRINGE SUBCUT SCH (20:59)
[2018-08-02] MEDS: oxyCODONE/ACETAMINOPHEN 5-325 MG TABLET PO PRN (22:35)
[2018-08-03] MEDS: INSULIN REGULAR 100 UNIT/ML SUBCUT SCH ×4 (00:57→17:00)
[2018-08-03] MEDS: VANCOMYCIN INJ 1,000 MG in SODIUM CHLORIDE 0.9% 250 ML IV SCH ×2 (01:35→18:20)
[2018-08-03] MEDS: PIPERACILLIN/TAZOBACTAM 3,375 MG in SODIUM CHLORIDE 0.9% 100 ML IV SCH (04:34)
[2018-08-03 05:55] LABS: Basophils % 0.6 % (0.0-0.8); Eosinophils # 0.1 10*3/uL (0.0-0.87); Eosinophils % 1.4 % (0.00-10.9); Hematocrit 30.6 VOL% (35.7-47.0); Hemoglobin 9.6 GM/DL (12.0-16.0); Lymphocytes % 29.8 % (21.3-54.2); Mean Corpuscular HGB Conc 31.4 GM/DL (32-36); Mean Corpuscular Hemoglobin 31 PG (27-34); Mean Corpuscular Volume 98.1 FL (87-102); Mean Platelet Volume 10.5 FL (9.6-12.0); Monocytes # 0.3 10*3/uL (0.11-0.8); Monocytes % 8.7 % (1.7-12.7); Neutrophils # 2.1 10*3/uL (1.4-7.4); Neutrophils % 59.5 % (38.7-73.9); Platelet Count 215 T/CUMM (130-400); Red Blood Count 3.12 MC/CUMM (3.8-5.5); Red Cell Distribution Width 15.5 % (9.3-17.3); White Blood Count 3.5 T/CUMM (4-12)
[2018-08-03 06:14] LABS: Calcium 8.1 MG/DL (8.5-10.1); Osmolality,Calculated 287.7 MOS/KG (273-304); Potassium 3.9 MMOL/L (3.5-5.1)
[2018-08-03] MEDS: LISINOPRIL 5 MG TABLET PO SCH (08:26)
[2018-08-03] MEDS ORDERED: INSULIN GLARGINE 100 UNIT/ML SUBCUT SCH (09:00)
[2018-08-03] MEDS: INSULIN LISPRO 100 UNIT/ML SUBCUT SCH ×3 (09:22→16:58)
[2018-08-03] MEDS: FLUCONAZOLE 200 MG TABLET PO SCH (09:23)
[2018-08-03] MEDS: MUPIROCIN 2% OINT 22 GM TUBE TOP SCH ×2 (09:23→20:32)
[2018-08-03] MEDS: PANTOPRAZOLE 40 MG TABLET PO SCH ×2 (09:24→20:34)
[2018-08-03] MEDS: INSULIN GLARGINE 100 UNIT/ML SUBCUT SCH ×2 (09:24→20:33)
[2018-08-03] MEDS: PREGABALIN 75 MG CAPSULE PO SCH ×2 (09:24→20:34)
[2018-08-03] MEDS: CIPROFLOXACIN INJ 400 MG in PREMIX 1 EACH IV SCH ×2 (10:51→22:43)
[2018-08-03] MEDS: CHLORHEXIDINE 4% SOLN 118 ML BOTTLE TOP SCH (11:10)
[2018-08-03] MEDS: SODIUM HYPOCHLORITE 0.25% IRRIG 473 ML BOTTLE TOP SCH (11:10)
[2018-08-03] MEDS ORDERED: DEXTROSE 50% 25 GM/50 ML SYRINGE IV PRN (11:21)
[2018-08-03] MEDS: diphenhydrAMINE CAP 50 MG CAPSULE PO SCH (17:45)
[2018-08-03] MEDS: oxyCODONE/ACETAMINOPHEN 5-325 MG TABLET PO PRN (17:48)
[2018-08-03] MEDS: ENOXAPARIN 40 MG/0.4 ML SYRINGE SUBCUT SCH (20:34)
[2018-08-03] MEDS ORDERED: SERTRALINE 25 MG TABLET PO SCH (21:00)
[2018-08-04] MEDS: INSULIN REGULAR 100 UNIT/ML SUBCUT SCH ×3 (00:30→11:53)
[2018-08-04] MEDS: diphenhydrAMINE CAP 50 MG CAPSULE PO SCH ×2 (00:32→08:12)
[2018-08-04] MEDS: VANCOMYCIN INJ 1,000 MG in SODIUM CHLORIDE 0.9% 250 ML IV SCH ×2 (01:58→09:06)
[2018-08-04 04:46] LABS: Basophils % 0.3 % (0.0-0.8); Eosinophils # 0.1 10*3/uL (0.0-0.87); Eosinophils % 1.7 % (0.00-10.9); Hematocrit 27.6 VOL% (35.7-47.0); Hemoglobin 8.7 GM/DL (12.0-16.0); Immature Granulocytes % 0.3 %; Immature Granulocytes Absolute 0.01 #; Lymphocytes # 1.2 10*3/uL (1.4-4.0); Mean Corpuscular HGB Conc 31.5 GM/DL (32-36); Mean Corpuscular Hemoglobin 31 PG (27-34); Mean Corpuscular Volume 97.5 FL (87-102); Mean Platelet Volume 10.3 FL (9.6-12.0); Monocytes # 0.4 10*3/uL (0.11-0.8); Monocytes % 10.5 % (1.7-12.7); Neutrophils # 1.9 10*3/uL (1.4-7.4); Neutrophils % 54.2 % (38.7-73.9); Platelet Count 200 T/CUMM (130-400); Red Blood Count 2.83 MC/CUMM (3.8-5.5); Red Cell Distribution Width 15.3 % (9.3-17.3); White Blood Count 3.5 T/CUMM (4-12)
[2018-08-04 05:13] LABS: Calcium 8.3 MG/DL (8.5-10.1); Osmolality,Calculated 285.1 MOS/KG (273-304); Potassium 3.7 MMOL/L (3.5-5.1)
[2018-08-04] MEDS: oxyCODONE/ACETAMINOPHEN 5-325 MG TABLET PO PRN (08:12)
[2018-08-04] MEDS: FLUCONAZOLE 200 MG TABLET PO SCH (09:04)
[2018-08-04] MEDS: PREGABALIN 75 MG CAPSULE PO SCH (09:04)
[2018-08-04] MEDS: LISINOPRIL 5 MG TABLET PO SCH (09:05)
[2018-08-04] MEDS: CHLORHEXIDINE 4% SOLN 118 ML BOTTLE TOP SCH (09:05)
[2018-08-04] MEDS: SODIUM HYPOCHLORITE 0.25% IRRIG 473 ML BOTTLE TOP SCH (09:05)
[2018-08-04] MEDS: INSULIN GLARGINE 100 UNIT/ML SUBCUT SCH (09:05)
[2018-08-04] MEDS: MUPIROCIN 2% OINT 22 GM TUBE TOP SCH (09:05)
[2018-08-04] MEDS: INSULIN LISPRO 100 UNIT/ML SUBCUT SCH ×2 (09:05→11:53)
[2018-08-04] MEDS: PANTOPRAZOLE 40 MG TABLET PO SCH (09:40)
[2018-08-04 11:42] VITALS: BP 140/92
[2018-08-04] MEDS: CIPROFLOXACIN INJ 400 MG in PREMIX 1 EACH IV SCH (11:53)
== END 2018-08-04 13:35 | disposition home health service (06) | DRG 305 ==
LOC: N.ED 12:13 → SUATTDRO 14:43 → N.EDINP 14:43 → N.3E 16:51
PROVIDERS: ADMIT Internal Medicine; ATTEND Internal Medicine

== ENCOUNTER 2018-08-06 15:51 | Inpatient (IN) ==
[2018-08-06] MEDS ORDERED: diphenhydrAMINE CAP 25 MG CAPSULE PO ONE (18:04)
[2018-08-06] MEDS ORDERED: ACETAMINOPHEN 325 MG TABLET PO PRN (19:00)
[2018-08-06] MEDS ORDERED: MORPHINE 4 MG/1 ML VIAL IV PRN (19:00)
[2018-08-06] MEDS ORDERED: ALBUTEROL 2.5 MG/3 ML NEB RESP TX PRN (19:03)
[2018-08-06] MEDS ORDERED: ONDANSETRON 4 MG TABLET PO PRN (19:03)
[2018-08-06] MEDS ORDERED: GLUCAGON 1 MG VIAL IM PRN (19:05)
[2018-08-06] MEDS ORDERED: DEXTROSE 50% 25 GM/50 ML SYRINGE IV PRN (19:05)
[2018-08-06 19:39] LABS: Basophils % 0.8 % (0.0-0.8); Eosinophils # 0.1 10*3/uL (0.0-0.87); Eosinophils % 2.2 % (0.00-10.9); Hematocrit 32.1 VOL% (35.7-47.0); Hemoglobin 10.3 GM/DL (12.0-16.0); Immature Granulocytes % 0.3 %; Immature Granulocytes Absolute 0.01 #; Lymphocytes # 0.9 10*3/uL (1.4-4.0); Lymphocytes % 24.1 % (21.3-54.2); Mean Corpuscular HGB Conc 32.1 GM/DL (32-36); Mean Corpuscular Hemoglobin 31 PG (27-34); Mean Corpuscular Volume 96.1 FL (87-102); Mean Platelet Volume 10.3 FL (9.6-12.0); Monocytes # 0.3 10*3/uL (0.11-0.8); Monocytes % 8.6 % (1.7-12.7); Neutrophils # 2.4 10*3/uL (1.4-7.4); Platelet Count 236 T/CUMM (130-400); Red Blood Count 3.34 MC/CUMM (3.8-5.5); White Blood Count 3.7 T/CUMM (4-12)
[2018-08-06] MEDS: INSULIN REGULAR 100 UNIT/ML SUBCUT SCH ×2 (19:45→22:29)
[2018-08-06] MEDS: SODIUM CHLORIDE 0.9% 1,000 ML IV SCH (19:45)
[2018-08-06 20:06] LABS: Alanine Aminotransferase 98 U/L (13-56); Alkaline Phosphatase 221 U/L (45-117); Aspartate Amino Transferase 147 U/L (0-37); Bilirubin,Total < 0.39 MG/DL (0.2-1.0); Blood Urea Nitrogen 19 MG/DL (7-18); Osmolality,Calculated 297.2 MOS/KG (273-304); Potassium 4.8 MMOL/L (3.5-5.1); Sodium 134 MMOL/L (136-145); Thyroid Stimulating Hormone 0.614 uIU/ml (0.358-3.74); Total Protein 7.7 G/DL (6.4-8.3)
[2018-08-06] MEDS: CIPROFLOXACIN 500 MG TABLET PO SCH (21:50)
[2018-08-06] MEDS: INSULIN GLARGINE 100 UNIT/ML SUBCUT SCH (21:50)
[2018-08-06] MEDS: SERTRALINE 25 MG TABLET PO SCH (21:50)
[2018-08-06] MEDS: ENOXAPARIN 40 MG/0.4 ML SYRINGE SUBCUT SCH (21:50)
[2018-08-06] MEDS: PREGABALIN 75 MG CAPSULE PO SCH (21:50)
[2018-08-06] MEDS: VANCOMYCIN INJ 1,250 MG in SODIUM CHLORIDE 0.9% 250 ML IV SCH (21:51)
[2018-08-06] MEDS: MUPIROCIN 2% OINT 22 GM TUBE TOP SCH (21:51)
[2018-08-07 03:44] LABS: Apearance,Urine CLEAR (Clear); Bilirubin,Urine Negative (Negative); Blood, Urine Negative (Negative); Glucose,Urine (UA) >=500 mg/dL (Negative); Ketones,Urine Negative (Negative); Mucus,Urine Occasional /LPF (Occasional); Nitrite,Urine Negative (Negative); Protein,Urine Negative; RBC,Urine 4 /HPF (0-4); Squamous Epithelial Cell,Urine Occasional /HPF (0-10); Urine Color Yellow (Yellow); Urine Urobilinogen < 2.0 EU/DL (0.2-1.0); WBC,Urine 2 /HPF (0-6)
[2018-08-07 06:24] LABS: Basophils % 0.5 % (0.0-0.8); Eosinophils # 0.1 10*3/uL (0.0-0.87); Eosinophils % 2.5 % (0.00-10.9); Hematocrit 29.1 VOL% (35.7-47.0); Hemoglobin 9.2 GM/DL (12.0-16.0); Immature Granulocytes % 0.3 %; Immature Granulocytes Absolute 0.01 #; Lymphocytes # 1.1 10*3/uL (1.4-4.0); Lymphocytes % 28.7 % (21.3-54.2); Mean Corpuscular HGB Conc 31.6 GM/DL (32-36); Mean Corpuscular Hemoglobin 31 PG (27-34); Monocytes # 0.4 10*3/uL (0.11-0.8); Monocytes % 10.9 % (1.7-12.7); Neutrophils # 2.1 10*3/uL (1.4-7.4); Neutrophils % 57.1 % (38.7-73.9); Platelet Count 207 T/CUMM (130-400); Red Cell Distribution Width 14.9 % (9.3-17.3); White Blood Count 3.7 T/CUMM (4-12)
[2018-08-07 06:26] LABS: Glucose 594 MG/DL (74-106)
[2018-08-07 06:47] LABS: Calcium 8.9 MG/DL (8.5-10.1); Osmolality,Calculated 288.5 MOS/KG (273-304); Potassium 3.8 MMOL/L (3.5-5.1); Risk Ratio 3.61; VLDL CHOLESTEROL 51.6 MG/DL
[2018-08-07] MEDS: SODIUM CHLORIDE 0.9% 1,000 ML IV SCH ×3 (08:05→22:01)
[2018-08-07] MEDS: INSULIN GLARGINE 100 UNIT/ML SUBCUT SCH (09:41)
[2018-08-07] MEDS: INSULIN LISPRO 100 UNIT/ML SUBCUT SCH ×3 (09:41→17:10)
[2018-08-07] MEDS: CIPROFLOXACIN 500 MG TABLET PO SCH ×2 (09:42→21:06)
[2018-08-07] MEDS: diphenhydrAMINE CAP 25 MG CAPSULE PO SCH ×2 (09:42→21:06)
[2018-08-07] MEDS: PANTOPRAZOLE 40 MG TABLET PO SCH (09:42)
[2018-08-07] MEDS: LISINOPRIL 5 MG TABLET PO SCH (09:42)
[2018-08-07] MEDS: INSULIN REGULAR 100 UNIT/ML SUBCUT SCH ×4 (09:42→21:12)
[2018-08-07] MEDS: FLUCONAZOLE 200 MG TABLET PO SCH (09:42)
[2018-08-07] MEDS: PREGABALIN 75 MG CAPSULE PO SCH ×2 (09:42→21:07)
[2018-08-07] MEDS ORDERED: INSULIN GLARGINE 100 UNIT/ML SUBCUT SCH (09:43)
[2018-08-07] MEDS: MUPIROCIN 2% OINT 22 GM TUBE TOP SCH ×2 (09:44→21:07)
[2018-08-07] MEDS: CHLORHEXIDINE 4% SOLN 118 ML BOTTLE TOP SCH (09:44)
[2018-08-07] MEDS: SODIUM HYPOCHLORITE 0.25% IRRIG 473 ML BOTTLE TOP SCH (09:44)
[2018-08-07] MEDS: VANCOMYCIN INJ 1,250 MG in SODIUM CHLORIDE 0.9% 250 ML IV SCH ×2 (10:47→22:01)
[2018-08-07] MEDS: OMEGA 3 ACID ETHYL ESTERS 1 GM CAPSULE PO SCH ×2 (15:34→21:06)
[2018-08-07] MEDS: FENOFIBRATE 145 MG TABLET PO SCH (15:34)
[2018-08-07 16:54] LABS: Barbiturates Screen,Urine Negative (Negative); Benzodiazepines Screen,Urine Negative (Negative); Cannabinoid Screen,Urine Negative (Negative); Opiate Screen,Urine Negative (Negative); Phencyclidine Screen,Urine Negative (Negative)
[2018-08-07] MEDS ORDERED: ZALEPLON 5 MG CAPSULE PO PRN (17:47)
[2018-08-07] MEDS: ENOXAPARIN 40 MG/0.4 ML SYRINGE SUBCUT SCH (21:04)
[2018-08-07] MEDS: SERTRALINE 25 MG TABLET PO SCH (21:06)
[2018-08-08] MEDS ORDERED: SODIUM CHLORIDE 0.9% 1,000 ML IV SCH (07:00)
[2018-08-08] MEDS ORDERED: MIDAZOLAM 10 MG/2 ML VIAL ONE (07:12)
[2018-08-08] MEDS ORDERED: MIDAZOLAM 2 MG/2 ML VIAL IV ONE (08:00)
[2018-08-08] MEDS ORDERED: DEXTROSE 50% 25 GM/50 ML VIAL IV PRN (08:13)
[2018-08-08] MEDS ORDERED: GLUCAGON 1 MG VIAL IM PRN (08:13)
[2018-08-08] MEDS ORDERED: buPROPion XL 150 MG TABLET PO SCH (09:00)
[2018-08-08] MEDS ORDERED: NICOTINE 21 MG/24 HR PATCH TRANSDERM SCH (09:00)
[2018-08-08] MEDS ORDERED: INSULIN GLARGINE 100 UNIT/ML SUBCUT SCH (09:00)
[2018-08-08] MEDS: PREGABALIN 75 MG CAPSULE PO SCH (09:49)
[2018-08-08] MEDS: LISINOPRIL 5 MG TABLET PO SCH (09:49)
[2018-08-08] MEDS: PANTOPRAZOLE 40 MG TABLET PO SCH (09:49)
[2018-08-08] MEDS: OMEGA 3 ACID ETHYL ESTERS 1 GM CAPSULE PO SCH (09:49)
[2018-08-08] MEDS: FLUCONAZOLE 200 MG TABLET PO SCH (09:49)
[2018-08-08] MEDS: FENOFIBRATE 145 MG TABLET PO SCH (09:49)
[2018-08-08] MEDS: CIPROFLOXACIN 500 MG TABLET PO SCH (09:49)
[2018-08-08] MEDS: diphenhydrAMINE CAP 25 MG CAPSULE PO SCH (09:49)
[2018-08-08] MEDS: INSULIN REGULAR 100 UNIT/ML SUBCUT SCH ×2 (09:50→12:05)
[2018-08-08] MEDS: INSULIN LISPRO 100 UNIT/ML SUBCUT SCH ×2 (09:50→12:05)
[2018-08-08] MEDS: CHLORHEXIDINE 4% SOLN 118 ML BOTTLE TOP SCH (10:15)
[2018-08-08] MEDS: SODIUM HYPOCHLORITE 0.25% IRRIG 473 ML BOTTLE TOP SCH (10:15)
[2018-08-08] MEDS: MUPIROCIN 2% OINT 22 GM TUBE TOP SCH (10:15)
[2018-08-08] MEDS: VANCOMYCIN INJ 1,250 MG in SODIUM CHLORIDE 0.9% 250 ML IV SCH (10:32)
[2018-08-08] MEDS: SODIUM CHLORIDE 0.9% 1,000 ML IV SCH (12:04)
[2018-08-08 12:13] VITALS: BP 130/92
== END 2018-08-08 12:36 | disposition home health service (06) | DRG 721 ==
LOC: SUPCPDRO 15:55 → N.5E 15:55
PROVIDERS: ADMIT Surgery; ATTEND Surgery

== ENCOUNTER 2018-08-18 22:57 | Inpatient (IN) ==
[2018-08-19] MEDS ORDERED: SODIUM CHLORIDE 0.9% 1,000 ML IV STA ×2 (00:51→01:52)
[2018-08-19] MEDS ORDERED: VANCOMYCIN INJ 1,000 MG in SODIUM CHLORIDE 0.9% 250 ML IV STA ×2 (00:51→00:58)
[2018-08-19] MEDS ORDERED: CEFEPIME 2,000 MG in SODIUM CHLORIDE 0.9% 100 ML IV STA (00:51)
[2018-08-19] MEDS ORDERED: INSULIN REGULAR 100 UNIT/ML IV STA (00:52)
[2018-08-19 00:58] LABS: Basophils % 0.5 % (0.0-0.8); Eosinophils # 0.1 10*3/uL (0.0-0.87); Eosinophils % 1.2 % (0.00-10.9); Hematocrit 31.9 VOL% (35.7-47.0); Hemoglobin 10.3 GM/DL (12.0-16.0); Immature Granulocytes % 0.3 %; Immature Granulocytes Absolute 0.02 #; Lymphocytes # 1.4 10*3/uL (1.4-4.0); Lymphocytes % 18.4 % (21.3-54.2); Mean Corpuscular HGB Conc 32.3 GM/DL (32-36); Mean Corpuscular Hemoglobin 31 PG (27-34); Mean Corpuscular Volume 95.8 FL (87-102); Mean Platelet Volume 11.2 FL (9.6-12.0); Monocytes # 0.4 10*3/uL (0.11-0.8); Monocytes % 5.3 % (1.7-12.7); Neutrophils # 5.5 10*3/uL (1.4-7.4); Neutrophils % 74.3 % (38.7-73.9); Platelet Count 332 T/CUMM (130-400); Red Blood Count 3.33 MC/CUMM (3.8-5.5); Red Cell Distribution Width 13.7 % (9.3-17.3); White Blood Count 7.4 T/CUMM (4-12)
[2018-08-19 01:28] LABS: Alanine Aminotransferase 31 U/L (13-56); Albumin 3.1 G/DL (3.4-5.0); Alkaline Phosphatase 222 U/L (45-117); Aspartate Amino Transferase 18 U/L (0-37); Bilirubin,Total < 0.39 MG/DL (0.2-1.0); Blood Urea Nitrogen 23 MG/DL (7-18); Calcium 9.6 MG/DL (8.5-10.1); Osmolality,Calculated 289.8 MOS/KG (273-304); Potassium 4.3 MMOL/L (3.5-5.1); Sodium 130 MMOL/L (136-145); Total Protein 8.3 G/DL (6.4-8.3)
[2018-08-19 01:31] LABS: Glucose 562 MG/DL (74-106)
[2018-08-19] MEDS ORDERED: diphenhydrAMINE 50 MG/1 ML VIAL ONE (01:46)
[2018-08-19] MEDS ORDERED: diphenhydrAMINE 50 MG/1 ML VIAL IV STA (01:49)
[2018-08-19] MEDS ORDERED: DEXTROSE 50% 25 GM/50 ML SYRINGE IV ONE ×2 (02:14→03:17)
[2018-08-19] MEDS ORDERED: DEXTROSE 50% 25 GM/50 ML VIAL IV STA ×2 (02:15→03:15)
[2018-08-19] MEDS ORDERED: DEXTROSE 5% 500 ML IV SCH ×2 (03:15)
[2018-08-19] MEDS ORDERED: DEXTROSE 50% 25 GM/50 ML VIAL IV PRN ×2 (03:57)
[2018-08-19] MEDS ORDERED: GLUCAGON 1 MG VIAL IM PRN ×2 (03:57)
[2018-08-19] MEDS ORDERED: ACETAMINOPHEN 325 MG TABLET PO PRN (03:57)
[2018-08-19] MEDS ORDERED: ENOXAPARIN 40 MG/0.4 ML SYRINGE SUBCUT SCH (04:00)
[2018-08-19] MEDS ORDERED: SODIUM CHLORIDE 0.9% 1,000 ML IV SCH (04:00)
[2018-08-19 07:09] LABS: Basophils % 0.8 % (0.0-0.8); Eosinophils # 0.1 10*3/uL (0.0-0.87); Eosinophils % 2.1 % (0.00-10.9); Hematocrit 28.6 VOL% (35.7-47.0); Hemoglobin 9.4 GM/DL (12.0-16.0); Immature Granulocytes % 0.2 %; Immature Granulocytes Absolute 0.01 #; Lymphocytes % 20.8 % (21.3-54.2); Mean Corpuscular HGB Conc 32.9 GM/DL (32-36); Mean Corpuscular Hemoglobin 31 PG (27-34); Mean Corpuscular Volume 95.7 FL (87-102); Mean Platelet Volume 10.2 FL (9.6-12.0); Monocytes # 0.4 10*3/uL (0.11-0.8); Monocytes % 9.1 % (1.7-12.7); Neutrophils # 3.2 10*3/uL (1.4-7.4); Platelet Count 251 T/CUMM (130-400); Red Blood Count 2.99 MC/CUMM (3.8-5.5); Red Cell Distribution Width 14.1 % (9.3-17.3); White Blood Count 4.8 T/CUMM (4-12)
[2018-08-19] MEDS ORDERED: INSULIN REGULAR 100 UNIT/ML SUBCUT SCH (07:30)
[2018-08-19 07:37] LABS: Albumin 2.6 G/DL (3.4-5.0); Calcium 8.8 MG/DL (8.5-10.1); Potassium 4.5 MMOL/L (3.5-5.1); Total Protein 7.1 G/DL (6.4-8.3)
[2018-08-19 10:32] VITALS: BP 100/64
[2018-08-19] MEDS ORDERED: VANCOMYCIN INJ 1,000 MG in SODIUM CHLORIDE 0.9% 250 ML IV SCH (15:00)
== END 2018-08-19 13:45 | disposition home health service (06) | DRG 349 ==
LOC: N.ED 22:57 → N.5E 08-19 03:47
PROVIDERS: ADMIT Hospitalist; ATTEND Hospitalist

== ENCOUNTER 2018-08-26 14:23 | Inpatient (IN) ==
[2018-08-26 17:10] LABS: Basophils % 0.4 % (0.0-0.8); Eosinophils # 0.2 10*3/uL (0.0-0.87); Eosinophils % 1.6 % (0.00-10.9); Hematocrit 34.7 VOL% (35.7-47.0); Hemoglobin 11.3 GM/DL (12.0-16.0); Immature Granulocytes % 0.5 %; Immature Granulocytes Absolute 0.05 #; Lymphocytes # 2.5 10*3/uL (1.4-4.0); Lymphocytes % 22.9 % (21.3-54.2); Mean Corpuscular HGB Conc 32.6 GM/DL (32-36); Mean Corpuscular Hemoglobin 31 PG (27-34); Mean Corpuscular Volume 94.6 FL (87-102); Mean Platelet Volume 9.7 FL (9.6-12.0); Monocytes # 0.8 10*3/uL (0.11-0.8); Monocytes % 7.4 % (1.7-12.7); Neutrophils # 7.2 10*3/uL (1.4-7.4); Neutrophils % 67.2 % (38.7-73.9); Platelet Count 409 T/CUMM (130-400); Red Blood Count 3.67 MC/CUMM (3.8-5.5); Red Cell Distribution Width 13.4 % (9.3-17.3); White Blood Count 10.7 T/CUMM (4-12)
[2018-08-26 17:30] LABS: Alanine Aminotransferase 35 U/L (13-56); Albumin 3.2 G/DL (3.4-5.0); Alkaline Phosphatase 191 U/L (45-117); Aspartate Amino Transferase 24 U/L (0-37); Bilirubin,Total < 0.39 MG/DL (0.2-1.0); Blood Urea Nitrogen 23 MG/DL (7-18); Calcium 9.7 MG/DL (8.5-10.1); Osmolality,Calculated 274.7 MOS/KG (273-304); Potassium 3.4 MMOL/L (3.5-5.1); Sodium 138 MMOL/L (136-145); Total Protein 8.8 G/DL (6.4-8.3)
[2018-08-26 17:32] LABS: Glucose 32 MG/DL (74-106)
[2018-08-26 17:46] LABS: Apearance,Urine CLOUDY (Clear); Bacteria,Urine Occasional /HPF (Few); Bilirubin,Urine Negative (Negative); Blood, Urine Moderate mg/dL (Negative); Glucose,Urine (UA) >=500 mg/dL (Negative); Hyaline Casts,Urine 4 /LPF (0-3); Ketones,Urine Negative (Negative); Mucus,Urine Many /LPF (Occasional); Nitrite,Urine Negative (Negative); Protein,Urine 30 MG/DL; RBC,Urine 2 /HPF (0-4); Squamous Epithelial Cell,Urine Occasional /HPF (0-10); Urine Color Yellow (Yellow); Urine Specific Gravity 1.022 (1.001-1.035); Urine Urobilinogen < 2.0 EU/DL (0.2-1.0); WBC,Urine 30 /HPF (0-6)
[2018-08-26] MEDS ORDERED: PIPERACILLIN/TAZOBACTAM 3,375 MG in SODIUM CHLORIDE 0.9% 100 ML IV STA (18:07)
[2018-08-26] MEDS ORDERED: GLUCAGON 1 MG VIAL IM PRN (18:26)
[2018-08-26] MEDS ORDERED: DEXTROSE 50% 25 GM/50 ML SYRINGE IV PRN (18:26)
[2018-08-26] MEDS ORDERED: ALBUTEROL 2.5 MG/3 ML NEB RESP TX PRN (19:29)
[2018-08-26] MEDS ORDERED: ACETAMINOPHEN 325 MG TABLET PO PRN (19:29)
[2018-08-26] MEDS: ENOXAPARIN 30 MG/0.3 ML SYRINGE SUBCUT SCH (20:57)
[2018-08-26] MEDS: SODIUM CHLORIDE 0.9% 1,000 ML IV SCH (20:57)
[2018-08-26] MEDS: SERTRALINE 25 MG TABLET PO SCH (20:57)
[2018-08-26] MEDS: PREGABALIN 75 MG CAPSULE PO SCH (20:57)
[2018-08-26] MEDS: INSULIN LISPRO 100 UNIT/ML SUBCUT SCH (20:57)
[2018-08-26] MEDS ORDERED: VANCOMYCIN INJ 1,500 MG in SODIUM CHLORIDE 0.9% 500 ML IV ONE (22:00)
[2018-08-26] MEDS: MORPHINE 4 MG/1 ML VIAL IV PRN (23:52)
[2018-08-27] MEDS: LEVOFLOXACIN INJ 500 MG in PREMIX 1 EACH IV SCH (01:52)
[2018-08-27] MEDS: diphenhydrAMINE 50 MG/1 ML VIAL IM PRN ×2 (03:01→17:07)
[2018-08-27 05:14] LABS: Basophils % 0.5 % (0.0-0.8); Eosinophils # 0.1 10*3/uL (0.0-0.87); Eosinophils % 1.9 % (0.00-10.9); Hematocrit 31.2 VOL% (35.7-47.0); Hemoglobin 9.9 GM/DL (12.0-16.0); Immature Granulocytes % 0.5 %; Immature Granulocytes Absolute 0.03 #; Lymphocytes # 1.5 10*3/uL (1.4-4.0); Lymphocytes % 25.9 % (21.3-54.2); Mean Corpuscular HGB Conc 31.7 GM/DL (32-36); Mean Corpuscular Hemoglobin 31 PG (27-34); Mean Platelet Volume 9.7 FL (9.6-12.0); Monocytes # 0.5 10*3/uL (0.11-0.8); Monocytes % 7.7 % (1.7-12.7); Neutrophils # 3.7 10*3/uL (1.4-7.4); Neutrophils % 63.5 % (38.7-73.9); Platelet Count 307 T/CUMM (130-400); Red Blood Count 3.25 MC/CUMM (3.8-5.5); Red Cell Distribution Width 13.3 % (9.3-17.3); White Blood Count 5.8 T/CUMM (4-12)
[2018-08-27 05:41] LABS: Osmolality,Calculated 287.4 MOS/KG (273-304); Potassium 4.7 MMOL/L (3.5-5.1)
[2018-08-27] MEDS ORDERED: GLUCAGON 1 MG VIAL IM PRN ×2 (07:53→15:13)
[2018-08-27] MEDS: INSULIN LISPRO 100 UNIT/ML SUBCUT SCH ×3 (09:22→22:35)
[2018-08-27] MEDS: INSULIN GLARGINE 100 UNIT/ML SUBCUT SCH (09:26)
[2018-08-27] MEDS: COLLAGENASE OINT 30 GM TUBE TOP SCH (09:26)
[2018-08-27] MEDS: PREGABALIN 75 MG CAPSULE PO SCH ×2 (09:27→21:17)
[2018-08-27] MEDS: FENOFIBRATE 145 MG TABLET PO SCH (09:27)
[2018-08-27] MEDS: LISINOPRIL 5 MG TABLET PO SCH (09:27)
[2018-08-27] MEDS: PANTOPRAZOLE 40 MG TABLET PO SCH (09:27)
[2018-08-27] MEDS: CHLORHEXIDINE 4% SOLN 118 ML BOTTLE TOP SCH (09:56)
[2018-08-27] MEDS ORDERED: INSULIN LISPRO 100 UNIT/ML SUBCUT SCH (11:30)
[2018-08-27] MEDS: MORPHINE 4 MG/1 ML VIAL IV PRN (14:14)
[2018-08-27] MEDS: VANCOMYCIN INJ 1,250 MG in SODIUM CHLORIDE 0.9% 250 ML IV SCH (17:06)
[2018-08-27] MEDS: ENOXAPARIN 30 MG/0.3 ML SYRINGE SUBCUT SCH (21:17)
[2018-08-27] MEDS: SERTRALINE 25 MG TABLET PO SCH (21:17)
[2018-08-27] MEDS: SODIUM CHLORIDE 0.9% 1,000 ML IV SCH ×2 (21:18→22:36)
[2018-08-28] MEDS: LEVOFLOXACIN INJ 500 MG in PREMIX 1 EACH IV SCH (01:15)
[2018-08-28] MEDS: VANCOMYCIN INJ 1,250 MG in SODIUM CHLORIDE 0.9% 250 ML IV SCH ×2 (03:06→16:12)
[2018-08-28] MEDS: diphenhydrAMINE 50 MG/1 ML VIAL IM PRN ×2 (04:30→15:07)
[2018-08-28 04:40] LABS: Eosinophils # 0.1 10*3/uL (0.0-0.87); Eosinophils % 2.1 % (0.00-10.9); Hematocrit 32.3 VOL% (35.7-47.0); Immature Granulocytes % 0.6 %; Immature Granulocytes Absolute 0.03 #; Lymphocytes # 0.7 10*3/uL (1.4-4.0); Lymphocytes % 15.1 % (21.3-54.2); Mean Corpuscular Hemoglobin 30 PG (27-34); Mean Platelet Volume 9.9 FL (9.6-12.0); Monocytes # 0.2 10*3/uL (0.11-0.8); Monocytes % 4.5 % (1.7-12.7); Neutrophils # 3.7 10*3/uL (1.4-7.4); Neutrophils % 77.7 % (38.7-73.9); Platelet Count 234 T/CUMM (130-400); Red Blood Count 3.33 MC/CUMM (3.8-5.5); Red Cell Distribution Width 13.2 % (9.3-17.3); White Blood Count 4.7 T/CUMM (4-12)
[2018-08-28 04:59] LABS: Calcium 8.1 MG/DL (8.5-10.1); Osmolality,Calculated 282.2 MOS/KG (273-304); Potassium 4.3 MMOL/L (3.5-5.1)
[2018-08-28] MEDS: PREGABALIN 75 MG CAPSULE PO SCH ×2 (08:17→21:17)
[2018-08-28] MEDS: LISINOPRIL 5 MG TABLET PO SCH (08:18)
[2018-08-28] MEDS: PANTOPRAZOLE 40 MG TABLET PO SCH (08:18)
[2018-08-28] MEDS: FENOFIBRATE 145 MG TABLET PO SCH (08:18)
[2018-08-28] MEDS: COLLAGENASE OINT 30 GM TUBE TOP SCH (09:37)
[2018-08-28] MEDS: CHLORHEXIDINE 4% SOLN 118 ML BOTTLE TOP SCH (09:37)
[2018-08-28] MEDS: INSULIN GLARGINE 100 UNIT/ML SUBCUT SCH (09:37)
[2018-08-28] MEDS: INSULIN LISPRO 100 UNIT/ML SUBCUT SCH ×4 (09:50→21:28)
[2018-08-28] MEDS ORDERED: LIDOCAINE 1% 20 ML VIAL ONE (13:20)
[2018-08-28] MEDS ORDERED: fentaNYL 100 MCG/2 ML VIAL ONE (14:01)
[2018-08-28] MEDS ORDERED: ONDANSETRON 4 MG/2 ML VIAL ONE (14:01)
[2018-08-28] MEDS ORDERED: PROPOFOL 200 MG/20 ML VIAL IV ONE (14:01)
[2018-08-28] MEDS ORDERED: MIDAZOLAM 2 MG/2 ML VIAL ONE (14:01)
[2018-08-28] MEDS: MEROPENEM 1,000 MG in SODIUM CHLORIDE 0.9% 100 ML IV SCH (14:59)
[2018-08-28] MEDS: SODIUM CHLORIDE 0.9% 1,000 ML IV SCH (16:13)
[2018-08-28] MEDS: MORPHINE 4 MG/1 ML VIAL IV PRN ×2 (18:02→22:54)
[2018-08-28] MEDS: ENOXAPARIN 30 MG/0.3 ML SYRINGE SUBCUT SCH (21:17)
[2018-08-28] MEDS: SERTRALINE 25 MG TABLET PO SCH (21:17)
[2018-08-29] MEDS: MEROPENEM 1,000 MG in SODIUM CHLORIDE 0.9% 100 ML IV SCH ×2 (01:24→15:10)
[2018-08-29] MEDS: SODIUM CHLORIDE 0.9% 1,000 ML IV SCH ×2 (01:29→15:10)
[2018-08-29] MEDS: diphenhydrAMINE 50 MG/1 ML VIAL IM PRN ×2 (02:39→18:07)
[2018-08-29] MEDS: VANCOMYCIN INJ 1,250 MG in SODIUM CHLORIDE 0.9% 250 ML IV SCH (02:39)
[2018-08-29 06:47] LABS: Basophils % 0.2 % (0.0-0.8); Eosinophils # 0.1 10*3/uL (0.0-0.87); Eosinophils % 2.8 % (0.00-10.9); Hematocrit 29.6 VOL% (35.7-47.0); Hemoglobin 9.5 GM/DL (12.0-16.0); Immature Granulocytes % 0.4 %; Immature Granulocytes Absolute 0.02 #; Lymphocytes # 1.1 10*3/uL (1.4-4.0); Lymphocytes % 22.6 % (21.3-54.2); Mean Corpuscular HGB Conc 32.1 GM/DL (32-36); Mean Corpuscular Hemoglobin 31 PG (27-34); Mean Corpuscular Volume 96.4 FL (87-102); Mean Platelet Volume 9.7 FL (9.6-12.0); Monocytes # 0.5 10*3/uL (0.11-0.8); Neutrophils # 3.2 10*3/uL (1.4-7.4); Platelet Count 232 T/CUMM (130-400); Red Blood Count 3.07 MC/CUMM (3.8-5.5); Red Cell Distribution Width 13.2 % (9.3-17.3); White Blood Count 4.9 T/CUMM (4-12)
[2018-08-29 07:18] LABS: Calcium 8.3 MG/DL (8.5-10.1); Osmolality,Calculated 286.8 MOS/KG (273-304); Potassium 4.1 MMOL/L (3.5-5.1)
[2018-08-29] MEDS: INSULIN GLARGINE 100 UNIT/ML SUBCUT SCH (09:05)
[2018-08-29] MEDS: INSULIN LISPRO 100 UNIT/ML SUBCUT SCH ×4 (09:05→20:32)
[2018-08-29] MEDS: LISINOPRIL 5 MG TABLET PO SCH (09:06)
[2018-08-29] MEDS: PREGABALIN 75 MG CAPSULE PO SCH ×2 (09:06→20:32)
[2018-08-29] MEDS: FENOFIBRATE 145 MG TABLET PO SCH (09:06)
[2018-08-29] MEDS: PANTOPRAZOLE 40 MG TABLET PO SCH (09:07)
[2018-08-29] MEDS: CHLORHEXIDINE 4% SOLN 118 ML BOTTLE TOP SCH (09:07)
[2018-08-29] MEDS: COLLAGENASE OINT 30 GM TUBE TOP SCH (09:07)
[2018-08-29] MEDS: MORPHINE 4 MG/1 ML VIAL IV PRN ×2 (10:36→19:33)
[2018-08-29] MEDS: FLUCONAZOLE 200 MG TABLET PO SCH (12:04)
[2018-08-29] MEDS ORDERED: SILVER NITRATE STICK 1 EACH TOP ONE (13:11)
[2018-08-29] MEDS: SODIUM HYPOCHLORITE 0.25% IRRIG 473 ML BOTTLE TOP SCH (13:48)
[2018-08-29] MEDS: VANCOMYCIN INJ 1,500 MG in SODIUM CHLORIDE 0.9% 500 ML IV SCH (18:40)
[2018-08-29] MEDS: ENOXAPARIN 40 MG/0.4 ML SYRINGE SUBCUT SCH (20:31)
[2018-08-29] MEDS: SERTRALINE 25 MG TABLET PO SCH (20:32)
[2018-08-30] MEDS: MEROPENEM 1,000 MG in SODIUM CHLORIDE 0.9% 100 ML IV SCH ×2 (02:50→13:10)
[2018-08-30 04:44] LABS: Basophils % 0.3 % (0.0-0.8); Eosinophils # 0.1 10*3/uL (0.0-0.87); Eosinophils % 1.7 % (0.00-10.9); Hematocrit 29.8 VOL% (35.7-47.0); Hemoglobin 9.4 GM/DL (12.0-16.0); Immature Granulocytes % 0.5 %; Immature Granulocytes Absolute 0.03 #; Lymphocytes # 1.2 10*3/uL (1.4-4.0); Lymphocytes % 20.3 % (21.3-54.2); Mean Corpuscular HGB Conc 31.5 GM/DL (32-36); Mean Corpuscular Hemoglobin 31 PG (27-34); Mean Corpuscular Volume 97.1 FL (87-102); Mean Platelet Volume 10.1 FL (9.6-12.0); Monocytes # 0.5 10*3/uL (0.11-0.8); Monocytes % 8.8 % (1.7-12.7); Neutrophils % 68.4 % (38.7-73.9); Platelet Count 239 T/CUMM (130-400); Red Blood Count 3.07 MC/CUMM (3.8-5.5); Red Cell Distribution Width 13.1 % (9.3-17.3); White Blood Count 5.8 T/CUMM (4-12)
[2018-08-30 04:59] LABS: Calcium 8.4 MG/DL (8.5-10.1); Osmolality,Calculated 282.8 MOS/KG (273-304); Potassium 4.2 MMOL/L (3.5-5.1)
[2018-08-30] MEDS: diphenhydrAMINE 50 MG/1 ML VIAL IM PRN ×2 (05:36→17:26)
[2018-08-30] MEDS: VANCOMYCIN INJ 1,500 MG in SODIUM CHLORIDE 0.9% 500 ML IV SCH ×2 (06:26→18:00)
[2018-08-30] MEDS: INSULIN LISPRO 100 UNIT/ML SUBCUT SCH ×4 (07:49→21:25)
[2018-08-30] MEDS: COLLAGENASE OINT 30 GM TUBE TOP SCH (08:12)
[2018-08-30] MEDS: CHLORHEXIDINE 4% SOLN 118 ML BOTTLE TOP SCH (08:12)
[2018-08-30] MEDS: SODIUM HYPOCHLORITE 0.25% IRRIG 473 ML BOTTLE TOP SCH (08:12)
[2018-08-30] MEDS: PANTOPRAZOLE 40 MG TABLET PO SCH (09:25)
[2018-08-30] MEDS: PREGABALIN 75 MG CAPSULE PO SCH ×2 (09:25→21:27)
[2018-08-30] MEDS: FENOFIBRATE 145 MG TABLET PO SCH (09:25)
[2018-08-30] MEDS: LISINOPRIL 5 MG TABLET PO SCH (09:25)
[2018-08-30] MEDS: INSULIN GLARGINE 100 UNIT/ML SUBCUT SCH (09:26)
[2018-08-30] MEDS: FLUCONAZOLE 200 MG TABLET PO SCH (09:26)
[2018-08-30] MEDS: MORPHINE 4 MG/1 ML VIAL IV PRN ×3 (09:27→19:06)
[2018-08-30] MEDS: SODIUM CHLORIDE 0.9% 1,000 ML IV SCH (18:01)
[2018-08-30] MEDS: ENOXAPARIN 40 MG/0.4 ML SYRINGE SUBCUT SCH (21:27)
[2018-08-30] MEDS: SERTRALINE 25 MG TABLET PO SCH (21:27)
[2018-08-31] MEDS: MORPHINE 4 MG/1 ML VIAL IV PRN ×5 (00:02→23:55)
[2018-08-31] MEDS: MEROPENEM 1,000 MG in SODIUM CHLORIDE 0.9% 100 ML IV SCH ×2 (01:19→13:46)
[2018-08-31 05:43] LABS: Basophils % 0.4 % (0.0-0.8); Eosinophils # 0.1 10*3/uL (0.0-0.87); Eosinophils % 2.2 % (0.00-10.9); Hematocrit 28.4 VOL% (35.7-47.0); Hemoglobin 9.1 GM/DL (12.0-16.0); Immature Granulocytes % 0.6 %; Immature Granulocytes Absolute 0.03 #; Lymphocytes # 1.3 10*3/uL (1.4-4.0); Lymphocytes % 25.2 % (21.3-54.2); Mean Corpuscular Hemoglobin 31 PG (27-34); Mean Corpuscular Volume 96.3 FL (87-102); Mean Platelet Volume 9.5 FL (9.6-12.0); Monocytes # 0.4 10*3/uL (0.11-0.8); Monocytes % 6.8 % (1.7-12.7); Neutrophils # 3.3 10*3/uL (1.4-7.4); Neutrophils % 64.8 % (38.7-73.9); Platelet Count 234 T/CUMM (130-400); Red Blood Count 2.95 MC/CUMM (3.8-5.5); White Blood Count 5.1 T/CUMM (4-12)
[2018-08-31 05:59] LABS: Calcium 8.3 MG/DL (8.5-10.1); Osmolality,Calculated 286.5 MOS/KG (273-304)
[2018-08-31] MEDS: diphenhydrAMINE 50 MG/1 ML VIAL IM PRN ×2 (06:08→18:02)
[2018-08-31] MEDS: VANCOMYCIN INJ 1,500 MG in SODIUM CHLORIDE 0.9% 500 ML IV SCH ×2 (06:35→18:33)
[2018-08-31] MEDS: INSULIN LISPRO 100 UNIT/ML SUBCUT SCH ×4 (08:41→22:39)
[2018-08-31] MEDS: INSULIN GLARGINE 100 UNIT/ML SUBCUT SCH (08:42)
[2018-08-31] MEDS: LISINOPRIL 5 MG TABLET PO SCH (08:43)
[2018-08-31] MEDS: PANTOPRAZOLE 40 MG TABLET PO SCH (08:43)
[2018-08-31] MEDS: FENOFIBRATE 145 MG TABLET PO SCH (08:43)
[2018-08-31] MEDS: PREGABALIN 75 MG CAPSULE PO SCH ×2 (08:43→22:33)
[2018-08-31] MEDS: FLUCONAZOLE 200 MG TABLET PO SCH (08:43)
[2018-08-31] MEDS: CHLORHEXIDINE 4% SOLN 118 ML BOTTLE TOP SCH (11:50)
[2018-08-31] MEDS: SODIUM HYPOCHLORITE 0.25% IRRIG 473 ML BOTTLE TOP SCH (11:50)
[2018-08-31] MEDS: COLLAGENASE OINT 30 GM TUBE TOP SCH (11:50)
[2018-08-31] MEDS: SODIUM CHLORIDE 0.9% 1,000 ML IV SCH (16:29)
[2018-08-31] MEDS: SERTRALINE 25 MG TABLET PO SCH (22:33)
[2018-08-31] MEDS: ENOXAPARIN 40 MG/0.4 ML SYRINGE SUBCUT SCH (22:35)
[2018-09-01] MEDS: MEROPENEM 1,000 MG in SODIUM CHLORIDE 0.9% 100 ML IV SCH (01:54)
[2018-09-01] MEDS: SODIUM CHLORIDE 0.9% 1,000 ML IV SCH (06:27)
[2018-09-01] MEDS: diphenhydrAMINE 50 MG/1 ML VIAL IM PRN (06:37)
[2018-09-01] MEDS: VANCOMYCIN INJ 1,500 MG in SODIUM CHLORIDE 0.9% 500 ML IV SCH (07:16)
[2018-09-01] MEDS: INSULIN LISPRO 100 UNIT/ML SUBCUT SCH ×2 (07:48→11:30)
[2018-09-01] MEDS: FLUCONAZOLE 200 MG TABLET PO SCH (08:00)
[2018-09-01] MEDS: PANTOPRAZOLE 40 MG TABLET PO SCH (08:01)
[2018-09-01] MEDS: PREGABALIN 75 MG CAPSULE PO SCH (08:01)
[2018-09-01] MEDS: LISINOPRIL 5 MG TABLET PO SCH (08:01)
[2018-09-01] MEDS: FENOFIBRATE 145 MG TABLET PO SCH (08:01)
[2018-09-01] MEDS: INSULIN GLARGINE 100 UNIT/ML SUBCUT SCH (08:02)
[2018-09-01] MEDS: SODIUM HYPOCHLORITE 0.25% IRRIG 473 ML BOTTLE TOP SCH (08:45)
[2018-09-01] MEDS: CHLORHEXIDINE 4% SOLN 118 ML BOTTLE TOP SCH (08:45)
[2018-09-01] MEDS: COLLAGENASE OINT 30 GM TUBE TOP SCH (13:24)
[2018-09-01 16:17] VITALS: BP 129/84
== END 2018-09-01 16:15 | disposition home health service (06) | DRG 314 ==
LOC: N.EDINP 14:23 → N.ED 14:23 → N.3E 19:28 → SUATTDRO 08-28 07:10
PROVIDERS: ADMIT Internal Medicine; ATTEND Internal Medicine

== ENCOUNTER 2019-02-16 11:47 | Inpatient (IN) ==
[2019-02-16] MEDS ORDERED: SODIUM CHLORIDE 0.9% 1,000 ML IV STA (12:01)
[2019-02-16] MEDS ORDERED: ONDANSETRON 4 MG/2 ML VIAL ONE (12:13)
[2019-02-16 12:44] LABS: Calcium 9.3 MG/DL (8.5-10.1); Osmolality,Calculated 300.2 MOS/KG (273-304)
[2019-02-16 12:46] LABS: Apearance,Urine CLEAR (Clear); Bilirubin,Urine Negative (Negative); Blood, Urine Moderate mg/dL (Negative); Glucose,Urine (UA) >=500 mg/dL (Negative); Ketones,Urine 80 mg/dL (Negative); Mucus,Urine Occasional /LPF (Occasional); Nitrite,Urine Negative (Negative); Protein,Urine Negative; RBC,Urine 1 /HPF (0-4); Squamous Epithelial Cell,Urine Occasional /HPF (0-10); Urine Color Straw (Yellow); Urine Urobilinogen < 2.0 EU/DL (0.2-1.0)
[2019-02-16] MEDS ORDERED: INSULIN REGULAR 100 UNIT/ML IV STA (12:54)
[2019-02-16] MEDS ORDERED: INSULIN REGULAR 100 UNIT/ML ONE (12:57)
[2019-02-16] MEDS ORDERED: ACETAMINOPHEN 325 MG TABLET PO PRN (13:09)
[2019-02-16] MEDS ORDERED: MAGNESIUM SULF RIDER 2 GM in PREMIX 1 EACH IV PRN (13:09)
[2019-02-16] MEDS ORDERED: INSULIN REGULAR 100 UNIT/ML IV ONE (13:09)
[2019-02-16] MEDS ORDERED: BISACODYL 5 MG TABLET PO PRN (13:09)
[2019-02-16] MEDS ORDERED: DEXTROSE 50% 25 GM/50 ML VIAL IV PRN ×2 (13:09)
[2019-02-16] MEDS ORDERED: MAGNESIUM SULF RIDER 4 GM in PREMIX 1 EACH IV PRN (13:09)
[2019-02-16] MEDS ORDERED: SODIUM PHOSPHATE INJ 15.9 MMOL in SODIUM CHLORIDE 0.9% 250 ML IV PRN (13:09)
[2019-02-16] MEDS ORDERED: SODIUM BICARB INJ 100 MEQ in STERILE WATER INJ 400 ML IV PRN (13:09)
[2019-02-16] MEDS ORDERED: SODIUM CHLORIDE 0.9% 1,000 ML IV ONE (13:09)
[2019-02-16] MEDS ORDERED: ONDANSETRON 4 MG/2 ML VIAL IV PRN (13:09)
[2019-02-16] MEDS ORDERED: ALBUTEROL 2.5 MG/3 ML NEB RESP TX PRN (13:09)
[2019-02-16 13:27] LABS: Basophils % 0.2 % (0.0-0.8); Eosinophils % 0.1 % (0.00-10.9); Immature Granulocytes % 0.5 %; Immature Granulocytes Absolute 0.06 #; Lymphocytes # 0.9 10*3/uL (1.4-4.0); Lymphocytes % 7.4 % (21.3-54.2); Mean Corpuscular HGB Conc 31.3 GM/DL (32-36); Mean Corpuscular Volume 99.4 FL (87-102); Mean Platelet Volume 9.7 FL (9.6-12.0); Monocytes % 2.7 % (1.7-12.7); Neutrophils % 89.1 % (38.7-73.9); Platelet Count 414 T/CUMM (130-400); Red Blood Count 3.22 MC/CUMM (3.8-5.5); Red Cell Distribution Width 13.8 % (9.3-17.3); White Blood Count 12.5 T/CUMM (4-12)
[2019-02-16] MEDS ORDERED: INSULIN REGULAR DRIP 100 ML IV SCH (13:30)
[2019-02-16 14:07] LABS: Calcium 9.3 MG/DL (8.5-10.1); Osmolality,Calculated 304.5 MOS/KG (273-304)
[2019-02-16] MEDS ORDERED: LEVOFLOXACIN INJ 750 MG in PREMIX 1 EACH IV SCH (14:30)
[2019-02-16] MEDS: SODIUM CHLORIDE 0.9% 1,000 ML IV SCH ×2 (14:35→17:02)
[2019-02-16 14:41] LABS: ABG Base Excess -16.5 MMOL/L (-2.5-2.5); ABG HCO3 12.1 MMOL/L (20-26); ABG Oxygen Saturation 95.3 % (95-100); ABG PCO2 21.9 MM HG (35-48); ABG PH 7.249 (7.35-7.45); ABG PO2 80.9 MM HG (80-95); ABG TCO2 8.7 MMOL/L (23-27)
[2019-02-16] MEDS: PREGABALIN 75 MG CAPSULE PO SCH ×2 (15:32→21:58)
[2019-02-16] MEDS: FAMOTIDINE 20 MG/2 ML VIAL IV SCH (15:32)
[2019-02-16] MEDS ORDERED: MORPHINE 4 MG/1 ML VIAL IV PRN (17:03)
[2019-02-16 17:27] LABS: Calcium 8.1 MG/DL (8.5-10.1); Osmolality,Calculated 293.4 MOS/KG (273-304)
[2019-02-16] MEDS: INSULIN REGULAR 100 UNIT/ML IV PRN ×2 (18:03→21:30)
[2019-02-16] MEDS ORDERED: SODIUM CHLORIDE 0.9% 1,000 ML IV SCH (18:10)
[2019-02-16 19:28] LABS: Apearance,Urine CLEAR (Clear); Bilirubin,Urine Negative (Negative); Blood, Urine Moderate mg/dL (Negative); Glucose,Urine (UA) >=500 mg/dL (Negative); Hyaline Casts,Urine 4 /LPF (0-3); Ketones,Urine 80 mg/dL (Negative); Mucus,Urine Occasional /LPF (Occasional); Nitrite,Urine Negative (Negative); Protein,Urine 30 MG/DL; RBC,Urine <1 /HPF (0-4); Squamous Epithelial Cell,Urine Occasional /HPF (0-10); Urine Color Straw (Yellow); Urine Specific Gravity 1.021 (1.001-1.035); Urine Urobilinogen < 2.0 EU/DL (0.2-1.0)
[2019-02-16 21:47] LABS: Calcium 8.2 MG/DL (8.5-10.1); Osmolality,Calculated 294.1 MOS/KG (273-304)
[2019-02-16] MEDS: DEXTROSE 5% NACL 0.9% 1,000 ML IV SCH (22:45)
[2019-02-17] MEDS: FAMOTIDINE 20 MG/2 ML VIAL IV SCH (01:47)
[2019-02-17 02:28] LABS: Basophils % 0.3 % (0.0-0.8); Eosinophils # 0.1 10*3/uL (0.0-0.87); Eosinophils % 1.5 % (0.00-10.9); Immature Granulocytes % 0.4 %; Immature Granulocytes Absolute 0.04 #; Lymphocytes # 1.3 10*3/uL (1.4-4.0); Mean Corpuscular Volume 97.2 FL (87-102); Monocytes % 3.7 % (1.7-12.7); Neutrophils % 80.1 % (38.7-73.9); Platelet Count 282 T/CUMM (130-400); Red Blood Count 2.54 MC/CUMM (3.8-5.5); Red Cell Distribution Width 14.1 % (9.3-17.3); White Blood Count 9.3 T/CUMM (4-12)
[2019-02-17 02:34] LABS: Hematocrit 24.7 VOL% (35.7-47.0); Hemoglobin 7.9 GM/DL (12.0-16.0)
[2019-02-17 02:42] LABS: Calcium 8.3 MG/DL (8.5-10.1); Osmolality,Calculated 290.7 MOS/KG (273-304)
[2019-02-17] MEDS: DEXTROSE 5% NACL 0.9% 1,000 ML IV SCH (03:30)
[2019-02-17] MEDS ORDERED: DEXT 5% NACL 0.45% KCL 20 MEQ 20 MEQ/1,000 ML BAG IV SCH (04:00)
[2019-02-17] MEDS ORDERED: SODIUM CHLORIDE 0.45% 1,000 ML IV SCH (06:10)
[2019-02-17] MEDS ORDERED: GLUCOSE GEL 15 GM TUBE PO ONE ×2 (06:12→06:14)
[2019-02-17 06:18] LABS: Calcium 8.1 MG/DL (8.5-10.1)
[2019-02-17] MEDS ORDERED: DEXTROSE 50% 25 GM/50 ML VIAL IV PRN (07:43)
[2019-02-17] MEDS ORDERED: GLUCAGON 1 MG VIAL IM PRN (07:43)
[2019-02-17 07:49] LABS: ABG HCO3 21.1 MMOL/L (20-26); ABG Oxygen Saturation 98.9 % (95-100); ABG PCO2 41.1 MM HG (35-48); ABG PH 7.329 (7.35-7.45); ABG TCO2 20.2 MMOL/L (23-27)
[2019-02-17] MEDS: SODIUM CHLORIDE 0.45% 1,000 ML IV SCH ×3 (07:49→23:13)
[2019-02-17] MEDS ORDERED: INSULIN REGULAR 100 UNIT/ML SUBCUT SCH (08:00)
[2019-02-17] MEDS: VANCOMYCIN INJ 1,000 MG in SODIUM CHLORIDE 0.9% 250 ML IV SCH ×2 (09:01→21:54)
[2019-02-17] MEDS: MEROPENEM 500 MG in SODIUM CHLORIDE 0.9% 100 ML IV SCH ×3 (09:01→21:35)
[2019-02-17] MEDS: CLINDAMYCIN INJ 900 MG in PREMIX 1 EACH IV SCH ×2 (09:01→16:24)
[2019-02-17] MEDS: FLUoxetine 20 MG CAPSULE PO SCH (09:02)
[2019-02-17] MEDS: PREGABALIN 75 MG CAPSULE PO SCH ×3 (09:02→21:35)
[2019-02-17 09:59] LABS: Calcium 8.5 MG/DL (8.5-10.1)
[2019-02-17] MEDS: INSULIN GLARGINE 100 UNIT/ML SUBCUT SCH (10:58)
[2019-02-17] MEDS: INSULIN LISPRO 100 UNIT/ML SUBCUT SCH ×5 (11:08→21:35)
[2019-02-17] MEDS: ENOXAPARIN 40 MG/0.4 ML SYRINGE SUBCUT SCH (12:47)
[2019-02-18] MEDS: CLINDAMYCIN INJ 900 MG in PREMIX 1 EACH IV SCH ×3 (00:46→16:26)
[2019-02-18] MEDS: MEROPENEM 500 MG in SODIUM CHLORIDE 0.9% 100 ML IV SCH ×4 (02:30→20:47)
[2019-02-18] MEDS: SODIUM CHLORIDE 0.45% 1,000 ML IV SCH ×3 (06:10→16:27)
[2019-02-18] MEDS: INSULIN LISPRO 100 UNIT/ML SUBCUT SCH ×7 (08:48→21:07)
[2019-02-18] MEDS: INSULIN GLARGINE 100 UNIT/ML SUBCUT SCH (08:49)
[2019-02-18] MEDS: FLUoxetine 20 MG CAPSULE PO SCH (09:21)
[2019-02-18] MEDS: PREGABALIN 75 MG CAPSULE PO SCH ×3 (09:21→20:47)
[2019-02-18 10:15] LABS: Basophils % 0.4 % (0.0-0.8); Eosinophils # 0.1 10*3/uL (0.0-0.87); Eosinophils % 2.9 % (0.00-10.9); Hematocrit 27.9 VOL% (35.7-47.0); Hemoglobin 8.9 GM/DL (12.0-16.0); Immature Granulocytes % 0.2 %; Immature Granulocytes Absolute 0.01 #; Lymphocytes # 0.9 10*3/uL (1.4-4.0); Lymphocytes % 18.9 % (21.3-54.2); Mean Corpuscular HGB Conc 31.9 GM/DL (32-36); Mean Corpuscular Volume 97.2 FL (87-102); Mean Platelet Volume 8.9 FL (9.6-12.0); Monocytes % 5.9 % (1.7-12.7); Neutrophils % 71.7 % (38.7-73.9); Platelet Count 222 T/CUMM (130-400); Red Blood Count 2.87 MC/CUMM (3.8-5.5); Red Cell Distribution Width 13.2 % (9.3-17.3); White Blood Count 4.6 T/CUMM (4-12)
[2019-02-18 10:30] LABS: Calcium 8.5 MG/DL (8.5-10.1); Osmolality,Calculated 285.2 MOS/KG (273-304)
[2019-02-18] MEDS: VANCOMYCIN INJ 1,000 MG in SODIUM CHLORIDE 0.9% 250 ML IV SCH ×2 (11:14→21:20)
[2019-02-18] MEDS: ENOXAPARIN 40 MG/0.4 ML SYRINGE SUBCUT SCH (12:00)
[2019-02-18] MEDS: POTASSIUM CHLORIDE RIDER 10 MEQ in PREMIX 1 EACH IV PRN ×3 (12:20→16:26)
[2019-02-18] MEDS ORDERED: POTASSIUM CHLORIDE 20 MEQ TABLET PO ONE (13:59)
[2019-02-19] MEDS: SODIUM CHLORIDE 0.45% 1,000 ML IV SCH ×3 (01:08→20:00)
[2019-02-19] MEDS: CLINDAMYCIN INJ 900 MG in PREMIX 1 EACH IV SCH ×2 (01:10→09:16)
[2019-02-19] MEDS: MEROPENEM 500 MG in SODIUM CHLORIDE 0.9% 100 ML IV SCH ×3 (02:46→16:51)
[2019-02-19 06:07] LABS: Basophils % 0.5 % (0.0-0.8); Eosinophils # 0.3 10*3/uL (0.0-0.87); Eosinophils % 6.9 % (0.00-10.9); Hematocrit 26.5 VOL% (35.7-47.0); Hemoglobin 8.6 GM/DL (12.0-16.0); Immature Granulocytes % 0.5 %; Immature Granulocytes Absolute 0.02 #; Lymphocytes # 0.9 10*3/uL (1.4-4.0); Lymphocytes % 21.8 % (21.3-54.2); Mean Corpuscular HGB Conc 32.5 GM/DL (32-36); Mean Corpuscular Volume 95.7 FL (87-102); Mean Platelet Volume 9.6 FL (9.6-12.0); Monocytes % 6.4 % (1.7-12.7); Neutrophils % 63.9 % (38.7-73.9); Platelet Count 262 T/CUMM (130-400); Red Blood Count 2.77 MC/CUMM (3.8-5.5); Red Cell Distribution Width 12.9 % (9.3-17.3); White Blood Count 4.2 T/CUMM (4-12)
[2019-02-19 06:08] LABS: Calcium 9.1 MG/DL (8.5-10.1); Osmolality,Calculated 289.5 MOS/KG (273-304)
[2019-02-19] MEDS: INSULIN LISPRO 100 UNIT/ML SUBCUT SCH ×7 (09:15→22:33)
[2019-02-19] MEDS: INSULIN GLARGINE 100 UNIT/ML SUBCUT SCH (09:15)
[2019-02-19] MEDS: FLUoxetine 20 MG CAPSULE PO SCH (09:19)
[2019-02-19] MEDS: PREGABALIN 75 MG CAPSULE PO SCH ×3 (09:19→21:16)
[2019-02-19] MEDS: VANCOMYCIN INJ 1,000 MG in SODIUM CHLORIDE 0.9% 250 ML IV SCH ×2 (13:26→22:33)
[2019-02-19] MEDS: ENOXAPARIN 40 MG/0.4 ML SYRINGE SUBCUT SCH (13:34)
[2019-02-19] MEDS: LACTOBACILLUS ACIDOPHILUS/BULGARICUS CHEW TABLET PO SCH ×2 (13:34→22:39)
[2019-02-19] MEDS: CEFUROXIME 500 MG TABLET PO SCH (21:16)
[2019-02-20] MEDS: SODIUM CHLORIDE 0.45% 1,000 ML IV SCH ×3 (02:40→09:48)
[2019-02-20 05:16] LABS: Basophils % 0.5 % (0.0-0.8); Eosinophils # 0.4 10*3/uL (0.0-0.87); Eosinophils % 10.7 % (0.00-10.9); Hematocrit 27.3 VOL% (35.7-47.0); Hemoglobin 8.6 GM/DL (12.0-16.0); Immature Granulocytes % 0.5 %; Immature Granulocytes Absolute 0.02 #; Lymphocytes % 23.7 % (21.3-54.2); Mean Corpuscular HGB Conc 31.5 GM/DL (32-36); Mean Corpuscular Volume 97.5 FL (87-102); Mean Platelet Volume 9.5 FL (9.6-12.0); Monocytes % 6.5 % (1.7-12.7); Neutrophils % 58.1 % (38.7-73.9); Platelet Count 265 T/CUMM (130-400); Red Cell Distribution Width 13.1 % (9.3-17.3)
[2019-02-20 05:48] LABS: Osmolality,Calculated 283.3 MOS/KG (273-304)
[2019-02-20] MEDS: INSULIN LISPRO 100 UNIT/ML SUBCUT SCH ×3 (08:10→12:45)
[2019-02-20] MEDS ORDERED: INSULIN LISPRO 100 UNIT/ML SUBCUT SCH (08:33)
[2019-02-20] MEDS ORDERED: INSULIN GLARGINE 100 UNIT/ML SUBCUT SCH (08:34)
[2019-02-20] MEDS: FLUoxetine 20 MG CAPSULE PO SCH (09:47)
[2019-02-20] MEDS: LACTOBACILLUS ACIDOPHILUS/BULGARICUS CHEW TABLET PO SCH (09:47)
[2019-02-20] MEDS: CEFUROXIME 500 MG TABLET PO SCH (09:47)
[2019-02-20] MEDS: PREGABALIN 75 MG CAPSULE PO SCH ×2 (09:48→16:06)
[2019-02-20] MEDS: VANCOMYCIN INJ 1,000 MG in SODIUM CHLORIDE 0.9% 250 ML IV SCH (09:48)
[2019-02-20 11:33] VITALS: BP 133/96
[2019-02-20] MEDS: ENOXAPARIN 40 MG/0.4 ML SYRINGE SUBCUT SCH (16:05)
== END 2019-02-20 15:20 | disposition home or self-care (01) | DRG 420 ==
LOC: EDBD → EDUNIT# → N.ED 11:47 → N.EDINP 13:09 → SUATTDRO 13:09 → N.ICU 14:15 → N.2E 02-18 16:46
PROVIDERS: ADMIT Internal Medicine; ATTEND Internal Medicine

== ENCOUNTER 2019-04-10 23:18 | Inpatient (IN) ==
[2019-04-10] MEDS ORDERED: PIPERACILLIN/TAZOBACTAM 3,375 MG in SODIUM CHLORIDE 0.9% 100 ML IV STA (23:48)
[2019-04-11 00:42] LABS: Basophils % 0.4 % (0.0-0.8); Eosinophils # 0.1 10*3/uL (0.0-0.87); Eosinophils % 1.3 % (0.00-10.9); Hematocrit 28.8 VOL% (35.7-47.0); Hemoglobin 9.3 GM/DL (12.0-16.0); Immature Granulocytes % 1.2 %; Lymphocytes % 12.1 % (21.3-54.2); Mean Corpuscular HGB Conc 32.3 GM/DL (32-36); Mean Corpuscular Volume 90.3 FL (87-102); Mean Platelet Volume 10.5 FL (9.6-12.0); Monocytes % 7.1 % (1.7-12.7); Neutrophils % 77.9 % (38.7-73.9); Platelet Count 237 T/CUMM (130-400); Red Blood Count 3.19 MC/CUMM (3.8-5.5); Red Cell Distribution Width 12.7 % (9.3-17.3); White Blood Count 8.5 T/CUMM (4-12)
[2019-04-11 00:47] LABS: Albumin 2.7 G/DL (3.4-5.0); Bilirubin,Total 0.4 MG/DL (0.2-1.0); Calcium 8.5 MG/DL (8.5-10.1); Osmolality,Calculated 288.2 MOS/KG (273-304); Total Protein 7.7 G/DL (6.4-8.3)
[2019-04-11] MEDS ORDERED: VANCOMYCIN INJ 1,000 MG in SODIUM CHLORIDE 0.9% 250 ML IV STA ×2 (01:00→01:02)
[2019-04-11] MEDS ORDERED: INSULIN REGULAR 100 UNIT/ML IV STA (01:28)
[2019-04-11] MEDS ORDERED: MORPHINE 4 MG/1 ML VIAL IV STA (02:32)
[2019-04-11] MEDS ORDERED: ONDANSETRON 4 MG/2 ML VIAL IV ONE (02:32)
[2019-04-11] MEDS ORDERED: DEXTROSE 50% 25 GM/50 ML VIAL IV PRN ×3 (04:29→20:53)
[2019-04-11] MEDS ORDERED: GLUCAGON 1 MG VIAL IM PRN ×3 (04:29→20:53)
[2019-04-11] MEDS ORDERED: ONDANSETRON 4 MG/2 ML VIAL IV PRN (04:29)
[2019-04-11 04:44] LABS: Apearance,Urine Slightly Hazy (Clear); Bacteria,Urine Occasional /HPF (Few); Bilirubin,Urine Negative (Negative); Blood, Urine Moderate mg/dL (Negative); Glucose,Urine (UA) >=500 mg/dL (Negative); Hyaline Casts,Urine 3 /LPF (0-3); Ketones,Urine Negative (Negative); Nitrite,Urine Negative (Negative); Protein,Urine 100 MG/DL; RBC,Urine 7 /HPF (0-4); Urine Color Yellow (Yellow); Urine Specific Gravity 1.014 (1.001-1.035); Urine Urobilinogen < 2.0 EU/DL (0.2-1.0); WBC,Urine 46 /HPF (0-6)
[2019-04-11] MEDS: SODIUM CHLORIDE 0.9% 1,000 ML IV SCH ×2 (05:26→13:30)
[2019-04-11] MEDS: PIPERACILLIN/TAZOBACTAM 3,375 MG in SODIUM CHLORIDE 0.9% 100 ML IV SCH ×3 (07:38→20:08)
[2019-04-11] MEDS: FLUoxetine 20 MG CAPSULE PO SCH (10:07)
[2019-04-11] MEDS: LACTOBACILLUS ACIDOPHILUS/BULGARICUS CHEW TABLET PO SCH (10:07)
[2019-04-11] MEDS: ENOXAPARIN 40 MG/0.4 ML SYRINGE SUBCUT SCH (10:07)
[2019-04-11] MEDS: PANTOPRAZOLE 40 MG TABLET PO SCH (10:07)
[2019-04-11] MEDS: VANCOMYCIN INJ 1,250 MG in SODIUM CHLORIDE 0.9% 250 ML IV SCH (11:35)
[2019-04-11] MEDS: MORPHINE 4 MG/1 ML VIAL IV PRN (21:19)
[2019-04-11] MEDS: INSULIN LISPRO 100 UNIT/ML SUBCUT SCH (21:20)
[2019-04-12] MEDS: VANCOMYCIN INJ 1,250 MG in SODIUM CHLORIDE 0.9% 250 ML IV SCH ×3 (00:10→20:55)
[2019-04-12] MEDS: INSULIN LISPRO 100 UNIT/ML SUBCUT SCH ×5 (01:51→20:52)
[2019-04-12] MEDS: MORPHINE 4 MG/1 ML VIAL IV PRN ×3 (01:51→18:50)
[2019-04-12] MEDS: INSULIN GLARGINE 100 UNIT/ML SUBCUT SCH ×2 (01:52→09:10)
[2019-04-12 04:30] LABS: Basophils % 0.7 % (0.0-0.8); Eosinophils # 0.2 10*3/uL (0.0-0.87); Eosinophils % 3.7 % (0.00-10.9); Hematocrit 25.2 VOL% (35.7-47.0); Immature Granulocytes % 0.3 %; Immature Granulocytes Absolute 0.02 #; Lymphocytes # 0.9 10*3/uL (1.4-4.0); Lymphocytes % 15.3 % (21.3-54.2); Mean Corpuscular HGB Conc 31.7 GM/DL (32-36); Mean Corpuscular Volume 92.3 FL (87-102); Mean Platelet Volume 10.4 FL (9.6-12.0); Monocytes % 6.4 % (1.7-12.7); Neutrophils % 73.6 % (38.7-73.9); Platelet Count 257 T/CUMM (130-400); Red Blood Count 2.73 MC/CUMM (3.8-5.5); Red Cell Distribution Width 12.6 % (9.3-17.3); White Blood Count 5.7 T/CUMM (4-12)
[2019-04-12 04:49] LABS: Alanine Aminotransferase 12 U/L (13-56); Albumin 2.1 G/DL (3.4-5.0); Alkaline Phosphatase 140 U/L (45-117); Aspartate Amino Transferase 11 U/L (0-37); Bilirubin,Total < 0.39 MG/DL (0.2-1.0); Blood Urea Nitrogen 20 MG/DL (7-18); Calcium 8.1 MG/DL (8.5-10.1); Estimated Glom Filtration Rate 66 ML/MIN; Glucose 305 MG/DL (74-106); Osmolality,Calculated 286.8 MOS/KG (273-304); Total Protein 6.6 G/DL (6.4-8.3)
[2019-04-12] MEDS: PIPERACILLIN/TAZOBACTAM 3,375 MG in SODIUM CHLORIDE 0.9% 100 ML IV SCH ×3 (04:49→23:08)
[2019-04-12] MEDS ORDERED: INSULIN GLARGINE 100 UNIT/ML SUBCUT SCH (07:30)
[2019-04-12] MEDS ORDERED: INSULIN LISPRO 100 UNIT/ML SUBCUT SCH (07:30)
[2019-04-12] MEDS: SODIUM CHLORIDE 0.9% 1,000 ML IV SCH ×4 (09:08→19:35)
[2019-04-12] MEDS: ENOXAPARIN 40 MG/0.4 ML SYRINGE SUBCUT SCH (09:40)
[2019-04-12] MEDS ORDERED: LIDOCAINE 1% 20 ML VIAL ONE (09:42)
[2019-04-12] MEDS ORDERED: MIDAZOLAM 2 MG/2 ML VIAL ONE (10:28)
[2019-04-12] MEDS ORDERED: PROPOFOL 200 MG/20 ML VIAL IV ONE (10:28)
[2019-04-12] MEDS ORDERED: LIDOCAINE 2% 5 ML VIAL ONE (10:28)
[2019-04-12] MEDS ORDERED: fentaNYL 100 MCG/2 ML VIAL ONE (10:28)
[2019-04-12] MEDS ORDERED: ONDANSETRON 4 MG/2 ML VIAL ONE (10:29)
[2019-04-12] MEDS: PANTOPRAZOLE 40 MG TABLET PO SCH (13:02)
[2019-04-12] MEDS: FLUoxetine 20 MG CAPSULE PO SCH (13:02)
[2019-04-12] MEDS: LACTOBACILLUS ACIDOPHILUS/BULGARICUS CHEW TABLET PO SCH ×3 (13:03→20:51)
[2019-04-12] MEDS: POTASSIUM CHLORIDE 20 MEQ TABLET PO PRN (19:16)
[2019-04-13] MEDS: MORPHINE 4 MG/1 ML VIAL IV PRN ×4 (00:09→20:29)
[2019-04-13] MEDS: PIPERACILLIN/TAZOBACTAM 3,375 MG in SODIUM CHLORIDE 0.9% 100 ML IV SCH ×3 (05:17→20:56)
[2019-04-13] MEDS: POTASSIUM CHLORIDE 20 MEQ TABLET PO PRN ×2 (07:07→09:11)
[2019-04-13] MEDS: VANCOMYCIN INJ 1,250 MG in SODIUM CHLORIDE 0.9% 250 ML IV SCH (09:11)
[2019-04-13] MEDS: PANTOPRAZOLE 40 MG TABLET PO SCH (09:11)
[2019-04-13] MEDS: ENOXAPARIN 40 MG/0.4 ML SYRINGE SUBCUT SCH (09:11)
[2019-04-13] MEDS: INSULIN GLARGINE 100 UNIT/ML SUBCUT SCH (09:12)
[2019-04-13] MEDS: LACTOBACILLUS ACIDOPHILUS/BULGARICUS CHEW TABLET PO SCH ×2 (09:12→20:30)
[2019-04-13] MEDS: FLUoxetine 20 MG CAPSULE PO SCH (09:12)
[2019-04-13] MEDS: INSULIN LISPRO 100 UNIT/ML SUBCUT SCH ×4 (09:12→20:30)
[2019-04-13] MEDS: SODIUM CHLORIDE 0.9% 1,000 ML IV SCH ×3 (09:15→20:27)
[2019-04-13] MEDS: SODIUM HYPOCHLORITE 0.25% IRRIG 473 ML BOTTLE TOP SCH (16:20)
[2019-04-14] MEDS: MORPHINE 4 MG/1 ML VIAL IV PRN ×2 (00:16→05:51)
[2019-04-14] MEDS: VANCOMYCIN INJ 1,250 MG in SODIUM CHLORIDE 0.9% 250 ML IV SCH (00:37)
[2019-04-14] MEDS: SODIUM CHLORIDE 0.9% 1,000 ML IV SCH ×2 (04:46→15:30)
[2019-04-14] MEDS: PIPERACILLIN/TAZOBACTAM 3,375 MG in SODIUM CHLORIDE 0.9% 100 ML IV SCH (04:58)
[2019-04-14] MEDS: INSULIN GLARGINE 100 UNIT/ML SUBCUT SCH (07:57)
[2019-04-14] MEDS: INSULIN LISPRO 100 UNIT/ML SUBCUT SCH ×2 (07:58→11:42)
[2019-04-14] MEDS: ENOXAPARIN 40 MG/0.4 ML SYRINGE SUBCUT SCH (09:03)
[2019-04-14] MEDS: PANTOPRAZOLE 40 MG TABLET PO SCH (09:04)
[2019-04-14] MEDS: FLUoxetine 20 MG CAPSULE PO SCH (09:04)
[2019-04-14] MEDS: LACTOBACILLUS ACIDOPHILUS/BULGARICUS CHEW TABLET PO SCH (09:04)
[2019-04-14] MEDS: SODIUM HYPOCHLORITE 0.25% IRRIG 473 ML BOTTLE TOP SCH (09:04)
[2019-04-14] MEDS ORDERED: INFLUENZA VIRUS VACCINE 0.5 ML SYRINGE IM ONE (12:27)
[2019-04-14 16:20] VITALS: BP 150/86
[2019-04-14] MEDS ORDERED: CEFUROXIME 500 MG TABLET PO SCH (21:00)
== END 2019-04-14 17:35 | disposition home or self-care (01) | DRG 364 ==
LOC: N.ED 23:18 → SUATTDRO 04-11 03:11 → N.EDINP 04-11 03:11 → N.3E 04-11 03:36
PROVIDERS: ADMIT Internal Medicine Geriatric Medicine; ATTEND Internal Medicine

== ENCOUNTER 2019-09-15 19:51 | Inpatient (IN) ==
[2019-09-15] MEDS ORDERED: VANCOMYCIN INJ 1,000 MG in SODIUM CHLORIDE 0.9% 250 ML IV STA (21:44)
[2019-09-15] MEDS ORDERED: HYDROmorphone 2 MG/1 ML VIAL IV STA (21:44)
[2019-09-15] MEDS ORDERED: ONDANSETRON 4 MG/2 ML VIAL IV STA (21:44)
[2019-09-15] MEDS ORDERED: SODIUM CHLORIDE 0.9% 1,000 ML IV STA (21:44)
[2019-09-15] MEDS ORDERED: diphenhydrAMINE 50 MG/1 ML VIAL ONE (22:15)
[2019-09-15 22:18] LABS: Basophils % 0.5 % (0.0-0.8); Eosinophils # 0.1 10*3/uL (0.0-0.87); Eosinophils % 1.4 % (0.00-10.9); Hematocrit 37.1 VOL% (35.7-47.0); Hemoglobin 12.1 GM/DL (12.0-16.0); Immature Granulocytes % 0.4 %; Immature Granulocytes Absolute 0.02 #; Lymphocytes # 0.9 10*3/uL (1.4-4.0); Lymphocytes % 15.9 % (21.3-54.2); Mean Corpuscular HGB Conc 32.6 GM/DL (32-36); Mean Corpuscular Volume 98.7 FL (87-102); Monocytes % 6.1 % (1.7-12.7); Neutrophils % 75.7 % (38.7-73.9); Platelet Count 250 T/CUMM (130-400); Red Blood Count 3.76 MC/CUMM (3.8-5.5); Red Cell Distribution Width 13.1 % (9.3-17.3); White Blood Count 5.6 T/CUMM (4-12)
[2019-09-15] MEDS ORDERED: diphenhydrAMINE 50 MG/1 ML VIAL IV STA (22:24)
[2019-09-15 22:29] LABS: Apearance,Urine CLEAR (Clear); Bilirubin,Urine Negative (Negative); Blood, Urine Moderate mg/dL (Negative); Glucose,Urine (UA) >=500 mg/dL (Negative); Ketones,Urine Negative (Negative); Mucus,Urine Occasional /LPF (Occasional); Nitrite,Urine Positive (Negative); Protein,Urine 30 MG/DL; RBC,Urine 4 /HPF (0-4); Squamous Epithelial Cell,Urine Occasional /HPF (0-10); Urine Color Yellow (Yellow); Urine Specific Gravity 1.021 (1.001-1.035); Urine Urobilinogen < 2.0 EU/DL (0.2-1.0); WBC,Urine 4 /HPF (0-6)
[2019-09-15 22:33] LABS: Barbiturates Screen,Urine Negative (Negative); Benzodiazepines Screen,Urine Negative (Negative); Cannabinoid Screen,Urine Negative (Negative); Opiate Screen,Urine Positive (Negative); Phencyclidine Screen,Urine Negative (Negative)
[2019-09-15 22:37] LABS: Amylase 26 U/L (25-115)
[2019-09-15 22:40] LABS: Albumin 2.7 G/DL (3.4-5.0); Bilirubin,Total 0.4 MG/DL (0.2-1.0); Osmolality,Calculated 295.1 MOS/KG (273-304); Total Protein 7.6 G/DL (6.4-8.3)
[2019-09-15] MEDS ORDERED: INSULIN REGULAR 100 UNIT/ML ONE (22:45)
[2019-09-15] MEDS ORDERED: INSULIN REGULAR 100 UNIT/ML IV STA (22:51)
[2019-09-15 23:48] LABS: ABG Base Excess -4.9 MMOL/L (-2.5-2.5); ABG HCO3 20.4 MMOL/L (20-26); ABG Oxygen Saturation 98.9 % (95-100); ABG PCO2 38.5 MM HG (35-48); ABG PH 7.335 (7.35-7.45); ABG TCO2 18.5 MMOL/L (23-27)
[2019-09-16] MEDS ORDERED: ONDANSETRON 4 MG/2 ML VIAL IV PRN (01:46)
[2019-09-16] MEDS ORDERED: DEXTROSE 50% 25 GM/50 ML SYRINGE IV PRN (01:46)
[2019-09-16] MEDS ORDERED: ACETAMINOPHEN 325 MG TABLET PO PRN (01:46)
[2019-09-16] MEDS ORDERED: DOCUSATE SODIUM 100 MG CAPSULE PO PRN (01:46)
[2019-09-16] MEDS ORDERED: PROMETHAZINE 25 MG/1 ML VIAL IM PRN (01:46)
[2019-09-16] MEDS ORDERED: GLUCAGON 1 MG VIAL IM PRN (01:46)
[2019-09-16] MEDS: INSULIN REGULAR 100 UNIT/ML SUBCUT SCH ×6 (02:47→18:49)
[2019-09-16] MEDS: SODIUM CHLORIDE 0.9% 1,000 ML IV SCH ×3 (02:52→17:46)
[2019-09-16] MEDS: PIPERACILLIN/TAZOBACTAM 3,375 MG in SODIUM CHLORIDE 0.9% 100 ML IV SCH ×3 (02:53→18:51)
[2019-09-16 06:09] LABS: Basophils % 0.5 % (0.0-0.8); Eosinophils # 0.1 10*3/uL (0.0-0.87); Eosinophils % 1.5 % (0.00-10.9); Hematocrit 36.3 VOL% (35.7-47.0); Immature Granulocytes % 0.4 %; Immature Granulocytes Absolute 0.03 #; Lymphocytes # 1.3 10*3/uL (1.4-4.0); Lymphocytes % 15.6 % (21.3-54.2); Mean Corpuscular HGB Conc 33.1 GM/DL (32-36); Mean Corpuscular Volume 97.1 FL (87-102); Platelet Count 285 T/CUMM (130-400); Red Blood Count 3.74 MC/CUMM (3.8-5.5); Red Cell Distribution Width 13.5 % (9.3-17.3); White Blood Count 8.2 T/CUMM (4-12)
[2019-09-16 06:26] LABS: Alanine Aminotransferase 99 U/L (13-56); Albumin 2.5 G/DL (3.4-5.0); Alkaline Phosphatase 270 U/L (45-117); Aspartate Amino Transferase 75 U/L (0-37); Bilirubin,Total < 0.39 MG/DL (0.2-1.0); Blood Urea Nitrogen 18 MG/DL (7-18); Calcium 9.5 MG/DL (8.5-10.1); Estimated Glom Filtration Rate 82 ML/MIN; Glucose 209 MG/DL (74-106); Osmolality,Calculated 277.1 MOS/KG (273-304); Total Protein 7.4 G/DL (6.4-8.3)
[2019-09-16] MEDS: ENOXAPARIN 40 MG/0.4 ML SYRINGE SUBCUT SCH (09:41)
[2019-09-16] MEDS: diphenhydrAMINE 50 MG/1 ML VIAL IV SCH ×2 (09:42→23:25)
[2019-09-16] MEDS: VANCOMYCIN INJ 1,000 MG in SODIUM CHLORIDE 0.9% 250 ML IV SCH ×2 (09:48→23:22)
[2019-09-16] MEDS ORDERED: CHLORHEXIDINE 4% SOLN 118 ML BOTTLE TOP PRN (15:39)
[2019-09-16] MEDS: MUPIROCIN 2% OINT 22 GM TUBE TOP SCH ×2 (17:25→20:55)
[2019-09-17] MEDS: INSULIN REGULAR 100 UNIT/ML SUBCUT SCH ×7 (00:26→23:21)
[2019-09-17] MEDS: SODIUM CHLORIDE 0.9% 1,000 ML IV SCH ×3 (02:42→17:46)
[2019-09-17] MEDS: PIPERACILLIN/TAZOBACTAM 3,375 MG in SODIUM CHLORIDE 0.9% 100 ML IV SCH ×3 (02:46→14:16)
[2019-09-17 05:03] LABS: Basophils % 0.3 % (0.0-0.8); Eosinophils # 0.1 10*3/uL (0.0-0.87); Eosinophils % 1.9 % (0.00-10.9); Hematocrit 38.3 VOL% (35.7-47.0); Hemoglobin 12.5 GM/DL (12.0-16.0); Immature Granulocytes % 0.3 %; Immature Granulocytes Absolute 0.02 #; Lymphocytes # 1.3 10*3/uL (1.4-4.0); Lymphocytes % 20.2 % (21.3-54.2); Mean Corpuscular HGB Conc 32.6 GM/DL (32-36); Mean Corpuscular Volume 99.5 FL (87-102); Mean Platelet Volume 9.9 FL (9.6-12.0); Monocytes % 6.4 % (1.7-12.7); Neutrophils % 70.9 % (38.7-73.9); Platelet Count 282 T/CUMM (130-400); Red Blood Count 3.85 MC/CUMM (3.8-5.5); Red Cell Distribution Width 13.7 % (9.3-17.3); White Blood Count 6.3 T/CUMM (4-12)
[2019-09-17 05:42] LABS: Albumin 2.8 G/DL (3.4-5.0); Bilirubin,Total 0.4 MG/DL (0.2-1.0); Calcium 9.4 MG/DL (8.5-10.1); Osmolality,Calculated 283.1 MOS/KG (273-304); Total Protein 8.1 G/DL (6.4-8.3)
[2019-09-17] MEDS: ENOXAPARIN 40 MG/0.4 ML SYRINGE SUBCUT SCH (09:05)
[2019-09-17] MEDS ORDERED: LIDOCAINE 1%/EPI INJ 20 ML VIAL MISC INJ ONE (09:05)
[2019-09-17] MEDS: MUPIROCIN 2% OINT 22 GM TUBE TOP SCH ×2 (09:57→22:27)
[2019-09-17] MEDS: diphenhydrAMINE 50 MG/1 ML VIAL IV SCH ×2 (11:33→22:26)
[2019-09-17] MEDS: VANCOMYCIN INJ 1,000 MG in SODIUM CHLORIDE 0.9% 250 ML IV SCH ×2 (11:43→22:27)
[2019-09-17] MEDS ORDERED: FLUCONAZOLE 150 MG TABLET PO ONE (12:33)
[2019-09-17] MEDS: INSULIN GLARGINE 100 UNIT/ML SUBCUT SCH (17:10)
[2019-09-17] MEDS: NYSTATIN CREAM 15 GM TUBE TOP SCH ×2 (17:11→22:28)
[2019-09-18] MEDS: PIPERACILLIN/TAZOBACTAM 3,375 MG in SODIUM CHLORIDE 0.9% 100 ML IV SCH ×2 (00:27→08:44)
[2019-09-18] MEDS: SODIUM CHLORIDE 0.9% 1,000 ML IV SCH ×3 (02:21→20:19)
[2019-09-18] MEDS: INSULIN REGULAR 100 UNIT/ML SUBCUT SCH ×5 (03:38→18:52)
[2019-09-18 05:43] LABS: Basophils # 0.1 10*3/uL (0.0-0.2); Basophils % 0.8 % (0.0-0.8); Eosinophils # 0.1 10*3/uL (0.0-0.87); Eosinophils % 2.2 % (0.00-10.9); Hematocrit 36.9 VOL% (35.7-47.0); Hemoglobin 11.5 GM/DL (12.0-16.0); Immature Granulocytes % 0.3 %; Immature Granulocytes Absolute 0.02 #; Lymphocytes # 1.2 10*3/uL (1.4-4.0); Lymphocytes % 19.1 % (21.3-54.2); Mean Corpuscular HGB Conc 31.2 GM/DL (32-36); Mean Corpuscular Volume 101.9 FL (87-102); Mean Platelet Volume 9.9 FL (9.6-12.0); Monocytes % 7.6 % (1.7-12.7); Platelet Count 246 T/CUMM (130-400); Red Blood Count 3.62 MC/CUMM (3.8-5.5); Red Cell Distribution Width 13.4 % (9.3-17.3); White Blood Count 6.3 T/CUMM (4-12)
[2019-09-18 06:32] LABS: Albumin 2.3 G/DL (3.4-5.0); Bilirubin,Direct 0.1 MG/DL (0.0-0.20); Bilirubin,Indirect 1.7 MG/DL (0.0-1.0); Bilirubin,Total 1.8 MG/DL (0.2-1.0); Calcium 9.2 MG/DL (8.5-10.1); Osmolality,Calculated 271.8 MOS/KG (273-304); Total Protein 7.3 G/DL (6.4-8.3)
[2019-09-18 07:18] LABS: Hepatitis B Core IgM Quant 0.15 Index; Hepatitis B Surface Ag Quant < 0.10 Index; Hepatitis B Surface Ag Result Negative (Negative); Hepatitis C Virus Ab Quant < 0.02 Index; Hepatitis C Virus Ab Result Negative (Negative)
[2019-09-18] MEDS: ENOXAPARIN 40 MG/0.4 ML SYRINGE SUBCUT SCH (08:46)
[2019-09-18] MEDS: diphenhydrAMINE 50 MG/1 ML VIAL IV SCH ×2 (08:47→23:20)
[2019-09-18] MEDS: MUPIROCIN 2% OINT 22 GM TUBE TOP SCH ×2 (08:48→20:24)
[2019-09-18] MEDS: INSULIN GLARGINE 100 UNIT/ML SUBCUT SCH (08:57)
[2019-09-18] MEDS: NYSTATIN CREAM 15 GM TUBE TOP SCH ×3 (08:58→20:25)
[2019-09-18] MEDS: VANCOMYCIN INJ 1,000 MG in SODIUM CHLORIDE 0.9% 250 ML IV SCH ×2 (13:20→23:18)
[2019-09-18] MEDS: MEROPENEM 500 MG in SODIUM CHLORIDE 0.9% 100 ML IV SCH ×2 (16:23→20:23)
[2019-09-19] MEDS: INSULIN REGULAR 100 UNIT/ML SUBCUT SCH ×7 (00:30→19:14)
[2019-09-19] MEDS: MEROPENEM 500 MG in SODIUM CHLORIDE 0.9% 100 ML IV SCH ×4 (03:22→21:44)
[2019-09-19 05:54] LABS: Alanine Aminotransferase 274 U/L (13-56); Albumin 2.2 G/DL (3.4-5.0); Alkaline Phosphatase 346 U/L (45-117); Aspartate Amino Transferase 445 U/L (0-37); Bilirubin,Direct < 0.100 MG/DL (0.0-0.20); Bilirubin,Indirect 0.3 MG/DL (0.0-1.0); Blood Urea Nitrogen 22 MG/DL (7-18); Calcium 8.9 MG/DL (8.5-10.1); Estimated Glom Filtration Rate 95 ML/MIN; Glucose 136 MG/DL (74-106); Osmolality,Calculated 283.4 MOS/KG (273-304); Total Protein 6.9 G/DL (6.4-8.3)
[2019-09-19] MEDS: SODIUM CHLORIDE 0.9% 1,000 ML IV SCH ×3 (06:00→23:16)
[2019-09-19] MEDS: INSULIN GLARGINE 100 UNIT/ML SUBCUT SCH (09:32)
[2019-09-19] MEDS: ENOXAPARIN 40 MG/0.4 ML SYRINGE SUBCUT SCH (09:33)
[2019-09-19] MEDS: MUPIROCIN 2% OINT 22 GM TUBE TOP SCH ×2 (09:33→21:46)
[2019-09-19] MEDS: NYSTATIN CREAM 15 GM TUBE TOP SCH ×3 (09:34→21:44)
[2019-09-19] MEDS: diphenhydrAMINE 50 MG/1 ML VIAL IV SCH ×2 (12:30→23:13)
[2019-09-19] MEDS: VANCOMYCIN INJ 1,000 MG in SODIUM CHLORIDE 0.9% 250 ML IV SCH ×2 (12:54→23:16)
[2019-09-20] MEDS: INSULIN REGULAR 100 UNIT/ML SUBCUT SCH ×6 (02:18→23:08)
[2019-09-20 04:46] LABS: Basophils % 0.5 % (0.0-0.8); Eosinophils # 0.1 10*3/uL (0.0-0.87); Eosinophils % 3.5 % (0.00-10.9); Hematocrit 30.5 VOL% (35.7-47.0); Immature Granulocytes % 0.3 %; Immature Granulocytes Absolute 0.01 #; Lymphocytes # 1.3 10*3/uL (1.4-4.0); Lymphocytes % 33.6 % (21.3-54.2); Mean Corpuscular HGB Conc 32.8 GM/DL (32-36); Mean Platelet Volume 9.8 FL (9.6-12.0); Monocytes % 11.3 % (1.7-12.7); Neutrophils % 50.8 % (38.7-73.9); Platelet Count 189 T/CUMM (130-400); Red Blood Count 3.08 MC/CUMM (3.8-5.5); Red Cell Distribution Width 13.3 % (9.3-17.3); White Blood Count 3.7 T/CUMM (4-12)
[2019-09-20] MEDS: MEROPENEM 500 MG in SODIUM CHLORIDE 0.9% 100 ML IV SCH ×4 (04:47→21:42)
[2019-09-20 05:14] LABS: Alanine Aminotransferase 262 U/L (13-56); Albumin 1.9 G/DL (3.4-5.0); Alkaline Phosphatase 358 U/L (45-117); Aspartate Amino Transferase 381 U/L (0-37); Bilirubin,Direct < 0.100 MG/DL (0.0-0.20); Bilirubin,Indirect 0.3 MG/DL (0.0-1.0); Blood Urea Nitrogen 27 MG/DL (7-18); Calcium 9.1 MG/DL (8.5-10.1); Estimated Glom Filtration Rate 95 ML/MIN; Glucose 241 MG/DL (74-106); Osmolality,Calculated 285.8 MOS/KG (273-304); Total Protein 6.1 G/DL (6.4-8.3)
[2019-09-20] MEDS: INSULIN GLARGINE 100 UNIT/ML SUBCUT SCH (10:16)
[2019-09-20] MEDS: MUPIROCIN 2% OINT 22 GM TUBE TOP SCH ×2 (10:18→21:42)
[2019-09-20] MEDS: ENOXAPARIN 40 MG/0.4 ML SYRINGE SUBCUT SCH (10:18)
[2019-09-20] MEDS: SODIUM CHLORIDE 0.9% 1,000 ML IV SCH ×2 (10:19→12:10)
[2019-09-20] MEDS: NYSTATIN CREAM 15 GM TUBE TOP SCH ×3 (10:19→21:43)
[2019-09-20] MEDS: diphenhydrAMINE 50 MG/1 ML VIAL IV SCH ×2 (12:09→23:49)
[2019-09-20] MEDS: VANCOMYCIN INJ 1,000 MG in SODIUM CHLORIDE 0.9% 250 ML IV SCH ×2 (12:12→23:39)
[2019-09-20] MEDS ORDERED: hydrALAZINE 20 MG/1 ML VIAL IV ONE (15:25)
[2019-09-21] MEDS: MEROPENEM 500 MG in SODIUM CHLORIDE 0.9% 100 ML IV SCH ×2 (03:36→10:29)
[2019-09-21] MEDS: INSULIN REGULAR 100 UNIT/ML SUBCUT SCH ×4 (03:41→15:08)
[2019-09-21 05:01] LABS: Basophils % 0.7 % (0.0-0.8); Eosinophils # 0.1 10*3/uL (0.0-0.87); Eosinophils % 3.4 % (0.00-10.9); Hematocrit 30.8 VOL% (35.7-47.0); Hemoglobin 9.8 GM/DL (12.0-16.0); Immature Granulocytes % 0.5 %; Immature Granulocytes Absolute 0.02 #; Lymphocytes # 1.2 10*3/uL (1.4-4.0); Lymphocytes % 28.4 % (21.3-54.2); Mean Corpuscular HGB Conc 31.8 GM/DL (32-36); Mean Corpuscular Volume 100.7 FL (87-102); Mean Platelet Volume 9.9 FL (9.6-12.0); Monocytes % 9.9 % (1.7-12.7); Neutrophils % 57.1 % (38.7-73.9); Platelet Count 213 T/CUMM (130-400); Red Blood Count 3.06 MC/CUMM (3.8-5.5); Red Cell Distribution Width 13.2 % (9.3-17.3); White Blood Count 4.2 T/CUMM (4-12)
[2019-09-21 05:23] LABS: Alanine Aminotransferase 296 U/L (13-56); Alkaline Phosphatase 371 U/L (45-117); Aspartate Amino Transferase 428 U/L (0-37); Bilirubin,Direct < 0.100 MG/DL (0.0-0.20); Bilirubin,Indirect 0.4 MG/DL (0.0-1.0); Blood Urea Nitrogen 34 MG/DL (7-18); Calcium 8.9 MG/DL (8.5-10.1); Estimated Glom Filtration Rate 95 ML/MIN; Glucose 269 MG/DL (74-106); Osmolality,Calculated 293.5 MOS/KG (273-304); Total Protein 6.2 G/DL (6.4-8.3)
[2019-09-21] MEDS ORDERED: ERTAPENEM 1,000 MG in SODIUM CHLORIDE 0.9% 100 ML IV SCH (08:00)
[2019-09-21] MEDS: ENOXAPARIN 40 MG/0.4 ML SYRINGE SUBCUT SCH (09:19)
[2019-09-21] MEDS: NYSTATIN CREAM 15 GM TUBE TOP SCH ×2 (09:21→15:08)
[2019-09-21] MEDS: INSULIN GLARGINE 100 UNIT/ML SUBCUT SCH (10:24)
[2019-09-21] MEDS: MUPIROCIN 2% OINT 22 GM TUBE TOP SCH (10:54)
[2019-09-21] MEDS: diphenhydrAMINE 50 MG/1 ML VIAL IV SCH (11:47)
[2019-09-21 12:28] VITALS: BP 171/101
== END 2019-09-21 15:08 | disposition home or self-care (01) | DRG 420 ==
LOC: N.ED 19:51 → SUATTDRO 09-16 00:22 → N.EDINP 09-16 00:22 → N.3E 09-16 01:44
PROVIDERS: ADMIT Internal Medicine; ATTEND Internal Medicine Geriatric Medicine

== ENCOUNTER 2019-10-22 15:59 | Observation (INO) ==
[2019-10-22] MEDS ORDERED: SODIUM CHLORIDE 0.9% 1,000 ML IV STA (17:19)
[2019-10-22] MEDS ORDERED: ONDANSETRON 4 MG/2 ML VIAL IV STA (17:19)
[2019-10-22 17:24] LABS: Basophils % 0.2 % (0.0-0.8); Eosinophils # 0.1 10*3/uL (0.0-0.87); Eosinophils % 0.8 % (0.00-10.9); Hematocrit 31.2 VOL% (35.7-47.0); Hemoglobin 10.4 GM/DL (12.0-16.0); Immature Granulocytes % 0.5 %; Immature Granulocytes Absolute 0.07 #; Mean Corpuscular HGB Conc 33.3 GM/DL (32-36); Mean Corpuscular Volume 92.9 FL (87-102); Monocytes % 3.5 % (1.7-12.7); Platelet Count 406 T/CUMM (130-400); Red Blood Count 3.36 MC/CUMM (3.8-5.5); Red Cell Distribution Width 12.6 % (9.3-17.3); White Blood Count 12.8 T/CUMM (4-12)
[2019-10-22 17:38] LABS: Albumin 2.4 G/DL (3.4-5.0); Bilirubin,Total 0.4 MG/DL (0.2-1.0); Calcium 9.3 MG/DL (8.5-10.1); Osmolality,Calculated 297.8 MOS/KG (273-304); Total Protein 7.2 G/DL (6.4-8.3)
[2019-10-22] MEDS ORDERED: LACTATED RINGERS 2,000 ML IV ONE (18:35)
[2019-10-22] MEDS ORDERED: GLUCAGON 1 MG VIAL IM PRN (18:36)
[2019-10-22] MEDS ORDERED: DEXTROSE 10% 250 ML BAG IV PRN (18:36)
[2019-10-22] MEDS ORDERED: ALBUTEROL 2.5 MG/3 ML NEB RESP TX PRN (18:37)
[2019-10-22 19:27] LABS: Apearance,Urine CLEAR (Clear); Bacteria,Urine Occasional /HPF (Few); Bilirubin,Urine Negative (Negative); Blood, Urine Moderate mg/dL (Negative); Glucose,Urine (UA) >=500 mg/dL (Negative); Ketones,Urine 20 mg/dL (Negative); Mucus,Urine Occasional /LPF (Occasional); Nitrite,Urine Negative (Negative); Protein,Urine 30 MG/DL; RBC,Urine 2 /HPF (0-4); Squamous Epithelial Cell,Urine Occasional /HPF (0-10); Urine Color Yellow (Yellow); Urine Specific Gravity 1.015 (1.001-1.035); Urine Urobilinogen < 2.0 EU/DL (0.2-1.0); WBC,Urine 4 /HPF (0-6)
[2019-10-22] MEDS ORDERED: SIMETHICONE CHEW 125 MG TABLET PO PRN (19:54)
[2019-10-22] MEDS ORDERED: ONDANSETRON 4 MG/2 ML VIAL IV PRN (19:54)
[2019-10-22] MEDS: PREGABALIN 75 MG CAPSULE PO SCH (21:00)
[2019-10-22] MEDS ORDERED: ESCITALOPRAM 10 MG TABLET PO SCH (21:00)
[2019-10-22] MEDS: INSULIN LISPRO 100 UNIT/ML SUBCUT SCH (21:00)
[2019-10-22] MEDS: LACTATED RINGERS 1,000 ML IV SCH (21:00)
[2019-10-22] MEDS ORDERED: ENOXAPARIN 40 MG/0.4 ML SYRINGE SUBCUT SCH (21:00)
[2019-10-23] MEDS: INSULIN LISPRO 100 UNIT/ML SUBCUT SCH ×4 (00:29→12:21)
[2019-10-23] MEDS: LACTATED RINGERS 1,000 ML IV SCH ×2 (05:03→11:32)
[2019-10-23 06:24] LABS: Calcium 9.5 MG/DL (8.5-10.1); Osmolality,Calculated 282.7 MOS/KG (273-304)
[2019-10-23] MEDS: PREGABALIN 75 MG CAPSULE PO SCH (08:46)
[2019-10-23] MEDS ORDERED: INSULIN GLARGINE 100 UNIT/ML SUBCUT SCH (09:00)
[2019-10-23 12:06] VITALS: BP 133/92
== END 2019-10-23 12:20 | disposition home or self-care (01) ==
LOC: N.ED 15:59 → INTOOBSV 18:39 → N.EDINP 18:39 → N.3E 19:09
PROVIDERS: ADMIT Internal Medicine; ATTEND Internal Medicine

== ENCOUNTER 2020-01-29 23:27 | Inpatient (IN) ==
[2020-01-30] MEDS ORDERED: SODIUM CHLORIDE 0.9% 1,000 ML IV STA ×3 (00:02→01:45)
[2020-01-30] MEDS ORDERED: INSULIN REGULAR 100 UNIT/ML IV STA (00:15)
[2020-01-30 00:27] LABS: Albumin 2.2 G/DL (3.4-5.0); Bilirubin,Total 0.7 MG/DL (0.2-1.0); Calcium 8.8 MG/DL (8.5-10.1); Osmolality,Calculated 301.5 MOS/KG (273-304); Total Protein 7.8 G/DL (6.4-8.3)
[2020-01-30 00:32] LABS: Basophils # 0.1 10*3/uL (0.0-0.2); Basophils % 0.3 % (0.0-0.8); Eosinophils # 0.1 10*3/uL (0.0-0.87); Eosinophils % 0.5 % (0.00-10.9); Hematocrit 33.6 VOL% (35.7-47.0); Hemoglobin 10.1 GM/DL (12.0-16.0); Immature Granulocytes % 0.8 %; Immature Granulocytes Absolute 0.21 #; Lymphocytes # 1.7 10*3/uL (1.4-4.0); Lymphocytes % 6.9 % (21.3-54.2); Mean Corpuscular HGB Conc 30.1 GM/DL (32-36); Mean Corpuscular Volume 97.4 FL (87-102); Mean Platelet Volume 10.5 FL (9.6-12.0); Monocytes % 2.8 % (1.7-12.7); Neutrophils % 88.7 % (38.7-73.9); Platelet Count 577 T/CUMM (130-400); Red Blood Count 3.45 MC/CUMM (3.8-5.5); Red Cell Distribution Width 14.6 % (9.3-17.3); White Blood Count 25.4 T/CUMM (4-12)
[2020-01-30] MEDS ORDERED: INSULIN REGULAR DRIP 100 ML IV PRN (00:39)
[2020-01-30 00:44] LABS: Ferritin 74.1 ng/ml (8-252)
[2020-01-30 00:50] LABS: ABG Base Excess -27.8 MMOL/L (-2.5-2.5); ABG HCO3 5.3 MMOL/L (20-26); ABG Oxygen Saturation 97.4 % (95-100)
[2020-01-30 00:56] LABS: ABG TCO2 2.6 MMOL/L (23-27)
[2020-01-30 00:57] LABS: ABG PCO2 10.6 MM HG (35-48); ABG PH 6.997 (7.35-7.45)
[2020-01-30 01:05] LABS: Apearance,Urine Slightly Hazy (Clear); Bilirubin,Urine Negative (Negative); Blood, Urine Small mg/dL (Negative); Glucose,Urine (UA) >=500 mg/dL (Negative); Granular Casts,Urine 1 /LPF (0-1); Hyaline Casts,Urine 5 /LPF (0-3); Ketones,Urine 80 mg/dL (Negative); Mucus,Urine Occasional /LPF (Occasional); Nitrite,Urine Negative (Negative); Protein,Urine 100 MG/DL; RBC,Urine 1 /HPF (0-4); Urine Color Yellow (Yellow); Urine Specific Gravity 1.014 (1.001-1.035); Urine Urobilinogen < 2.0 EU/DL (0.2-1.0)
[2020-01-30 01:10] LABS: Barbiturates Screen,Urine Negative (Negative); Benzodiazepines Screen,Urine Negative (Negative); Cannabinoid Screen,Urine Negative (Negative); Opiate Screen,Urine Negative (Negative); Phencyclidine Screen,Urine Negative (Negative)
[2020-01-30] MEDS ORDERED: LEVOFLOXACIN INJ 750 MG in PREMIX 1 EACH IV STA (02:05)
[2020-01-30 02:33] LABS: Band Neutrophils 4 % (0-10); Lymphocytes 5 % (20-55); Platelet Estimate Increased; Segmented Neutrophils 88 % (50-85); Total Cells Counted 100
[2020-01-30] MEDS ORDERED: DEXTROSE 50% 25 GM/50 ML VIAL IV PRN ×5 (03:08→21:15)
[2020-01-30] MEDS ORDERED: SODIUM BICARB INJ 100 MEQ in STERILE WATER INJ 400 ML IV PRN (03:08)
[2020-01-30] MEDS ORDERED: SODIUM CHLORIDE 0.9% 1,000 ML IV ONE (03:08)
[2020-01-30] MEDS ORDERED: GLUCAGON 1 MG VIAL IM PRN ×3 (03:08→21:15)
[2020-01-30] MEDS ORDERED: INSULIN REGULAR 100 UNIT/ML IV ONE (03:08)
[2020-01-30] MEDS ORDERED: MAGNESIUM SULF RIDER 2 GM in PREMIX 1 EACH IV PRN (03:08)
[2020-01-30] MEDS ORDERED: SODIUM PHOSPHATE INJ 18.1 MMOL in SODIUM CHLORIDE 0.9% 250 ML IV PRN ×2 (03:08→03:25)
[2020-01-30] MEDS ORDERED: MAGNESIUM SULF RIDER 4 GM in PREMIX 1 EACH IV PRN (03:08)
[2020-01-30] MEDS ORDERED: ONDANSETRON 4 MG/2 ML VIAL IV PRN (03:08)
[2020-01-30] MEDS ORDERED: ACETAMINOPHEN 325 MG TABLET PO PRN (03:08)
[2020-01-30] MEDS ORDERED: POTASSIUM CHLORIDE RIDER 10 MEQ in PREMIX 1 EACH IV PRN (03:08)
[2020-01-30 03:18] LABS: Basophils % 0.1 % (0.0-0.8); Eosinophils # 0.1 10*3/uL (0.0-0.87); Eosinophils % 0.2 % (0.00-10.9); Hematocrit 30.1 VOL% (35.7-47.0); Hemoglobin 9.3 GM/DL (12.0-16.0); Immature Granulocytes % 0.9 %; Immature Granulocytes Absolute 0.24 #; Lymphocytes # 0.8 10*3/uL (1.4-4.0); Mean Corpuscular HGB Conc 30.9 GM/DL (32-36); Mean Corpuscular Volume 96.8 FL (87-102); Mean Platelet Volume 9.4 FL (9.6-12.0); Monocytes % 3.4 % (1.7-12.7); Neutrophils % 92.4 % (38.7-73.9); Platelet Count 484 T/CUMM (130-400); Red Blood Count 3.11 MC/CUMM (3.8-5.5); Red Cell Distribution Width 14.4 % (9.3-17.3); White Blood Count 26.8 T/CUMM (4-12)
[2020-01-30] MEDS ORDERED: INSULIN REGULAR DRIP 100 ML IV SCH (03:30)
[2020-01-30 03:34] LABS: Albumin 1.9 G/DL (3.4-5.0); Bilirubin,Total 0.4 MG/DL (0.2-1.0); Calcium 7.8 MG/DL (8.5-10.1); Osmolality,Calculated 304.4 MOS/KG (273-304); Total Protein 6.6 G/DL (6.4-8.3)
[2020-01-30 03:52] LABS: Allen Test Positive
[2020-01-30 03:53] LABS: ABG Base Excess -24.7 MMOL/L (-2.5-2.5); ABG HCO3 6.9 MMOL/L (20-26); ABG Oxygen Saturation 97.8 % (95-100); ABG TCO2 4.4 MMOL/L (23-27)
[2020-01-30 03:55] LABS: ABG PCO2 15.8 MM HG (35-48); ABG PH 7.062 (7.35-7.45)
[2020-01-30] MEDS: SODIUM CHLORIDE 0.9% 1,000 ML IV SCH ×2 (04:30→06:37)
[2020-01-30 05:12] LABS: Eosinophils 1 % (0-10); Hypochromasia 1+; Lymphocytes 7 % (20-55); Platelet Estimate Adequate; Segmented Neutrophils 87 % (50-85); Total Cells Counted 100
[2020-01-30 05:35] LABS: Allen Test Positive
[2020-01-30 05:36] LABS: ABG Base Excess -21.1 MMOL/L (-2.5-2.5); ABG Oxygen Saturation 98.4 % (95-100); ABG TCO2 6.5 MMOL/L (23-27)
[2020-01-30 05:39] LABS: ABG PCO2 20.1 MM HG (35-48)
[2020-01-30] MEDS ORDERED: SODIUM BICARBONATE 50 MEQ/50 ML VIAL IV ONE (05:54)
[2020-01-30 07:00] LABS: Risk Ratio 3.18; Thyroid Stimulating Hormone 0.956 uIU/ml (0.358-3.74); VLDL CHOLESTEROL 49.4 MG/DL
[2020-01-30 07:03] LABS: Calcium 7.4 MG/DL (8.5-10.1); Osmolality,Calculated 294.2 MOS/KG (273-304)
[2020-01-30] MEDS: ALBUTEROL/IPRATROPIUM 3 ML NEB RESP TX SCH ×3 (08:03→19:35)
[2020-01-30 08:06] LABS: ABG Base Excess -13.4 MMOL/L (-2.5-2.5); ABG PCO2 32.3 MM HG (35-48); ABG PH 7.224 (7.35-7.45); ABG TCO2 12.6 MMOL/L (23-27); Allen Test Positive
[2020-01-30] MEDS ORDERED: SODIUM CHLORIDE 0.9% 1,000 ML IV SCH (08:10)
[2020-01-30] MEDS ORDERED: ENOXAPARIN 40 MG/0.4 ML SYRINGE SUBCUT SCH (09:00)
[2020-01-30] MEDS: LACTATED RINGERS 1,000 ML IV SCH ×3 (09:20→21:32)
[2020-01-30] MEDS: ENOXAPARIN 30 MG/0.3 ML SYRINGE SUBCUT SCH (10:08)
[2020-01-30] MEDS: PANTOPRAZOLE 40 MG TABLET PO SCH (10:08)
[2020-01-30] MEDS: MUPIROCIN 2% OINT 22 GM TUBE TOP SCH ×2 (10:08→20:30)
[2020-01-30 11:59] LABS: Calcium 7.1 MG/DL (8.5-10.1); Osmolality,Calculated 295.7 MOS/KG (273-304)
[2020-01-30] MEDS: POTASSIUM CHLORIDE RIDER 10 MEQ in PREMIX 1 EACH IV SCH ×3 (14:18→16:24)
[2020-01-30 15:55] LABS: Calcium 7.3 MG/DL (8.5-10.1); Osmolality,Calculated 286.8 MOS/KG (273-304)
[2020-01-30] MEDS ORDERED: DEXTROSE 5% LACTATED RINGERS 1,000 ML IV SCH (19:30)
[2020-01-30 19:44] LABS: Calcium 7.2 MG/DL (8.5-10.1)
[2020-01-30] MEDS ORDERED: SODIUM CHLORIDE 0.45% 1,000 ML IV SCH (20:10)
[2020-01-30] MEDS: PREGABALIN 75 MG CAPSULE PO SCH (20:31)
[2020-01-30] MEDS: INSULIN GLARGINE 100 UNIT/ML SUBCUT SCH (21:31)
[2020-01-31] MEDS: ALBUTEROL/IPRATROPIUM 3 ML NEB RESP TX SCH ×4 (01:30→19:31)
[2020-01-31 05:46] LABS: Basophils % 0.1 % (0.0-0.8); Eosinophils # 0.3 10*3/uL (0.0-0.87); Hematocrit 24.4 VOL% (35.7-47.0); Immature Granulocytes % 0.3 %; Immature Granulocytes Absolute 0.03 #; Lymphocytes # 1.1 10*3/uL (1.4-4.0); Lymphocytes % 12.7 % (21.3-54.2); Mean Corpuscular HGB Conc 32.8 GM/DL (32-36); Mean Corpuscular Volume 90.4 FL (87-102); Mean Platelet Volume 9.6 FL (9.6-12.0); Monocytes % 4.7 % (1.7-12.7); Neutrophils % 79.2 % (38.7-73.9); Platelet Count 293 T/CUMM (130-400); Red Cell Distribution Width 15.2 % (9.3-17.3); White Blood Count 8.7 T/CUMM (4-12)
[2020-01-31 05:57] LABS: Alanine Aminotransferase 12 U/L (13-56); Albumin 1.5 G/DL (3.4-5.0); Alkaline Phosphatase 134 U/L (45-117); Aspartate Amino Transferase 9 U/L (0-37); Bilirubin,Total < 0.39 MG/DL (0.2-1.0); Blood Urea Nitrogen 19 MG/DL (7-18); Calcium 7.3 MG/DL (8.5-10.1); Estimated Glom Filtration Rate 59 ML/MIN; Glucose 190 MG/DL (74-106); Osmolality,Calculated 285.4 MOS/KG (273-304); Total Protein 5.8 G/DL (6.4-8.3)
[2020-01-31] MEDS ORDERED: POTASSIUM CHLORIDE RIDER 20 MEQ in PREMIX 1 EACH IV PRN (07:12)
[2020-01-31] MEDS: LACTATED RINGERS 1,000 ML IV SCH ×2 (07:28→19:30)
[2020-01-31] MEDS: INSULIN LISPRO 100 UNIT/ML SUBCUT SCH ×4 (07:46→20:44)
[2020-01-31] MEDS: PANTOPRAZOLE 40 MG TABLET PO SCH (09:31)
[2020-01-31] MEDS: ENOXAPARIN 30 MG/0.3 ML SYRINGE SUBCUT SCH (09:31)
[2020-01-31] MEDS: PREGABALIN 75 MG CAPSULE PO SCH ×3 (09:31→20:39)
[2020-01-31] MEDS: MUPIROCIN 2% OINT 22 GM TUBE TOP SCH ×2 (09:31→20:45)
[2020-01-31] MEDS: INSULIN GLARGINE 100 UNIT/ML SUBCUT SCH (20:43)
[2020-02-01] MEDS: ALBUTEROL/IPRATROPIUM 3 ML NEB RESP TX SCH ×2 (02:34→07:31)
[2020-02-01] MEDS ORDERED: LEVOFLOXACIN INJ 750 MG in PREMIX 1 EACH IV SCH (03:30)
[2020-02-01] MEDS: LACTATED RINGERS 1,000 ML IV SCH (04:24)
[2020-02-01 05:42] LABS: Basophils % 0.2 % (0.0-0.8); Eosinophils # 0.2 10*3/uL (0.0-0.87); Eosinophils % 4.2 % (0.00-10.9); Hematocrit 25.5 VOL% (35.7-47.0); Hemoglobin 7.8 GM/DL (12.0-16.0); Immature Granulocytes % 0.4 %; Immature Granulocytes Absolute 0.02 #; Lymphocytes # 0.7 10*3/uL (1.4-4.0); Lymphocytes % 13.7 % (21.3-54.2); Mean Corpuscular HGB Conc 30.6 GM/DL (32-36); Mean Corpuscular Volume 93.8 FL (87-102); Mean Platelet Volume 9.5 FL (9.6-12.0); Monocytes % 8.4 % (1.7-12.7); Neutrophils % 73.1 % (38.7-73.9); Platelet Count 241 T/CUMM (130-400); Red Blood Count 2.72 MC/CUMM (3.8-5.5); Red Cell Distribution Width 15.2 % (9.3-17.3); White Blood Count 5.2 T/CUMM (4-12)
[2020-02-01 06:05] LABS: Calcium 7.8 MG/DL (8.5-10.1); Osmolality,Calculated 282.5 MOS/KG (273-304)
[2020-02-01] MEDS ORDERED: MAGNESIUM SULF RIDER 2 GM in PREMIX 1 EACH IV ONE (09:06)
[2020-02-01] MEDS: PANTOPRAZOLE 40 MG TABLET PO SCH (09:50)
[2020-02-01] MEDS: PREGABALIN 75 MG CAPSULE PO SCH (09:50)
[2020-02-01] MEDS: MUPIROCIN 2% OINT 22 GM TUBE TOP SCH (09:51)
[2020-02-01] MEDS: INSULIN LISPRO 100 UNIT/ML SUBCUT SCH ×2 (09:53→13:46)
[2020-02-01] MEDS: ENOXAPARIN 30 MG/0.3 ML SYRINGE SUBCUT SCH (10:02)
[2020-02-01 11:16] VITALS: BP 143/85
[2020-02-02] MEDS ORDERED: LEVOFLOXACIN INJ 750 MG in PREMIX 1 EACH IV SCH (10:00)
== END 2020-02-01 14:54 | disposition home or self-care (01) | DRG 420 ==
LOC: N.ED 23:27 → N.EDINP 01-30 02:07 → SUATTDRO 01-30 02:07 → N.ICU 01-30 02:36 → N.3E 01-31 13:18
PROVIDERS: ADMIT Phlebology; ATTEND Internal Medicine

== ENCOUNTER 2020-03-10 15:26 | Inpatient (IN) ==
[2020-03-10 16:06] LABS: Basophils # 0.1 10*3/uL (0.0-0.2); Basophils % 0.3 % (0.0-0.8); Eosinophils % 0.2 % (0.00-10.9); Hemoglobin 10.9 GM/DL (12.0-16.0); Immature Granulocytes % 0.5 %; Immature Granulocytes Absolute 0.12 #; Lymphocytes % 4.1 % (21.3-54.2); Mean Corpuscular HGB Conc 31.1 GM/DL (32-36); Mean Corpuscular Volume 96.2 FL (87-102); Monocytes % 3.7 % (1.7-12.7); Neutrophils % 91.2 % (38.7-73.9); Platelet Count 326 T/CUMM (130-400); Red Blood Count 3.64 MC/CUMM (3.8-5.5); Red Cell Distribution Width 14.1 % (9.3-17.3); White Blood Count 23.4 T/CUMM (4-12)
[2020-03-10] MEDS ORDERED: LACTATED RINGERS 1,000 ML IV ONE ×2 (16:12→16:50)
[2020-03-10 16:18] LABS: Albumin 2.3 G/DL (3.4-5.0); Bilirubin,Total 0.5 MG/DL (0.2-1.0); Osmolality,Calculated 306.5 MOS/KG (273-304); Total Protein 7.3 G/DL (6.4-8.3)
[2020-03-10] MEDS ORDERED: INSULIN REGULAR DRIP 100 ML IV PRN (16:41)
[2020-03-10 17:17] LABS: Lymphocytes 4 % (20-55); Segmented Neutrophils 96 % (50-85); Total Cells Counted 100
[2020-03-10 17:21] LABS: Apearance,Urine CLOUDY (Clear); Bacteria,Urine Many /HPF (Few); Bilirubin,Urine Negative (Negative); Blood, Urine Small mg/dL (Negative); Glucose,Urine (UA) >=500 mg/dL (Negative); Ketones,Urine 20 mg/dL (Negative); Mucus,Urine Occasional /LPF (Occasional); Nitrite,Urine Negative (Negative); Protein,Urine 100 MG/DL; Squamous Epithelial Cell,Urine Occasional /HPF (0-10); Urine Color Yellow (Yellow); Urine Specific Gravity 1.016 (1.001-1.035); Urine Urobilinogen < 2.0 EU/DL (0.2-1.0); WBC,Urine 53 /HPF (0-6)
[2020-03-10] MEDS ORDERED: LEVOFLOXACIN INJ 750 MG in PREMIX 1 EACH IV STA (17:38)
[2020-03-10] MEDS ORDERED: LEVOFLOXACIN INJ 150 ML IV ONE (17:39)
[2020-03-10] MEDS ORDERED: LACTATED RINGERS 2,000 ML IV ONE (17:44)
[2020-03-10] MEDS ORDERED: ONDANSETRON 4 MG/2 ML VIAL IV ONE (17:46)
[2020-03-10 17:49] LABS: ABG HCO3 5.3 MMOL/L (20-26); ABG Oxygen Saturation 97.5 % (95-100)
[2020-03-10 17:50] LABS: ABG TCO2 2.6 MMOL/L (23-27)
[2020-03-10 17:51] LABS: ABG PCO2 12.1 MM HG (35-48); ABG PH 6.951 (7.35-7.45)
[2020-03-10] MEDS ORDERED: DEXTROSE 50% 25 GM/50 ML VIAL IV PRN ×3 (18:35)
[2020-03-10] MEDS ORDERED: ALUMINUM/MAGNES/SIMETH MAX STR 30 ML UDCUP PO PRN (18:35)
[2020-03-10] MEDS ORDERED: MAGNESIUM SULF RIDER 4 GM in PREMIX 1 EACH IV PRN (18:35)
[2020-03-10] MEDS ORDERED: GLUCAGON 1 MG VIAL IM PRN (18:35)
[2020-03-10] MEDS ORDERED: ONDANSETRON 4 MG/2 ML VIAL IV PRN (18:35)
[2020-03-10] MEDS ORDERED: MAGNESIUM SULF RIDER 2 GM in PREMIX 1 EACH IV PRN (18:35)
[2020-03-10] MEDS ORDERED: ALBUTEROL 2.5 MG/3 ML NEB RESP TX PRN (18:35)
[2020-03-10] MEDS ORDERED: INSULIN GLARGINE 100 UNIT/ML SUBCUT STA (18:44)
[2020-03-10] MEDS ORDERED: LACTATED RINGERS 1,000 ML IV SCH (21:00)
[2020-03-10 21:11] LABS: Calcium 8.5 MG/DL (8.5-10.1); Osmolality,Calculated 306.6 MOS/KG (273-304)
[2020-03-10 21:36] LABS: Allen Test Positive
[2020-03-10 21:41] LABS: ABG Base Excess -21.5 MMOL/L (-2.5-2.5); ABG HCO3 5.6 MMOL/L (20-26); ABG Oxygen Saturation 97.2 % (95-100); ABG PO2 107.1 MM HG (80-95); ABG TCO2 6.1 MMOL/L (23-27)
[2020-03-10 21:42] LABS: ABG PH 7.138 (7.35-7.45)
[2020-03-10 21:43] LABS: ABG PCO2 16.9 MM HG (35-48)
[2020-03-10] MEDS: ENOXAPARIN 40 MG/0.4 ML SYRINGE SUBCUT SCH (22:22)
[2020-03-10] MEDS: PREGABALIN 75 MG CAPSULE PO SCH (22:22)
[2020-03-10] MEDS: PANTOPRAZOLE 40 MG VIAL IV SCH (22:24)
[2020-03-10 23:16] LABS: Bacteria,Urine Many /HPF (Few); Bilirubin,Urine Negative (Negative); Blood, Urine Small mg/dL (Negative); Glucose,Urine (UA) 150 mg/dL (Negative); Ketones,Urine 20 mg/dL (Negative); Nitrite,Urine Negative (Negative); Protein,Urine 100 MG/DL; Red Blood Cell Casts,Urine 308 /LPF (<1); Urine Specific Gravity 1.014 (1.001-1.035); Urine Urobilinogen < 2.0 EU/DL (0.2-1.0); WBC,Urine 8163 /HPF (0-6)
[2020-03-10 23:17] LABS: Apearance,Urine Turbid (Clear); Urine Color Light Yellow (Yellow)
[2020-03-11 00:35] LABS: Calcium 8.5 MG/DL (8.5-10.1); Osmolality,Calculated 292.1 MOS/KG (273-304)
[2020-03-11] MEDS ORDERED: NOREPINEPHRINE 8 MG in SODIUM CHLORIDE 0.9% 242 ML IV PRN (01:20)
[2020-03-11] MEDS ORDERED: NOREPINEPHRINE 4 MG/4 ML VIAL IV ONE (01:25)
[2020-03-11] MEDS: SODIUM CHLORIDE 0.9% 1,000 ML IV SCH ×2 (01:44→04:52)
[2020-03-11 02:01] LABS: ABG Base Excess -13.5 MMOL/L (-2.5-2.5); ABG HCO3 11.9 MMOL/L (20-26); ABG Oxygen Saturation 94.8 % (95-100); ABG PCO2 25.8 MM HG (35-48); ABG PO2 78.2 MM HG (80-95); ABG TCO2 12.6 MMOL/L (23-27); Allen Test Positive
[2020-03-11] MEDS ORDERED: SODIUM CHLORIDE 0.9% 1,000 ML IV SCH (03:30)
[2020-03-11 04:41] LABS: Allen Test Positive
[2020-03-11 04:42] LABS: ABG Base Excess -7.9 MMOL/L (-2.5-2.5); ABG Oxygen Saturation 99.1 % (95-100); ABG PH 7.319 (7.35-7.45); ABG TCO2 16.3 MMOL/L (23-27)
[2020-03-11 05:28] LABS: Basophils % 0.2 % (0.0-0.8); Eosinophils # 0.1 10*3/uL (0.0-0.87); Eosinophils % 0.3 % (0.00-10.9); Hematocrit 22.9 VOL% (35.7-47.0); Immature Granulocytes % 0.4 %; Immature Granulocytes Absolute 0.07 #; Lymphocytes % 6.2 % (21.3-54.2); Mean Corpuscular HGB Conc 35.8 GM/DL (32-36); Mean Corpuscular Volume 84.2 FL (87-102); Mean Platelet Volume 10.1 FL (9.6-12.0); Monocytes % 3.6 % (1.7-12.7); Neutrophils % 89.3 % (38.7-73.9); Platelet Count 228 T/CUMM (130-400); Red Cell Distribution Width 13.6 % (9.3-17.3); White Blood Count 16.4 T/CUMM (4-12)
[2020-03-11 05:35] LABS: Hemoglobin 8.2 GM/DL (12.0-16.0); Red Blood Count 2.72 MC/CUMM (3.8-5.5)
[2020-03-11] MEDS: ACETAMINOPHEN 325 MG TABLET PO PRN ×2 (06:18→20:39)
[2020-03-11 06:48] LABS: Calcium 8.3 MG/DL (8.5-10.1); Osmolality,Calculated 291.4 MOS/KG (273-304)
[2020-03-11] MEDS ORDERED: POTASSIUM CHLORIDE INJ 10 MEQ in LACTATED RINGERS 1,000 ML IV SCH (08:00)
[2020-03-11] MEDS: PREGABALIN 75 MG CAPSULE PO SCH ×3 (08:07→20:40)
[2020-03-11] MEDS: INSULIN GLARGINE 100 UNIT/ML SUBCUT SCH (08:08)
[2020-03-11] MEDS ORDERED: MAGNESIUM SULF RIDER 4 GM in PREMIX 1 EACH IV ONE (09:30)
[2020-03-11] MEDS: LEVOFLOXACIN INJ 750 MG in PREMIX 1 EACH IV SCH (09:39)
[2020-03-11] MEDS: POTASSIUM CHLORIDE INJ 10 MEQ in DEXTROSE 5% LACTATED RINGERS 1,000 ML IV SCH ×2 (09:59→17:59)
[2020-03-11 12:21] LABS: Calcium 8.1 MG/DL (8.5-10.1); Osmolality,Calculated 291.1 MOS/KG (273-304)
[2020-03-11 19:46] LABS: Calcium 8.5 MG/DL (8.5-10.1); Osmolality,Calculated 286.5 MOS/KG (273-304)
[2020-03-11] MEDS: PANTOPRAZOLE 40 MG VIAL IV SCH (20:40)
[2020-03-11] MEDS: ENOXAPARIN 40 MG/0.4 ML SYRINGE SUBCUT SCH (20:42)
[2020-03-12] MEDS: POTASSIUM CHLORIDE INJ 10 MEQ in DEXTROSE 5% LACTATED RINGERS 1,000 ML IV SCH ×3 (01:01→13:05)
[2020-03-12 04:17] LABS: Calcium 8.4 MG/DL (8.5-10.1); Osmolality,Calculated 287.3 MOS/KG (273-304)
[2020-03-12] MEDS: POTASSIUM CHLORIDE RIDER 10 MEQ in PREMIX 1 EACH IV PRN ×2 (06:23→07:35)
[2020-03-12] MEDS: INSULIN LISPRO 100 UNIT/ML SUBCUT SCH ×9 (07:39→23:22)
[2020-03-12] MEDS: LEVOFLOXACIN INJ 750 MG in PREMIX 1 EACH IV SCH (08:01)
[2020-03-12] MEDS: INSULIN GLARGINE 100 UNIT/ML SUBCUT SCH (08:01)
[2020-03-12] MEDS: PREGABALIN 75 MG CAPSULE PO SCH ×3 (08:01→20:20)
[2020-03-12] MEDS ORDERED: POTASSIUM CHLORIDE 20 MEQ TABLET PO SCH (08:30)
[2020-03-12] MEDS: POTASSIUM CHLORIDE 20 MEQ/15 ML UDCUP PO SCH ×3 (09:39→18:10)
[2020-03-12] MEDS ORDERED: HYDROCORTISONE 100 MG VIAL IV ONE (15:13)
[2020-03-12] MEDS ORDERED: INSULIN GLARGINE 100 UNIT/ML SUBCUT SCH (15:14)
[2020-03-12] MEDS: PANTOPRAZOLE 40 MG VIAL IV SCH (20:21)
[2020-03-12] MEDS: ENOXAPARIN 40 MG/0.4 ML SYRINGE SUBCUT SCH (20:21)
[2020-03-13] MEDS: INSULIN LISPRO 100 UNIT/ML SUBCUT SCH ×6 (01:19→11:38)
[2020-03-13] MEDS: POTASSIUM CHLORIDE INJ 10 MEQ in DEXTROSE 5% LACTATED RINGERS 1,000 ML IV SCH ×3 (03:25→11:40)
[2020-03-13 06:03] LABS: Calcium 8.3 MG/DL (8.5-10.1); Osmolality,Calculated 289.1 MOS/KG (273-304)
[2020-03-13 08:13] VITALS: BP 160/91
[2020-03-13] MEDS: PREGABALIN 75 MG CAPSULE PO SCH (10:05)
== END 2020-03-13 12:15 | disposition home or self-care (01) | DRG 420 ==
LOC: EDBD → EDUNIT# → N.ED 15:26 → N.EDINP 17:45 → SUATTDRO 17:45 → N.ICU 19:30 → N.3E 03-12 10:54
PROVIDERS: ADMIT Internal Medicine; ATTEND Internal Medicine

== ENCOUNTER 2020-03-24 19:06 | Inpatient (IN) ==
[2020-03-24] MEDS ORDERED: SODIUM CHLORIDE 0.9% 1,000 ML IV ONE ×2 (19:56→22:13)
[2020-03-24] MEDS ORDERED: MAGNESIUM SULF RIDER 4 GM in PREMIX 1 EACH IV PRN (19:56)
[2020-03-24] MEDS ORDERED: MAGNESIUM SULF RIDER 2 GM in PREMIX 1 EACH IV PRN (19:56)
[2020-03-24] MEDS ORDERED: SODIUM BICARB INJ 100 MEQ in STERILE WATER INJ 400 ML IV PRN (19:56)
[2020-03-24] MEDS ORDERED: SODIUM CHLORIDE 0.9% IV PRN (19:56)
[2020-03-24] MEDS ORDERED: DEXTROSE 50% 25 GM/50 ML VIAL IV PRN ×2 (19:56)
[2020-03-24] MEDS ORDERED: POTASSIUM CHLORIDE RIDER 10 MEQ in PREMIX 1 EACH IV PRN ×2 (19:56→22:13)
[2020-03-24] MEDS ORDERED: SODIUM PHOSPHATE IV PRN (19:56)
[2020-03-24] MEDS ORDERED: INSULIN REGULAR 100 UNIT/ML IV ONE (19:56)
[2020-03-24] MEDS ORDERED: INSULIN REGULAR DRIP 100 ML IV SCH (20:00)
[2020-03-24 20:17] LABS: Basophils % 0.3 % (0.0-0.8); Eosinophils % 0.1 % (0.00-10.9); Hematocrit 33.1 VOL% (35.7-47.0); Hemoglobin 9.8 GM/DL (12.0-16.0); Immature Granulocytes % 0.7 %; Immature Granulocytes Absolute 0.09 #; Lymphocytes # 0.8 10*3/uL (1.4-4.0); Lymphocytes % 5.9 % (21.3-54.2); Mean Corpuscular HGB Conc 29.6 GM/DL (32-36); Mean Corpuscular Volume 99.1 FL (87-102); Mean Platelet Volume 10.6 FL (9.6-12.0); Monocytes % 2.7 % (1.7-12.7); Neutrophils % 90.3 % (38.7-73.9); Platelet Count 378 T/CUMM (130-400); Red Blood Count 3.34 MC/CUMM (3.8-5.5); Red Cell Distribution Width 13.7 % (9.3-17.3); White Blood Count 13.6 T/CUMM (4-12)
[2020-03-24 20:18] LABS: Calcium 8.9 MG/DL (8.5-10.1); Osmolality,Calculated 306.9 MOS/KG (273-304)
[2020-03-24 21:08] LABS: ABG Base Excess -27.8 MMOL/L (-2.5-2.5); ABG HCO3 1.9 MMOL/L (20-26); ABG Oxygen Saturation 96.9 % (95-100); ABG PO2 133.4 MM HG (80-95); ABG TCO2 2.2 MMOL/L (23-27)
[2020-03-24] MEDS: SODIUM CHLORIDE 0.9% 1,000 ML IV SCH (21:08)
[2020-03-24 21:12] LABS: ABG PCO2 8.7 MM HG (35-48); ABG PH 6.968 (7.35-7.45)
[2020-03-24 21:26] LABS: Amorphous Crystals,Urine Occasional /HPF (Few); Apearance,Urine CLOUDY (Clear); Bacteria,Urine Many /HPF (Few); Bilirubin,Urine Negative (Negative); Blood, Urine Small mg/dL (Negative); Glucose,Urine (UA) >=500 mg/dL (Negative); Hyaline Casts,Urine 3 /LPF (0-3); Ketones,Urine 20 mg/dL (Negative); Nitrite,Urine Negative (Negative); Protein,Urine 100 MG/DL; Squamous Epithelial Cell,Urine Occasional /HPF (0-10); Urine Color Yellow (Yellow); Urine Specific Gravity 1.015 (1.001-1.035); Urine Urobilinogen < 2.0 EU/DL (0.2-1.0); WBC,Urine 3 /HPF (0-6)
[2020-03-24] MEDS ORDERED: ALBUTEROL 2.5 MG/3 ML NEB RESP TX PRN (22:13)
[2020-03-24] MEDS ORDERED: ONDANSETRON 4 MG/2 ML VIAL IV PRN (22:13)
[2020-03-24] MEDS ORDERED: GLUCAGON 1 MG VIAL IM PRN (22:13)
[2020-03-24] MEDS: PANTOPRAZOLE 40 MG VIAL IV SCH (23:30)
[2020-03-24 23:39] LABS: Thyroid Stimulating Hormone 0.832 uIU/ml (0.358-3.74)
[2020-03-24 23:50] LABS: ABG Base Excess -24.9 MMOL/L (-2.5-2.5); ABG HCO3 3.8 MMOL/L (20-26); ABG Oxygen Saturation 97.3 % (95-100); ABG TCO2 4.2 MMOL/L (23-27)
[2020-03-24 23:54] LABS: ABG PCO2 14.5 MM HG (35-48); ABG PH 7.034 (7.35-7.45)
[2020-03-25 00:17] LABS: Calcium 7.7 MG/DL (8.5-10.1); Osmolality,Calculated 312.4 MOS/KG (273-304)
[2020-03-25] MEDS: SODIUM CHLORIDE 0.9% 1,000 ML IV SCH ×4 (00:18→17:15)
[2020-03-25] MEDS ORDERED: SODIUM CHLORIDE 0.9% 1,000 ML IV SCH ×2 (00:56→03:14)
[2020-03-25] MEDS ORDERED: DOPamine 800 MG/250 ML PREMIX IV PRN (01:10)
[2020-03-25 01:35] LABS: Calcium 7.4 MG/DL (8.5-10.1)
[2020-03-25] MEDS ORDERED: PHENYLEPHRINE DRIP 40 MG/250 ML PREMIX IV ONE (02:08)
[2020-03-25] MEDS: PHENYLEPHRINE DRIP 40 MG/250 ML PREMIX IV PRN ×2 (02:17→14:42)
[2020-03-25 02:34] LABS: ABG Base Excess -20.9 MMOL/L (-2.5-2.5); ABG HCO3 9.2 MMOL/L (20-26); ABG Oxygen Saturation 96.8 % (95-100); ABG PCO2 23.2 MM HG (35-48); ABG TCO2 7.1 MMOL/L (23-27); Allen Test Positive; Pt O2 Delivery Device Room Air
[2020-03-25 02:36] LABS: ABG PH 7.115 (7.35-7.45)
[2020-03-25 03:53] LABS: Basophils # 0.1 10*3/uL (0.0-0.2); Basophils % 0.2 % (0.0-0.8); Hematocrit 26.9 VOL% (35.7-47.0); Hemoglobin 8.9 GM/DL (12.0-16.0); Immature Granulocytes % 0.6 %; Immature Granulocytes Absolute 0.16 #; Lymphocytes # 1.1 10*3/uL (1.4-4.0); Lymphocytes % 4.5 % (21.3-54.2); Mean Corpuscular HGB Conc 33.1 GM/DL (32-36); Mean Platelet Volume 9.7 FL (9.6-12.0); Monocytes % 3.6 % (1.7-12.7); Neutrophils % 91.1 % (38.7-73.9); Platelet Count 399 T/CUMM (130-400); Red Blood Count 2.99 MC/CUMM (3.8-5.5); Red Cell Distribution Width 13.3 % (9.3-17.3); White Blood Count 25.1 T/CUMM (4-12)
[2020-03-25 04:09] LABS: Calcium 7.7 MG/DL (8.5-10.1)
[2020-03-25 04:24] LABS: Band Neutrophils 1 % (0-10); Lymphocytes 1 % (20-55); Platelet Estimate Increased; Segmented Neutrophils 98 % (50-85); Total Cells Counted 100
[2020-03-25 04:38] LABS: Allen Test Positive; Pt O2 Delivery Device Room Air
[2020-03-25 04:39] LABS: ABG Base Excess -20.2 MMOL/L (-2.5-2.5); ABG HCO3 9.6 MMOL/L (20-26); ABG Oxygen Saturation 96.3 % (95-100); ABG PCO2 23.3 MM HG (35-48); ABG PO2 93.9 MM HG (80-95); ABG TCO2 7.5 MMOL/L (23-27)
[2020-03-25 04:40] LABS: ABG PH 7.134 (7.35-7.45)
[2020-03-25] MEDS: SODIUM CHLOR 0.45% KCL 20 MEQ 20 MEQ/1,000 ML BAG IV SCH ×2 (04:43→13:40)
[2020-03-25 06:25] LABS: ABG Base Excess -17.4 MMOL/L (-2.5-2.5); ABG HCO3 8.4 MMOL/L (20-26); ABG Oxygen Saturation 94.2 % (95-100); ABG PH 7.227 (7.35-7.45); ABG PO2 77.4 MM HG (80-95); ABG TCO2 9.1 MMOL/L (23-27); Allen Test Positive; Pt O2 Delivery Device Room Air
[2020-03-25 06:27] LABS: ABG PCO2 20.7 MM HG (35-48)
[2020-03-25 07:28] LABS: Calcium 7.8 MG/DL (8.5-10.1)
[2020-03-25] MEDS: ENOXAPARIN 40 MG/0.4 ML SYRINGE SUBCUT SCH (07:52)
[2020-03-25 08:56] LABS: ABG Base Excess -13.5 MMOL/L (-2.5-2.5); ABG HCO3 13.8 MMOL/L (20-26); ABG PCO2 25.4 MM HG (35-48); ABG PH 7.284 (7.35-7.45); ABG TCO2 11.3 MMOL/L (23-27); Allen Test Positive
[2020-03-25] MEDS: PIPERACILLIN/TAZOBACTAM 3,375 MG in SODIUM CHLORIDE 0.9% 100 ML IV SCH ×2 (08:57→17:16)
[2020-03-25] MEDS: MORPHINE 4 MG/1 ML VIAL IV PRN ×3 (09:15→21:50)
[2020-03-25 10:33] LABS: Calcium 7.8 MG/DL (8.5-10.1); Osmolality,Calculated 292.5 MOS/KG (273-304)
[2020-03-25] MEDS ORDERED: DEXT 5% NACL 0.45% KCL 20 MEQ 20 MEQ/1,000 ML BAG IV SCH (13:30)
[2020-03-25 14:13] LABS: Calcium 7.6 MG/DL (8.5-10.1); Osmolality,Calculated 288.5 MOS/KG (273-304)
[2020-03-25] MEDS ORDERED: SODIUM CHLORIDE 0.45% 1,000 ML IV SCH (15:14)
[2020-03-25] MEDS: INSULIN LISPRO 100 UNIT/ML SUBCUT SCH ×2 (17:02→20:39)
[2020-03-25] MEDS: INSULIN GLARGINE 100 UNIT/ML SUBCUT SCH (17:26)
[2020-03-25 17:55] LABS: Barbiturates Screen,Urine Negative (Negative); Benzodiazepines Screen,Urine Negative (Negative); Cannabinoid Screen,Urine Negative (Negative); Opiate Screen,Urine Positive (Negative); Phencyclidine Screen,Urine Negative (Negative)
[2020-03-25] MEDS: PANTOPRAZOLE 40 MG VIAL IV SCH (21:50)
[2020-03-26] MEDS: SODIUM CHLORIDE 0.9% 1,000 ML IV SCH ×5 (01:46→23:50)
[2020-03-26] MEDS: PIPERACILLIN/TAZOBACTAM 3,375 MG in SODIUM CHLORIDE 0.9% 100 ML IV SCH ×3 (01:47→16:45)
[2020-03-26] MEDS: MORPHINE 4 MG/1 ML VIAL IV PRN ×3 (04:11→23:48)
[2020-03-26 04:31] LABS: Basophils % 0.5 % (0.0-0.8); Eosinophils # 0.2 10*3/uL (0.0-0.87); Hematocrit 23.6 VOL% (35.7-47.0); Hemoglobin 7.8 GM/DL (12.0-16.0); Immature Granulocytes % 0.5 %; Immature Granulocytes Absolute 0.04 #; Lymphocytes # 1.4 10*3/uL (1.4-4.0); Lymphocytes % 18.3 % (21.3-54.2); Mean Corpuscular HGB Conc 33.1 GM/DL (32-36); Mean Corpuscular Volume 89.7 FL (87-102); Mean Platelet Volume 9.4 FL (9.6-12.0); Monocytes % 4.3 % (1.7-12.7); Neutrophils % 74.4 % (38.7-73.9); Red Blood Count 2.63 MC/CUMM (3.8-5.5); Red Cell Distribution Width 14.4 % (9.3-17.3)
[2020-03-26 04:33] LABS: Platelet Count 277 T/CUMM (130-400); White Blood Count 7.5 T/CUMM (4-12)
[2020-03-26 04:38] LABS: Alanine Aminotransferase 31 U/L (13-56); Albumin 1.5 G/DL (3.4-5.0); Alkaline Phosphatase 129 U/L (45-117); Aspartate Amino Transferase 17 U/L (0-37); Bilirubin,Direct < 0.100 MG/DL (0.0-0.20); Bilirubin,Indirect 0.9 MG/DL (0.0-1.0); Blood Urea Nitrogen 21 MG/DL (7-18); Calcium 7.8 MG/DL (8.5-10.1); Estimated Glom Filtration Rate 73 ML/MIN; Glucose 137 MG/DL (74-106); Osmolality,Calculated 290.8 MOS/KG (273-304); Total Protein 5.3 G/DL (6.4-8.3)
[2020-03-26] MEDS: INSULIN LISPRO 100 UNIT/ML SUBCUT SCH ×4 (08:56→21:49)
[2020-03-26] MEDS: ENOXAPARIN 40 MG/0.4 ML SYRINGE SUBCUT SCH (08:57)
[2020-03-26] MEDS: INSULIN GLARGINE 100 UNIT/ML SUBCUT SCH (09:15)
[2020-03-26] MEDS: PANTOPRAZOLE 40 MG VIAL IV SCH (21:50)
[2020-03-27] MEDS: PIPERACILLIN/TAZOBACTAM 3,375 MG in SODIUM CHLORIDE 0.9% 100 ML IV SCH ×2 (01:00→08:52)
[2020-03-27 05:17] LABS: Basophils % 0.6 % (0.0-0.8); Eosinophils # 0.2 10*3/uL (0.0-0.87); Eosinophils % 3.3 % (0.00-10.9); Hematocrit 22.3 VOL% (35.7-47.0); Hemoglobin 7.5 GM/DL (12.0-16.0); Immature Granulocytes % 0.2 %; Immature Granulocytes Absolute 0.01 #; Lymphocytes # 1.2 10*3/uL (1.4-4.0); Mean Corpuscular HGB Conc 33.6 GM/DL (32-36); Mean Corpuscular Volume 89.2 FL (87-102); Mean Platelet Volume 9.4 FL (9.6-12.0); Monocytes % 5.8 % (1.7-12.7); Neutrophils % 67.1 % (38.7-73.9); Platelet Count 195 T/CUMM (130-400); Red Cell Distribution Width 14.4 % (9.3-17.3); White Blood Count 5.4 T/CUMM (4-12)
[2020-03-27 05:44] LABS: Alanine Aminotransferase 29 U/L (13-56); Albumin 1.6 G/DL (3.4-5.0); Alkaline Phosphatase 123 U/L (45-117); Aspartate Amino Transferase 18 U/L (0-37); Bilirubin,Direct < 0.100 MG/DL (0.0-0.20); Bilirubin,Indirect 0.3 MG/DL (0.0-1.0); Bilirubin,Total < 0.39 MG/DL (0.2-1.0); Blood Urea Nitrogen 11 MG/DL (7-18); Calcium 7.5 MG/DL (8.5-10.1); Estimated Glom Filtration Rate 112 ML/MIN; Glucose 87 MG/DL (74-106); Osmolality,Calculated 285.7 MOS/KG (273-304); Total Protein 5.4 G/DL (6.4-8.3)
[2020-03-27] MEDS: INSULIN LISPRO 100 UNIT/ML SUBCUT SCH ×4 (08:31→20:06)
[2020-03-27] MEDS: INSULIN GLARGINE 100 UNIT/ML SUBCUT SCH ×2 (08:31→08:53)
[2020-03-27] MEDS ORDERED: GLUCAGON 1 MG VIAL IM PRN (08:32)
[2020-03-27] MEDS ORDERED: DEXTROSE 50% 25 GM/50 ML VIAL IV PRN (08:32)
[2020-03-27] MEDS: ENOXAPARIN 40 MG/0.4 ML SYRINGE SUBCUT SCH ×2 (08:36→08:38)
[2020-03-27] MEDS: MORPHINE 4 MG/1 ML VIAL IV PRN ×3 (08:36→21:49)
[2020-03-27] MEDS ORDERED: FLUCONAZOLE 150 MG TABLET PO ONE (14:00)
[2020-03-27] MEDS: LEVOFLOXACIN 500 MG TABLET PO SCH (14:20)
[2020-03-27] MEDS: SODIUM CHLORIDE 0.9% 1,000 ML IV SCH ×2 (16:12→20:06)
[2020-03-27] MEDS: PANTOPRAZOLE 40 MG VIAL IV SCH (21:48)
[2020-03-28] MEDS: SODIUM CHLORIDE 0.9% 1,000 ML IV SCH ×2 (01:12→10:56)
[2020-03-28] MEDS: MORPHINE 4 MG/1 ML VIAL IV PRN ×2 (05:39→12:58)
[2020-03-28] MEDS: INSULIN LISPRO 100 UNIT/ML SUBCUT SCH ×2 (07:44→12:53)
[2020-03-28] MEDS ORDERED: SODIUM CHLORIDE 0.9% 1,000 ML IV PRN (07:51)
[2020-03-28] MEDS: ENOXAPARIN 40 MG/0.4 ML SYRINGE SUBCUT SCH (09:18)
[2020-03-28] MEDS: INSULIN GLARGINE 100 UNIT/ML SUBCUT SCH (09:54)
[2020-03-28 10:19] LABS: Basophils % 0.6 % (0.0-0.8); Eosinophils # 0.1 10*3/uL (0.0-0.87); Eosinophils % 3.9 % (0.00-10.9); Hematocrit 24.7 VOL% (35.7-47.0); Hemoglobin 8.1 GM/DL (12.0-16.0); Lymphocytes % 28.7 % (21.3-54.2); Mean Corpuscular HGB Conc 32.8 GM/DL (32-36); Mean Corpuscular Volume 89.5 FL (87-102); Mean Platelet Volume 9.2 FL (9.6-12.0); Monocytes % 8.1 % (1.7-12.7); Neutrophils % 58.7 % (38.7-73.9); Platelet Count 201 T/CUMM (130-400); Red Blood Count 2.76 MC/CUMM (3.8-5.5); White Blood Count 3.4 T/CUMM (4-12)
[2020-03-28 10:30] LABS: Calcium 8.1 MG/DL (8.5-10.1); Osmolality,Calculated 288.1 MOS/KG (273-304)
[2020-03-28 12:40] VITALS: BP 153/103
[2020-03-28] MEDS: LEVOFLOXACIN 500 MG TABLET PO SCH (12:59)
[2020-03-28 15:28] LABS: Hematocrit 27.7 VOL% (35.7-47.0); Hemoglobin 9.3 GM/DL (12.0-16.0)
== END 2020-03-28 15:20 | disposition home or self-care (01) | DRG 420 ==
LOC: N.ED 19:06 → N.EDINP 22:13 → SUATTDRO 22:13 → N.ICU 23:24 → N.5E 03-26 15:58
PROVIDERS: ADMIT Internal Medicine; ATTEND Internal Medicine

== ENCOUNTER 2020-06-29 06:08 | Observation (INO) ==
[2020-06-29] MEDS ORDERED: SODIUM CHLORIDE 0.9% 1,000 ML IV STA (06:39)
[2020-06-29 07:07] LABS: Basophils # 0.1 10*3/uL (0.0-0.2); Basophils % 0.8 % (0.0-0.8); Eosinophils # 0.2 10*3/uL (0.0-0.87); Eosinophils % 3.5 % (0.00-10.9); Hematocrit 28.1 VOL% (35.7-47.0); Hemoglobin 9.2 GM/DL (12.0-16.0); Immature Granulocytes % 0.3 %; Immature Granulocytes Absolute 0.02 #; Lymphocytes # 1.2 10*3/uL (1.4-4.0); Lymphocytes % 18.2 % (21.3-54.2); Mean Corpuscular HGB Conc 32.7 GM/DL (32-36); Mean Corpuscular Volume 90.9 FL (87-102); Mean Platelet Volume 9.4 FL (9.6-12.0); Neutrophils % 70.2 % (38.7-73.9); Platelet Count 222 T/CUMM (130-400); Red Blood Count 3.09 MC/CUMM (3.8-5.5); Red Cell Distribution Width 13.2 % (9.3-17.3); White Blood Count 6.3 T/CUMM (4-12)
[2020-06-29 07:31] LABS: Alanine Aminotransferase 38 U/L (13-56); Albumin 1.8 G/DL (3.4-5.0); Alkaline Phosphatase 179 U/L (45-117); Aspartate Amino Transferase 32 U/L (0-37); Bilirubin,Total < 0.39 MG/DL (0.2-1.0); Blood Urea Nitrogen 17 MG/DL (7-18); Calcium 7.9 MG/DL (8.5-10.1); Estimated Glom Filtration Rate 61 ML/MIN; Glucose 482 MG/DL (74-106); Osmolality,Calculated 290.2 MOS/KG (273-304); Total Protein 6.3 G/DL (6.4-8.3)
[2020-06-29 08:03] LABS: Barbiturates Screen,Urine Negative (Negative); Benzodiazepines Screen,Urine Negative (Negative); Cannabinoid Screen,Urine Negative (Negative); Opiate Screen,Urine Negative (Negative); Phencyclidine Screen,Urine Negative (Negative)
[2020-06-29 08:04] LABS: Bacteria,Urine Many /HPF (Few); Bilirubin,Urine Negative (Negative); Blood, Urine Moderate mg/dL (Negative); Glucose,Urine (UA) >=500 mg/dL (Negative); Ketones,Urine Negative (Negative); Nitrite,Urine Negative (Negative); Protein,Urine 100 MG/DL; RBC,Urine 71 /HPF (0-4); Squamous Epithelial Cell,Urine Occasional /HPF (0-10); Urine Appearance CLOUDY (Clear); Urine Color Yellow (Yellow); Urine Specific Gravity 1.011 (1.001-1.035); Urine Urobilinogen < 2.0 EU/DL (0.2-1.0); WBC,Urine 279 /HPF (0-6)
[2020-06-29] MEDS ORDERED: CIPROFLOXACIN INJ 400 MG in PREMIX 1 EACH IV STA (09:52)
[2020-06-29] MEDS ORDERED: ONDANSETRON 4 MG/2 ML VIAL IV PRN (10:33)
[2020-06-29] MEDS ORDERED: GLUCAGON 1 MG VIAL IM PRN (10:33)
[2020-06-29] MEDS ORDERED: DEXTROSE 50% 25 GM/50 ML VIAL IV PRN (10:33)
[2020-06-29] MEDS ORDERED: hydrALAZINE 20 MG/1 ML VIAL IV STA (10:46)
[2020-06-29] MEDS: DEXTROSE 5% NACL 0.45% 1,000 ML IV SCH ×2 (13:07→23:01)
[2020-06-29] MEDS: metroNIDAZOLE INJ 500 MG in PREMIX 1 EACH IV SCH ×2 (13:20→18:23)
[2020-06-29] MEDS: INSULIN LISPRO 100 UNIT/ML SUBCUT SCH ×2 (13:21→17:34)
[2020-06-29] MEDS: MORPHINE 4 MG/1 ML VIAL IV PRN ×2 (16:39→21:16)
[2020-06-29] MEDS: CIPROFLOXACIN INJ 400 MG in PREMIX 1 EACH IV SCH (21:17)
[2020-06-30] MEDS: INSULIN LISPRO 100 UNIT/ML SUBCUT SCH ×2 (00:59→05:54)
[2020-06-30] MEDS: metroNIDAZOLE INJ 500 MG in PREMIX 1 EACH IV SCH (03:55)
[2020-06-30] MEDS: MORPHINE 4 MG/1 ML VIAL IV PRN ×2 (04:18→09:46)
[2020-06-30 05:25] LABS: Basophils % 0.7 % (0.0-0.8); Eosinophils # 0.2 10*3/uL (0.0-0.87); Eosinophils % 3.9 % (0.00-10.9); Hematocrit 26.7 VOL% (35.7-47.0); Hemoglobin 8.8 GM/DL (12.0-16.0); Immature Granulocytes % 0.5 %; Immature Granulocytes Absolute 0.03 #; Lymphocytes # 0.9 10*3/uL (1.4-4.0); Lymphocytes % 16.7 % (21.3-54.2); Mean Corpuscular Volume 90.2 FL (87-102); Mean Platelet Volume 9.2 FL (9.6-12.0); Monocytes % 6.2 % (1.7-12.7); Platelet Count 228 T/CUMM (130-400); Red Blood Count 2.96 MC/CUMM (3.8-5.5); Red Cell Distribution Width 13.3 % (9.3-17.3); White Blood Count 5.6 T/CUMM (4-12)
[2020-06-30 05:57] LABS: Calcium 8.1 MG/DL (8.5-10.1); Osmolality,Calculated 275.5 MOS/KG (273-304)
[2020-06-30 08:54] VITALS: BP 146/85
[2020-06-30] MEDS: CIPROFLOXACIN INJ 400 MG in PREMIX 1 EACH IV SCH (09:45)
[2020-06-30] MEDS: DEXTROSE 5% NACL 0.45% 1,000 ML IV SCH (09:46)
[2020-06-30] MEDS ORDERED: DEXTROSE 50% 25 GM/50 ML VIAL IV PRN (10:29)
[2020-06-30] MEDS ORDERED: GLUCAGON 1 MG VIAL IM PRN (10:29)
== END 2020-06-30 11:30 | disposition home or self-care (01) ==
LOC: N.EDINP 06:08 → N.ED 06:08 → N.EDINP 12:05 → N.5E 12:46
PROVIDERS: ADMIT Internal Medicine; ATTEND Internal Medicine

== ENCOUNTER 2020-07-15 15:32 | Inpatient (IN) ==
[2020-07-15 16:51] LABS: Basophils % 0.3 % (0.0-0.8); Eosinophils # 0.2 10*3/uL (0.0-0.87); Eosinophils % 1.4 % (0.00-10.9); Hematocrit 27.9 VOL% (35.7-47.0); Hemoglobin 8.9 GM/DL (12.0-16.0); Immature Granulocytes % 0.4 %; Immature Granulocytes Absolute 0.04 #; Lymphocytes # 0.7 10*3/uL (1.4-4.0); Lymphocytes % 6.5 % (21.3-54.2); Mean Corpuscular HGB Conc 31.9 GM/DL (32-36); Mean Corpuscular Volume 93.3 FL (87-102); Monocytes % 4.5 % (1.7-12.7); Neutrophils % 86.9 % (38.7-73.9); Platelet Count 232 T/CUMM (130-400); Red Blood Count 2.99 MC/CUMM (3.8-5.5); Red Cell Distribution Width 13.5 % (9.3-17.3); White Blood Count 11.3 T/CUMM (4-12)
[2020-07-15 16:57] LABS: ABG Base Excess -1.9 MMOL/L (-2.5-2.5); ABG HCO3 23.8 MMOL/L (20-26); ABG Oxygen Saturation 96.5 % (95-100); ABG PCO2 44.5 MM HG (35-48); ABG PH 7.346 (7.35-7.45); ABG PO2 89.7 MM HG (80-95); ABG TCO2 25.2 MMOL/L (23-27)
[2020-07-15 17:15] LABS: Alanine Aminotransferase 25 U/L (13-56); Albumin 1.6 G/DL (3.4-5.0); Alkaline Phosphatase 157 U/L (45-117); Aspartate Amino Transferase 30 U/L (0-37); Bilirubin,Total < 0.39 MG/DL (0.2-1.0); Blood Urea Nitrogen 31 MG/DL (7-18); Calcium 7.9 MG/DL (8.5-10.1); Estimated Glom Filtration Rate 86 ML/MIN; Osmolality,Calculated 288.8 MOS/KG (273-304); Total Protein 5.9 G/DL (6.4-8.3)
[2020-07-15 17:23] LABS: Bilirubin,Urine Negative (Negative); Blood, Urine Small mg/dL (Negative); Glucose,Urine (UA) Negative (Negative); Ketones,Urine Negative (Negative); Nitrite,Urine Negative (Negative); Protein,Urine >=500 MG/DL; RBC,Urine 11 /HPF (0-4); Urine Appearance CLOUDY (Clear); Urine Color Amber (Yellow); Urine Specific Gravity 1.012 (1.001-1.035); Urine Urobilinogen < 2.0 EU/DL (0.2-1.0); WBC,Urine 272 /HPF (0-6)
[2020-07-15 17:24] LABS: Glucose 25 MG/DL (74-106)
[2020-07-15] MEDS ORDERED: DEXTROSE 50% 25 GM/50 ML SYRINGE IV ONE ×2 (17:25→17:51)
[2020-07-15] MEDS ORDERED: DEXTROSE 50% 25 GM/50 ML VIAL IV STA ×2 (17:26→17:59)
[2020-07-15] MEDS ORDERED: PIPERACILLIN/TAZOBACTAM 3,375 MG in SODIUM CHLORIDE 0.9% 100 ML IV STA ×2 (17:54→17:56)
[2020-07-15] MEDS ORDERED: ONDANSETRON 4 MG/2 ML VIAL IV PRN (18:49)
[2020-07-15] MEDS ORDERED: DEXTROSE 50% 25 GM/50 ML VIAL IV PRN (18:49)
[2020-07-15] MEDS ORDERED: GLUCAGON 1 MG VIAL IM PRN ×2 (18:49)
[2020-07-15] MEDS ORDERED: FUROSEMIDE 40 MG/4 ML VIAL IV ONE (18:52)
[2020-07-15] MEDS: DEXTROSE 50% 25 GM/50 ML VIAL IV PRN ×2 (19:46→21:30)
[2020-07-15] MEDS: ALBUTEROL 2.5 MG/3 ML NEB RESP TX SCH (21:16)
[2020-07-15] MEDS: ACETAMINOPHEN 325 MG TABLET PO PRN (21:44)
[2020-07-15] MEDS: LINEZOLID INJ 600 MG in PREMIX 1 EACH IV SCH (22:31)
[2020-07-15] MEDS: DEXTROSE 10% 1,000 ML IV SCH (22:32)
[2020-07-15] MEDS: ENOXAPARIN 40 MG/0.4 ML SYRINGE SUBCUT SCH (22:32)
[2020-07-16] MEDS: hydrALAZINE 20 MG/1 ML VIAL IV PRN (00:06)
[2020-07-16] MEDS: ALBUTEROL 2.5 MG/3 ML NEB RESP TX SCH (00:15)
[2020-07-16] MEDS: AZITHROMYCIN INJ 500 MG in SODIUM CHLORIDE 0.9% 250 ML IV SCH ×2 (00:28→23:36)
[2020-07-16] MEDS: INSULIN LISPRO 100 UNIT/ML SUBCUT SCH ×4 (00:29→18:13)
[2020-07-16] MEDS: LORazepam 2 MG/1 ML VIAL IV PRN ×2 (00:29→21:53)
[2020-07-16 01:29] LABS: ABG Base Excess -2.8 MMOL/L (-2.5-2.5); ABG PCO2 43.3 MM HG (35-48); ABG PH 7.331 (7.35-7.45); ABG TCO2 21.5 MMOL/L (23-27)
[2020-07-16] MEDS ORDERED: methylPREDNISolone SOD SUC 125 MG/2 ML VIAL IV ONE (01:30)
[2020-07-16] MEDS: MEROPENEM 500 MG in SODIUM CHLORIDE 0.9% 100 ML IV SCH ×4 (02:13→17:21)
[2020-07-16] MEDS: ALBUTEROL/IPRATROPIUM 3 ML NEB RESP TX SCH ×5 (04:06→19:10)
[2020-07-16 06:53] LABS: Calcium 7.7 MG/DL (8.5-10.1); Osmolality,Calculated 286.3 MOS/KG (273-304)
[2020-07-16 07:27] LABS: Basophils % 0.1 % (0.0-0.8); Eosinophils % 0.2 % (0.00-10.9); Hematocrit 25.4 VOL% (35.7-47.0); Hemoglobin 7.9 GM/DL (12.0-16.0); Immature Granulocytes % 0.8 %; Immature Granulocytes Absolute 0.09 #; Lymphocytes # 0.3 10*3/uL (1.4-4.0); Lymphocytes % 2.4 % (21.3-54.2); Mean Corpuscular HGB Conc 31.1 GM/DL (32-36); Mean Corpuscular Volume 93.4 FL (87-102); Mean Platelet Volume 9.8 FL (9.6-12.0); Monocytes % 1.5 % (1.7-12.7); Platelet Count 220 T/CUMM (130-400); Red Blood Count 2.72 MC/CUMM (3.8-5.5); Red Cell Distribution Width 13.7 % (9.3-17.3); White Blood Count 11.5 T/CUMM (4-12)
[2020-07-16 07:46] LABS: Hypochromasia 1+; Lymphocytes 3 % (20-55); Microcytosis 1+; Platelet Estimate Adequate; Segmented Neutrophils 97 % (50-85); Total Cells Counted 100
[2020-07-16] MEDS: LINEZOLID INJ 600 MG in PREMIX 1 EACH IV SCH ×2 (09:05→21:55)
[2020-07-16] MEDS: FUROSEMIDE 40 MG/4 ML VIAL IV SCH ×2 (09:05→15:49)
[2020-07-16] MEDS: DEXTROSE 10% 1,000 ML IV SCH (09:06)
[2020-07-16] MEDS: PANTOPRAZOLE 40 MG VIAL IV SCH (09:06)
[2020-07-16] MEDS: ENOXAPARIN 40 MG/0.4 ML SYRINGE SUBCUT SCH (21:54)
[2020-07-17] MEDS: INSULIN LISPRO 100 UNIT/ML SUBCUT SCH ×4 (00:31→17:06)
[2020-07-17] MEDS: ALBUTEROL/IPRATROPIUM 3 ML NEB RESP TX SCH ×7 (00:51→23:00)
[2020-07-17] MEDS: MEROPENEM 500 MG in SODIUM CHLORIDE 0.9% 100 ML IV SCH ×4 (00:54→17:22)
[2020-07-17 05:53] LABS: Basophils % 0.4 % (0.0-0.8); Eosinophils # 0.2 10*3/uL (0.0-0.87); Eosinophils % 1.8 % (0.00-10.9); Hematocrit 22.6 VOL% (35.7-47.0); Immature Granulocytes % 0.6 %; Immature Granulocytes Absolute 0.05 #; Lymphocytes # 0.9 10*3/uL (1.4-4.0); Lymphocytes % 10.4 % (21.3-54.2); Mean Corpuscular Volume 96.2 FL (87-102); Mean Platelet Volume 9.6 FL (9.6-12.0); Monocytes % 7.4 % (1.7-12.7); Neutrophils % 79.4 % (38.7-73.9); Platelet Count 228 T/CUMM (130-400); Red Blood Count 2.35 MC/CUMM (3.8-5.5); Red Cell Distribution Width 13.5 % (9.3-17.3); White Blood Count 8.3 T/CUMM (4-12)
[2020-07-17 06:00] LABS: Calcium 8.3 MG/DL (8.5-10.1); Osmolality,Calculated 292.3 MOS/KG (273-304)
[2020-07-17] MEDS ORDERED: SODIUM CHLORIDE 0.9% 1,000 ML IV PRN (08:24)
[2020-07-17] MEDS: PANTOPRAZOLE 40 MG VIAL IV SCH (09:15)
[2020-07-17] MEDS: LINEZOLID INJ 600 MG in PREMIX 1 EACH IV SCH ×2 (09:16→20:27)
[2020-07-17] MEDS ORDERED: FUROSEMIDE 40 MG/4 ML VIAL ONE (09:27)
[2020-07-17] MEDS: FUROSEMIDE 40 MG/4 ML VIAL IV SCH (09:28)
[2020-07-17] MEDS ORDERED: FLUCONAZOLE INJ 200 MG in PREMIX 1 EACH IV SCH (14:00)
[2020-07-17] MEDS: hydrALAZINE 20 MG/1 ML VIAL IV PRN (18:38)
[2020-07-17] MEDS: ENOXAPARIN 40 MG/0.4 ML SYRINGE SUBCUT SCH (20:27)
[2020-07-17] MEDS: AZITHROMYCIN INJ 500 MG in SODIUM CHLORIDE 0.9% 250 ML IV SCH (21:08)
[2020-07-18] MEDS: MEROPENEM 500 MG in SODIUM CHLORIDE 0.9% 100 ML IV SCH ×4 (00:02→17:51)
[2020-07-18 00:29] LABS: Basophils % 0.2 % (0.0-0.8); Eosinophils # 0.3 10*3/uL (0.0-0.87); Eosinophils % 3.2 % (0.00-10.9); Hematocrit 26.2 VOL% (35.7-47.0); Hematocrit 27.2 VOL% (35.7-47.0); Hemoglobin 8.2 GM/DL (12.0-16.0); Hemoglobin 8.4 GM/DL (12.0-16.0); Immature Granulocytes Absolute 0.08 #; Lymphocytes # 0.5 10*3/uL (1.4-4.0); Lymphocytes % 6.1 % (21.3-54.2); Mean Corpuscular HGB Conc 31.3 GM/DL (32-36); Mean Corpuscular Volume 92.9 FL (87-102); Mean Platelet Volume 8.9 FL (9.6-12.0); Monocytes % 5.9 % (1.7-12.7); Neutrophils % 83.6 % (38.7-73.9); Platelet Count 223 T/CUMM (130-400); Red Blood Count 2.82 MC/CUMM (3.8-5.5); White Blood Count 8.1 T/CUMM (4-12)
[2020-07-18 00:43] LABS: Calcium 8.2 MG/DL (8.5-10.1); Osmolality,Calculated 290.5 MOS/KG (273-304)
[2020-07-18] MEDS: INSULIN LISPRO 100 UNIT/ML SUBCUT SCH ×4 (00:51→18:56)
[2020-07-18] MEDS: ALBUTEROL/IPRATROPIUM 3 ML NEB RESP TX SCH ×5 (02:30→19:32)
[2020-07-18] MEDS: ACETAMINOPHEN 325 MG TABLET PO PRN ×2 (06:17→17:52)
[2020-07-18] MEDS: PANTOPRAZOLE 40 MG VIAL IV SCH (09:01)
[2020-07-18] MEDS: LINEZOLID INJ 600 MG in PREMIX 1 EACH IV SCH ×2 (09:02→21:28)
[2020-07-18] MEDS ORDERED: MORPHINE 4 MG/1 ML VIAL IV ONE (11:17)
[2020-07-18] MEDS: FUROSEMIDE 40 MG/4 ML VIAL IV SCH (14:04)
[2020-07-18] MEDS: MORPHINE 4 MG/1 ML VIAL IV PRN ×2 (16:16→21:28)
[2020-07-18] MEDS: NYSTATIN CREAM 15 GM TUBE TOP SCH ×2 (16:19→22:26)
[2020-07-18] MEDS ORDERED: ENOXAPARIN 40 MG/0.4 ML SYRINGE SUBCUT SCH (17:30)
[2020-07-18] MEDS: HEPARIN 5,000 UNIT/1 ML VIAL SUBCUT SCH (17:56)
[2020-07-18] MEDS: AZITHROMYCIN INJ 500 MG in SODIUM CHLORIDE 0.9% 250 ML IV SCH (23:19)
[2020-07-19] MEDS: ALBUTEROL/IPRATROPIUM 3 ML NEB RESP TX SCH ×7 (00:20→23:05)
[2020-07-19] MEDS: MEROPENEM 500 MG in SODIUM CHLORIDE 0.9% 100 ML IV SCH ×4 (01:38→17:00)
[2020-07-19] MEDS: MORPHINE 4 MG/1 ML VIAL IV PRN ×5 (01:39→23:03)
[2020-07-19] MEDS: INSULIN LISPRO 100 UNIT/ML SUBCUT SCH ×4 (01:40→17:00)
[2020-07-19] MEDS: HEPARIN 5,000 UNIT/1 ML VIAL SUBCUT SCH ×3 (01:40→17:00)
[2020-07-19 06:47] LABS: Osmolality,Calculated 294.3 MOS/KG (273-304)
[2020-07-19 08:07] LABS: Basophils % 0.2 % (0.0-0.8); Eosinophils # 0.2 10*3/uL (0.0-0.87); Eosinophils % 4.7 % (0.00-10.9); Hematocrit 27.9 VOL% (35.7-47.0); Hemoglobin 8.7 GM/DL (12.0-16.0); Immature Granulocytes % 0.6 %; Immature Granulocytes Absolute 0.03 #; Lymphocytes # 0.4 10*3/uL (1.4-4.0); Lymphocytes % 8.8 % (21.3-54.2); Mean Corpuscular HGB Conc 31.2 GM/DL (32-36); Mean Corpuscular Volume 92.7 FL (87-102); Mean Platelet Volume 8.9 FL (9.6-12.0); Monocytes % 8.2 % (1.7-12.7); Neutrophils % 77.5 % (38.7-73.9); Platelet Count 260 T/CUMM (130-400); Red Blood Count 3.01 MC/CUMM (3.8-5.5); Red Cell Distribution Width 13.5 % (9.3-17.3); White Blood Count 4.9 T/CUMM (4-12)
[2020-07-19] MEDS: PANTOPRAZOLE 40 MG VIAL IV SCH (09:05)
[2020-07-19] MEDS: FUROSEMIDE 40 MG/4 ML VIAL IV SCH (09:05)
[2020-07-19] MEDS: LINEZOLID INJ 600 MG in PREMIX 1 EACH IV SCH ×2 (09:06→21:33)
[2020-07-19] MEDS: ACETAMINOPHEN 325 MG TABLET PO PRN ×2 (10:34→15:12)
[2020-07-19] MEDS: NYSTATIN CREAM 15 GM TUBE TOP SCH ×2 (10:45→21:33)
[2020-07-19] MEDS: ZALEPLON 5 MG CAPSULE PO PRN (21:32)
[2020-07-19] MEDS: AZITHROMYCIN INJ 500 MG in SODIUM CHLORIDE 0.9% 250 ML IV SCH (22:51)
[2020-07-20] MEDS: INSULIN LISPRO 100 UNIT/ML SUBCUT SCH ×4 (00:36→18:39)
[2020-07-20] MEDS: MEROPENEM 500 MG in SODIUM CHLORIDE 0.9% 100 ML IV SCH ×3 (00:36→11:35)
[2020-07-20] MEDS: HEPARIN 5,000 UNIT/1 ML VIAL SUBCUT SCH ×3 (01:00→18:39)
[2020-07-20] MEDS: ALBUTEROL/IPRATROPIUM 3 ML NEB RESP TX SCH ×5 (03:09→18:41)
[2020-07-20] MEDS: MORPHINE 4 MG/1 ML VIAL IV PRN ×2 (05:36→14:20)
[2020-07-20 05:55] LABS: Basophils % 0.2 % (0.0-0.8); Eosinophils # 0.3 10*3/uL (0.0-0.87); Eosinophils % 6.7 % (0.00-10.9); Hematocrit 27.4 VOL% (35.7-47.0); Hemoglobin 8.6 GM/DL (12.0-16.0); Immature Granulocytes % 0.4 %; Immature Granulocytes Absolute 0.02 #; Lymphocytes # 0.6 10*3/uL (1.4-4.0); Lymphocytes % 12.1 % (21.3-54.2); Mean Corpuscular HGB Conc 31.4 GM/DL (32-36); Mean Corpuscular Volume 92.3 FL (87-102); Mean Platelet Volume 8.9 FL (9.6-12.0); Monocytes % 10.6 % (1.7-12.7); Platelet Count 264 T/CUMM (130-400); Red Blood Count 2.97 MC/CUMM (3.8-5.5); Red Cell Distribution Width 13.2 % (9.3-17.3); White Blood Count 4.6 T/CUMM (4-12)
[2020-07-20 06:06] LABS: Calcium 8.7 MG/DL (8.5-10.1); Osmolality,Calculated 297.5 MOS/KG (273-304)
[2020-07-20 06:21] LABS: Total Protein (Chem) 6.1 G/DL (6.4-8.3)
[2020-07-20 08:20] LABS: Alpha 1 (SPE) 0.4 G/DL (0.1-0.4); Alpha 1 (SPE) Rel % 6.6 %; Alpha 2 (SPE) 1.5 G/DL (0.4-1.0); Alpha 2 (SPE) Rel % 23.8 %; Beta (SPE) 1.1 G/DL (0.5-1.1); Gamma (SPE) 1.1 G/DL (0.7-1.7); Gamma (SPE) Rel % 18.6 %
[2020-07-20] MEDS: FUROSEMIDE 40 MG/4 ML VIAL IV SCH (09:19)
[2020-07-20] MEDS: methylPREDNISolone SOD SUC 40 MG/1 ML VIAL IV SCH ×2 (09:21→22:09)
[2020-07-20] MEDS: PANTOPRAZOLE 40 MG VIAL IV SCH (09:24)
[2020-07-20] MEDS: LINEZOLID INJ 600 MG in PREMIX 1 EACH IV SCH (10:11)
[2020-07-20] MEDS: NYSTATIN CREAM 15 GM TUBE TOP SCH ×2 (10:32→22:08)
[2020-07-20 17:56] LABS: CDT Result Negative (Negative); CDT Specimen Source STOOL
[2020-07-20] MEDS ORDERED: INSULIN GLARGINE 100 UNIT/ML SUBCUT SCH (21:00)
[2020-07-20] MEDS: ZALEPLON 5 MG CAPSULE PO PRN (22:06)
[2020-07-20] MEDS: CEFUROXIME 500 MG TABLET PO SCH (22:07)
[2020-07-20] MEDS: INSULIN GLARGINE 100 UNIT/ML SUBCUT SCH (22:08)
[2020-07-21] MEDS: ALBUTEROL/IPRATROPIUM 3 ML NEB RESP TX SCH ×7 (00:14→23:20)
[2020-07-21] MEDS: INSULIN LISPRO 100 UNIT/ML SUBCUT SCH ×4 (01:45→18:06)
[2020-07-21] MEDS: HEPARIN 5,000 UNIT/1 ML VIAL SUBCUT SCH ×3 (01:45→18:06)
[2020-07-21] MEDS: MORPHINE 4 MG/1 ML VIAL IV PRN ×2 (01:46→11:07)
[2020-07-21 05:43] LABS: Basophils % 0.2 % (0.0-0.8); Eosinophils # 0.1 10*3/uL (0.0-0.87); Eosinophils % 2.7 % (0.00-10.9); Hematocrit 30.9 VOL% (35.7-47.0); Hemoglobin 9.9 GM/DL (12.0-16.0); Immature Granulocytes % 0.4 %; Immature Granulocytes Absolute 0.02 #; Lymphocytes # 0.3 10*3/uL (1.4-4.0); Lymphocytes % 6.2 % (21.3-54.2); Mean Corpuscular Volume 89.8 FL (87-102); Mean Platelet Volume 8.6 FL (9.6-12.0); Monocytes % 1.9 % (1.7-12.7); Neutrophils % 88.6 % (38.7-73.9); Platelet Count 291 T/CUMM (130-400); Red Blood Count 3.44 MC/CUMM (3.8-5.5); Red Cell Distribution Width 13.1 % (9.3-17.3); White Blood Count 5.2 T/CUMM (4-12)
[2020-07-21 06:16] LABS: Calcium 9.2 MG/DL (8.5-10.1); Osmolality,Calculated 298.4 MOS/KG (273-304)
[2020-07-21] MEDS: ACETAMINOPHEN 325 MG TABLET PO PRN (06:17)
[2020-07-21] MEDS: CEFUROXIME 500 MG TABLET PO SCH ×2 (09:09→20:46)
[2020-07-21] MEDS: PANTOPRAZOLE 40 MG VIAL IV SCH (09:14)
[2020-07-21] MEDS: methylPREDNISolone SOD SUC 40 MG/1 ML VIAL IV SCH ×2 (09:15→20:48)
[2020-07-21] MEDS: FUROSEMIDE 40 MG/4 ML VIAL IV SCH (09:17)
[2020-07-21] MEDS: NYSTATIN CREAM 15 GM TUBE TOP SCH ×2 (09:20→20:48)
[2020-07-21] MEDS: hydrALAZINE 20 MG/1 ML VIAL IV PRN (18:09)
[2020-07-21] MEDS: ZALEPLON 5 MG CAPSULE PO PRN (20:46)
[2020-07-21] MEDS: INSULIN GLARGINE 100 UNIT/ML SUBCUT SCH (20:47)
[2020-07-22] MEDS: HEPARIN 5,000 UNIT/1 ML VIAL SUBCUT SCH ×3 (01:21→17:15)
[2020-07-22] MEDS: INSULIN LISPRO 100 UNIT/ML SUBCUT SCH ×4 (01:21→17:14)
[2020-07-22] MEDS: MORPHINE 4 MG/1 ML VIAL IV PRN ×3 (01:22→18:20)
[2020-07-22] MEDS: ALBUTEROL/IPRATROPIUM 3 ML NEB RESP TX SCH ×6 (04:30→23:24)
[2020-07-22 05:31] LABS: Total Protein 24 Hr Ur Result 10900 MG/24HR (0-149.1); Total Volume,Urine 2500 ML (400-2000)
[2020-07-22 06:39] LABS: Basophils % 0.2 % (0.0-0.8); Eosinophils # 0.1 10*3/uL (0.0-0.87); Eosinophils % 1.6 % (0.00-10.9); Hematocrit 28.6 VOL% (35.7-47.0); Hemoglobin 9.3 GM/DL (12.0-16.0); Immature Granulocytes % 0.8 %; Immature Granulocytes Absolute 0.05 #; Lymphocytes # 0.5 10*3/uL (1.4-4.0); Lymphocytes % 8.5 % (21.3-54.2); Mean Corpuscular HGB Conc 32.5 GM/DL (32-36); Mean Corpuscular Volume 90.5 FL (87-102); Mean Platelet Volume 9.3 FL (9.6-12.0); Monocytes % 4.6 % (1.7-12.7); Neutrophils % 84.3 % (38.7-73.9); Platelet Count 260 T/CUMM (130-400); Red Blood Count 3.16 MC/CUMM (3.8-5.5); Red Cell Distribution Width 13.2 % (9.3-17.3); White Blood Count 6.2 T/CUMM (4-12)
[2020-07-22 06:42] LABS: Creatinine Clearance Urine 38.58 ML/MIN (70-115)
[2020-07-22 06:55] LABS: Calcium 8.9 MG/DL (8.5-10.1); Osmolality,Calculated 285.7 MOS/KG (273-304)
[2020-07-22 07:49] LABS: Hypochromasia 1+
[2020-07-22 07:50] LABS: Microcytosis 1+; Platelet Estimate Normal
[2020-07-22] MEDS: CEFUROXIME 500 MG TABLET PO SCH ×2 (08:59→21:54)
[2020-07-22] MEDS: methylPREDNISolone SOD SUC 40 MG/1 ML VIAL IV SCH ×2 (08:59→21:54)
[2020-07-22] MEDS: FUROSEMIDE 40 MG/4 ML VIAL IV SCH (08:59)
[2020-07-22] MEDS: PANTOPRAZOLE 40 MG VIAL IV SCH (09:00)
[2020-07-22] MEDS: NYSTATIN CREAM 15 GM TUBE TOP SCH ×2 (09:10→21:54)
[2020-07-22] MEDS: hydrALAZINE 20 MG/1 ML VIAL IV PRN (10:29)
[2020-07-22] MEDS: ACETAMINOPHEN 325 MG TABLET PO PRN ×2 (11:33→18:21)
[2020-07-22] MEDS ORDERED: SODIUM POLYSTYRENE SULFATE 15 GM/60 ML BOTTLE PO ONE (14:47)
[2020-07-22] MEDS: INSULIN GLARGINE 100 UNIT/ML SUBCUT SCH (21:54)
[2020-07-23] MEDS: INSULIN LISPRO 100 UNIT/ML SUBCUT SCH ×4 (00:18→17:25)
[2020-07-23] MEDS: MORPHINE 4 MG/1 ML VIAL IV PRN ×3 (00:18→18:54)
[2020-07-23] MEDS: ALBUTEROL/IPRATROPIUM 3 ML NEB RESP TX SCH ×5 (03:00→21:12)
[2020-07-23] MEDS: HEPARIN 5,000 UNIT/1 ML VIAL SUBCUT SCH ×3 (03:20→17:27)
[2020-07-23 06:36] LABS: Calcium 9.1 MG/DL (8.5-10.1); Osmolality,Calculated 294.3 MOS/KG (273-304)
[2020-07-23] MEDS: PANTOPRAZOLE 40 MG VIAL IV SCH (08:35)
[2020-07-23] MEDS: FUROSEMIDE 40 MG/4 ML VIAL IV SCH (08:36)
[2020-07-23] MEDS: NYSTATIN CREAM 15 GM TUBE TOP SCH ×2 (08:37→21:48)
[2020-07-23] MEDS: hydrALAZINE 20 MG/1 ML VIAL IV PRN ×2 (08:40→17:26)
[2020-07-23] MEDS: methylPREDNISolone SOD SUC 40 MG/1 ML VIAL IV SCH ×2 (09:03→21:47)
[2020-07-23] MEDS: ACETAMINOPHEN 325 MG TABLET PO PRN ×2 (11:53→18:52)
[2020-07-23] MEDS: INSULIN GLARGINE 100 UNIT/ML SUBCUT SCH (21:48)
[2020-07-24] MEDS: MORPHINE 4 MG/1 ML VIAL IV PRN ×4 (00:16→18:09)
[2020-07-24] MEDS: INSULIN LISPRO 100 UNIT/ML SUBCUT SCH ×4 (00:17→18:09)
[2020-07-24] MEDS: ALBUTEROL/IPRATROPIUM 3 ML NEB RESP TX SCH ×7 (02:12→23:20)
[2020-07-24] MEDS: HEPARIN 5,000 UNIT/1 ML VIAL SUBCUT SCH ×3 (02:57→18:08)
[2020-07-24 06:25] LABS: Calcium 8.7 MG/DL (8.5-10.1); Osmolality,Calculated 299.1 MOS/KG (273-304)
[2020-07-24] MEDS ORDERED: MAGNESIUM SULF RIDER 2 GM in PREMIX 1 EACH IV ONE (07:48)
[2020-07-24] MEDS: PANTOPRAZOLE 40 MG VIAL IV SCH (08:44)
[2020-07-24] MEDS: ACETAMINOPHEN 325 MG TABLET PO PRN ×3 (08:46→18:10)
[2020-07-24] MEDS: methylPREDNISolone SOD SUC 40 MG/1 ML VIAL IV SCH ×2 (08:46→21:29)
[2020-07-24] MEDS: NYSTATIN CREAM 15 GM TUBE TOP SCH ×2 (08:47→21:30)
[2020-07-24] MEDS: FUROSEMIDE 40 MG/4 ML VIAL IV SCH (10:20)
[2020-07-24] MEDS: hydrALAZINE 20 MG/1 ML VIAL IV PRN (18:11)
[2020-07-24] MEDS: INSULIN GLARGINE 100 UNIT/ML SUBCUT SCH (21:29)
[2020-07-25] MEDS: INSULIN LISPRO 100 UNIT/ML SUBCUT SCH ×4 (00:23→19:26)
[2020-07-25] MEDS: MORPHINE 4 MG/1 ML VIAL IV PRN ×3 (00:43→19:27)
[2020-07-25] MEDS: ALBUTEROL/IPRATROPIUM 3 ML NEB RESP TX SCH ×6 (03:08→23:18)
[2020-07-25] MEDS: HEPARIN 5,000 UNIT/1 ML VIAL SUBCUT SCH ×3 (04:03→19:29)
[2020-07-25 06:57] LABS: Calcium 8.4 MG/DL (8.5-10.1)
[2020-07-25] MEDS: methylPREDNISolone SOD SUC 40 MG/1 ML VIAL IV SCH (10:25)
[2020-07-25] MEDS: PANTOPRAZOLE 40 MG VIAL IV SCH (10:25)
[2020-07-25] MEDS: FUROSEMIDE 40 MG/4 ML VIAL IV SCH (10:25)
[2020-07-25] MEDS: NYSTATIN CREAM 15 GM TUBE TOP SCH ×2 (12:59→23:37)
[2020-07-25] MEDS: COLESTIPOL 1 GM TABLET PO SCH (23:35)
[2020-07-25] MEDS: ACETAMINOPHEN 325 MG TABLET PO PRN (23:36)
[2020-07-25] MEDS: INSULIN GLARGINE 100 UNIT/ML SUBCUT SCH (23:38)
[2020-07-26] MEDS: INSULIN LISPRO 100 UNIT/ML SUBCUT SCH ×4 (01:11→17:46)
[2020-07-26] MEDS: HEPARIN 5,000 UNIT/1 ML VIAL SUBCUT SCH ×3 (01:55→17:46)
[2020-07-26] MEDS: MORPHINE 4 MG/1 ML VIAL IV PRN (01:55)
[2020-07-26] MEDS: ALBUTEROL/IPRATROPIUM 3 ML NEB RESP TX SCH ×6 (02:53→23:55)
[2020-07-26 06:07] LABS: Basophils % 0.4 % (0.0-0.8); Eosinophils # 0.7 10*3/uL (0.0-0.87); Eosinophils % 7.8 % (0.00-10.9); Hematocrit 27.5 VOL% (35.7-47.0); Hemoglobin 8.6 GM/DL (12.0-16.0); Immature Granulocytes % 0.5 %; Immature Granulocytes Absolute 0.04 #; Lymphocytes # 1.7 10*3/uL (1.4-4.0); Lymphocytes % 19.9 % (21.3-54.2); Mean Corpuscular HGB Conc 31.3 GM/DL (32-36); Mean Corpuscular Volume 93.9 FL (87-102); Mean Platelet Volume 9.1 FL (9.6-12.0); Monocytes % 5.2 % (1.7-12.7); Neutrophils % 66.2 % (38.7-73.9); Platelet Count 176 T/CUMM (130-400); Red Blood Count 2.93 MC/CUMM (3.8-5.5); Red Cell Distribution Width 13.5 % (9.3-17.3); White Blood Count 8.3 T/CUMM (4-12)
[2020-07-26 06:23] LABS: Calcium 8.5 MG/DL (8.5-10.1)
[2020-07-26 06:28] LABS: Alanine Aminotransferase 38 U/L (13-56); Albumin 1.7 G/DL (3.4-5.0); Alkaline Phosphatase 103 U/L (45-117); Aspartate Amino Transferase 52 U/L (0-37); Bilirubin,Direct < 0.050 MG/DL (0.0-0.20); Bilirubin,Indirect 0.9 MG/DL (0.0-1.0); Total Protein 5.2 G/DL (6.4-8.3)
[2020-07-26] MEDS: MULTIVITAMIN (CENTRUM) TABLET PO SCH (09:43)
[2020-07-26] MEDS: predniSONE 20 MG TABLET PO SCH (09:43)
[2020-07-26] MEDS: NYSTATIN CREAM 15 GM TUBE TOP SCH ×2 (09:43→21:25)
[2020-07-26] MEDS: PANTOPRAZOLE 40 MG VIAL IV SCH (09:43)
[2020-07-26] MEDS: FUROSEMIDE 80 MG TABLET PO SCH (09:43)
[2020-07-26] MEDS: COLESTIPOL 1 GM TABLET PO ONE ×2 (10:33→11:44)
[2020-07-26] MEDS: COLESTIPOL 1 GM TABLET PO SCH ×2 (10:33→21:23)
[2020-07-26] MEDS: hydrALAZINE 20 MG/1 ML VIAL IV PRN (14:10)
[2020-07-26] MEDS: INSULIN GLARGINE 100 UNIT/ML SUBCUT SCH (21:24)
[2020-07-27] MEDS: HEPARIN 5,000 UNIT/1 ML VIAL SUBCUT SCH ×3 (01:24→17:48)
[2020-07-27] MEDS: INSULIN LISPRO 100 UNIT/ML SUBCUT SCH ×4 (01:24→17:48)
[2020-07-27] MEDS: ACETAMINOPHEN 325 MG TABLET PO PRN ×3 (01:25→17:47)
[2020-07-27] MEDS: hydrALAZINE 20 MG/1 ML VIAL IV PRN ×2 (01:25→21:55)
[2020-07-27] MEDS: ALBUTEROL/IPRATROPIUM 3 ML NEB RESP TX SCH ×4 (03:00→14:17)
[2020-07-27 06:09] LABS: Basophils % 0.4 % (0.0-0.8); Eosinophils # 0.4 10*3/uL (0.0-0.87); Eosinophils % 5.5 % (0.00-10.9); Hematocrit 27.9 VOL% (35.7-47.0); Hemoglobin 8.5 GM/DL (12.0-16.0); Immature Granulocytes % 0.6 %; Immature Granulocytes Absolute 0.05 #; Lymphocytes # 0.8 10*3/uL (1.4-4.0); Lymphocytes % 9.5 % (21.3-54.2); Mean Corpuscular HGB Conc 30.5 GM/DL (32-36); Mean Corpuscular Volume 95.2 FL (87-102); Mean Platelet Volume 9.3 FL (9.6-12.0); Monocytes % 4.7 % (1.7-12.7); Neutrophils % 79.3 % (38.7-73.9); Platelet Count 147 T/CUMM (130-400); Red Blood Count 2.93 MC/CUMM (3.8-5.5); Red Cell Distribution Width 13.4 % (9.3-17.3); White Blood Count 7.9 T/CUMM (4-12)
[2020-07-27 06:42] LABS: Calcium 8.3 MG/DL (8.5-10.1)
[2020-07-27] MEDS: MULTIVITAMIN (CENTRUM) TABLET PO SCH (09:14)
[2020-07-27] MEDS: FUROSEMIDE 80 MG TABLET PO SCH (09:14)
[2020-07-27] MEDS: predniSONE 20 MG TABLET PO SCH (09:14)
[2020-07-27] MEDS: PANTOPRAZOLE 40 MG VIAL IV SCH (09:14)
[2020-07-27] MEDS ORDERED: COLESTIPOL 1 GM TABLET PO ONE (10:30)
[2020-07-27] MEDS: NYSTATIN CREAM 15 GM TUBE TOP SCH ×2 (10:38→21:55)
[2020-07-27] MEDS: COLESTIPOL 1 GM TABLET PO SCH ×2 (11:26→21:54)
[2020-07-27] MEDS ORDERED: MORPHINE 4 MG/1 ML VIAL IV ONE (12:53)
[2020-07-27 16:57] LABS: Bacteria,Urine Many /HPF (Few); Bilirubin,Urine Negative (Negative); Blood, Urine Moderate mg/dL (Negative); Glucose,Urine (UA) 50 mg/dL (Negative); Hyaline Casts,Urine 3 /LPF (0-3); Ketones,Urine Negative (Negative); Mucus,Urine Occasional /LPF (Occasional); Nitrite,Urine Negative (Negative); Protein,Urine >=500 MG/DL; RBC,Urine 4 /HPF (0-4); Squamous Epithelial Cell,Urine Occasional /HPF (0-10); Urine Appearance Slightly Hazy (Clear); Urine Color Yellow (Yellow); Urine Specific Gravity 1.014 (1.001-1.035); Urine Urobilinogen < 2.0 EU/DL (0.2-1.0); WBC,Urine 11 /HPF (0-6)
[2020-07-27] MEDS ORDERED: DIPHENOXYLATE/ATROPINE 2.5-0.025 MG TABLET PO PRN (17:37)
[2020-07-27] MEDS: INSULIN GLARGINE 100 UNIT/ML SUBCUT SCH (21:54)
[2020-07-28] MEDS: HEPARIN 5,000 UNIT/1 ML VIAL SUBCUT SCH ×3 (01:30→10:09)
[2020-07-28] MEDS: INSULIN LISPRO 100 UNIT/ML SUBCUT SCH ×3 (01:30→14:32)
[2020-07-28 05:42] LABS: Basophils % 0.4 % (0.0-0.8); Eosinophils # 0.5 10*3/uL (0.0-0.87); Eosinophils % 6.8 % (0.00-10.9); Hematocrit 26.6 VOL% (35.7-47.0); Hemoglobin 7.8 GM/DL (12.0-16.0); Immature Granulocytes % 0.6 %; Immature Granulocytes Absolute 0.04 #; Lymphocytes # 0.8 10*3/uL (1.4-4.0); Lymphocytes % 11.1 % (21.3-54.2); Mean Corpuscular HGB Conc 29.3 GM/DL (32-36); Mean Corpuscular Volume 97.1 FL (87-102); Mean Platelet Volume 9.8 FL (9.6-12.0); Monocytes % 4.7 % (1.7-12.7); Neutrophils % 76.4 % (38.7-73.9); Platelet Count 157 T/CUMM (130-400); Red Blood Count 2.74 MC/CUMM (3.8-5.5); Red Cell Distribution Width 13.6 % (9.3-17.3)
[2020-07-28 06:05] LABS: Calcium 8.4 MG/DL (8.5-10.1); Osmolality,Calculated 302.7 MOS/KG (273-304)
[2020-07-28] MEDS: ACETAMINOPHEN 325 MG TABLET PO PRN (08:50)
[2020-07-28] MEDS: FUROSEMIDE 80 MG TABLET PO SCH (08:51)
[2020-07-28] MEDS: COLESTIPOL 1 GM TABLET PO SCH (08:51)
[2020-07-28] MEDS: predniSONE 20 MG TABLET PO SCH (08:51)
[2020-07-28] MEDS: MULTIVITAMIN (CENTRUM) TABLET PO SCH (08:51)
[2020-07-28] MEDS: PANTOPRAZOLE 40 MG VIAL IV SCH (08:52)
[2020-07-28] MEDS ORDERED: lisinopriL 10 MG TABLET PO SCH (10:00)
[2020-07-28] MEDS: NYSTATIN CREAM 15 GM TUBE TOP SCH (10:08)
[2020-07-28 12:11] VITALS: BP 163/97
== END 2020-07-28 14:04 | disposition home or self-care (01) | DRG 139 ==
LOC: N.ED 15:32 → N.EDINP 18:49 → N.TELEN 20:03
PROVIDERS: ADMIT Internal Medicine; ATTEND Internal Medicine

== ENCOUNTER 2020-08-18 18:27 | Inpatient (IN) ==
[2020-08-18 20:03] LABS: Basophils % 0.2 % (0.0-0.8); Eosinophils # 0.3 10*3/uL (0.0-0.87); Eosinophils % 2.4 % (0.00-10.9); Hematocrit 27.6 VOL% (35.7-47.0); Hemoglobin 8.7 GM/DL (12.0-16.0); Immature Granulocytes % 0.5 %; Immature Granulocytes Absolute 0.06 #; Lymphocytes # 0.8 10*3/uL (1.4-4.0); Lymphocytes % 6.3 % (21.3-54.2); Mean Corpuscular HGB Conc 31.5 GM/DL (32-36); Mean Corpuscular Volume 90.5 FL (87-102); Mean Platelet Volume 9.5 FL (9.6-12.0); Monocytes % 3.3 % (1.7-12.7); Neutrophils % 87.3 % (38.7-73.9); Platelet Count 291 T/CUMM (130-400); Red Blood Count 3.05 MC/CUMM (3.8-5.5); Red Cell Distribution Width 14.7 % (9.3-17.3); White Blood Count 12.5 T/CUMM (4-12)
[2020-08-18 20:08] LABS: Bacteria,Urine Many /HPF (Few); Bilirubin,Urine Negative (Negative); Blood, Urine Small mg/dL (Negative); Glucose,Urine (UA) 50 mg/dL (Negative); Ketones,Urine Negative (Negative); Mucus,Urine Moderate /LPF (Occasional); Nitrite,Urine Positive (Negative); Protein,Urine >=500 MG/DL; RBC,Urine 21 /HPF (0-4); Urine Appearance CLOUDY (Clear); Urine Color Yellow (Yellow); Urine Specific Gravity 1.011 (1.001-1.035); Urine Urobilinogen < 2.0 EU/DL (0.2-1.0); WBC,Urine 731 /HPF (0-6)
[2020-08-18 20:28] LABS: ABG Base Excess -0.9 MMOL/L (-2.5-2.5); ABG HCO3 23.5 MMOL/L (20-26); ABG Oxygen Saturation 87.8 % (95-100); ABG PCO2 45.6 MM HG (35-48); ABG PH 7.345 (7.35-7.45); ABG PO2 55.2 MM HG (80-95); ABG TCO2 23.4 MMOL/L (23-27)
[2020-08-18 20:57] LABS: Alanine Aminotransferase 19 U/L (13-56); Albumin 1.5 G/DL (3.4-5.0); Alkaline Phosphatase 160 U/L (45-117); Aspartate Amino Transferase 20 U/L (0-37); Bilirubin,Total < 0.39 MG/DL (0.2-1.0); Blood Urea Nitrogen 21 MG/DL (7-18); Calcium 7.5 MG/DL (8.5-10.1); Carbon Dioxide 23 MMOL/L (21-32); Estimated Glom Filtration Rate 90 ML/MIN; Glucose 239 MG/DL (74-106); Osmolality,Calculated 298.7 MOS/KG (273-304); Potassium 3.9 MMOL/L (3.5-5.1); Sodium 145 MMOL/L (136-145); Total Protein 5.6 G/DL (6.4-8.3)
[2020-08-18] MEDS ORDERED: LEVOFLOXACIN INJ 500 MG in PREMIX 1 EACH IV STA (22:07)
[2020-08-18] MEDS ORDERED: FUROSEMIDE 40 MG/4 ML VIAL IV STA (22:26)
[2020-08-18] MEDS ORDERED: ONDANSETRON 4 MG/2 ML VIAL IV PRN (23:06)
[2020-08-18] MEDS ORDERED: GLUCAGON 1 MG VIAL IM PRN (23:06)
[2020-08-18] MEDS ORDERED: DEXTROSE 50% 25 GM/50 ML VIAL IV PRN ×2 (23:06)
[2020-08-18] MEDS ORDERED: ZALEPLON 5 MG CAPSULE PO PRN (23:06)
[2020-08-18] MEDS ORDERED: ACETAMINOPHEN 325 MG TABLET PO PRN (23:06)
[2020-08-18] MEDS ORDERED: MAGNESIUM SULF RIDER 4 GM in PREMIX 1 EACH IV PRN (23:19)
[2020-08-18] MEDS ORDERED: MAGNESIUM SULF RIDER 2 GM in PREMIX 1 EACH IV PRN (23:19)
[2020-08-19] MEDS: INSULIN REGULAR 100 UNIT/ML SUBCUT SCH ×5 (00:25→20:43)
[2020-08-19] MEDS: ALBUTEROL/IPRATROPIUM 3 ML NEB RESP TX SCH ×4 (01:30→19:38)
[2020-08-19 03:56] LABS: Basophils % 0.2 % (0.0-0.8); Eosinophils # 0.2 10*3/uL (0.0-0.87); Eosinophils % 1.8 % (0.00-10.9); Hematocrit 24.6 VOL% (35.7-47.0); Hemoglobin 7.7 GM/DL (12.0-16.0); Immature Granulocytes % 0.4 %; Immature Granulocytes Absolute 0.04 #; Lymphocytes # 0.9 10*3/uL (1.4-4.0); Lymphocytes % 9.7 % (21.3-54.2); Mean Corpuscular HGB Conc 31.3 GM/DL (32-36); Mean Corpuscular Volume 89.8 FL (87-102); Mean Platelet Volume 9.4 FL (9.6-12.0); Monocytes % 3.3 % (1.7-12.7); Neutrophils % 84.6 % (38.7-73.9); Platelet Count 245 T/CUMM (130-400); Red Blood Count 2.74 MC/CUMM (3.8-5.5); Red Cell Distribution Width 14.8 % (9.3-17.3); White Blood Count 9.2 T/CUMM (4-12)
[2020-08-19 04:43] LABS: Alanine Aminotransferase 15 U/L (13-56); Albumin 1.2 G/DL (3.4-5.0); Alkaline Phosphatase 139 U/L (45-117); Aspartate Amino Transferase 18 U/L (0-37); Bilirubin,Total < 0.39 MG/DL (0.2-1.0); Blood Urea Nitrogen 20 MG/DL (7-18); Calcium 7.9 MG/DL (8.5-10.1); Carbon Dioxide 24 MMOL/L (21-32); Estimated Glom Filtration Rate 90 ML/MIN; Glucose 173 MG/DL (74-106); Osmolality,Calculated 289.1 MOS/KG (273-304); Potassium 3.5 MMOL/L (3.5-5.1); Sodium 142 MMOL/L (136-145); Total Protein 5.7 G/DL (6.4-8.3)
[2020-08-19] MEDS: FUROSEMIDE 40 MG/4 ML VIAL IV SCH ×2 (07:51→15:22)
[2020-08-19] MEDS ORDERED: SODIUM CHLORIDE 0.9% 1,000 ML IV PRN (08:41)
[2020-08-19 09:25] LABS: ABG HCO3 25.3 MMOL/L (20-26); ABG Oxygen Saturation 92.6 % (95-100); ABG PCO2 42.4 MM HG (35-48); ABG PH 7.395 (7.35-7.45); ABG PO2 63.8 MM HG (80-95); ABG TCO2 24.4 MMOL/L (23-27)
[2020-08-19] MEDS: NICOTINE 21 MG/24 HR PATCH TRANSDERM SCH (09:45)
[2020-08-19] MEDS: PANTOPRAZOLE 40 MG TABLET PO SCH (09:50)
[2020-08-19 10:09] LABS: Barbiturates Screen,Urine Negative (Negative); Benzodiazepines Screen,Urine Negative (Negative); Cannabinoid Screen,Urine Negative (Negative); Opiate Screen,Urine Negative (Negative); Phencyclidine Screen,Urine Negative (Negative)
[2020-08-19 10:15] LABS: Basophils % 0.3 % (0.0-0.8); Eosinophils # 0.1 10*3/uL (0.0-0.87); Eosinophils % 1.8 % (0.00-10.9); Hematocrit 25.3 VOL% (35.7-47.0); Hemoglobin 7.7 GM/DL (12.0-16.0); Immature Granulocytes % 0.4 %; Immature Granulocytes Absolute 0.03 #; Lymphocytes # 1.1 10*3/uL (1.4-4.0); Lymphocytes % 15.7 % (21.3-54.2); Mean Corpuscular HGB Conc 30.4 GM/DL (32-36); Mean Corpuscular Volume 92.7 FL (87-102); Mean Platelet Volume 9.5 FL (9.6-12.0); Monocytes % 5.5 % (1.7-12.7); Neutrophils % 76.3 % (38.7-73.9); Platelet Count 230 T/CUMM (130-400); Red Blood Count 2.73 MC/CUMM (3.8-5.5); White Blood Count 7.3 T/CUMM (4-12)
[2020-08-19] MEDS: MEROPENEM 500 MG in SODIUM CHLORIDE 0.9% 100 ML IV SCH ×3 (10:46→21:52)
[2020-08-19 10:55] LABS: Folate 10.7 NG/ML (5.38-24.0); Vitamin B12 315 PG/ML (211-911)
[2020-08-19 11:20] LABS: HIV Antigen/Antibody Result Nonreactive (Nonreactive); Sedimentation Rate-Westergren 121 MM/HR (0-20)
[2020-08-19] MEDS: ENOXAPARIN 40 MG/0.4 ML SYRINGE SUBCUT SCH (11:56)
[2020-08-19] MEDS: HYDROmorphone 2 MG/1 ML VIAL IV PRN ×2 (15:21→21:57)
[2020-08-19] MEDS: AZITHROMYCIN INJ 500 MG in SODIUM CHLORIDE 0.9% 250 ML IV SCH (15:22)
[2020-08-19 20:35] LABS: Hematocrit 27.1 VOL% (35.7-47.0); Hemoglobin 8.4 GM/DL (12.0-16.0)
[2020-08-19] MEDS: INSULIN GLARGINE 100 UNIT/ML SUBCUT SCH (20:43)
[2020-08-19] MEDS ORDERED: HydrOXYzine PAMOATE 50 MG CAPSULE PO SCH (21:00)
[2020-08-19] MEDS ORDERED: LEVOFLOXACIN INJ 750 MG in PREMIX 1 EACH IV SCH (22:00)
[2020-08-20] MEDS: ALBUTEROL/IPRATROPIUM 3 ML NEB RESP TX SCH ×4 (00:36→19:14)
[2020-08-20] MEDS: MEROPENEM 500 MG in SODIUM CHLORIDE 0.9% 100 ML IV SCH ×4 (04:14→23:30)
[2020-08-20 06:25] LABS: Basophils % 0.5 % (0.0-0.8); Eosinophils # 0.1 10*3/uL (0.0-0.87); Eosinophils % 1.6 % (0.00-10.9); Hematocrit 29.3 VOL% (35.7-47.0); Hemoglobin 9.3 GM/DL (12.0-16.0); Immature Granulocytes % 0.5 %; Immature Granulocytes Absolute 0.04 #; Lymphocytes # 0.7 10*3/uL (1.4-4.0); Mean Corpuscular HGB Conc 31.7 GM/DL (32-36); Mean Corpuscular Volume 90.4 FL (87-102); Monocytes % 5.5 % (1.7-12.7); Neutrophils % 83.9 % (38.7-73.9); Platelet Count 278 T/CUMM (130-400); Red Blood Count 3.24 MC/CUMM (3.8-5.5); Red Cell Distribution Width 14.6 % (9.3-17.3); White Blood Count 8.7 T/CUMM (4-12)
[2020-08-20 06:41] LABS: Calcium 7.9 MG/DL (8.5-10.1); Osmolality,Calculated 288.1 MOS/KG (273-304); Potassium 3.7 MMOL/L (3.5-5.1)
[2020-08-20] MEDS: INSULIN REGULAR 100 UNIT/ML SUBCUT SCH ×4 (07:08→19:45)
[2020-08-20] MEDS: NICOTINE 21 MG/24 HR PATCH TRANSDERM SCH (08:21)
[2020-08-20] MEDS: PANTOPRAZOLE 40 MG TABLET PO SCH (08:21)
[2020-08-20] MEDS: FUROSEMIDE 40 MG/4 ML VIAL IV SCH ×2 (08:22→15:43)
[2020-08-20] MEDS ORDERED: lisinopriL 10 MG TABLET PO SCH (09:00)
[2020-08-20] MEDS: HYDROmorphone 2 MG/1 ML VIAL IV PRN (11:19)
[2020-08-20] MEDS: ENOXAPARIN 40 MG/0.4 ML SYRINGE SUBCUT SCH (11:20)
[2020-08-20 12:16] LABS: Hepatitis B Core IgM Quant < 0.05 Index; Hepatitis B Surface Ag Result Non-Reactive (NonReactive); Hepatitis C Virus Ab Quant 0.17 Index; Hepatitis C Virus Ab Result Non-Reactive (NonReactive)
[2020-08-20] MEDS: AZITHROMYCIN INJ 500 MG in SODIUM CHLORIDE 0.9% 250 ML IV SCH (14:53)
[2020-08-20] MEDS: INSULIN GLARGINE 100 UNIT/ML SUBCUT SCH (21:30)
[2020-08-21] MEDS: ALBUTEROL/IPRATROPIUM 3 ML NEB RESP TX SCH ×4 (00:38→19:04)
[2020-08-21] MEDS: MEROPENEM 500 MG in SODIUM CHLORIDE 0.9% 100 ML IV SCH ×4 (04:40→23:08)
[2020-08-21 06:11] LABS: Basophils % 0.3 % (0.0-0.8); Eosinophils # 0.1 10*3/uL (0.0-0.87); Hematocrit 25.6 VOL% (35.7-47.0); Hemoglobin 7.9 GM/DL (12.0-16.0); Immature Granulocytes % 0.3 %; Immature Granulocytes Absolute 0.02 #; Lymphocytes # 0.6 10*3/uL (1.4-4.0); Lymphocytes % 9.1 % (21.3-54.2); Mean Corpuscular HGB Conc 30.9 GM/DL (32-36); Mean Corpuscular Volume 90.5 FL (87-102); Mean Platelet Volume 9.6 FL (9.6-12.0); Monocytes % 4.6 % (1.7-12.7); Neutrophils % 83.7 % (38.7-73.9); Platelet Count 213 T/CUMM (130-400); Red Blood Count 2.83 MC/CUMM (3.8-5.5); Red Cell Distribution Width 14.8 % (9.3-17.3); White Blood Count 6.9 T/CUMM (4-12)
[2020-08-21 06:34] LABS: Calcium 7.7 MG/DL (8.5-10.1); Osmolality,Calculated 284.3 MOS/KG (273-304); Potassium 3.9 MMOL/L (3.5-5.1)
[2020-08-21] MEDS: INSULIN REGULAR 100 UNIT/ML SUBCUT SCH ×4 (06:50→20:35)
[2020-08-21] MEDS ORDERED: SODIUM CHLORIDE 0.9% 1,000 ML IV PRN (09:57)
[2020-08-21] MEDS: HYDROmorphone 2 MG/1 ML VIAL IV PRN ×3 (10:22→23:08)
[2020-08-21] MEDS: FUROSEMIDE 40 MG/4 ML VIAL IV SCH ×2 (10:25→16:36)
[2020-08-21] MEDS: NICOTINE 21 MG/24 HR PATCH TRANSDERM SCH (10:25)
[2020-08-21] MEDS: PANTOPRAZOLE 40 MG TABLET PO SCH (10:25)
[2020-08-21] MEDS: ENOXAPARIN 40 MG/0.4 ML SYRINGE SUBCUT SCH (13:13)
[2020-08-21] MEDS: AZITHROMYCIN INJ 500 MG in SODIUM CHLORIDE 0.9% 250 ML IV SCH (16:30)
[2020-08-21] MEDS: IRON SUCROSE 100 MG/5 ML VIAL IV SCH (16:34)
[2020-08-21] MEDS: LEVOFLOXACIN INJ 750 MG in PREMIX 1 EACH IV SCH (16:35)
[2020-08-21 20:03] LABS: Hematocrit 27.4 VOL% (35.7-47.0); Hemoglobin 8.4 GM/DL (12.0-16.0)
[2020-08-21] MEDS: INSULIN GLARGINE 100 UNIT/ML SUBCUT SCH (20:35)
[2020-08-22] MEDS: ALBUTEROL/IPRATROPIUM 3 ML NEB RESP TX SCH ×4 (00:03→19:40)
[2020-08-22] MEDS: MEROPENEM 500 MG in SODIUM CHLORIDE 0.9% 100 ML IV SCH ×4 (03:40→21:59)
[2020-08-22] MEDS: HYDROmorphone 2 MG/1 ML VIAL IV PRN ×5 (04:16→20:44)
[2020-08-22 05:41] LABS: Basophils % 0.4 % (0.0-0.8); Eosinophils # 0.2 10*3/uL (0.0-0.87); Eosinophils % 2.9 % (0.00-10.9); Hemoglobin 8.3 GM/DL (12.0-16.0); Immature Granulocytes % 0.6 %; Immature Granulocytes Absolute 0.04 #; Lymphocytes # 0.7 10*3/uL (1.4-4.0); Lymphocytes % 10.3 % (21.3-54.2); Mean Corpuscular HGB Conc 30.7 GM/DL (32-36); Mean Corpuscular Volume 93.1 FL (87-102); Mean Platelet Volume 9.7 FL (9.6-12.0); Monocytes % 7.8 % (1.7-12.7); Platelet Count 222 T/CUMM (130-400); Red Cell Distribution Width 14.6 % (9.3-17.3)
[2020-08-22 05:53] LABS: Calcium 7.9 MG/DL (8.5-10.1); Osmolality,Calculated 288.4 MOS/KG (273-304); Potassium 4.3 MMOL/L (3.5-5.1)
[2020-08-22] MEDS: PANTOPRAZOLE 40 MG TABLET PO SCH (08:18)
[2020-08-22] MEDS: INSULIN REGULAR 100 UNIT/ML SUBCUT SCH ×4 (08:18→20:44)
[2020-08-22] MEDS: NICOTINE 21 MG/24 HR PATCH TRANSDERM SCH (08:18)
[2020-08-22] MEDS: FUROSEMIDE 40 MG/4 ML VIAL IV SCH ×2 (08:18→16:40)
[2020-08-22] MEDS: IRON SUCROSE 100 MG/5 ML VIAL IV SCH (08:19)
[2020-08-22 11:04] LABS: Hemoglobin A1 (Alkaline) 97.8 % (96.5-98.5); Hemoglobin A2 (Alkaline) 2.2 % (1.5-3.5)
[2020-08-22] MEDS: predniSONE 20 MG TABLET PO SCH (12:05)
[2020-08-22] MEDS: ENOXAPARIN 40 MG/0.4 ML SYRINGE SUBCUT SCH (12:06)
[2020-08-22] MEDS: LEVOFLOXACIN INJ 750 MG in PREMIX 1 EACH IV SCH (16:40)
[2020-08-22] MEDS: INSULIN GLARGINE 100 UNIT/ML SUBCUT SCH (20:43)
[2020-08-23] MEDS: ALBUTEROL/IPRATROPIUM 3 ML NEB RESP TX SCH ×4 (00:37→19:34)
[2020-08-23] MEDS: HYDROmorphone 2 MG/1 ML VIAL IV PRN ×4 (02:17→20:48)
[2020-08-23] MEDS: MEROPENEM 500 MG in SODIUM CHLORIDE 0.9% 100 ML IV SCH ×2 (04:58→09:04)
[2020-08-23 05:36] LABS: Basophils % 0.5 % (0.0-0.8); Eosinophils # 0.1 10*3/uL (0.0-0.87); Eosinophils % 1.7 % (0.00-10.9); Hematocrit 27.9 VOL% (35.7-47.0); Hemoglobin 8.5 GM/DL (12.0-16.0); Immature Granulocytes % 0.5 %; Immature Granulocytes Absolute 0.03 #; Lymphocytes # 0.6 10*3/uL (1.4-4.0); Lymphocytes % 9.9 % (21.3-54.2); Mean Corpuscular HGB Conc 30.5 GM/DL (32-36); Mean Corpuscular Volume 91.2 FL (87-102); Mean Platelet Volume 9.6 FL (9.6-12.0); Neutrophils % 78.4 % (38.7-73.9); Platelet Count 222 T/CUMM (130-400); Red Blood Count 3.06 MC/CUMM (3.8-5.5); Red Cell Distribution Width 14.1 % (9.3-17.3); White Blood Count 6.5 T/CUMM (4-12)
[2020-08-23 05:48] LABS: Calcium 8.5 MG/DL (8.5-10.1); Osmolality,Calculated 292.1 MOS/KG (273-304); Potassium 4.4 MMOL/L (3.5-5.1)
[2020-08-23] MEDS: FUROSEMIDE 40 MG/4 ML VIAL IV SCH (09:01)
[2020-08-23] MEDS: IRON SUCROSE 100 MG/5 ML VIAL IV SCH (09:02)
[2020-08-23] MEDS: NICOTINE 21 MG/24 HR PATCH TRANSDERM SCH (09:04)
[2020-08-23] MEDS: predniSONE 20 MG TABLET PO SCH (09:04)
[2020-08-23] MEDS: INSULIN REGULAR 100 UNIT/ML SUBCUT SCH ×4 (09:05→20:47)
[2020-08-23] MEDS: PANTOPRAZOLE 40 MG TABLET PO SCH (09:30)
[2020-08-23] MEDS: LEVOFLOXACIN INJ 750 MG in PREMIX 1 EACH IV SCH (15:42)
[2020-08-23] MEDS: INSULIN GLARGINE 100 UNIT/ML SUBCUT SCH (20:46)
[2020-08-23] MEDS: ENOXAPARIN 40 MG/0.4 ML SYRINGE SUBCUT SCH (20:48)
[2020-08-24] MEDS: ALBUTEROL/IPRATROPIUM 3 ML NEB RESP TX SCH ×4 (00:38→19:05)
[2020-08-24] MEDS: HYDROmorphone 2 MG/1 ML VIAL IV PRN ×4 (03:00→22:38)
[2020-08-24 05:50] LABS: Basophils % 0.3 % (0.0-0.8); Eosinophils # 0.3 10*3/uL (0.0-0.87); Eosinophils % 4.8 % (0.00-10.9); Hematocrit 28.6 VOL% (35.7-47.0); Hemoglobin 8.6 GM/DL (12.0-16.0); Immature Granulocytes % 0.5 %; Immature Granulocytes Absolute 0.03 #; Lymphocytes # 0.8 10*3/uL (1.4-4.0); Lymphocytes % 14.3 % (21.3-54.2); Mean Corpuscular HGB Conc 30.1 GM/DL (32-36); Mean Corpuscular Volume 93.2 FL (87-102); Mean Platelet Volume 9.4 FL (9.6-12.0); Monocytes % 11.2 % (1.7-12.7); Neutrophils % 68.9 % (38.7-73.9); Platelet Count 242 T/CUMM (130-400); Red Blood Count 3.07 MC/CUMM (3.8-5.5); Red Cell Distribution Width 14.2 % (9.3-17.3); White Blood Count 5.8 T/CUMM (4-12)
[2020-08-24 06:08] LABS: Calcium 8.8 MG/DL (8.5-10.1); Osmolality,Calculated 296.8 MOS/KG (273-304); Potassium 4.5 MMOL/L (3.5-5.1)
[2020-08-24] MEDS: predniSONE 20 MG TABLET PO SCH (09:42)
[2020-08-24] MEDS: FUROSEMIDE 40 MG/4 ML VIAL IV SCH (09:42)
[2020-08-24] MEDS: NICOTINE 21 MG/24 HR PATCH TRANSDERM SCH (09:42)
[2020-08-24] MEDS: IRON SUCROSE 100 MG/5 ML VIAL IV SCH (10:10)
[2020-08-24] MEDS: LEVOFLOXACIN INJ 750 MG in PREMIX 1 EACH IV SCH (10:10)
[2020-08-24] MEDS: INSULIN REGULAR 100 UNIT/ML SUBCUT SCH ×4 (10:22→20:31)
[2020-08-24] MEDS: INSULIN GLARGINE 100 UNIT/ML SUBCUT SCH (20:30)
[2020-08-24] MEDS: ENOXAPARIN 40 MG/0.4 ML SYRINGE SUBCUT SCH (20:30)
[2020-08-25] MEDS: ALBUTEROL/IPRATROPIUM 3 ML NEB RESP TX SCH ×4 (00:02→18:58)
[2020-08-25] MEDS: HYDROmorphone 2 MG/1 ML VIAL IV PRN ×4 (03:05→22:11)
[2020-08-25] MEDS: INSULIN REGULAR 100 UNIT/ML SUBCUT SCH ×4 (07:32→20:46)
[2020-08-25] MEDS: predniSONE 20 MG TABLET PO SCH (09:23)
[2020-08-25] MEDS: FUROSEMIDE 40 MG/4 ML VIAL IV SCH (09:23)
[2020-08-25] MEDS: NICOTINE 21 MG/24 HR PATCH TRANSDERM SCH (09:23)
[2020-08-25] MEDS: IRON SUCROSE 100 MG/5 ML VIAL IV SCH (09:24)
[2020-08-25] MEDS: ENOXAPARIN 40 MG/0.4 ML SYRINGE SUBCUT SCH (20:46)
[2020-08-25] MEDS: INSULIN GLARGINE 100 UNIT/ML SUBCUT SCH (20:46)
[2020-08-26] MEDS: ALBUTEROL/IPRATROPIUM 3 ML NEB RESP TX SCH ×2 (00:11→07:30)
[2020-08-26] MEDS: HYDROmorphone 2 MG/1 ML VIAL IV PRN ×2 (02:06→06:33)
[2020-08-26 07:02] LABS: Calcium 8.6 MG/DL (8.5-10.1); Osmolality,Calculated 310.8 MOS/KG (273-304); Potassium 4.6 MMOL/L (3.5-5.1)
[2020-08-26] MEDS: INSULIN REGULAR 100 UNIT/ML SUBCUT SCH ×2 (08:30→12:20)
[2020-08-26] MEDS: NICOTINE 21 MG/24 HR PATCH TRANSDERM SCH (08:31)
[2020-08-26] MEDS: predniSONE 20 MG TABLET PO SCH (08:31)
[2020-08-26] MEDS: FUROSEMIDE 40 MG/4 ML VIAL IV SCH (08:31)
[2020-08-26 11:59] VITALS: BP 148/85
== END 2020-08-26 12:30 | disposition home or self-care (01) | DRG 139 ==
LOC: N.ED 18:27 → SUATTDRO 23:06 → N.EDINP 23:06 → N.5E 08-19 12:24
PROVIDERS: ADMIT Internal Medicine; ATTEND Internal Medicine

== ENCOUNTER 2020-09-05 15:09 | Inpatient (IN) ==
[2020-09-05 16:25] LABS: Basophils # 0.1 10*3/uL (0.0-0.2); Basophils % 0.5 % (0.0-0.8); Eosinophils # 0.6 10*3/uL (0.0-0.87); Eosinophils % 4.6 % (0.00-10.9); Hematocrit 33.9 VOL% (35.7-47.0); Hemoglobin 10.5 GM/DL (12.0-16.0); Immature Granulocytes % 0.5 %; Immature Granulocytes Absolute 0.06 #; Lymphocytes # 0.8 10*3/uL (1.4-4.0); Lymphocytes % 5.8 % (21.3-54.2); Mean Corpuscular Volume 91.6 FL (87-102); Mean Platelet Volume 10.4 FL (9.6-12.0); Monocytes % 3.4 % (1.7-12.7); Neutrophils % 85.2 % (38.7-73.9); Platelet Count 301 T/CUMM (130-400); Red Cell Distribution Width 16.2 % (9.3-17.3); White Blood Count 13.2 T/CUMM (4-12)
[2020-09-05 16:32] LABS: Albumin 1.6 G/DL (3.4-5.0); Bilirubin,Total 0.4 MG/DL (0.2-1.0); Calcium 8.2 MG/DL (8.5-10.1); Osmolality,Calculated 282.5 MOS/KG (273-304); Potassium 3.7 MMOL/L (3.5-5.1)
[2020-09-05] MEDS ORDERED: DEXTROSE 50% 25 GM/50 ML SYRINGE IV ONE (16:38)
[2020-09-05] MEDS ORDERED: DEXTROSE 50% 25 GM/50 ML VIAL IV STA (16:39)
[2020-09-05 16:50] LABS: Bacteria,Urine Many /HPF (Few); Bilirubin,Urine Negative (Negative); Blood, Urine Moderate mg/dL (Negative); Glucose,Urine (UA) 50 mg/dL (Negative); Hyaline Casts,Urine 7 /LPF (0-3); Ketones,Urine Negative (Negative); Nitrite,Urine Negative (Negative); Protein,Urine >=500 MG/DL; Squamous Epithelial Cell,Urine Occasional /HPF (0-10); Urine Appearance CLOUDY (Clear); Urine Color Yellow (Yellow); Urine Specific Gravity 1.016 (1.001-1.035); Urine Urobilinogen < 2.0 EU/DL (0.2-1.0); WBC,Urine 37 /HPF (0-6)
[2020-09-05] MEDS ORDERED: GLUCAGON 1 MG VIAL IM PRN (17:18)
[2020-09-05] MEDS ORDERED: PIPERACILLIN/TAZOBACTAM 3,375 MG in SODIUM CHLORIDE 0.9% 100 ML IV STA (17:52)
[2020-09-05] MEDS ORDERED: SODIUM CHLORIDE 0.9% 100 ML IV ONE (18:06)
[2020-09-05] MEDS ORDERED: PIPERACILLIN/TAZOBACTAM 3,375 MG VIAL IV ONE (18:06)
[2020-09-05] MEDS ORDERED: ACETAMINOPHEN 325 MG TABLET PO PRN (18:13)
[2020-09-05] MEDS ORDERED: ONDANSETRON 4 MG/2 ML VIAL IV PRN (18:13)
[2020-09-05] MEDS ORDERED: ALBUTEROL 2.5 MG/3 ML NEB RESP TX STA (18:29)
[2020-09-05] MEDS ORDERED: ALBUTEROL 2.5 MG/3 ML NEB RESP TX ONE (18:29)
[2020-09-05] MEDS ORDERED: SODIUM CHLOR 0.45% KCL 20 MEQ 20 MEQ/1,000 ML BAG IV SCH (18:30)
[2020-09-05 18:38] LABS: ABG Base Excess 0.2 MMOL/L (-2.5-2.5); ABG HCO3 24.5 MMOL/L (20-26); ABG Oxygen Saturation 94.6 % (95-100); ABG PH 7.359 (7.35-7.45); ABG PO2 75.3 MM HG (80-95); ABG TCO2 23.7 MMOL/L (23-27)
[2020-09-05 18:46] LABS: Thyroid Stimulating Hormone 3.13 uIU/ml (0.358-3.74)
[2020-09-05] MEDS: DEXTROSE 50% 25 GM/50 ML VIAL IV PRN (19:44)
[2020-09-05] MEDS ORDERED: MAGNESIUM SULF RIDER 2 GM in PREMIX 1 EACH IV PRN (19:45)
[2020-09-05] MEDS ORDERED: MAGNESIUM SULF RIDER 4 GM in PREMIX 1 EACH IV PRN (19:45)
[2020-09-05] MEDS: INSULIN LISPRO 100 UNIT/ML SUBCUT SCH (21:16)
[2020-09-05] MEDS: ENOXAPARIN 40 MG/0.4 ML SYRINGE SUBCUT SCH (22:02)
[2020-09-05] MEDS: FUROSEMIDE 40 MG/4 ML VIAL IV SCH (22:03)
[2020-09-05] MEDS: ALBUMIN 25% 25 GM in PREMIX 1 EACH IV SCH (22:03)
[2020-09-05] MEDS: SODIUM CHLOR 0.45% KCL 20 MEQ 20 MEQ/1,000 ML BAG IV SCH (22:03)
[2020-09-05] MEDS: MORPHINE 4 MG/1 ML VIAL IV PRN (22:04)
[2020-09-06] MEDS: PIPERACILLIN/TAZOBACTAM 3,375 MG in SODIUM CHLORIDE 0.9% 100 ML IV SCH ×3 (03:01→22:19)
[2020-09-06] MEDS: DEXTROSE 50% 25 GM/50 ML VIAL IV PRN (03:01)
[2020-09-06 07:46] LABS: Basophils % 0.2 % (0.0-0.8); Eosinophils # 0.3 10*3/uL (0.0-0.87); Eosinophils % 3.1 % (0.00-10.9); Immature Granulocytes % 0.5 %; Immature Granulocytes Absolute 0.04 #; Lymphocytes # 0.9 10*3/uL (1.4-4.0); Lymphocytes % 10.5 % (21.3-54.2); Mean Corpuscular HGB Conc 30.8 GM/DL (32-36); Mean Corpuscular Volume 91.9 FL (87-102); Mean Platelet Volume 10.4 FL (9.6-12.0); Monocytes % 3.9 % (1.7-12.7); Neutrophils % 81.8 % (38.7-73.9); Red Cell Distribution Width 16.2 % (9.3-17.3)
[2020-09-06 08:04] LABS: White Blood Count 8.6 T/CUMM (4-12)
[2020-09-06 08:05] LABS: Platelet Count 203 T/CUMM (130-400); Red Blood Count 2.83 MC/CUMM (3.8-5.5)
[2020-09-06 08:16] LABS: Calcium 6.9 MG/DL (8.5-10.1); Potassium 3.6 MMOL/L (3.5-5.1)
[2020-09-06] MEDS: INSULIN LISPRO 100 UNIT/ML SUBCUT SCH ×4 (08:22→22:19)
[2020-09-06] MEDS: ALBUMIN 25% 25 GM in PREMIX 1 EACH IV SCH ×2 (09:14→18:05)
[2020-09-06] MEDS: FUROSEMIDE 40 MG/4 ML VIAL IV SCH ×2 (09:15→16:28)
[2020-09-06] MEDS: PANTOPRAZOLE 40 MG TABLET PO SCH (09:16)
[2020-09-06] MEDS: MORPHINE 4 MG/1 ML VIAL IV PRN ×2 (10:29→22:21)
[2020-09-06] MEDS: MUPIROCIN 2% OINT 22 GM TUBE TOP SCH ×2 (12:04→22:21)
[2020-09-06] MEDS: PREGABALIN 75 MG CAPSULE PO SCH ×3 (12:04→22:20)
[2020-09-06] MEDS: HydrOXYzine PAMOATE 50 MG CAPSULE PO SCH ×2 (12:05→22:22)
[2020-09-06] MEDS: lisinopriL 10 MG TABLET PO SCH (12:05)
[2020-09-06] MEDS: LINEZOLID INJ 600 MG in PREMIX 1 EACH IV SCH (14:46)
[2020-09-06] MEDS: ENOXAPARIN 40 MG/0.4 ML SYRINGE SUBCUT SCH (22:20)
[2020-09-07] MEDS: ALBUMIN 25% 25 GM in PREMIX 1 EACH IV SCH ×3 (01:20→16:38)
[2020-09-07] MEDS: LINEZOLID INJ 600 MG in PREMIX 1 EACH IV SCH ×2 (01:21→12:23)
[2020-09-07] MEDS: SODIUM CHLOR 0.45% KCL 20 MEQ 20 MEQ/1,000 ML BAG IV SCH (05:45)
[2020-09-07 05:47] LABS: Basophils % 0.4 % (0.0-0.8); Eosinophils # 0.6 10*3/uL (0.0-0.87); Eosinophils % 8.1 % (0.00-10.9); Hematocrit 24.9 VOL% (35.7-47.0); Hemoglobin 7.6 GM/DL (12.0-16.0); Immature Granulocytes % 0.3 %; Immature Granulocytes Absolute 0.02 #; Lymphocytes # 0.8 10*3/uL (1.4-4.0); Mean Corpuscular HGB Conc 30.5 GM/DL (32-36); Mean Corpuscular Volume 94.3 FL (87-102); Mean Platelet Volume 9.9 FL (9.6-12.0); Monocytes % 5.2 % (1.7-12.7); Platelet Count 172 T/CUMM (130-400); Red Blood Count 2.64 MC/CUMM (3.8-5.5); White Blood Count 6.9 T/CUMM (4-12)
[2020-09-07] MEDS: PIPERACILLIN/TAZOBACTAM 3,375 MG in SODIUM CHLORIDE 0.9% 100 ML IV SCH ×3 (05:55→21:30)
[2020-09-07 06:12] LABS: Calcium 7.8 MG/DL (8.5-10.1); Osmolality,Calculated 297.1 MOS/KG (273-304); Potassium 3.4 MMOL/L (3.5-5.1)
[2020-09-07] MEDS: HydrOXYzine PAMOATE 50 MG CAPSULE PO SCH ×2 (08:20→21:31)
[2020-09-07] MEDS: INSULIN LISPRO 100 UNIT/ML SUBCUT SCH ×4 (08:20→21:31)
[2020-09-07] MEDS: FUROSEMIDE 40 MG/4 ML VIAL IV SCH ×2 (08:20→15:24)
[2020-09-07] MEDS: PREGABALIN 75 MG CAPSULE PO SCH ×3 (08:21→21:31)
[2020-09-07] MEDS: PANTOPRAZOLE 40 MG TABLET PO SCH (08:21)
[2020-09-07] MEDS: lisinopriL 10 MG TABLET PO SCH (08:21)
[2020-09-07] MEDS: MUPIROCIN 2% OINT 22 GM TUBE TOP SCH ×2 (09:33→23:26)
[2020-09-07] MEDS: MORPHINE 4 MG/1 ML VIAL IV PRN ×3 (12:24→22:45)
[2020-09-07] MEDS: ENOXAPARIN 40 MG/0.4 ML SYRINGE SUBCUT SCH (21:30)
[2020-09-08] MEDS: LINEZOLID INJ 600 MG in PREMIX 1 EACH IV SCH (01:45)
[2020-09-08] MEDS: ALBUMIN 25% 25 GM in PREMIX 1 EACH IV SCH ×3 (01:45→16:52)
[2020-09-08 04:59] LABS: Basophils % 0.5 % (0.0-0.8); Eosinophils # 0.7 10*3/uL (0.0-0.87); Eosinophils % 11.3 % (0.00-10.9); Hematocrit 27.2 VOL% (35.7-47.0); Hemoglobin 8.3 GM/DL (12.0-16.0); Immature Granulocytes % 0.3 %; Immature Granulocytes Absolute 0.02 #; Lymphocytes # 0.9 10*3/uL (1.4-4.0); Lymphocytes % 14.1 % (21.3-54.2); Mean Corpuscular HGB Conc 30.5 GM/DL (32-36); Mean Corpuscular Volume 92.5 FL (87-102); Mean Platelet Volume 10.1 FL (9.6-12.0); Monocytes % 5.3 % (1.7-12.7); Neutrophils % 68.5 % (38.7-73.9); Platelet Count 186 T/CUMM (130-400); Red Blood Count 2.94 MC/CUMM (3.8-5.5); Red Cell Distribution Width 15.7 % (9.3-17.3); White Blood Count 6.2 T/CUMM (4-12)
[2020-09-08] MEDS: PIPERACILLIN/TAZOBACTAM 3,375 MG in SODIUM CHLORIDE 0.9% 100 ML IV SCH (05:21)
[2020-09-08] MEDS: MORPHINE 4 MG/1 ML VIAL IV PRN ×4 (05:22→20:55)
[2020-09-08 05:29] LABS: Calcium 7.9 MG/DL (8.5-10.1); Osmolality,Calculated 293.8 MOS/KG (273-304); Potassium 3.8 MMOL/L (3.5-5.1)
[2020-09-08 06:18] LABS: Band Neutrophils 3 % (0-10); Eosinophils 10 % (0-10); Hypochromasia 1+; Lymphocytes 5 % (20-55); Microcytosis 1+; Segmented Neutrophils 77 % (50-85); Total Cells Counted 100
[2020-09-08 06:19] LABS: Platelet Estimate Adequate
[2020-09-08] MEDS: lisinopriL 10 MG TABLET PO SCH (08:18)
[2020-09-08] MEDS: HydrOXYzine PAMOATE 50 MG CAPSULE PO SCH ×2 (08:18→20:55)
[2020-09-08] MEDS: FUROSEMIDE 40 MG/4 ML VIAL IV SCH ×2 (08:18→15:45)
[2020-09-08] MEDS: PANTOPRAZOLE 40 MG TABLET PO SCH (08:18)
[2020-09-08] MEDS: PREGABALIN 75 MG CAPSULE PO SCH ×3 (08:18→20:55)
[2020-09-08] MEDS: INSULIN LISPRO 100 UNIT/ML SUBCUT SCH ×4 (08:18→21:06)
[2020-09-08] MEDS: MUPIROCIN 2% OINT 22 GM TUBE TOP SCH ×2 (08:20→20:56)
[2020-09-08] MEDS: LEVOFLOXACIN 750 MG TABLET PO SCH (15:45)
[2020-09-08] MEDS: ENOXAPARIN 40 MG/0.4 ML SYRINGE SUBCUT SCH (20:55)
[2020-09-09] MEDS: MORPHINE 4 MG/1 ML VIAL IV PRN ×5 (01:11→23:36)
[2020-09-09] MEDS: ALBUMIN 25% 25 GM in PREMIX 1 EACH IV SCH ×3 (01:11→17:22)
[2020-09-09] MEDS: LEVOFLOXACIN 750 MG TABLET PO SCH (08:40)
[2020-09-09] MEDS: INSULIN LISPRO 100 UNIT/ML SUBCUT SCH ×4 (08:40→20:59)
[2020-09-09] MEDS: FUROSEMIDE 40 MG/4 ML VIAL IV SCH ×2 (08:41→16:13)
[2020-09-09] MEDS: PREGABALIN 75 MG CAPSULE PO SCH ×3 (08:41→21:00)
[2020-09-09] MEDS: PANTOPRAZOLE 40 MG TABLET PO SCH (08:41)
[2020-09-09] MEDS: lisinopriL 10 MG TABLET PO SCH (08:41)
[2020-09-09] MEDS: HydrOXYzine PAMOATE 50 MG CAPSULE PO SCH ×2 (08:41→21:01)
[2020-09-09] MEDS: MUPIROCIN 2% OINT 22 GM TUBE TOP SCH ×2 (09:32→21:05)
[2020-09-09] MEDS: ENOXAPARIN 40 MG/0.4 ML SYRINGE SUBCUT SCH (21:00)
[2020-09-10] MEDS: ALBUMIN 25% 25 GM in PREMIX 1 EACH IV SCH ×3 (01:02→17:01)
[2020-09-10] MEDS: MORPHINE 4 MG/1 ML VIAL IV PRN ×4 (04:25→21:09)
[2020-09-10 06:22] LABS: Calcium 7.8 MG/DL (8.5-10.1); Osmolality,Calculated 299.1 MOS/KG (273-304); Potassium 4.5 MMOL/L (3.5-5.1)
[2020-09-10] MEDS: PREGABALIN 75 MG CAPSULE PO SCH ×3 (09:31→21:09)
[2020-09-10] MEDS: PANTOPRAZOLE 40 MG TABLET PO SCH (09:31)
[2020-09-10] MEDS: HydrOXYzine PAMOATE 50 MG CAPSULE PO SCH ×2 (09:31→21:15)
[2020-09-10] MEDS: INSULIN LISPRO 100 UNIT/ML SUBCUT SCH ×5 (09:31→21:09)
[2020-09-10] MEDS: FUROSEMIDE 40 MG/4 ML VIAL IV SCH ×2 (09:32→15:27)
[2020-09-10] MEDS: LEVOFLOXACIN 750 MG TABLET PO SCH (09:32)
[2020-09-10] MEDS: lisinopriL 10 MG TABLET PO SCH (09:32)
[2020-09-10] MEDS: MUPIROCIN 2% OINT 22 GM TUBE TOP SCH ×2 (09:40→21:12)
[2020-09-10] MEDS: metOLazone 5 MG TABLET PO SCH (12:01)
[2020-09-10] MEDS: ENOXAPARIN 40 MG/0.4 ML SYRINGE SUBCUT SCH (21:09)
[2020-09-11] MEDS: ALBUMIN 25% 25 GM in PREMIX 1 EACH IV SCH ×3 (01:03→17:06)
[2020-09-11] MEDS: MORPHINE 4 MG/1 ML VIAL IV PRN ×5 (01:15→21:18)
[2020-09-11 06:47] LABS: Osmolality,Calculated 297.1 MOS/KG (273-304); Potassium 4.3 MMOL/L (3.5-5.1)
[2020-09-11] MEDS: MUPIROCIN 2% OINT 22 GM TUBE TOP SCH ×2 (10:14→21:18)
[2020-09-11] MEDS: PREGABALIN 75 MG CAPSULE PO SCH ×3 (10:14→21:18)
[2020-09-11] MEDS: INSULIN LISPRO 100 UNIT/ML SUBCUT SCH ×4 (10:14→21:17)
[2020-09-11] MEDS: FUROSEMIDE 40 MG/4 ML VIAL IV SCH ×2 (10:14→15:43)
[2020-09-11] MEDS: lisinopriL 10 MG TABLET PO SCH (10:15)
[2020-09-11] MEDS: HydrOXYzine PAMOATE 50 MG CAPSULE PO SCH ×2 (10:15→21:18)
[2020-09-11] MEDS: metOLazone 5 MG TABLET PO SCH (10:15)
[2020-09-11] MEDS: PANTOPRAZOLE 40 MG TABLET PO SCH (10:15)
[2020-09-11] MEDS: ENOXAPARIN 40 MG/0.4 ML SYRINGE SUBCUT SCH (21:18)
[2020-09-12] MEDS: ALBUMIN 25% 25 GM in PREMIX 1 EACH IV SCH ×3 (00:38→16:20)
[2020-09-12] MEDS: MORPHINE 4 MG/1 ML VIAL IV PRN ×5 (05:06→20:34)
[2020-09-12 06:24] LABS: Calcium 8.3 MG/DL (8.5-10.1); Osmolality,Calculated 300.8 MOS/KG (273-304); Potassium 4.3 MMOL/L (3.5-5.1)
[2020-09-12] MEDS: INSULIN LISPRO 100 UNIT/ML SUBCUT SCH ×4 (08:48→20:35)
[2020-09-12] MEDS: FUROSEMIDE 40 MG/4 ML VIAL IV SCH ×2 (08:49→16:14)
[2020-09-12] MEDS: PREGABALIN 75 MG CAPSULE PO SCH ×3 (08:49→20:34)
[2020-09-12] MEDS: lisinopriL 10 MG TABLET PO SCH (08:49)
[2020-09-12] MEDS: PANTOPRAZOLE 40 MG TABLET PO SCH (08:49)
[2020-09-12] MEDS: metOLazone 5 MG TABLET PO SCH (08:49)
[2020-09-12] MEDS: HydrOXYzine PAMOATE 50 MG CAPSULE PO SCH ×2 (08:49→20:34)
[2020-09-12] MEDS ORDERED: LIDOCAINE 1% 20 ML VIAL ONE (09:22)
[2020-09-12] MEDS: MUPIROCIN 2% OINT 22 GM TUBE TOP SCH ×2 (09:45→20:35)
[2020-09-12] MEDS ORDERED: MIDAZOLAM 2 MG/2 ML VIAL ONE (09:45)
[2020-09-12] MEDS ORDERED: fentaNYL 100 MCG/2 ML VIAL ONE (09:45)
[2020-09-12] MEDS ORDERED: KETAMINE 500 MG/10 ML VIAL ONE (09:46)
[2020-09-12] MEDS ORDERED: LIDOCAINE 2% 5 ML VIAL ONE (10:26)
[2020-09-12] MEDS ORDERED: SODIUM CHLORIDE 0.9% 250 ML IV ONE (10:26)
[2020-09-12] MEDS ORDERED: propofoL 200 MG/20 ML VIAL IV ONE (10:26)
[2020-09-12] MEDS ORDERED: LACTATED RINGERS 1,000 ML IV SCH (10:30)
[2020-09-12] MEDS ORDERED: MEPERIDINE 25 MG/1 ML VIAL IV PRN (10:38)
[2020-09-12] MEDS ORDERED: diphenhydrAMINE 50 MG/1 ML VIAL IV PRN (10:38)
[2020-09-12] MEDS ORDERED: ONDANSETRON 4 MG/2 ML VIAL IV PRN (10:38)
[2020-09-12] MEDS ORDERED: PROMETHAZINE INJ 25 MG in SODIUM CHLORIDE 0.9% 50 ML IV PRN (10:38)
[2020-09-12] MEDS ORDERED: HYDROmorphone 2 MG/1 ML VIAL IV PRN (10:38)
[2020-09-12] MEDS ORDERED: DEXTROSE 50% 25 GM/50 ML VIAL IV PRN (11:50)
[2020-09-12] MEDS: ENOXAPARIN 40 MG/0.4 ML SYRINGE SUBCUT SCH (20:34)
[2020-09-13] MEDS: ALBUMIN 25% 25 GM in PREMIX 1 EACH IV SCH ×2 (00:31→11:03)
[2020-09-13] MEDS: MORPHINE 4 MG/1 ML VIAL IV PRN ×6 (00:32→21:34)
[2020-09-13 06:18] LABS: Basophils % 0.5 % (0.0-0.8); Eosinophils # 0.2 10*3/uL (0.0-0.87); Eosinophils % 5.4 % (0.00-10.9); Hematocrit 23.6 VOL% (35.7-47.0); Hemoglobin 7.1 GM/DL (12.0-16.0); Immature Granulocytes % 0.7 %; Immature Granulocytes Absolute 0.03 #; Lymphocytes # 0.8 10*3/uL (1.4-4.0); Lymphocytes % 19.5 % (21.3-54.2); Mean Corpuscular HGB Conc 30.1 GM/DL (32-36); Mean Corpuscular Volume 93.3 FL (87-102); Mean Platelet Volume 9.8 FL (9.6-12.0); Monocytes % 8.1 % (1.7-12.7); Neutrophils % 65.8 % (38.7-73.9); Platelet Count 93 T/CUMM (130-400); Red Blood Count 2.53 MC/CUMM (3.8-5.5); Red Cell Distribution Width 15.7 % (9.3-17.3); White Blood Count 4.1 T/CUMM (4-12)
[2020-09-13 06:39] LABS: Hypochromasia 2+; Microcytosis 1+; Platelet Estimate Decreased
[2020-09-13 06:45] LABS: Albumin 3.2 G/DL (3.4-5.0); Bilirubin,Total 0.8 MG/DL (0.2-1.0); Calcium 8.5 MG/DL (8.5-10.1); Osmolality,Calculated 305.3 MOS/KG (273-304); Potassium 4.3 MMOL/L (3.5-5.1); Total Protein 6.6 G/DL (5.0-7.5)
[2020-09-13] MEDS: HydrOXYzine PAMOATE 50 MG CAPSULE PO SCH ×2 (08:47→21:34)
[2020-09-13] MEDS: INSULIN LISPRO 100 UNIT/ML SUBCUT SCH ×4 (08:47→21:46)
[2020-09-13] MEDS: FUROSEMIDE 40 MG/4 ML VIAL IV SCH (08:48)
[2020-09-13] MEDS: lisinopriL 10 MG TABLET PO SCH (08:49)
[2020-09-13] MEDS: PREGABALIN 75 MG CAPSULE PO SCH ×3 (08:49→21:34)
[2020-09-13] MEDS: PANTOPRAZOLE 40 MG TABLET PO SCH (08:49)
[2020-09-13] MEDS: MUPIROCIN 2% OINT 22 GM TUBE TOP SCH ×2 (08:51→21:46)
[2020-09-13] MEDS ORDERED: SODIUM CHLORIDE 0.9% 1,000 ML IV PRN (09:03)
[2020-09-13] MEDS ORDERED: ALBUMIN 25% 25 GM in PREMIX 1 EACH IV SCH (12:00)
[2020-09-13] MEDS: INSULIN GLARGINE 100 UNIT/ML SUBCUT SCH (15:54)
[2020-09-13] MEDS ORDERED: hydrALAZINE 20 MG/1 ML VIAL IV PRN (17:48)
[2020-09-13] MEDS: ENOXAPARIN 40 MG/0.4 ML SYRINGE SUBCUT SCH (21:34)
[2020-09-14] MEDS: MORPHINE 4 MG/1 ML VIAL IV PRN ×4 (03:48→22:17)
[2020-09-14 04:58] LABS: Basophils % 0.4 % (0.0-0.8); Eosinophils # 0.3 10*3/uL (0.0-0.87); Eosinophils % 5.5 % (0.00-10.9); Hemoglobin 7.5 GM/DL (12.0-16.0); Immature Granulocytes % 0.4 %; Immature Granulocytes Absolute 0.02 #; Lymphocytes # 0.9 10*3/uL (1.4-4.0); Lymphocytes % 17.2 % (21.3-54.2); Mean Corpuscular HGB Conc 31.3 GM/DL (32-36); Mean Corpuscular Volume 89.2 FL (87-102); Mean Platelet Volume 9.9 FL (9.6-12.0); Monocytes % 8.1 % (1.7-12.7); Neutrophils % 68.4 % (38.7-73.9); Platelet Count 102 T/CUMM (130-400); Red Blood Count 2.69 MC/CUMM (3.8-5.5); Red Cell Distribution Width 15.3 % (9.3-17.3); White Blood Count 5.1 T/CUMM (4-12)
[2020-09-14 05:13] LABS: Calcium 8.7 MG/DL (8.5-10.1); Osmolality,Calculated 300.8 MOS/KG (273-304); Potassium 3.8 MMOL/L (3.5-5.1)
[2020-09-14] MEDS ORDERED: FUROSEMIDE 40 MG/4 ML VIAL IV SCH (09:00)
[2020-09-14] MEDS: HydrOXYzine PAMOATE 50 MG CAPSULE PO SCH ×2 (09:08→22:15)
[2020-09-14] MEDS: PREGABALIN 75 MG CAPSULE PO SCH ×3 (09:08→22:15)
[2020-09-14] MEDS: PANTOPRAZOLE 40 MG TABLET PO SCH (09:09)
[2020-09-14] MEDS: MUPIROCIN 2% OINT 22 GM TUBE TOP SCH ×2 (09:11→22:17)
[2020-09-14] MEDS: INSULIN LISPRO 100 UNIT/ML SUBCUT SCH ×4 (09:12→22:15)
[2020-09-14] MEDS: INSULIN GLARGINE 100 UNIT/ML SUBCUT SCH ×2 (22:15→22:22)
[2020-09-14] MEDS: ENOXAPARIN 40 MG/0.4 ML SYRINGE SUBCUT SCH (22:15)
[2020-09-15 05:56] LABS: Basophils % 0.5 % (0.0-0.8); Eosinophils # 0.2 10*3/uL (0.0-0.87); Eosinophils % 5.1 % (0.00-10.9); Hematocrit 24.2 VOL% (35.7-47.0); Hemoglobin 7.5 GM/DL (12.0-16.0); Immature Granulocytes % 0.3 %; Immature Granulocytes Absolute 0.01 #; Lymphocytes # 0.9 10*3/uL (1.4-4.0); Lymphocytes % 24.3 % (21.3-54.2); Mean Platelet Volume 10.4 FL (9.6-12.0); Monocytes % 7.8 % (1.7-12.7); Platelet Count 94 T/CUMM (130-400); Red Blood Count 2.63 MC/CUMM (3.8-5.5); Red Cell Distribution Width 15.5 % (9.3-17.3); White Blood Count 3.7 T/CUMM (4-12)
[2020-09-15] MEDS: MORPHINE 4 MG/1 ML VIAL IV PRN ×2 (05:57→10:51)
[2020-09-15 06:17] LABS: Hypochromasia 1+; Microcytosis 1+; Platelet Estimate Decreased
[2020-09-15 06:26] LABS: Calcium 8.4 MG/DL (8.5-10.1); Osmolality,Calculated 303.4 MOS/KG (273-304)
[2020-09-15] MEDS: PREGABALIN 75 MG CAPSULE PO SCH (09:32)
[2020-09-15] MEDS: MUPIROCIN 2% OINT 22 GM TUBE TOP SCH (09:32)
[2020-09-15] MEDS: PANTOPRAZOLE 40 MG TABLET PO SCH (09:32)
[2020-09-15] MEDS: HydrOXYzine PAMOATE 50 MG CAPSULE PO SCH (09:33)
[2020-09-15] MEDS: INSULIN LISPRO 100 UNIT/ML SUBCUT SCH ×2 (10:46→12:08)
[2020-09-15 11:54] VITALS: BP 169/94
== END 2020-09-15 14:13 | disposition home health service (06) | DRG 380 ==
LOC: N.ED 15:09 → N.EDINP 18:12 → SUATTDRO 18:12 → N.5E 19:51
PROVIDERS: ADMIT Internal Medicine; ATTEND Internal Medicine

== ENCOUNTER 2020-09-20 13:38 | Inpatient (IN) ==
[2020-09-20] MEDS ORDERED: HYDROmorphone 2 MG/1 ML VIAL IV STA (14:06)
[2020-09-20] MEDS ORDERED: ONDANSETRON 4 MG/2 ML VIAL IV STA (14:06)
[2020-09-20] MEDS ORDERED: PIPERACILLIN/TAZOBACTAM 3,375 MG in SODIUM CHLORIDE 0.9% 100 ML IV STA (14:06)
[2020-09-20] MEDS ORDERED: AZTREONAM 2,000 MG in SODIUM CHLORIDE 0.9% 100 ML IV STA (14:10)
[2020-09-20 15:00] LABS: Basophils % 0.5 % (0.0-0.8); Eosinophils # 0.3 10*3/uL (0.0-0.87); Eosinophils % 3.7 % (0.00-10.9); Hemoglobin 8.5 GM/DL (12.0-16.0); Immature Granulocytes % 0.4 %; Immature Granulocytes Absolute 0.03 #; Lymphocytes # 0.8 10*3/uL (1.4-4.0); Lymphocytes % 11.1 % (21.3-54.2); Mean Corpuscular HGB Conc 30.4 GM/DL (32-36); Mean Corpuscular Volume 94.3 FL (87-102); Mean Platelet Volume 11.7 FL (9.6-12.0); Neutrophils % 78.3 % (38.7-73.9); Platelet Count 125 T/CUMM (130-400); Red Blood Count 2.97 MC/CUMM (3.8-5.5); White Blood Count 7.4 T/CUMM (4-12)
[2020-09-20] MEDS ORDERED: GLUCAGON 1 MG VIAL IM PRN ×2 (15:05)
[2020-09-20] MEDS ORDERED: DEXTROSE 50% 25 GM/50 ML VIAL IV PRN (15:05)
[2020-09-20 15:19] LABS: Albumin 2.9 G/DL (3.4-5.0); Bilirubin,Total 0.5 MG/DL (0.2-1.0); Calcium 7.9 MG/DL (8.5-10.1); Osmolality,Calculated 310.4 MOS/KG (273-304); Potassium 4.7 MMOL/L (3.5-5.1)
[2020-09-20] MEDS ORDERED: AZTREONAM 1,000 MG in SODIUM CHLORIDE 0.9% 100 ML IV SCH (15:30)
[2020-09-20] MEDS: INSULIN LISPRO 100 UNIT/ML SUBCUT SCH ×3 (17:55→21:46)
[2020-09-20] MEDS ORDERED: INSULIN GLARGINE 100 UNIT/ML SUBCUT SCH ×2 (21:00)
[2020-09-20] MEDS ORDERED: PREGABALIN 75 MG CAPSULE PO SCH (21:00)
[2020-09-20] MEDS: PIPERACILLIN/TAZOBACTAM 3,375 MG in SODIUM CHLORIDE 0.9% 100 ML IV SCH (21:12)
[2020-09-20] MEDS: PREGABALIN 25 MG CAPSULE PO SCH (21:14)
[2020-09-21 05:34] LABS: Bacteria,Urine Many /HPF (Few); Bilirubin,Urine Negative (Negative); Blood, Urine Small mg/dL (Negative); Glucose,Urine (UA) >=500 mg/dL (Negative); Ketones,Urine Negative (Negative); Nitrite,Urine Negative (Negative); Protein,Urine >=500 MG/DL; RBC,Urine 10 /HPF (0-4); Squamous Epithelial Cell,Urine Occasional /HPF (0-10); Urine Appearance Slightly Hazy (Clear); Urine Color Yellow (Yellow); Urine Specific Gravity 1.015 (1.001-1.035); Urine Urobilinogen < 2.0 EU/DL (0.2-1.0); WBC,Urine 30 /HPF (0-6)
[2020-09-21] MEDS: PIPERACILLIN/TAZOBACTAM 3,375 MG in SODIUM CHLORIDE 0.9% 100 ML IV SCH ×3 (05:55→23:16)
[2020-09-21] MEDS: DEXTROSE 50% 25 GM/50 ML VIAL IV PRN (06:05)
[2020-09-21 06:13] LABS: Basophils % 0.5 % (0.0-0.8); Eosinophils # 0.1 10*3/uL (0.0-0.87); Hematocrit 23.7 VOL% (35.7-47.0); Hemoglobin 7.3 GM/DL (12.0-16.0); Immature Granulocytes % 0.5 %; Immature Granulocytes Absolute 0.03 #; Lymphocytes # 0.7 10*3/uL (1.4-4.0); Lymphocytes % 11.9 % (21.3-54.2); Mean Corpuscular HGB Conc 30.8 GM/DL (32-36); Mean Corpuscular Volume 95.2 FL (87-102); Mean Platelet Volume 11.3 FL (9.6-12.0); Monocytes % 8.1 % (1.7-12.7); Platelet Count 133 T/CUMM (130-400); Red Blood Count 2.49 MC/CUMM (3.8-5.5); Red Cell Distribution Width 16.9 % (9.3-17.3); White Blood Count 6.2 T/CUMM (4-12)
[2020-09-21] MEDS: INSULIN LISPRO 100 UNIT/ML SUBCUT SCH ×8 (07:14→20:50)
[2020-09-21 07:20] LABS: Potassium 4.7 MMOL/L (3.5-5.1)
[2020-09-21 07:22] LABS: Calcium 8.5 MG/DL (8.5-10.1)
[2020-09-21] MEDS: PREGABALIN 25 MG CAPSULE PO SCH ×3 (09:45→20:49)
[2020-09-21] MEDS: ZINC OXIDE 16% PASTE 57 GM TUBE TOP SCH ×2 (09:46→20:50)
[2020-09-21] MEDS: ENOXAPARIN 30 MG/0.3 ML SYRINGE SUBCUT SCH (15:19)
[2020-09-21] MEDS: INSULIN GLARGINE 100 UNIT/ML SUBCUT SCH (20:48)
[2020-09-22 06:31] LABS: Calcium 8.4 MG/DL (8.5-10.1); Osmolality,Calculated 309.7 MOS/KG (273-304); Potassium 4.8 MMOL/L (3.5-5.1)
[2020-09-22] MEDS: PIPERACILLIN/TAZOBACTAM 3,375 MG in SODIUM CHLORIDE 0.9% 100 ML IV SCH ×2 (06:31→12:05)
[2020-09-22] MEDS: INSULIN LISPRO 100 UNIT/ML SUBCUT SCH ×8 (07:30→21:03)
[2020-09-22] MEDS: ZINC OXIDE 16% PASTE 57 GM TUBE TOP SCH ×2 (08:30→21:02)
[2020-09-22] MEDS: PREGABALIN 25 MG CAPSULE PO SCH ×3 (08:31→21:01)
[2020-09-22] MEDS: COLLAGENASE OINT 30 GM TUBE TOP SCH (13:13)
[2020-09-22] MEDS: SODIUM CHLORIDE 0.9% 1,000 ML IV SCH (15:15)
[2020-09-22] MEDS: ENOXAPARIN 30 MG/0.3 ML SYRINGE SUBCUT SCH (15:16)
[2020-09-22] MEDS: CEFEPIME 1,000 MG in SODIUM CHLORIDE 0.9% 100 ML IV SCH (16:09)
[2020-09-22] MEDS: MORPHINE ER 15 MG TABLET PO SCH (21:01)
[2020-09-22] MEDS: INSULIN GLARGINE 100 UNIT/ML SUBCUT SCH (21:02)
[2020-09-23] MEDS: CEFEPIME 1,000 MG in SODIUM CHLORIDE 0.9% 100 ML IV SCH ×2 (03:38→15:00)
[2020-09-23 04:12] LABS: Basophils % 0.3 % (0.0-0.8); Eosinophils # 0.2 10*3/uL (0.0-0.87); Eosinophils % 3.9 % (0.00-10.9); Hematocrit 23.1 VOL% (35.7-47.0); Hemoglobin 6.8 GM/DL (12.0-16.0); Immature Granulocytes % 0.7 %; Immature Granulocytes Absolute 0.04 #; Lymphocytes # 0.9 10*3/uL (1.4-4.0); Lymphocytes % 15.6 % (21.3-54.2); Mean Corpuscular HGB Conc 29.4 GM/DL (32-36); Mean Corpuscular Volume 97.9 FL (87-102); Mean Platelet Volume 11.2 FL (9.6-12.0); Monocytes % 7.8 % (1.7-12.7); Neutrophils % 71.7 % (38.7-73.9); Platelet Count 169 T/CUMM (130-400); Red Blood Count 2.36 MC/CUMM (3.8-5.5); Red Cell Distribution Width 17.5 % (9.3-17.3); White Blood Count 5.9 T/CUMM (4-12)
[2020-09-23 04:38] LABS: Osmolality,Calculated 309.5 MOS/KG (273-304); Potassium 5.3 MMOL/L (3.5-5.1)
[2020-09-23 04:41] LABS: Folate 8.1 NG/ML (5.38-24.0); Vitamin B12 344 PG/ML (211-911)
[2020-09-23 04:43] LABS: Ferritin 219.2 ng/ml (8-252)
[2020-09-23 06:04] LABS: Sedimentation Rate-Westergren 109 MM/HR (0-20)
[2020-09-23] MEDS: MORPHINE ER 15 MG TABLET PO SCH ×3 (06:40→18:04)
[2020-09-23] MEDS: INSULIN LISPRO 100 UNIT/ML SUBCUT SCH ×8 (08:20→21:45)
[2020-09-23] MEDS: PREGABALIN 25 MG CAPSULE PO SCH ×3 (08:21→21:47)
[2020-09-23] MEDS: COLLAGENASE OINT 30 GM TUBE TOP SCH (08:21)
[2020-09-23] MEDS: ZINC OXIDE 16% PASTE 57 GM TUBE TOP SCH ×2 (08:21→21:48)
[2020-09-23] MEDS: POLYETHYLENE GLYCOL POWDER 17 GM PACK PO SCH (08:21)
[2020-09-23] MEDS: SODIUM CHLORIDE 0.9% 1,000 ML IV SCH ×2 (08:41→08:44)
[2020-09-23 10:09] LABS: Hemoglobin A1 (Alkaline) 97.6 % (96.5-98.5); Hemoglobin A2 (Alkaline) 2.4 % (1.5-3.5)
[2020-09-23] MEDS: ENOXAPARIN 30 MG/0.3 ML SYRINGE SUBCUT SCH (15:00)
[2020-09-23] MEDS: ACETAMINOPHEN 325 MG TABLET PO PRN (17:03)
[2020-09-23] MEDS: INSULIN GLARGINE 100 UNIT/ML SUBCUT SCH (21:47)
[2020-09-24] MEDS: CEFEPIME 1,000 MG in SODIUM CHLORIDE 0.9% 100 ML IV SCH ×2 (05:04→16:39)
[2020-09-24 05:43] LABS: Basophils % 0.4 % (0.0-0.8); Eosinophils # 0.3 10*3/uL (0.0-0.87); Eosinophils % 3.5 % (0.00-10.9); Hemoglobin 6.7 GM/DL (12.0-16.0); Immature Granulocytes % 0.5 %; Immature Granulocytes Absolute 0.04 #; Lymphocytes # 1.2 10*3/uL (1.4-4.0); Lymphocytes % 14.7 % (21.3-54.2); Mean Corpuscular HGB Conc 29.1 GM/DL (32-36); Mean Corpuscular Volume 97.5 FL (87-102); Mean Platelet Volume 10.7 FL (9.6-12.0); Monocytes % 8.4 % (1.7-12.7); Neutrophils % 72.5 % (38.7-73.9); Platelet Count 199 T/CUMM (130-400); Red Blood Count 2.36 MC/CUMM (3.8-5.5); Red Cell Distribution Width 17.2 % (9.3-17.3); White Blood Count 7.9 T/CUMM (4-12)
[2020-09-24 05:56] LABS: Osmolality,Calculated 309.4 MOS/KG (273-304); Potassium 5.1 MMOL/L (3.5-5.1)
[2020-09-24] MEDS: SODIUM CHLORIDE 0.9% 1,000 ML IV SCH (06:27)
[2020-09-24] MEDS: MORPHINE ER 15 MG TABLET PO SCH ×2 (06:28→18:41)
[2020-09-24] MEDS: INSULIN LISPRO 100 UNIT/ML SUBCUT SCH ×9 (06:28→20:58)
[2020-09-24] MEDS: PREGABALIN 25 MG CAPSULE PO SCH ×3 (09:03→20:57)
[2020-09-24] MEDS: ZINC OXIDE 16% PASTE 57 GM TUBE TOP SCH ×2 (09:03→20:57)
[2020-09-24] MEDS: POLYETHYLENE GLYCOL POWDER 17 GM PACK PO SCH (09:04)
[2020-09-24] MEDS: COLLAGENASE OINT 30 GM TUBE TOP SCH (09:04)
[2020-09-24] MEDS: ENOXAPARIN 30 MG/0.3 ML SYRINGE SUBCUT SCH (15:09)
[2020-09-24] MEDS ORDERED: SODIUM CHLORIDE 0.9% 1,000 ML IV PRN (19:04)
[2020-09-24] MEDS: INSULIN GLARGINE 100 UNIT/ML SUBCUT SCH (20:57)
[2020-09-25] MEDS: SODIUM CHLORIDE 0.9% 1,000 ML IV SCH ×2 (00:55→21:30)
[2020-09-25 03:44] LABS: Basophils # 0.1 10*3/uL (0.0-0.2); Basophils % 0.8 % (0.0-0.8); Eosinophils # 0.3 10*3/uL (0.0-0.87); Eosinophils % 4.7 % (0.00-10.9); Hematocrit 26.6 VOL% (35.7-47.0); Immature Granulocytes % 0.8 %; Immature Granulocytes Absolute 0.05 #; Lymphocytes % 14.7 % (21.3-54.2); Mean Corpuscular HGB Conc 30.1 GM/DL (32-36); Mean Platelet Volume 10.9 FL (9.6-12.0); Monocytes % 9.2 % (1.7-12.7); Neutrophils % 69.8 % (38.7-73.9); Platelet Count 220 T/CUMM (130-400); Red Cell Distribution Width 16.6 % (9.3-17.3); White Blood Count 6.7 T/CUMM (4-12)
[2020-09-25 04:09] LABS: Calcium 8.3 MG/DL (8.5-10.1); Osmolality,Calculated 304.7 MOS/KG (273-304); Potassium 5.7 MMOL/L (3.5-5.1)
[2020-09-25] MEDS: CEFEPIME 1,000 MG in SODIUM CHLORIDE 0.9% 100 ML IV SCH ×2 (04:27→15:42)
[2020-09-25] MEDS: MORPHINE ER 15 MG TABLET PO SCH (06:15)
[2020-09-25] MEDS: INSULIN LISPRO 100 UNIT/ML SUBCUT SCH ×8 (08:35→20:24)
[2020-09-25] MEDS: ZINC OXIDE 16% PASTE 57 GM TUBE TOP SCH ×2 (08:37→21:07)
[2020-09-25] MEDS: PREGABALIN 25 MG CAPSULE PO SCH ×3 (08:37→21:07)
[2020-09-25] MEDS: POLYETHYLENE GLYCOL POWDER 17 GM PACK PO SCH (08:37)
[2020-09-25] MEDS: COLLAGENASE OINT 30 GM TUBE TOP SCH (08:37)
[2020-09-25] MEDS ORDERED: SODIUM POLYSTYRENE SULFATE 15 GM/60 ML BOTTLE PO STA (12:29)
[2020-09-25] MEDS: ALBUMIN 25% 12.5 GM in PREMIX 1 EACH IV SCH ×2 (14:15→21:07)
[2020-09-25] MEDS: ENOXAPARIN 30 MG/0.3 ML SYRINGE SUBCUT SCH (14:17)
[2020-09-25] MEDS: INSULIN GLARGINE 100 UNIT/ML SUBCUT SCH (20:24)
[2020-09-26] MEDS: CEFEPIME 1,000 MG in SODIUM CHLORIDE 0.9% 100 ML IV SCH ×2 (04:15→17:00)
[2020-09-26 05:03] LABS: Basophils % 0.4 % (0.0-0.8); Eosinophils # 0.3 10*3/uL (0.0-0.87); Eosinophils % 4.8 % (0.00-10.9); Hematocrit 25.2 VOL% (35.7-47.0); Hemoglobin 7.5 GM/DL (12.0-16.0); Immature Granulocytes % 1.5 %; Immature Granulocytes Absolute 0.08 #; Lymphocytes % 18.8 % (21.3-54.2); Mean Corpuscular HGB Conc 29.8 GM/DL (32-36); Mean Corpuscular Volume 95.8 FL (87-102); Mean Platelet Volume 10.5 FL (9.6-12.0); Monocytes % 11.8 % (1.7-12.7); NRBC # 0.03 10*3/uL; Neutrophils % 62.7 % (38.7-73.9); Platelet Count 193 T/CUMM (130-400); Red Blood Count 2.63 MC/CUMM (3.8-5.5); Red Cell Distribution Width 16.9 % (9.3-17.3); White Blood Count 5.3 T/CUMM (4-12)
[2020-09-26] MEDS: ALBUMIN 25% 12.5 GM in PREMIX 1 EACH IV SCH ×3 (05:14→21:44)
[2020-09-26 05:32] LABS: Calcium 8.1 MG/DL (8.5-10.1); Osmolality,Calculated 302.4 MOS/KG (273-304); Potassium 5.2 MMOL/L (3.5-5.1)
[2020-09-26] MEDS: INSULIN LISPRO 100 UNIT/ML SUBCUT SCH ×8 (09:06→21:46)
[2020-09-26] MEDS: ZINC OXIDE 16% PASTE 57 GM TUBE TOP SCH ×2 (09:06→21:45)
[2020-09-26] MEDS: COLLAGENASE OINT 30 GM TUBE TOP SCH (09:06)
[2020-09-26] MEDS: PREGABALIN 25 MG CAPSULE PO SCH ×2 (09:06→14:07)
[2020-09-26] MEDS: POLYETHYLENE GLYCOL POWDER 17 GM PACK PO SCH (09:24)
[2020-09-26] MEDS: ENOXAPARIN 30 MG/0.3 ML SYRINGE SUBCUT SCH (14:07)
[2020-09-26] MEDS ORDERED: calcitrioL 0.25 MCG CAPSULE PO ONE (16:23)
[2020-09-26] MEDS: SODIUM CHLORIDE 0.9% 1,000 ML IV SCH (17:37)
[2020-09-26] MEDS: INSULIN GLARGINE 100 UNIT/ML SUBCUT SCH (21:47)
[2020-09-27] MEDS: CEFEPIME 1,000 MG in SODIUM CHLORIDE 0.9% 100 ML IV SCH ×2 (04:14→15:35)
[2020-09-27] MEDS: ALBUMIN 25% 12.5 GM in PREMIX 1 EACH IV SCH (04:15)
[2020-09-27 06:04] LABS: Basophils % 0.5 % (0.0-0.8); Eosinophils # 0.2 10*3/uL (0.0-0.87); Eosinophils % 3.3 % (0.00-10.9); Hematocrit 26.1 VOL% (35.7-47.0); Hemoglobin 7.7 GM/DL (12.0-16.0); Immature Granulocytes % 1.9 %; Immature Granulocytes Absolute 0.11 #; Lymphocytes # 0.9 10*3/uL (1.4-4.0); Lymphocytes % 16.3 % (21.3-54.2); Mean Corpuscular HGB Conc 29.5 GM/DL (32-36); Mean Corpuscular Volume 96.7 FL (87-102); Monocytes % 6.8 % (1.7-12.7); NRBC # 0.04 10*3/uL; Neutrophils % 71.2 % (38.7-73.9); Platelet Count 219 T/CUMM (130-400); Red Cell Distribution Width 17.1 % (9.3-17.3); White Blood Count 5.7 T/CUMM (4-12)
[2020-09-27 06:26] LABS: Calcium 8.4 MG/DL (8.5-10.1); Osmolality,Calculated 306.5 MOS/KG (273-304); Potassium 5.2 MMOL/L (3.5-5.1)
[2020-09-27] MEDS: INSULIN LISPRO 100 UNIT/ML SUBCUT SCH ×8 (08:22→20:47)
[2020-09-27] MEDS: PREGABALIN 25 MG CAPSULE PO SCH (08:23)
[2020-09-27] MEDS: ZINC OXIDE 16% PASTE 57 GM TUBE TOP SCH ×2 (08:23→20:47)
[2020-09-27] MEDS: calcitrioL 0.25 MCG CAPSULE PO SCH (08:23)
[2020-09-27] MEDS: COLLAGENASE OINT 30 GM TUBE TOP SCH (08:24)
[2020-09-27] MEDS: POLYETHYLENE GLYCOL POWDER 17 GM PACK PO SCH (08:29)
[2020-09-27] MEDS: ENOXAPARIN 30 MG/0.3 ML SYRINGE SUBCUT SCH (15:37)
[2020-09-27] MEDS: INSULIN GLARGINE 100 UNIT/ML SUBCUT SCH (20:47)
[2020-09-27] MEDS ORDERED: SODIUM CHLORIDE 0.9% 1,000 ML IV ONE (21:36)
[2020-09-27] MEDS ORDERED: SODIUM BICARB INJ 150 MEQ in DEXTROSE 5% 850 ML IV SCH (22:00)
[2020-09-27 22:31] LABS: ABG Base Excess -21.1 MMOL/L (-2.5-2.5); ABG HCO3 8.8 MMOL/L (20-26); ABG Oxygen Saturation 97.5 % (95-100); ABG PCO2 37.3 MM HG (35-48); ABG TCO2 9.1 MMOL/L (23-27)
[2020-09-27 22:33] LABS: ABG PH 6.995 (7.35-7.45)
[2020-09-27] MEDS ORDERED: SODIUM PHOSPHATE IV PRN (23:10)
[2020-09-27] MEDS ORDERED: POTASSIUM CHLORIDE RIDER 10 MEQ in PREMIX 1 EACH IV PRN (23:10)
[2020-09-27] MEDS ORDERED: SODIUM BICARB INJ 100 MEQ in STERILE WATER INJ 400 ML IV PRN (23:10)
[2020-09-27] MEDS ORDERED: SODIUM CHLORIDE 0.9% IV PRN (23:10)
[2020-09-27] MEDS ORDERED: MAGNESIUM SULF RIDER 2 GM in PREMIX 1 EACH IV PRN (23:10)
[2020-09-27] MEDS ORDERED: MAGNESIUM SULF RIDER 4 GM in PREMIX 1 EACH IV PRN (23:10)
[2020-09-27 23:54] LABS: Calcium 7.8 MG/DL (8.5-10.1); Osmolality,Calculated 313.1 MOS/KG (273-304); Potassium 5.5 MMOL/L (3.5-5.1)
[2020-09-28] MEDS: INSULIN REGULAR DRIP 100 ML IV SCH ×3 (00:08→23:17)
[2020-09-28] MEDS: SODIUM CHLORIDE 0.9% 1,000 ML IV SCH ×4 (00:08→02:15)
[2020-09-28] MEDS ORDERED: SODIUM CHLORIDE 0.9% 1,000 ML IV SCH (03:47)
[2020-09-28 05:27] LABS: ABG Base Excess -15.9 MMOL/L (-2.5-2.5); ABG HCO3 12.1 MMOL/L (20-26); ABG Oxygen Saturation 98.9 % (95-100); ABG PCO2 35.7 MM HG (35-48); ABG TCO2 11.8 MMOL/L (23-27)
[2020-09-28 05:29] LABS: ABG PH 7.139 (7.35-7.45)
[2020-09-28 05:42] LABS: Basophils % 0.2 % (0.0-0.8); Eosinophils # 0.1 10*3/uL (0.0-0.87); Eosinophils % 1.3 % (0.00-10.9); Hematocrit 24.9 VOL% (35.7-47.0); Hemoglobin 7.2 GM/DL (12.0-16.0); Immature Granulocytes % 1.3 %; Immature Granulocytes Absolute 0.07 #; Lymphocytes # 0.7 10*3/uL (1.4-4.0); Lymphocytes % 13.2 % (21.3-54.2); Mean Corpuscular HGB Conc 28.9 GM/DL (32-36); Mean Corpuscular Volume 98.8 FL (87-102); Mean Platelet Volume 11.1 FL (9.6-12.0); Monocytes % 8.2 % (1.7-12.7); NRBC # 0.07 10*3/uL; Neutrophils % 75.8 % (38.7-73.9); Platelet Count 220 T/CUMM (130-400); Red Blood Count 2.52 MC/CUMM (3.8-5.5); Red Cell Distribution Width 16.8 % (9.3-17.3); White Blood Count 5.2 T/CUMM (4-12)
[2020-09-28] MEDS: CEFEPIME 1,000 MG in SODIUM CHLORIDE 0.9% 100 ML IV SCH ×2 (05:53→17:27)
[2020-09-28 05:56] LABS: Calcium 7.8 MG/DL (8.5-10.1); Osmolality,Calculated 310.8 MOS/KG (273-304); Potassium 4.5 MMOL/L (3.5-5.1)
[2020-09-28 05:57] LABS: Calcium 7.7 MG/DL (8.5-10.1); Osmolality,Calculated 310.8 MOS/KG (273-304); Potassium 4.5 MMOL/L (3.5-5.1)
[2020-09-28 06:04] LABS: Hypochromasia 1+; Microcytosis 1+; Platelet Estimate Adequate
[2020-09-28] MEDS: DEXTROSE 5% NACL 0.9% 1,000 ML IV SCH ×5 (06:45→21:10)
[2020-09-28] MEDS: ZINC OXIDE 16% PASTE 57 GM TUBE TOP SCH ×2 (08:32→20:40)
[2020-09-28] MEDS: SODIUM HYPOCHLORITE 0.25% IRRIG 473 ML BOTTLE TOP SCH (08:32)
[2020-09-28] MEDS: COLLAGENASE OINT 30 GM TUBE TOP SCH (08:33)
[2020-09-28] MEDS: calcitrioL 0.25 MCG CAPSULE PO SCH (08:33)
[2020-09-28] MEDS: POLYETHYLENE GLYCOL POWDER 17 GM PACK PO SCH (08:33)
[2020-09-28] MEDS: PREGABALIN 25 MG CAPSULE PO SCH (08:33)
[2020-09-28 09:23] LABS: ABG HCO3 13.4 MMOL/L (20-26); ABG Oxygen Saturation 96.2 % (95-100); ABG PCO2 40.9 MM HG (35-48); ABG PO2 88.4 MM HG (80-95); ABG TCO2 13.7 MMOL/L (23-27); Allen Test Positive
[2020-09-28 09:26] LABS: ABG PH 7.145 (7.35-7.45)
[2020-09-28] MEDS: DEXTROSE 50% 25 GM/50 ML VIAL IV PRN (09:55)
[2020-09-28 10:46] LABS: Hepatitis B Core IgM Quant < 0.05 Index; Hepatitis B Surface Ag Quant < 0.10 Index; Hepatitis B Surface Ag Result Non-Reactive (NonReactive); Hepatitis C Virus Ab Quant 0.09 Index; Hepatitis C Virus Ab Result Non-Reactive (NonReactive)
[2020-09-28 11:18] LABS: Calcium 7.4 MG/DL (8.5-10.1); Osmolality,Calculated 309.8 MOS/KG (273-304); Potassium 4.7 MMOL/L (3.5-5.1)
[2020-09-28] MEDS ORDERED: HYDROCORTISONE 100 MG VIAL IV ONE (11:41)
[2020-09-28] MEDS ORDERED: SODIUM CHLORIDE 0.9% 1,000 ML IV PRN (11:49)
[2020-09-28] MEDS: ALBUMIN 25% 25 GM in PREMIX 1 EACH IV SCH ×2 (12:50→20:40)
[2020-09-28] MEDS ORDERED: SODIUM CHLORIDE 0.45% 1,000 ML IV SCH (15:47)
[2020-09-28 16:30] LABS: Calcium 7.7 MG/DL (8.5-10.1); Potassium 4.8 MMOL/L (3.5-5.1)
[2020-09-28] MEDS ORDERED: DEXTROSE 10% 1,000 ML IV SCH (16:30)
[2020-09-28] MEDS: ENOXAPARIN 30 MG/0.3 ML SYRINGE SUBCUT SCH (17:28)
[2020-09-28 20:11] LABS: Calcium 7.5 MG/DL (8.5-10.1); Osmolality,Calculated 312.8 MOS/KG (273-304); Potassium 4.7 MMOL/L (3.5-5.1)
[2020-09-28] MEDS: HYDROCORTISONE 100 MG VIAL IV SCH (20:39)
[2020-09-28] MEDS: DEXTROSE 10% 1,000 ML IV SCH (21:10)
[2020-09-29] MEDS: DEXTROSE 5% NACL 0.9% 1,000 ML IV SCH ×4 (01:35→22:02)
[2020-09-29] MEDS: CEFEPIME 1,000 MG in SODIUM CHLORIDE 0.9% 100 ML IV SCH ×2 (03:12→17:19)
[2020-09-29] MEDS: HYDROCORTISONE 100 MG VIAL IV SCH ×3 (03:12→20:45)
[2020-09-29 03:21] LABS: ABG Base Excess -13.9 MMOL/L (-2.5-2.5); ABG HCO3 13.7 MMOL/L (20-26); ABG Oxygen Saturation 98.5 % (95-100); ABG PCO2 36.1 MM HG (35-48); ABG TCO2 12.9 MMOL/L (23-27); Allen Test Positive
[2020-09-29 03:24] LABS: ABG PH 7.185 (7.35-7.45)
[2020-09-29] MEDS: ALBUMIN 25% 25 GM in PREMIX 1 EACH IV SCH (03:33)
[2020-09-29] MEDS ORDERED: SODIUM BICARBONATE 50 MEQ/50 ML VIAL IV ONE (03:35)
[2020-09-29 04:20] LABS: Eosinophils % 0.1 % (0.00-10.9); Hematocrit 29.2 VOL% (35.7-47.0); Hemoglobin 9.1 GM/DL (12.0-16.0); Immature Granulocytes Absolute 0.07 #; Lymphocytes # 0.5 10*3/uL (1.4-4.0); Mean Corpuscular HGB Conc 31.2 GM/DL (32-36); Mean Corpuscular Volume 92.7 FL (87-102); Mean Platelet Volume 10.9 FL (9.6-12.0); Monocytes % 2.6 % (1.7-12.7); NRBC # 0.03 10*3/uL; Neutrophils % 89.3 % (38.7-73.9); Platelet Count 235 T/CUMM (130-400); Red Blood Count 3.15 MC/CUMM (3.8-5.5); Red Cell Distribution Width 17.1 % (9.3-17.3); White Blood Count 7.2 T/CUMM (4-12)
[2020-09-29 04:42] LABS: Albumin 2.5 G/DL (3.4-5.0); Bilirubin,Total 0.4 MG/DL (0.2-1.0); Calcium 7.7 MG/DL (8.5-10.1); Potassium 4.5 MMOL/L (3.5-5.1); Total Protein 6.6 G/DL (6.4-8.2)
[2020-09-29] MEDS: DEXTROSE 10% 1,000 ML IV SCH ×2 (07:10→21:55)
[2020-09-29] MEDS: ZINC OXIDE 16% PASTE 57 GM TUBE TOP SCH ×2 (09:26→20:45)
[2020-09-29] MEDS: PANTOPRAZOLE 40 MG VIAL IV SCH (09:26)
[2020-09-29] MEDS: SODIUM HYPOCHLORITE 0.25% IRRIG 473 ML BOTTLE TOP SCH (09:26)
[2020-09-29] MEDS: POLYETHYLENE GLYCOL POWDER 17 GM PACK PO SCH (09:27)
[2020-09-29] MEDS: calcitrioL 0.25 MCG CAPSULE PO SCH (09:27)
[2020-09-29] MEDS: COLLAGENASE OINT 30 GM TUBE TOP SCH (09:27)
[2020-09-29 13:29] LABS: Calcium 7.7 MG/DL (8.5-10.1); Osmolality,Calculated 309.8 MOS/KG (273-304); Potassium 4.4 MMOL/L (3.5-5.1)
[2020-09-29 16:54] LABS: Calcium 7.7 MG/DL (8.5-10.1); Osmolality,Calculated 311.7 MOS/KG (273-304); Potassium 4.5 MMOL/L (3.5-5.1)
[2020-09-29] MEDS: ENOXAPARIN 30 MG/0.3 ML SYRINGE SUBCUT SCH (17:19)
[2020-09-29 20:39] LABS: Calcium 7.8 MG/DL (8.5-10.1); Osmolality,Calculated 311.7 MOS/KG (273-304); Potassium 4.5 MMOL/L (3.5-5.1)
[2020-09-30 01:37] LABS: Calcium 8.1 MG/DL (8.5-10.1); Osmolality,Calculated 310.8 MOS/KG (273-304); Potassium 4.3 MMOL/L (3.5-5.1)
[2020-09-30] MEDS: INSULIN REGULAR DRIP 100 ML IV SCH ×3 (01:53→23:13)
[2020-09-30 03:38] LABS: ABG Base Excess -13.5 MMOL/L (-2.5-2.5); ABG HCO3 13.9 MMOL/L (20-26); ABG Oxygen Saturation 98.4 % (95-100); ABG PCO2 36.7 MM HG (35-48); ABG TCO2 13.2 MMOL/L (23-27)
[2020-09-30 03:54] LABS: ABG PH 7.189 (7.35-7.45)
[2020-09-30] MEDS: CEFEPIME 1,000 MG in SODIUM CHLORIDE 0.9% 100 ML IV SCH ×2 (04:49→16:11)
[2020-09-30] MEDS: HYDROCORTISONE 100 MG VIAL IV SCH ×3 (04:49→20:37)
[2020-09-30 05:19] LABS: Basophils % 0.1 % (0.0-0.8); Eosinophils % 0.1 % (0.00-10.9); Immature Granulocytes Absolute 0.07 #; Lymphocytes # 0.6 10*3/uL (1.4-4.0); Lymphocytes % 8.2 % (21.3-54.2); Mean Corpuscular Volume 94.3 FL (87-102); Mean Platelet Volume 10.7 FL (9.6-12.0); Monocytes % 3.6 % (1.7-12.7); Platelet Count 243 T/CUMM (130-400); Red Blood Count 3.18 MC/CUMM (3.8-5.5); Red Cell Distribution Width 17.4 % (9.3-17.3); White Blood Count 7.2 T/CUMM (4-12)
[2020-09-30 05:44] LABS: Albumin 2.4 G/DL (3.4-5.0); Bilirubin,Total 1.4 MG/DL (0.2-1.0); Calcium 8.3 MG/DL (8.5-10.1); Osmolality,Calculated 311.7 MOS/KG (273-304); Potassium 4.3 MMOL/L (3.5-5.1); Total Protein 6.4 G/DL (6.4-8.2)
[2020-09-30] MEDS: ACETAMINOPHEN 325 MG TABLET PO PRN (07:09)
[2020-09-30] MEDS: SODIUM HYPOCHLORITE 0.25% IRRIG 473 ML BOTTLE TOP SCH (08:28)
[2020-09-30] MEDS: COLLAGENASE OINT 30 GM TUBE TOP SCH (08:30)
[2020-09-30 08:47] LABS: Osmolality,Calculated 312.7 MOS/KG (273-304); Potassium 4.3 MMOL/L (3.5-5.1)
[2020-09-30] MEDS: DEXTROSE 10% 1,000 ML IV SCH ×2 (09:20→23:12)
[2020-09-30] MEDS: ZINC OXIDE 16% PASTE 57 GM TUBE TOP SCH ×2 (09:22→20:37)
[2020-09-30] MEDS: calcitrioL 0.25 MCG CAPSULE PO SCH (09:23)
[2020-09-30] MEDS: PANTOPRAZOLE 40 MG VIAL IV SCH (09:23)
[2020-09-30] MEDS: POLYETHYLENE GLYCOL POWDER 17 GM PACK PO SCH (09:24)
[2020-09-30 13:57] LABS: Calcium 7.9 MG/DL (8.5-10.1); Potassium 4.4 MMOL/L (3.5-5.1)
[2020-09-30] MEDS: ENOXAPARIN 30 MG/0.3 ML SYRINGE SUBCUT SCH (14:47)
[2020-09-30 17:54] LABS: Calcium 7.7 MG/DL (8.5-10.1); Osmolality,Calculated 316.7 MOS/KG (273-304); Potassium 4.2 MMOL/L (3.5-5.1)
[2020-09-30] MEDS: DEXTROSE 5% NACL 0.9% 1,000 ML IV SCH ×2 (20:37→20:52)
[2020-09-30 21:15] LABS: Calcium 7.7 MG/DL (8.5-10.1); Osmolality,Calculated 315.7 MOS/KG (273-304); Potassium 4.2 MMOL/L (3.5-5.1)
[2020-10-01 00:21] LABS: Osmolality,Calculated 311.8 MOS/KG (273-304); Potassium 4.1 MMOL/L (3.5-5.1)
[2020-10-01 04:13] LABS: Basophils % 0.1 % (0.0-0.8); Eosinophils % 0.2 % (0.00-10.9); Hematocrit 29.7 VOL% (35.7-47.0); Immature Granulocytes % 0.9 %; Immature Granulocytes Absolute 0.09 #; Lymphocytes # 0.7 10*3/uL (1.4-4.0); Lymphocytes % 6.7 % (21.3-54.2); Mean Corpuscular HGB Conc 30.3 GM/DL (32-36); Mean Corpuscular Volume 94.9 FL (87-102); Monocytes % 3.9 % (1.7-12.7); Neutrophils % 88.2 % (38.7-73.9); Platelet Count 269 T/CUMM (130-400); Red Blood Count 3.13 MC/CUMM (3.8-5.5); Red Cell Distribution Width 17.4 % (9.3-17.3)
[2020-10-01 04:25] LABS: Calcium 7.9 MG/DL (8.5-10.1); Osmolality,Calculated 312.6 MOS/KG (273-304); Potassium 4.2 MMOL/L (3.5-5.1)
[2020-10-01] MEDS: CEFEPIME 1,000 MG in SODIUM CHLORIDE 0.9% 100 ML IV SCH ×2 (04:44→18:55)
[2020-10-01] MEDS: HYDROCORTISONE 100 MG VIAL IV SCH ×3 (04:45→20:25)
[2020-10-01] MEDS: DEXT 5% NACL 0.45% KCL 20 MEQ 20 MEQ/1,000 ML BAG IV SCH ×2 (04:45→06:06)
[2020-10-01] MEDS: INSULIN REGULAR DRIP 100 ML IV SCH (04:56)
[2020-10-01] MEDS ORDERED: SODIUM BICARBONATE 50 MEQ/50 ML VIAL IV ONE (08:06)
[2020-10-01] MEDS ORDERED: FUROSEMIDE 40 MG/4 ML VIAL IV ONE (08:07)
[2020-10-01] MEDS: SODIUM HYPOCHLORITE 0.25% IRRIG 473 ML BOTTLE TOP SCH (09:08)
[2020-10-01] MEDS: POLYETHYLENE GLYCOL POWDER 17 GM PACK PO SCH (09:08)
[2020-10-01] MEDS: PANTOPRAZOLE 40 MG VIAL IV SCH (09:08)
[2020-10-01] MEDS: ZINC OXIDE 16% PASTE 57 GM TUBE TOP SCH ×2 (09:08→20:25)
[2020-10-01] MEDS: calcitrioL 0.25 MCG CAPSULE PO SCH (09:08)
[2020-10-01] MEDS: DEXTROSE 5% NACL 0.9% 1,000 ML IV SCH (09:09)
[2020-10-01] MEDS: COLLAGENASE OINT 30 GM TUBE TOP SCH (09:09)
[2020-10-01] MEDS: DEXTROSE 5% NACL 0.45% 1,000 ML IV SCH (12:18)
[2020-10-01 14:28] LABS: Calcium 8.1 MG/DL (8.5-10.1); Osmolality,Calculated 311.8 MOS/KG (273-304); Potassium 4.4 MMOL/L (3.5-5.1)
[2020-10-01] MEDS: SEVELAMER CARBONATE 800 MG TABLET PO SCH (17:45)
[2020-10-01] MEDS ORDERED: HEPARIN 10,000 UNIT/10 ML VIAL IV SCH (18:30)
[2020-10-01] MEDS: ENOXAPARIN 30 MG/0.3 ML SYRINGE SUBCUT SCH (18:55)
[2020-10-01] MEDS: DEXTROSE 10% 1,000 ML IV SCH (18:56)
[2020-10-02] MEDS: INSULIN REGULAR DRIP 100 ML IV SCH (00:12)
[2020-10-02] MEDS: CEFEPIME 1,000 MG in SODIUM CHLORIDE 0.9% 100 ML IV SCH ×2 (04:31→15:28)
[2020-10-02] MEDS: HYDROCORTISONE 100 MG VIAL IV SCH ×3 (04:31→15:28)
[2020-10-02 05:08] LABS: Eosinophils # 0.1 10*3/uL (0.0-0.87); Eosinophils % 0.9 % (0.00-10.9); Hematocrit 28.2 VOL% (35.7-47.0); Hemoglobin 8.5 GM/DL (12.0-16.0); Immature Granulocytes % 0.8 %; Immature Granulocytes Absolute 0.08 #; Lymphocytes # 0.7 10*3/uL (1.4-4.0); Lymphocytes % 7.1 % (21.3-54.2); Mean Corpuscular HGB Conc 30.1 GM/DL (32-36); Mean Corpuscular Volume 93.7 FL (87-102); Mean Platelet Volume 10.5 FL (9.6-12.0); Monocytes % 4.5 % (1.7-12.7); Neutrophils % 86.7 % (38.7-73.9); Platelet Count 257 T/CUMM (130-400); Red Blood Count 3.01 MC/CUMM (3.8-5.5); Red Cell Distribution Width 17.4 % (9.3-17.3); White Blood Count 9.6 T/CUMM (4-12)
[2020-10-02 05:26] LABS: Calcium 7.7 MG/DL (8.5-10.1); Osmolality,Calculated 307.7 MOS/KG (273-304); Potassium 3.9 MMOL/L (3.5-5.1)
[2020-10-02] MEDS: DEXTROSE 5% NACL 0.9% 1,000 ML IV SCH (05:48)
[2020-10-02] MEDS: calcitrioL 0.25 MCG CAPSULE PO SCH (09:45)
[2020-10-02] MEDS: SEVELAMER CARBONATE 800 MG TABLET PO SCH ×3 (09:45→18:20)
[2020-10-02] MEDS: SODIUM BICARB INJ 150 MEQ in DEXTROSE 5% 850 ML IV SCH (09:45)
[2020-10-02] MEDS: INSULIN GLARGINE 100 UNIT/ML SUBCUT SCH (09:45)
[2020-10-02] MEDS: ZINC OXIDE 16% PASTE 57 GM TUBE TOP SCH ×2 (09:45→21:12)
[2020-10-02] MEDS: HEPARIN 5,000 UNIT/1 ML VIAL SUBCUT SCH ×2 (09:45→21:12)
[2020-10-02] MEDS: POLYETHYLENE GLYCOL POWDER 17 GM PACK PO SCH (09:45)
[2020-10-02] MEDS: PANTOPRAZOLE 40 MG VIAL IV SCH (09:45)
[2020-10-02] MEDS: SODIUM HYPOCHLORITE 0.25% IRRIG 473 ML BOTTLE TOP SCH (09:45)
[2020-10-02] MEDS: COLLAGENASE OINT 30 GM TUBE TOP SCH (09:45)
[2020-10-02] MEDS: INSULIN LISPRO 100 UNIT/ML SUBCUT SCH ×2 (12:30→18:20)
[2020-10-02] MEDS: hydrALAZINE 20 MG/1 ML VIAL IV PRN (12:48)
[2020-10-02] MEDS: DEXTROSE 5% NACL 0.45% 1,000 ML IV SCH (13:24)
[2020-10-02] MEDS ORDERED: amLODIPine 5 MG TABLET PO ONE (14:54)
[2020-10-02 15:37] LABS: Calcium 7.9 MG/DL (8.5-10.1); Osmolality,Calculated 312.8 MOS/KG (273-304); Potassium 4.1 MMOL/L (3.5-5.1)
[2020-10-03] MEDS: INSULIN LISPRO 100 UNIT/ML SUBCUT SCH ×4 (00:43→17:54)
[2020-10-03] MEDS: HYDROCORTISONE 100 MG VIAL IV SCH ×3 (00:43→17:53)
[2020-10-03] MEDS: CEFEPIME 1,000 MG in SODIUM CHLORIDE 0.9% 100 ML IV SCH ×2 (03:58→17:53)
[2020-10-03 05:43] LABS: Eosinophils # 0.4 10*3/uL (0.0-0.87); Eosinophils % 4.4 % (0.00-10.9); Hematocrit 26.9 VOL% (35.7-47.0); Hemoglobin 8.2 GM/DL (12.0-16.0); Immature Granulocytes % 0.7 %; Immature Granulocytes Absolute 0.06 #; Lymphocytes # 1.1 10*3/uL (1.4-4.0); Lymphocytes % 13.6 % (21.3-54.2); Mean Corpuscular HGB Conc 30.5 GM/DL (32-36); Mean Corpuscular Volume 94.4 FL (87-102); Mean Platelet Volume 9.5 FL (9.6-12.0); Monocytes % 7.3 % (1.7-12.7); Platelet Count 211 T/CUMM (130-400); Red Blood Count 2.85 MC/CUMM (3.8-5.5); Red Cell Distribution Width 17.3 % (9.3-17.3); White Blood Count 8.4 T/CUMM (4-12)
[2020-10-03 05:54] LABS: Osmolality,Calculated 304.1 MOS/KG (273-304); Potassium 3.8 MMOL/L (3.5-5.1)
[2020-10-03] MEDS: SODIUM BICARB INJ 150 MEQ in DEXTROSE 5% 850 ML IV SCH (06:03)
[2020-10-03] MEDS: INSULIN GLARGINE 100 UNIT/ML SUBCUT SCH (08:13)
[2020-10-03] MEDS: SEVELAMER CARBONATE 800 MG TABLET PO SCH ×3 (08:13→17:54)
[2020-10-03] MEDS: calcitrioL 0.25 MCG CAPSULE PO SCH (08:13)
[2020-10-03] MEDS: PANTOPRAZOLE 40 MG VIAL IV SCH (08:13)
[2020-10-03] MEDS: HEPARIN 5,000 UNIT/1 ML VIAL SUBCUT SCH ×2 (08:14→21:24)
[2020-10-03] MEDS: SODIUM HYPOCHLORITE 0.25% IRRIG 473 ML BOTTLE TOP SCH (08:16)
[2020-10-03] MEDS: POLYETHYLENE GLYCOL POWDER 17 GM PACK PO SCH ×2 (08:17→09:18)
[2020-10-03] MEDS: ZINC OXIDE 16% PASTE 57 GM TUBE TOP SCH ×2 (09:18→21:24)
[2020-10-03] MEDS: COLLAGENASE OINT 30 GM TUBE TOP SCH (09:18)
[2020-10-03] MEDS: ACETAMINOPHEN 325 MG TABLET PO PRN (11:19)
[2020-10-03] MEDS: SODIUM BICARBONATE 650 MG TABLET PO SCH ×2 (13:18→21:24)
[2020-10-03] MEDS: DESITIN 4OZ/NYSTATIN 15 GRAM MIXTURE PASTE TOP SCH ×2 (13:18→21:24)
[2020-10-03] MEDS: ONDANSETRON 4 MG/2 ML VIAL IV PRN (17:53)
[2020-10-03] MEDS: hydrALAZINE 20 MG/1 ML VIAL IV PRN (18:00)
[2020-10-04] MEDS: INSULIN LISPRO 100 UNIT/ML SUBCUT SCH ×5 (00:07→23:56)
[2020-10-04] MEDS: HYDROCORTISONE 100 MG VIAL IV SCH ×3 (00:08→20:56)
[2020-10-04] MEDS: SODIUM BICARB INJ 150 MEQ in DEXTROSE 5% 850 ML IV SCH (02:50)
[2020-10-04] MEDS: CEFEPIME 1,000 MG in SODIUM CHLORIDE 0.9% 100 ML IV SCH ×2 (03:24→16:27)
[2020-10-04] MEDS: hydrALAZINE 20 MG/1 ML VIAL IV PRN ×2 (03:24→11:11)
[2020-10-04 06:05] LABS: Eosinophils # 0.1 10*3/uL (0.0-0.87); Eosinophils % 1.1 % (0.00-10.9); Hematocrit 28.3 VOL% (35.7-47.0); Hemoglobin 8.8 GM/DL (12.0-16.0); Immature Granulocytes % 0.9 %; Immature Granulocytes Absolute 0.06 #; Lymphocytes # 0.6 10*3/uL (1.4-4.0); Lymphocytes % 8.6 % (21.3-54.2); Mean Corpuscular HGB Conc 31.1 GM/DL (32-36); Mean Corpuscular Volume 91.6 FL (87-102); Mean Platelet Volume 10.4 FL (9.6-12.0); Monocytes % 3.2 % (1.7-12.7); NRBC # 0.02 10*3/uL; Neutrophils % 86.2 % (38.7-73.9); Platelet Count 216 T/CUMM (130-400); Red Blood Count 3.09 MC/CUMM (3.8-5.5); Red Cell Distribution Width 16.8 % (9.3-17.3); White Blood Count 6.7 T/CUMM (4-12)
[2020-10-04 06:15] LABS: Albumin 2.3 G/DL (3.4-5.0); Bilirubin,Total 0.5 MG/DL (0.2-1.0); Calcium 7.9 MG/DL (8.5-10.1); Total Protein 6.1 G/DL (6.4-8.2)
[2020-10-04] MEDS: HEPARIN 5,000 UNIT/1 ML VIAL SUBCUT SCH ×2 (08:09→20:55)
[2020-10-04] MEDS: PANTOPRAZOLE 40 MG TABLET PO SCH (08:11)
[2020-10-04] MEDS: calcitrioL 0.25 MCG CAPSULE PO SCH (08:11)
[2020-10-04] MEDS: SEVELAMER CARBONATE 800 MG TABLET PO SCH ×3 (08:11→17:05)
[2020-10-04] MEDS: INSULIN GLARGINE 100 UNIT/ML SUBCUT SCH (08:13)
[2020-10-04] MEDS: COLLAGENASE OINT 30 GM TUBE TOP SCH (08:13)
[2020-10-04] MEDS: ZINC OXIDE 16% PASTE 57 GM TUBE TOP SCH ×2 (08:13→21:34)
[2020-10-04] MEDS: DESITIN 4OZ/NYSTATIN 15 GRAM MIXTURE PASTE TOP SCH ×2 (08:13→21:34)
[2020-10-04] MEDS: POLYETHYLENE GLYCOL POWDER 17 GM PACK PO SCH (08:13)
[2020-10-04] MEDS: SODIUM HYPOCHLORITE 0.25% IRRIG 473 ML BOTTLE TOP SCH (08:13)
[2020-10-04] MEDS: ACETAMINOPHEN 325 MG TABLET PO PRN (09:49)
[2020-10-04] MEDS: SODIUM BICARBONATE 650 MG TABLET PO SCH ×2 (09:49→20:55)
[2020-10-04] MEDS: NIFEdipine 10 MG CAPSULE PO SCH ×2 (14:08→20:55)
[2020-10-04] MEDS: DEXTROSE 50% 25 GM/50 ML VIAL IV PRN ×2 (17:43→23:53)
[2020-10-05] MEDS: DEXTROSE 5% 1,000 ML IV SCH (00:07)
[2020-10-05] MEDS: DEXTROSE 50% 25 GM/50 ML VIAL IV PRN (00:30)
[2020-10-05] MEDS: CEFEPIME 1,000 MG in SODIUM CHLORIDE 0.9% 100 ML IV SCH ×2 (04:28→16:54)
[2020-10-05 05:02] LABS: Basophils % 0.1 % (0.0-0.8); Eosinophils # 0.2 10*3/uL (0.0-0.87); Eosinophils % 2.2 % (0.00-10.9); Hematocrit 30.6 VOL% (35.7-47.0); Hemoglobin 9.4 GM/DL (12.0-16.0); Immature Granulocytes % 0.7 %; Immature Granulocytes Absolute 0.07 #; Lymphocytes # 0.9 10*3/uL (1.4-4.0); Lymphocytes % 9.6 % (21.3-54.2); Mean Corpuscular HGB Conc 30.7 GM/DL (32-36); Mean Corpuscular Volume 91.3 FL (87-102); Mean Platelet Volume 9.8 FL (9.6-12.0); Monocytes % 3.9 % (1.7-12.7); Neutrophils % 83.5 % (38.7-73.9); Platelet Count 215 T/CUMM (130-400); Red Blood Count 3.35 MC/CUMM (3.8-5.5); Red Cell Distribution Width 16.9 % (9.3-17.3); White Blood Count 9.5 T/CUMM (4-12)
[2020-10-05 05:23] LABS: Albumin 2.1 G/DL (3.4-5.0); Bilirubin,Total 1.5 MG/DL (0.2-1.0); Calcium 7.8 MG/DL (8.5-10.1); Osmolality,Calculated 300.8 MOS/KG (273-304); Potassium 4.1 MMOL/L (3.5-5.1); Total Protein 5.7 G/DL (6.4-8.2)
[2020-10-05] MEDS: INSULIN LISPRO 100 UNIT/ML SUBCUT SCH ×3 (05:25→17:36)
[2020-10-05] MEDS: SEVELAMER CARBONATE 800 MG TABLET PO SCH ×3 (09:22→16:31)
[2020-10-05] MEDS: SODIUM BICARBONATE 650 MG TABLET PO SCH ×2 (09:23→22:10)
[2020-10-05] MEDS: POLYETHYLENE GLYCOL POWDER 17 GM PACK PO SCH (09:23)
[2020-10-05] MEDS: HEPARIN 5,000 UNIT/1 ML VIAL SUBCUT SCH ×2 (09:23→22:23)
[2020-10-05] MEDS: PANTOPRAZOLE 40 MG TABLET PO SCH (09:24)
[2020-10-05] MEDS: HYDROCORTISONE 100 MG VIAL IV SCH ×2 (09:24→22:10)
[2020-10-05] MEDS: calcitrioL 0.25 MCG CAPSULE PO SCH (09:24)
[2020-10-05] MEDS: SODIUM HYPOCHLORITE 0.25% IRRIG 473 ML BOTTLE TOP SCH (09:25)
[2020-10-05] MEDS: DESITIN 4OZ/NYSTATIN 15 GRAM MIXTURE PASTE TOP SCH ×2 (09:25→22:21)
[2020-10-05] MEDS: NIFEdipine 10 MG CAPSULE PO SCH ×3 (09:32→22:09)
[2020-10-05] MEDS: INSULIN GLARGINE 100 UNIT/ML SUBCUT SCH (10:18)
[2020-10-05] MEDS: ZINC OXIDE 16% PASTE 57 GM TUBE TOP SCH ×2 (10:18→22:20)
[2020-10-05] MEDS: COLLAGENASE OINT 30 GM TUBE TOP SCH (10:20)
[2020-10-05] MEDS: hydrALAZINE 20 MG/1 ML VIAL IV PRN (17:10)
[2020-10-05] MEDS: ACETAMINOPHEN 325 MG TABLET PO PRN (22:09)
[2020-10-06] MEDS: INSULIN LISPRO 100 UNIT/ML SUBCUT SCH ×4 (01:10→17:36)
[2020-10-06] MEDS: CEFEPIME 1,000 MG in SODIUM CHLORIDE 0.9% 100 ML IV SCH ×2 (03:46→16:36)
[2020-10-06] MEDS: ACETAMINOPHEN 325 MG TABLET PO PRN (03:49)
[2020-10-06] MEDS: DEXTROSE 5% 1,000 ML IV SCH (04:45)
[2020-10-06 05:44] LABS: Eosinophils # 0.2 10*3/uL (0.0-0.87); Eosinophils % 2.9 % (0.00-10.9); Hematocrit 26.5 VOL% (35.7-47.0); Hemoglobin 8.2 GM/DL (12.0-16.0); Immature Granulocytes % 0.7 %; Immature Granulocytes Absolute 0.05 #; Lymphocytes # 0.8 10*3/uL (1.4-4.0); Lymphocytes % 10.5 % (21.3-54.2); Mean Corpuscular HGB Conc 30.9 GM/DL (32-36); Mean Corpuscular Volume 92.7 FL (87-102); Mean Platelet Volume 10.4 FL (9.6-12.0); Monocytes % 4.4 % (1.7-12.7); Neutrophils % 81.5 % (38.7-73.9); Platelet Count 153 T/CUMM (130-400); Red Blood Count 2.86 MC/CUMM (3.8-5.5); Red Cell Distribution Width 16.5 % (9.3-17.3); White Blood Count 7.3 T/CUMM (4-12)
[2020-10-06] MEDS: calcitrioL 0.25 MCG CAPSULE PO SCH (08:50)
[2020-10-06] MEDS: NIFEdipine 10 MG CAPSULE PO SCH ×3 (08:50→21:54)
[2020-10-06] MEDS: SEVELAMER CARBONATE 800 MG TABLET PO SCH ×3 (08:50→17:36)
[2020-10-06] MEDS: PANTOPRAZOLE 40 MG TABLET PO SCH (08:50)
[2020-10-06] MEDS: SODIUM BICARBONATE 650 MG TABLET PO SCH ×2 (08:50→21:42)
[2020-10-06] MEDS: HYDROCORTISONE 100 MG VIAL IV SCH ×2 (08:53→21:42)
[2020-10-06] MEDS: HEPARIN 5,000 UNIT/1 ML VIAL SUBCUT SCH ×2 (08:53→21:41)
[2020-10-06] MEDS: POLYETHYLENE GLYCOL POWDER 17 GM PACK PO SCH (08:54)
[2020-10-06] MEDS: INSULIN GLARGINE 100 UNIT/ML SUBCUT SCH (08:54)
[2020-10-06] MEDS: ZINC OXIDE 16% PASTE 57 GM TUBE TOP SCH ×2 (08:54→21:41)
[2020-10-06] MEDS: DESITIN 4OZ/NYSTATIN 15 GRAM MIXTURE PASTE TOP SCH ×2 (08:55→21:41)
[2020-10-06] MEDS ORDERED: TUBERCULIN SKIN TEST 0.1 ML SYRINGE INTRADERM ONE (09:00)
[2020-10-06] MEDS ORDERED: lisinopriL 10 MG TABLET PO SCH (09:00)
[2020-10-06] MEDS: COLLAGENASE OINT 30 GM TUBE TOP SCH (12:09)
[2020-10-06] MEDS: SODIUM HYPOCHLORITE 0.25% IRRIG 473 ML BOTTLE TOP SCH (12:10)
[2020-10-06] MEDS: ONDANSETRON 4 MG/2 ML VIAL IV PRN ×2 (14:32→21:42)
[2020-10-07] MEDS: INSULIN LISPRO 100 UNIT/ML SUBCUT SCH ×4 (00:04→18:19)
[2020-10-07] MEDS: DEXTROSE 50% 25 GM/50 ML VIAL IV PRN ×2 (01:34→06:10)
[2020-10-07] MEDS: CEFEPIME 1,000 MG in SODIUM CHLORIDE 0.9% 100 ML IV SCH (04:41)
[2020-10-07 06:24] LABS: Basophils % 0.1 % (0.0-0.8); Eosinophils # 0.2 10*3/uL (0.0-0.87); Eosinophils % 2.1 % (0.00-10.9); Hematocrit 26.4 VOL% (35.7-47.0); Hemoglobin 8.1 GM/DL (12.0-16.0); Immature Granulocytes % 0.6 %; Immature Granulocytes Absolute 0.05 #; Lymphocytes % 11.1 % (21.3-54.2); Mean Corpuscular HGB Conc 30.7 GM/DL (32-36); Mean Platelet Volume 10.5 FL (9.6-12.0); Neutrophils % 81.1 % (38.7-73.9); Platelet Count 129 T/CUMM (130-400); Red Blood Count 2.84 MC/CUMM (3.8-5.5); Red Cell Distribution Width 16.8 % (9.3-17.3); White Blood Count 8.9 T/CUMM (4-12)
[2020-10-07] MEDS: DEXTROSE 5% 1,000 ML IV SCH (06:25)
[2020-10-07 06:39] LABS: Calcium 8.3 MG/DL (8.5-10.1); Osmolality,Calculated 296.8 MOS/KG (273-304)
[2020-10-07] MEDS ORDERED: BUPIVACAINE MPF 0.25% 30 ML VIAL ONE (08:30)
[2020-10-07] MEDS ORDERED: LIDOCAINE 1% 20 ML VIAL ONE (08:30)
[2020-10-07] MEDS ORDERED: fentaNYL 100 MCG/2 ML VIAL ONE (08:44)
[2020-10-07] MEDS ORDERED: propofoL 200 MG/20 ML VIAL IV ONE (08:44)
[2020-10-07] MEDS ORDERED: LIDOCAINE 2% 5 ML VIAL ONE (08:44)
[2020-10-07] MEDS ORDERED: MIDAZOLAM 2 MG/2 ML VIAL ONE (08:44)
[2020-10-07] MEDS: SODIUM HYPOCHLORITE 0.25% IRRIG 473 ML BOTTLE TOP SCH (08:48)
[2020-10-07] MEDS: SEVELAMER CARBONATE 800 MG TABLET PO SCH ×3 (08:48→16:57)
[2020-10-07] MEDS: COLLAGENASE OINT 30 GM TUBE TOP SCH (08:51)
[2020-10-07] MEDS: INSULIN GLARGINE 100 UNIT/ML SUBCUT SCH (08:51)
[2020-10-07] MEDS: NIFEdipine 10 MG CAPSULE PO SCH ×3 (08:51→21:43)
[2020-10-07] MEDS ORDERED: SODIUM CHLORIDE 0.9% 250 ML IV ONE (08:52)
[2020-10-07] MEDS ORDERED: hydrALAZINE 20 MG/1 ML VIAL ONE (09:24)
[2020-10-07] MEDS ORDERED: MEPERIDINE 25 MG/1 ML VIAL IV PRN (09:35)
[2020-10-07] MEDS ORDERED: HYDROmorphone 2 MG/1 ML VIAL IV PRN (09:35)
[2020-10-07] MEDS ORDERED: ONDANSETRON 4 MG/2 ML VIAL IV PRN (09:35)
[2020-10-07] MEDS ORDERED: PROMETHAZINE INJ 25 MG in SODIUM CHLORIDE 0.9% 50 ML IV PRN (09:35)
[2020-10-07] MEDS ORDERED: diphenhydrAMINE 50 MG/1 ML VIAL IV PRN (09:35)
[2020-10-07] MEDS: ZINC OXIDE 16% PASTE 57 GM TUBE TOP SCH ×3 (11:05→23:41)
[2020-10-07] MEDS: SODIUM BICARBONATE 650 MG TABLET PO SCH ×2 (11:05→21:43)
[2020-10-07] MEDS: DESITIN 4OZ/NYSTATIN 15 GRAM MIXTURE PASTE TOP SCH ×3 (11:05→23:41)
[2020-10-07] MEDS: POLYETHYLENE GLYCOL POWDER 17 GM PACK PO SCH ×2 (11:05→11:16)
[2020-10-07] MEDS: calcitrioL 0.25 MCG CAPSULE PO SCH (11:06)
[2020-10-07] MEDS: PANTOPRAZOLE 40 MG TABLET PO SCH (11:06)
[2020-10-07] MEDS: HEPARIN 5,000 UNIT/1 ML VIAL SUBCUT SCH ×2 (11:11→21:43)
[2020-10-07] MEDS: HYDROCORTISONE 100 MG VIAL IV SCH (11:11)
[2020-10-07] MEDS: ONDANSETRON 4 MG/2 ML VIAL IV PRN ×2 (15:27→23:42)
[2020-10-07] MEDS ORDERED: DEXTROSE 50% 25 GM/50 ML VIAL IV PRN (15:43)
[2020-10-07] MEDS ORDERED: GLUCAGON 1 MG VIAL IM PRN (15:43)
[2020-10-07] MEDS: HYDROmorphone 2 MG/1 ML VIAL IV PRN ×2 (18:23→21:52)
[2020-10-07 19:16] LABS: CDT Result Negative (Negative); CDT Specimen Source STOOL
[2020-10-08] MEDS: INSULIN LISPRO 100 UNIT/ML SUBCUT SCH ×5 (00:14→23:51)
[2020-10-08 04:55] LABS: Basophils % 0.1 % (0.0-0.8); Eosinophils # 0.1 10*3/uL (0.0-0.87); Eosinophils % 1.9 % (0.00-10.9); Hematocrit 26.2 VOL% (35.7-47.0); Hemoglobin 7.8 GM/DL (12.0-16.0); Immature Granulocytes % 0.4 %; Immature Granulocytes Absolute 0.03 #; Lymphocytes # 0.7 10*3/uL (1.4-4.0); Lymphocytes % 10.1 % (21.3-54.2); Mean Corpuscular HGB Conc 29.8 GM/DL (32-36); Mean Corpuscular Volume 94.6 FL (87-102); Mean Platelet Volume 10.9 FL (9.6-12.0); Monocytes % 6.1 % (1.7-12.7); Neutrophils % 81.4 % (38.7-73.9); Platelet Count 113 T/CUMM (130-400); Red Blood Count 2.77 MC/CUMM (3.8-5.5); Red Cell Distribution Width 16.6 % (9.3-17.3); White Blood Count 6.9 T/CUMM (4-12)
[2020-10-08 05:14] LABS: Alanine Aminotransferase 29 U/L (13-56); Albumin 2.2 G/DL (3.4-5.0); Alkaline Phosphatase 259 U/L (45-117); Aspartate Amino Transferase 54 U/L (0-37); Bilirubin,Total < 0.39 MG/DL (0.2-1.0); Blood Urea Nitrogen 39 MG/DL (7-18); Calcium 8.2 MG/DL (8.5-10.1); Carbon Dioxide 28 MMOL/L (21-32); Estimated Glom Filtration Rate 26 ML/MIN; Glucose 238 MG/DL (74-106); Osmolality,Calculated 297.3 MOS/KG (273-304); Sodium 141 MMOL/L (136-145); Total Protein 6.2 G/DL (6.4-8.2)
[2020-10-08] MEDS: HYDROmorphone 2 MG/1 ML VIAL IV PRN ×6 (06:41→21:35)
[2020-10-08 07:20] LABS: Hypochromasia 1+; Platelet Estimate Normal
[2020-10-08] MEDS: COLLAGENASE OINT 30 GM TUBE TOP SCH (08:25)
[2020-10-08] MEDS: SODIUM HYPOCHLORITE 0.25% IRRIG 473 ML BOTTLE TOP SCH ×2 (08:25→09:15)
[2020-10-08] MEDS: ZINC OXIDE 16% PASTE 57 GM TUBE TOP SCH ×2 (09:13→21:35)
[2020-10-08] MEDS: DESITIN 4OZ/NYSTATIN 15 GRAM MIXTURE PASTE TOP SCH ×2 (09:13→21:35)
[2020-10-08] MEDS: predniSONE 20 MG TABLET PO SCH (09:14)
[2020-10-08] MEDS: NIFEdipine 10 MG CAPSULE PO SCH ×3 (09:14→21:33)
[2020-10-08] MEDS: SEVELAMER CARBONATE 800 MG TABLET PO SCH ×3 (09:14→16:14)
[2020-10-08] MEDS: INSULIN GLARGINE 100 UNIT/ML SUBCUT SCH (09:14)
[2020-10-08] MEDS: calcitrioL 0.25 MCG CAPSULE PO SCH (09:15)
[2020-10-08] MEDS: PANTOPRAZOLE 40 MG TABLET PO SCH (09:15)
[2020-10-08] MEDS: HEPARIN 5,000 UNIT/1 ML VIAL SUBCUT SCH ×2 (09:15→21:31)
[2020-10-08] MEDS: SODIUM BICARBONATE 650 MG TABLET PO SCH ×2 (09:15→21:31)
[2020-10-08] MEDS: POLYETHYLENE GLYCOL POWDER 17 GM PACK PO SCH (09:33)
[2020-10-08] MEDS: ONDANSETRON 4 MG/2 ML VIAL IV PRN (16:10)
[2020-10-09] MEDS: HYDROmorphone 2 MG/1 ML VIAL IV PRN ×7 (00:49→20:51)
[2020-10-09] MEDS: DEXTROSE 50% 25 GM/50 ML VIAL IV PRN ×3 (00:49→23:43)
[2020-10-09 05:54] LABS: Basophils % 0.2 % (0.0-0.8); Eosinophils # 0.1 10*3/uL (0.0-0.87); Eosinophils % 1.2 % (0.00-10.9); Hematocrit 25.7 VOL% (35.7-47.0); Hemoglobin 7.7 GM/DL (12.0-16.0); Immature Granulocytes % 0.4 %; Immature Granulocytes Absolute 0.02 #; Lymphocytes # 0.9 10*3/uL (1.4-4.0); Lymphocytes % 17.5 % (21.3-54.2); Mean Corpuscular Volume 95.5 FL (87-102); Mean Platelet Volume 11.2 FL (9.6-12.0); Monocytes % 9.1 % (1.7-12.7); Neutrophils % 71.6 % (38.7-73.9); Platelet Count 111 T/CUMM (130-400); Red Blood Count 2.69 MC/CUMM (3.8-5.5); Red Cell Distribution Width 16.6 % (9.3-17.3); White Blood Count 5.1 T/CUMM (4-12)
[2020-10-09] MEDS: INSULIN LISPRO 100 UNIT/ML SUBCUT SCH ×4 (07:15→23:46)
[2020-10-09] MEDS: COLLAGENASE OINT 30 GM TUBE TOP SCH (09:04)
[2020-10-09] MEDS: predniSONE 20 MG TABLET PO SCH (10:08)
[2020-10-09] MEDS: NIFEdipine 10 MG CAPSULE PO SCH ×3 (10:09→20:50)
[2020-10-09] MEDS: DESITIN 4OZ/NYSTATIN 15 GRAM MIXTURE PASTE TOP SCH ×2 (10:09→20:54)
[2020-10-09] MEDS: PANTOPRAZOLE 40 MG TABLET PO SCH (10:09)
[2020-10-09] MEDS: calcitrioL 0.25 MCG CAPSULE PO SCH (10:09)
[2020-10-09] MEDS: SODIUM BICARBONATE 650 MG TABLET PO SCH ×2 (10:09→20:50)
[2020-10-09] MEDS: ZINC OXIDE 16% PASTE 57 GM TUBE TOP SCH ×2 (10:09→20:53)
[2020-10-09] MEDS: SEVELAMER CARBONATE 800 MG TABLET PO SCH ×3 (10:09→16:07)
[2020-10-09] MEDS: HEPARIN 5,000 UNIT/1 ML VIAL SUBCUT SCH ×2 (10:10→20:51)
[2020-10-09] MEDS: INSULIN GLARGINE 100 UNIT/ML SUBCUT SCH (10:10)
[2020-10-09] MEDS: SODIUM HYPOCHLORITE 0.25% IRRIG 473 ML BOTTLE TOP SCH (10:10)
[2020-10-09] MEDS: POLYETHYLENE GLYCOL POWDER 17 GM PACK PO SCH (11:16)
[2020-10-10 04:30] LABS: Calcium 8.6 MG/DL (8.5-10.1); Potassium 4.3 MMOL/L (3.5-5.1)
[2020-10-10 04:34] LABS: Basophils % 0.2 % (0.0-0.8); Eosinophils # 0.1 10*3/uL (0.0-0.87); Eosinophils % 1.7 % (0.00-10.9); Hematocrit 25.5 VOL% (35.7-47.0); Immature Granulocytes % 0.2 %; Immature Granulocytes Absolute 0.01 #; Lymphocytes # 0.8 10*3/uL (1.4-4.0); Lymphocytes % 17.5 % (21.3-54.2); Mean Corpuscular Volume 98.8 FL (87-102); Mean Platelet Volume 10.7 FL (9.6-12.0); Neutrophils % 70.4 % (38.7-73.9); Red Cell Distribution Width 16.6 % (9.3-17.3); White Blood Count 4.6 T/CUMM (4-12)
[2020-10-10 04:36] LABS: Hemoglobin 7.4 GM/DL (12.0-16.0); Platelet Count 95 T/CUMM (130-400); Red Blood Count 2.58 MC/CUMM (3.8-5.5)
[2020-10-10 04:45] LABS: Hypochromasia 1+
[2020-10-10 04:46] LABS: Anisocytosis 1+; Microcytosis 1+; Ovalocytes Slight
[2020-10-10 04:47] LABS: Platelet Estimate Decreased
[2020-10-10] MEDS: DEXTROSE 50% 25 GM/50 ML VIAL IV PRN ×2 (05:18→07:24)
[2020-10-10] MEDS: HYDROmorphone 2 MG/1 ML VIAL IV PRN ×5 (05:20→20:24)
[2020-10-10] MEDS: INSULIN LISPRO 100 UNIT/ML SUBCUT SCH ×3 (06:39→17:13)
[2020-10-10] MEDS: SEVELAMER CARBONATE 800 MG TABLET PO SCH ×3 (08:55→16:44)
[2020-10-10] MEDS: PANTOPRAZOLE 40 MG TABLET PO SCH (08:56)
[2020-10-10] MEDS: predniSONE 20 MG TABLET PO SCH (08:56)
[2020-10-10] MEDS: calcitrioL 0.25 MCG CAPSULE PO SCH (08:56)
[2020-10-10] MEDS: SODIUM BICARBONATE 650 MG TABLET PO SCH ×2 (08:56→20:28)
[2020-10-10] MEDS: ZINC OXIDE 16% PASTE 57 GM TUBE TOP SCH ×2 (08:58→20:26)
[2020-10-10] MEDS: SODIUM HYPOCHLORITE 0.25% IRRIG 473 ML BOTTLE TOP SCH (08:58)
[2020-10-10] MEDS: HEPARIN 5,000 UNIT/1 ML VIAL SUBCUT SCH ×2 (08:59→20:27)
[2020-10-10] MEDS: POLYETHYLENE GLYCOL POWDER 17 GM PACK PO SCH (08:59)
[2020-10-10] MEDS: NIFEdipine 10 MG CAPSULE PO SCH ×3 (09:00→20:27)
[2020-10-10] MEDS: DESITIN 4OZ/NYSTATIN 15 GRAM MIXTURE PASTE TOP SCH ×2 (09:01→21:56)
[2020-10-10] MEDS: COLLAGENASE OINT 30 GM TUBE TOP SCH (12:30)
[2020-10-10] MEDS: ONDANSETRON 4 MG/2 ML VIAL IV PRN ×3 (13:34→23:00)
[2020-10-10] MEDS: HydrOXYzine PAMOATE 25 MG CAPSULE PO PRN ×2 (13:34→20:36)
[2020-10-10] MEDS: INSULIN GLARGINE 100 UNIT/ML SUBCUT SCH (20:29)
[2020-10-11] MEDS: HYDROmorphone 2 MG/1 ML VIAL IV PRN ×6 (00:14→21:26)
[2020-10-11] MEDS: INSULIN LISPRO 100 UNIT/ML SUBCUT SCH ×4 (00:15→18:07)
[2020-10-11] MEDS: ONDANSETRON 4 MG/2 ML VIAL IV PRN ×2 (05:27→21:26)
[2020-10-11] MEDS: SODIUM BICARBONATE 650 MG TABLET PO SCH ×2 (08:33→21:25)
[2020-10-11] MEDS: predniSONE 20 MG TABLET PO SCH (08:33)
[2020-10-11] MEDS: HydrOXYzine PAMOATE 25 MG CAPSULE PO PRN ×3 (08:33→21:27)
[2020-10-11] MEDS: NIFEdipine 10 MG CAPSULE PO SCH ×3 (08:33→21:27)
[2020-10-11] MEDS: SEVELAMER CARBONATE 800 MG TABLET PO SCH ×3 (08:33→17:04)
[2020-10-11] MEDS: PANTOPRAZOLE 40 MG TABLET PO SCH (08:34)
[2020-10-11] MEDS: HEPARIN 5,000 UNIT/1 ML VIAL SUBCUT SCH ×2 (08:34→21:26)
[2020-10-11] MEDS: calcitrioL 0.25 MCG CAPSULE PO SCH (08:34)
[2020-10-11] MEDS: COLLAGENASE OINT 30 GM TUBE TOP SCH (08:43)
[2020-10-11] MEDS: POLYETHYLENE GLYCOL POWDER 17 GM PACK PO SCH (08:43)
[2020-10-11] MEDS: DESITIN 4OZ/NYSTATIN 15 GRAM MIXTURE PASTE TOP SCH ×2 (08:43→22:40)
[2020-10-11] MEDS: ZINC OXIDE 16% PASTE 57 GM TUBE TOP SCH ×2 (08:44→22:38)
[2020-10-11] MEDS: SODIUM HYPOCHLORITE 0.25% IRRIG 473 ML BOTTLE TOP SCH (08:45)
[2020-10-11] MEDS: ACETAMINOPHEN 325 MG TABLET PO PRN (14:04)
[2020-10-11] MEDS: SKIN HEALING OINT (AQUAPHOR) 50 GM TUBE TOP SCH (15:49)
[2020-10-11] MEDS: INSULIN GLARGINE 100 UNIT/ML SUBCUT SCH (22:37)
[2020-10-12] MEDS: HYDROmorphone 2 MG/1 ML VIAL IV PRN ×6 (00:51→22:14)
[2020-10-12] MEDS: INSULIN LISPRO 100 UNIT/ML SUBCUT SCH ×4 (00:53→18:01)
[2020-10-12] MEDS: ONDANSETRON 4 MG/2 ML VIAL IV PRN ×2 (05:24→14:05)
[2020-10-12 06:07] LABS: Calcium 8.9 MG/DL (8.5-10.1)
[2020-10-12] MEDS: SEVELAMER CARBONATE 800 MG TABLET PO SCH ×3 (09:25→16:28)
[2020-10-12] MEDS: ZINC OXIDE 16% PASTE 57 GM TUBE TOP SCH ×2 (09:25→20:10)
[2020-10-12] MEDS: SODIUM HYPOCHLORITE 0.25% IRRIG 473 ML BOTTLE TOP SCH (09:25)
[2020-10-12] MEDS: SKIN HEALING OINT (AQUAPHOR) 50 GM TUBE TOP SCH (09:25)
[2020-10-12] MEDS: POLYETHYLENE GLYCOL POWDER 17 GM PACK PO SCH (09:26)
[2020-10-12] MEDS: PANTOPRAZOLE 40 MG TABLET PO SCH (09:26)
[2020-10-12] MEDS: HEPARIN 5,000 UNIT/1 ML VIAL SUBCUT SCH ×2 (09:26→20:11)
[2020-10-12] MEDS: predniSONE 20 MG TABLET PO SCH (09:26)
[2020-10-12] MEDS: NIFEdipine 10 MG CAPSULE PO SCH ×3 (09:26→20:10)
[2020-10-12] MEDS: calcitrioL 0.25 MCG CAPSULE PO SCH (09:26)
[2020-10-12] MEDS: DESITIN 4OZ/NYSTATIN 15 GRAM MIXTURE PASTE TOP SCH ×2 (09:27→20:49)
[2020-10-12] MEDS: COLLAGENASE OINT 30 GM TUBE TOP SCH (09:27)
[2020-10-12] MEDS: SODIUM BICARBONATE 650 MG TABLET PO SCH ×2 (09:27→20:10)
[2020-10-12] MEDS ORDERED: CLINDAMYCIN INJ 900 MG in PREMIX 1 EACH IV ONE (14:00)
[2020-10-12] MEDS: INSULIN GLARGINE 100 UNIT/ML SUBCUT SCH ×2 (20:10→20:40)
[2020-10-12] MEDS: HydrOXYzine PAMOATE 25 MG CAPSULE PO PRN (20:16)
[2020-10-13] MEDS: INSULIN LISPRO 100 UNIT/ML SUBCUT SCH ×4 (00:36→17:45)
[2020-10-13] MEDS: ONDANSETRON 4 MG/2 ML VIAL IV PRN ×3 (01:33→14:59)
[2020-10-13] MEDS: HYDROmorphone 2 MG/1 ML VIAL IV PRN ×5 (01:34→23:35)
[2020-10-13 05:44] LABS: Calcium 8.8 MG/DL (8.5-10.1); Potassium 4.2 MMOL/L (3.5-5.1)
[2020-10-13] MEDS: HEPARIN 5,000 UNIT/1 ML VIAL SUBCUT SCH ×2 (08:07→21:38)
[2020-10-13] MEDS: SKIN HEALING OINT (AQUAPHOR) 50 GM TUBE TOP SCH (08:08)
[2020-10-13] MEDS: calcitrioL 0.25 MCG CAPSULE PO SCH (08:08)
[2020-10-13] MEDS: predniSONE 20 MG TABLET PO SCH (08:08)
[2020-10-13] MEDS: PANTOPRAZOLE 40 MG TABLET PO SCH (08:08)
[2020-10-13] MEDS: NIFEdipine 10 MG CAPSULE PO SCH ×3 (08:08→21:38)
[2020-10-13] MEDS: SODIUM BICARBONATE 650 MG TABLET PO SCH (08:08)
[2020-10-13] MEDS: SODIUM HYPOCHLORITE 0.25% IRRIG 473 ML BOTTLE TOP SCH (08:09)
[2020-10-13] MEDS: POLYETHYLENE GLYCOL POWDER 17 GM PACK PO SCH (08:09)
[2020-10-13] MEDS: DESITIN 4OZ/NYSTATIN 15 GRAM MIXTURE PASTE TOP SCH ×2 (08:09→21:39)
[2020-10-13] MEDS: COLLAGENASE OINT 30 GM TUBE TOP SCH (08:09)
[2020-10-13] MEDS: ZINC OXIDE 16% PASTE 57 GM TUBE TOP SCH ×2 (08:09→21:38)
[2020-10-13] MEDS: SEVELAMER CARBONATE 800 MG TABLET PO SCH ×3 (08:09→16:36)
[2020-10-13] MEDS ORDERED: LIDOCAINE 1%/EPI INJ 20 ML VIAL ONE (09:06)
[2020-10-13] MEDS ORDERED: BUPIVACAINE MPF 0.25% 30 ML VIAL ONE (09:06)
[2020-10-13] MEDS ORDERED: METOCLOPRAMIDE 10 MG/2 ML VIAL ONE (09:35)
[2020-10-13] MEDS ORDERED: CLINDAMYCIN INJ 50 ML IV ONE (10:00)
[2020-10-13] MEDS ORDERED: SODIUM CHLORIDE 0.9% 250 ML IV SCH (10:00)
[2020-10-13] MEDS ORDERED: DEXMEDETOMIDINE 200 MCG/2 ML VIAL ONE (10:08)
[2020-10-13] MEDS ORDERED: LABETALOL 20 MG/4 ML SYRINGE IV ONE (10:08)
[2020-10-13] MEDS ORDERED: LIDOCAINE 2% 5 ML VIAL ONE (10:08)
[2020-10-13] MEDS ORDERED: KETAMINE 500 MG/10 ML VIAL ONE (10:09)
[2020-10-13] MEDS ORDERED: SODIUM CHLORIDE 0.9% 250 ML IV ONE (10:10)
[2020-10-13] MEDS ORDERED: DEXTROSE 50% 25 GM/50 ML VIAL IV PRN (12:08)
[2020-10-13] MEDS ORDERED: GLUCAGON 1 MG VIAL IM PRN (12:08)
[2020-10-13] MEDS: INSULIN GLARGINE 100 UNIT/ML SUBCUT SCH (21:38)
[2020-10-13] MEDS: HydrOXYzine PAMOATE 25 MG CAPSULE PO PRN (21:38)
[2020-10-14] MEDS: INSULIN LISPRO 100 UNIT/ML SUBCUT SCH ×3 (00:52→12:51)
[2020-10-14] MEDS: hydrALAZINE 20 MG/1 ML VIAL IV PRN (04:03)
[2020-10-14] MEDS: HYDROmorphone 2 MG/1 ML VIAL IV PRN ×3 (04:04→14:26)
[2020-10-14 05:39] LABS: Basophils % 0.6 % (0.0-0.8); Eosinophils # 0.1 10*3/uL (0.0-0.87); Eosinophils % 1.5 % (0.00-10.9); Hematocrit 22.4 VOL% (35.7-47.0); Hemoglobin 6.8 GM/DL (12.0-16.0); Immature Granulocytes % 0.4 %; Immature Granulocytes Absolute 0.02 #; Lymphocytes % 18.5 % (21.3-54.2); Mean Corpuscular HGB Conc 30.4 GM/DL (32-36); Mean Corpuscular Volume 95.7 FL (87-102); Mean Platelet Volume 11.1 FL (9.6-12.0); Monocytes % 6.4 % (1.7-12.7); Neutrophils % 72.6 % (38.7-73.9); Platelet Count 103 T/CUMM (130-400); Red Blood Count 2.34 MC/CUMM (3.8-5.5); White Blood Count 5.5 T/CUMM (4-12)
[2020-10-14 06:05] LABS: Calcium 8.8 MG/DL (8.5-10.1); Osmolality,Calculated 309.3 MOS/KG (273-304); Potassium 4.4 MMOL/L (3.5-5.1)
[2020-10-14] MEDS: HEPARIN 5,000 UNIT/1 ML VIAL SUBCUT SCH (09:11)
[2020-10-14] MEDS: SKIN HEALING OINT (AQUAPHOR) 50 GM TUBE TOP SCH (09:13)
[2020-10-14] MEDS: ZINC OXIDE 16% PASTE 57 GM TUBE TOP SCH (09:14)
[2020-10-14] MEDS: predniSONE 20 MG TABLET PO SCH (09:15)
[2020-10-14] MEDS: SEVELAMER CARBONATE 800 MG TABLET PO SCH ×2 (09:15→12:51)
[2020-10-14] MEDS: NIFEdipine 10 MG CAPSULE PO SCH ×2 (09:15→14:34)
[2020-10-14] MEDS: PANTOPRAZOLE 40 MG TABLET PO SCH (09:16)
[2020-10-14] MEDS: calcitrioL 0.25 MCG CAPSULE PO SCH (09:16)
[2020-10-14] MEDS: COLLAGENASE OINT 30 GM TUBE TOP SCH (09:16)
[2020-10-14] MEDS: DESITIN 4OZ/NYSTATIN 15 GRAM MIXTURE PASTE TOP SCH (09:16)
[2020-10-14] MEDS: POLYETHYLENE GLYCOL POWDER 17 GM PACK PO SCH ×2 (09:16→09:18)
[2020-10-14] MEDS: SODIUM HYPOCHLORITE 0.25% IRRIG 473 ML BOTTLE TOP SCH (09:16)
[2020-10-14] MEDS ORDERED: SODIUM CHLORIDE 0.9% 1,000 ML IV PRN (09:55)
[2020-10-14 16:24] VITALS: BP 151/77
== END 2020-10-14 16:23 | DRG 197 ==
LOC: N.ED 13:38 → N.EDINP 14:48 → SUATTDRO 14:48 → N.3E 16:40 → N.CC 09-27 22:54 → N.3E 10-05 15:48
PROVIDERS: ADMIT Hospitalist; ATTEND Internal Medicine

== ENCOUNTER 2020-10-23 04:54 | Inpatient (IN) ==
[2020-10-23 05:35] LABS: Basophils % 0.2 % (0.0-0.8); Eosinophils % 0.4 % (0.00-10.9); Hematocrit 27.7 VOL% (35.7-47.0); Hemoglobin 8.8 GM/DL (12.0-16.0); Immature Granulocytes % 0.4 %; Immature Granulocytes Absolute 0.02 #; Lymphocytes # 0.4 10*3/uL (1.4-4.0); Lymphocytes % 8.5 % (21.3-54.2); Mean Corpuscular HGB Conc 31.8 GM/DL (32-36); Mean Corpuscular Volume 91.1 FL (87-102); Mean Platelet Volume 9.6 FL (9.6-12.0); Monocytes % 5.5 % (1.7-12.7); Platelet Count 125 T/CUMM (130-400); Red Blood Count 3.04 MC/CUMM (3.8-5.5); Red Cell Distribution Width 15.1 % (9.3-17.3); White Blood Count 4.6 T/CUMM (4-12)
[2020-10-23] MEDS ORDERED: hydrALAZINE 20 MG/1 ML VIAL IV STA ×2 (05:40→07:34)
[2020-10-23 05:41] LABS: Albumin 2.7 G/DL (3.4-5.0); Bilirubin,Total 0.9 MG/DL (0.2-1.0); Calcium 8.7 MG/DL (8.5-10.1); Osmolality,Calculated 283.7 MOS/KG (273-304); Potassium 4.6 MMOL/L (3.5-5.1); Total Protein 6.5 G/DL (6.4-8.2)
[2020-10-23] MEDS ORDERED: hydrALAZINE 20 MG/1 ML VIAL ONE (05:41)
[2020-10-23 05:44] LABS: ABG Base Excess 5.5 MMOL/L (-2.5-2.5); ABG HCO3 29.2 MMOL/L (20-26); ABG Oxygen Saturation 82.3 % (95-100); ABG PCO2 50.2 MM HG (35-48); ABG PH 7.402 (7.35-7.45); ABG PO2 46.1 MM HG (80-95); ABG TCO2 28.8 MMOL/L (23-27)
[2020-10-23 05:54] LABS: INR 1.1
[2020-10-23] MEDS ORDERED: DEXTROSE 50% 25 GM/50 ML SYRINGE IV ONE (06:55)
[2020-10-23] MEDS ORDERED: ONDANSETRON 4 MG/2 ML VIAL ONE (07:00)
[2020-10-23] MEDS ORDERED: DEXTROSE 50% 25 GM/50 ML VIAL IV STA (07:09)
[2020-10-23] MEDS ORDERED: ONDANSETRON 4 MG/2 ML VIAL IV STA (07:10)
[2020-10-23] MEDS ORDERED: BISACODYL 5 MG TABLET PO PRN (08:08)
[2020-10-23] MEDS ORDERED: SIMETHICONE CHEW 125 MG TABLET PO PRN (08:08)
[2020-10-23] MEDS ORDERED: GLUCAGON 1 MG VIAL IM PRN ×2 (08:08)
[2020-10-23] MEDS ORDERED: DOCUSATE SODIUM 100 MG CAPSULE PO PRN (08:08)
[2020-10-23] MEDS ORDERED: hydrALAZINE 20 MG/1 ML VIAL IV PRN (08:08)
[2020-10-23] MEDS ORDERED: DEXTROSE 50% 25 GM/50 ML VIAL IV PRN ×2 (08:08)
[2020-10-23] MEDS ORDERED: LEVOFLOXACIN INJ 750 MG in PREMIX 1 EACH IV ONE (08:16)
[2020-10-23] MEDS ORDERED: ENOXAPARIN 30 MG/0.3 ML SYRINGE SUBCUT SCH (08:30)
[2020-10-23] MEDS: CLINDAMYCIN INJ 600 MG in PREMIX 1 EACH IV SCH ×2 (08:45→15:57)
[2020-10-23] MEDS ORDERED: PANTOPRAZOLE 40 MG TABLET PO SCH (09:00)
[2020-10-23] MEDS ORDERED: PREGABALIN 25 MG CAPSULE PO SCH (09:00)
[2020-10-23] MEDS: ACETAMINOPHEN 325 MG TABLET PO PRN ×2 (11:15→19:10)
[2020-10-23] MEDS: PANTOPRAZOLE 40 MG TABLET PO SCH (12:35)
[2020-10-23] MEDS: HydrOXYzine PAMOATE 25 MG CAPSULE PO PRN ×2 (12:35→20:02)
[2020-10-23] MEDS: lisinopriL 10 MG TABLET PO SCH (12:35)
[2020-10-23] MEDS: SEVELAMER CARBONATE 800 MG TABLET PO SCH ×2 (12:35→16:46)
[2020-10-23] MEDS: POLYETHYLENE GLYCOL POWDER 17 GM PACK PO SCH (12:35)
[2020-10-23] MEDS: NIFEdipine 10 MG CAPSULE PO SCH ×3 (12:35→20:03)
[2020-10-23] MEDS: SODIUM BICARBONATE 650 MG TABLET PO SCH ×2 (12:35→20:03)
[2020-10-23] MEDS: calcitrioL 0.25 MCG CAPSULE PO SCH (12:35)
[2020-10-23] MEDS: ALBUTEROL/IPRATROPIUM 3 ML NEB RESP TX SCH ×2 (12:42→20:06)
[2020-10-23] MEDS: INSULIN LISPRO 100 UNIT/ML SUBCUT SCH ×3 (13:30→23:34)
[2020-10-23] MEDS: ONDANSETRON 4 MG/2 ML VIAL IV PRN (15:57)
[2020-10-24] MEDS: CLINDAMYCIN INJ 600 MG in PREMIX 1 EACH IV SCH ×2 (00:30→09:39)
[2020-10-24] MEDS: ALBUTEROL/IPRATROPIUM 3 ML NEB RESP TX SCH ×4 (02:03→19:28)
[2020-10-24 04:19] LABS: Basophils % 0.3 % (0.0-0.8); Hematocrit 27.3 VOL% (35.7-47.0); Immature Granulocytes % 0.5 %; Immature Granulocytes Absolute 0.02 #; Lymphocytes # 0.3 10*3/uL (1.4-4.0); Lymphocytes % 6.7 % (21.3-54.2); Mean Corpuscular HGB Conc 29.3 GM/DL (32-36); Mean Corpuscular Volume 97.8 FL (87-102); Mean Platelet Volume 10.4 FL (9.6-12.0); Monocytes % 4.1 % (1.7-12.7); Neutrophils % 88.4 % (38.7-73.9); Platelet Count 101 T/CUMM (130-400); Red Blood Count 2.79 MC/CUMM (3.8-5.5); White Blood Count 3.9 T/CUMM (4-12)
[2020-10-24 04:34] LABS: Calcium 8.2 MG/DL (8.5-10.1); Potassium 4.8 MMOL/L (3.5-5.1)
[2020-10-24 04:39] LABS: Band Neutrophils 7 % (0-10); Hypochromasia 1+; Lymphocytes 6 % (20-55); Microcytosis 1+; Platelet Estimate Decreased; Segmented Neutrophils 85 % (50-85); Total Cells Counted 100
[2020-10-24] MEDS: MORPHINE 4 MG/1 ML VIAL IV PRN ×3 (08:48→21:34)
[2020-10-24] MEDS: INSULIN LISPRO 100 UNIT/ML SUBCUT SCH ×4 (08:50→21:35)
[2020-10-24] MEDS: SEVELAMER CARBONATE 800 MG TABLET PO SCH ×3 (08:53→16:55)
[2020-10-24] MEDS: PROMETHAZINE 25 MG/1 ML VIAL IM PRN ×3 (08:53→21:34)
[2020-10-24] MEDS: NIFEdipine 10 MG CAPSULE PO SCH ×3 (08:53→21:29)
[2020-10-24] MEDS: calcitrioL 0.25 MCG CAPSULE PO SCH (08:54)
[2020-10-24] MEDS: PANTOPRAZOLE 40 MG TABLET PO SCH (08:54)
[2020-10-24] MEDS: POLYETHYLENE GLYCOL POWDER 17 GM PACK PO SCH (08:54)
[2020-10-24] MEDS: SODIUM BICARBONATE 650 MG TABLET PO SCH ×2 (08:54→21:30)
[2020-10-24] MEDS: lisinopriL 10 MG TABLET PO SCH (09:40)
[2020-10-24] MEDS: INSULIN GLARGINE 100 UNIT/ML SUBCUT SCH (10:35)
[2020-10-24] MEDS: HEPARIN 5,000 UNIT/1 ML VIAL SUBCUT SCH ×2 (10:36→21:35)
[2020-10-24] MEDS: HydrOXYzine PAMOATE 25 MG CAPSULE PO SCH ×2 (15:53→21:30)
[2020-10-24] MEDS: CEFEPIME 1,000 MG in SODIUM CHLORIDE 0.9% 100 ML IV SCH (16:54)
[2020-10-24] MEDS: ONDANSETRON 4 MG/2 ML VIAL IV PRN (19:36)
[2020-10-24] MEDS ORDERED: INSULIN GLARGINE 100 UNIT/ML SUBCUT SCH (21:00)
[2020-10-24] MEDS: PREGABALIN 25 MG CAPSULE PO SCH (21:30)
[2020-10-24] MEDS: ACETAMINOPHEN 325 MG TABLET PO PRN (22:06)
[2020-10-25] MEDS: ALBUTEROL/IPRATROPIUM 3 ML NEB RESP TX SCH ×4 (00:51→19:31)
[2020-10-25] MEDS: PROMETHAZINE 25 MG/1 ML VIAL IM PRN ×3 (03:47→19:36)
[2020-10-25] MEDS: MORPHINE 4 MG/1 ML VIAL IV PRN ×5 (03:47→19:36)
[2020-10-25] MEDS: ONDANSETRON 4 MG/2 ML VIAL IV PRN ×2 (06:34→18:07)
[2020-10-25 06:49] LABS: Basophils % 0.2 % (0.0-0.8); Eosinophils # 0.1 10*3/uL (0.0-0.87); Eosinophils % 1.2 % (0.00-10.9); Hematocrit 24.8 VOL% (35.7-47.0); Hemoglobin 7.6 GM/DL (12.0-16.0); Immature Granulocytes % 0.7 %; Immature Granulocytes Absolute 0.03 #; Lymphocytes # 0.3 10*3/uL (1.4-4.0); Lymphocytes % 8.1 % (21.3-54.2); Mean Corpuscular HGB Conc 30.6 GM/DL (32-36); Mean Corpuscular Volume 92.9 FL (87-102); Monocytes % 6.7 % (1.7-12.7); Neutrophils % 83.1 % (38.7-73.9); Platelet Count 143 T/CUMM (130-400); Red Blood Count 2.67 MC/CUMM (3.8-5.5); White Blood Count 4.2 T/CUMM (4-12)
[2020-10-25 07:05] LABS: Calcium 8.6 MG/DL (8.5-10.1); Potassium 4.2 MMOL/L (3.5-5.1)
[2020-10-25] MEDS: INSULIN LISPRO 100 UNIT/ML SUBCUT SCH ×4 (07:05→21:49)
[2020-10-25 07:21] LABS: Band Neutrophils 4 % (0-10); Eosinophils 2 % (0-10); Lymphocytes 7 % (20-55); Segmented Neutrophils 85 % (50-85); Total Cells Counted 100
[2020-10-25 07:22] LABS: Hypochromasia 1+; Microcytosis 1+
[2020-10-25 07:26] LABS: Platelet Estimate Adequate
[2020-10-25] MEDS: SEVELAMER CARBONATE 800 MG TABLET PO SCH ×3 (08:25→16:58)
[2020-10-25] MEDS: HydrOXYzine PAMOATE 25 MG CAPSULE PO SCH ×3 (08:26→20:47)
[2020-10-25] MEDS: calcitrioL 0.25 MCG CAPSULE PO SCH (08:26)
[2020-10-25] MEDS: NIFEdipine 10 MG CAPSULE PO SCH ×3 (08:26→20:47)
[2020-10-25] MEDS: HEPARIN 5,000 UNIT/1 ML VIAL SUBCUT SCH ×2 (08:26→20:47)
[2020-10-25] MEDS: PANTOPRAZOLE 40 MG TABLET PO SCH (08:26)
[2020-10-25] MEDS: lisinopriL 10 MG TABLET PO SCH (08:26)
[2020-10-25] MEDS: INSULIN GLARGINE 100 UNIT/ML SUBCUT SCH (08:27)
[2020-10-25] MEDS: POLYETHYLENE GLYCOL POWDER 17 GM PACK PO SCH (08:27)
[2020-10-25] MEDS: SODIUM BICARBONATE 650 MG TABLET PO SCH ×2 (10:39→20:46)
[2020-10-25] MEDS: METOCLOPRAMIDE 5 MG TABLET PO SCH ×3 (11:42→20:46)
[2020-10-25] MEDS: CEFEPIME 1,000 MG in SODIUM CHLORIDE 0.9% 100 ML IV SCH (16:10)
[2020-10-25] MEDS: PREGABALIN 25 MG CAPSULE PO SCH (20:47)
[2020-10-26] MEDS: ALBUTEROL/IPRATROPIUM 3 ML NEB RESP TX SCH ×4 (00:06→20:08)
[2020-10-26] MEDS: MORPHINE 4 MG/1 ML VIAL IV PRN ×6 (00:28→20:43)
[2020-10-26 05:05] LABS: Basophils % 0.2 % (0.0-0.8); Eosinophils % 0.4 % (0.00-10.9); Hematocrit 23.9 VOL% (35.7-47.0); Hemoglobin 7.3 GM/DL (12.0-16.0); Immature Granulocytes % 0.9 %; Immature Granulocytes Absolute 0.04 #; Lymphocytes # 0.5 10*3/uL (1.4-4.0); Lymphocytes % 9.8 % (21.3-54.2); Mean Corpuscular HGB Conc 30.5 GM/DL (32-36); Mean Corpuscular Volume 94.1 FL (87-102); Monocytes % 6.8 % (1.7-12.7); Neutrophils % 81.9 % (38.7-73.9); Platelet Count 143 T/CUMM (130-400); Red Blood Count 2.54 MC/CUMM (3.8-5.5); Red Cell Distribution Width 15.2 % (9.3-17.3); White Blood Count 4.6 T/CUMM (4-12)
[2020-10-26 05:21] LABS: Calcium 8.6 MG/DL (8.5-10.1); Osmolality,Calculated 280.4 MOS/KG (273-304); Potassium 4.5 MMOL/L (3.5-5.1)
[2020-10-26 05:47] LABS: Band Neutrophils 5 % (0-10); Lymphocytes 14 % (20-55); Segmented Neutrophils 74 % (50-85); Total Cells Counted 100
[2020-10-26 05:48] LABS: Hypochromasia 2+; Platelet Estimate Normal
[2020-10-26] MEDS ORDERED: SODIUM CHLORIDE 0.9% 1,000 ML IV PRN (07:10)
[2020-10-26] MEDS: PROMETHAZINE 25 MG/1 ML VIAL IM PRN ×2 (09:15→17:22)
[2020-10-26] MEDS: NIFEdipine 10 MG CAPSULE PO SCH ×3 (09:19→20:42)
[2020-10-26] MEDS: SODIUM BICARBONATE 650 MG TABLET PO SCH ×2 (09:19→20:42)
[2020-10-26] MEDS: METOCLOPRAMIDE 5 MG TABLET PO SCH ×4 (09:19→20:42)
[2020-10-26] MEDS: PANTOPRAZOLE 40 MG TABLET PO SCH (09:19)
[2020-10-26] MEDS: calcitrioL 0.25 MCG CAPSULE PO SCH (09:19)
[2020-10-26] MEDS: lisinopriL 10 MG TABLET PO SCH (09:19)
[2020-10-26] MEDS: SEVELAMER CARBONATE 800 MG TABLET PO SCH ×3 (09:19→17:22)
[2020-10-26] MEDS: HydrOXYzine PAMOATE 25 MG CAPSULE PO SCH ×3 (09:20→20:42)
[2020-10-26] MEDS: INSULIN GLARGINE 100 UNIT/ML SUBCUT SCH (09:20)
[2020-10-26] MEDS: INSULIN LISPRO 100 UNIT/ML SUBCUT SCH ×4 (09:20→20:44)
[2020-10-26] MEDS: HEPARIN 5,000 UNIT/1 ML VIAL SUBCUT SCH ×2 (09:21→20:43)
[2020-10-26] MEDS: POLYETHYLENE GLYCOL POWDER 17 GM PACK PO SCH (10:37)
[2020-10-26] MEDS ORDERED: HEPARIN 10,000 UNIT/10 ML VIAL IV PRN (14:15)
[2020-10-26] MEDS: CEFEPIME 1,000 MG in SODIUM CHLORIDE 0.9% 100 ML IV SCH (17:26)
[2020-10-26] MEDS: PREGABALIN 25 MG CAPSULE PO SCH (20:42)
[2020-10-26] MEDS: ONDANSETRON 4 MG/2 ML VIAL IV PRN (20:42)
[2020-10-27] MEDS: ALBUTEROL/IPRATROPIUM 3 ML NEB RESP TX SCH ×4 (00:10→19:00)
[2020-10-27] MEDS: ACETAMINOPHEN 325 MG TABLET PO PRN (01:18)
[2020-10-27] MEDS: MORPHINE 4 MG/1 ML VIAL IV PRN ×6 (04:24→20:51)
[2020-10-27] MEDS: PROMETHAZINE 25 MG/1 ML VIAL IM PRN ×3 (04:25→17:55)
[2020-10-27 05:37] LABS: Basophils % 0.2 % (0.0-0.8); Eosinophils # 0.1 10*3/uL (0.0-0.87); Eosinophils % 0.8 % (0.00-10.9); Hematocrit 28.3 VOL% (35.7-47.0); Immature Granulocytes % 0.3 %; Immature Granulocytes Absolute 0.02 #; Lymphocytes # 0.5 10*3/uL (1.4-4.0); Lymphocytes % 8.7 % (21.3-54.2); Mean Corpuscular HGB Conc 32.2 GM/DL (32-36); Mean Corpuscular Volume 91.3 FL (87-102); Mean Platelet Volume 11.2 FL (9.6-12.0); Monocytes % 6.4 % (1.7-12.7); Neutrophils % 83.6 % (38.7-73.9); Platelet Count 139 T/CUMM (130-400); Red Cell Distribution Width 15.9 % (9.3-17.3); White Blood Count 6.2 T/CUMM (4-12)
[2020-10-27 05:39] LABS: Hemoglobin 9.1 GM/DL (12.0-16.0)
[2020-10-27 05:49] LABS: Calcium 8.2 MG/DL (8.5-10.1); Osmolality,Calculated 282.2 MOS/KG (273-304); Potassium 4.2 MMOL/L (3.5-5.1)
[2020-10-27] MEDS: METOCLOPRAMIDE 5 MG TABLET PO SCH ×4 (07:52→20:52)
[2020-10-27] MEDS: SEVELAMER CARBONATE 800 MG TABLET PO SCH ×3 (07:52→17:55)
[2020-10-27] MEDS: INSULIN LISPRO 100 UNIT/ML SUBCUT SCH ×5 (07:53→20:58)
[2020-10-27] MEDS: HydrOXYzine PAMOATE 25 MG CAPSULE PO SCH ×3 (09:47→20:52)
[2020-10-27] MEDS: PANTOPRAZOLE 40 MG TABLET PO SCH (09:47)
[2020-10-27] MEDS: lisinopriL 10 MG TABLET PO SCH (09:47)
[2020-10-27] MEDS: calcitrioL 0.25 MCG CAPSULE PO SCH (09:47)
[2020-10-27] MEDS: NIFEdipine 10 MG CAPSULE PO SCH ×3 (09:47→20:52)
[2020-10-27] MEDS: HEPARIN 5,000 UNIT/1 ML VIAL SUBCUT SCH ×2 (09:47→20:51)
[2020-10-27] MEDS: SODIUM BICARBONATE 650 MG TABLET PO SCH ×2 (09:47→20:52)
[2020-10-27] MEDS: oxyCODONE/ACETAMINOPHEN 5-325 MG TABLET PO PRN ×2 (09:55→20:00)
[2020-10-27] MEDS: POLYETHYLENE GLYCOL POWDER 17 GM PACK PO SCH (10:51)
[2020-10-27] MEDS: INSULIN GLARGINE 100 UNIT/ML SUBCUT SCH (10:53)
[2020-10-27] MEDS: ONDANSETRON 4 MG/2 ML VIAL IV PRN (15:09)
[2020-10-27] MEDS: CEFEPIME 1,000 MG in SODIUM CHLORIDE 0.9% 100 ML IV SCH (17:55)
[2020-10-27] MEDS: PREGABALIN 25 MG CAPSULE PO SCH (20:52)
[2020-10-28] MEDS: ALBUTEROL/IPRATROPIUM 3 ML NEB RESP TX SCH ×4 (02:07→19:37)
[2020-10-28] MEDS: MORPHINE 4 MG/1 ML VIAL IV PRN ×6 (02:29→20:54)
[2020-10-28 03:52] LABS: Basophils % 0.1 % (0.0-0.8); Eosinophils # 0.2 10*3/uL (0.0-0.87); Eosinophils % 2.7 % (0.00-10.9); Hematocrit 29.3 VOL% (35.7-47.0); Immature Granulocytes % 0.7 %; Immature Granulocytes Absolute 0.06 #; Lymphocytes # 0.7 10*3/uL (1.4-4.0); Lymphocytes % 7.7 % (21.3-54.2); Mean Corpuscular HGB Conc 30.7 GM/DL (32-36); Mean Corpuscular Volume 91.8 FL (87-102); Mean Platelet Volume 10.7 FL (9.6-12.0); Monocytes % 4.7 % (1.7-12.7); Neutrophils % 84.1 % (38.7-73.9); Platelet Count 158 T/CUMM (130-400); Red Blood Count 3.19 MC/CUMM (3.8-5.5); Red Cell Distribution Width 15.8 % (9.3-17.3); White Blood Count 8.5 T/CUMM (4-12)
[2020-10-28 04:10] LABS: Calcium 8.7 MG/DL (8.5-10.1); Osmolality,Calculated 278.4 MOS/KG (273-304); Potassium 4.3 MMOL/L (3.5-5.1)
[2020-10-28] MEDS: INSULIN LISPRO 100 UNIT/ML SUBCUT SCH ×4 (07:34→21:17)
[2020-10-28] MEDS: METOCLOPRAMIDE 5 MG TABLET PO SCH ×4 (07:41→21:15)
[2020-10-28] MEDS: ACETAMINOPHEN 325 MG TABLET PO PRN ×2 (07:42→21:14)
[2020-10-28] MEDS: calcitrioL 0.25 MCG CAPSULE PO SCH (08:09)
[2020-10-28] MEDS: HydrOXYzine PAMOATE 25 MG CAPSULE PO SCH ×3 (08:09→21:16)
[2020-10-28] MEDS: SEVELAMER CARBONATE 800 MG TABLET PO SCH ×3 (08:09→16:41)
[2020-10-28] MEDS: SODIUM BICARBONATE 650 MG TABLET PO SCH ×2 (08:09→21:15)
[2020-10-28] MEDS: PANTOPRAZOLE 40 MG TABLET PO SCH (08:09)
[2020-10-28] MEDS: NIFEdipine 10 MG CAPSULE PO SCH ×3 (08:09→21:16)
[2020-10-28] MEDS: INSULIN GLARGINE 100 UNIT/ML SUBCUT SCH (08:16)
[2020-10-28] MEDS: lisinopriL 10 MG TABLET PO SCH (08:16)
[2020-10-28] MEDS: POLYETHYLENE GLYCOL POWDER 17 GM PACK PO SCH (09:17)
[2020-10-28] MEDS: HEPARIN 5,000 UNIT/1 ML VIAL SUBCUT SCH ×2 (09:17→21:15)
[2020-10-28] MEDS: oxyCODONE/ACETAMINOPHEN 5-325 MG TABLET PO PRN ×2 (13:55→18:50)
[2020-10-28] MEDS: PROMETHAZINE 25 MG/1 ML VIAL IM PRN ×2 (15:22→22:32)
[2020-10-28] MEDS: CEFEPIME 1,000 MG in SODIUM CHLORIDE 0.9% 100 ML IV SCH (17:31)
[2020-10-28] MEDS: ONDANSETRON 4 MG/2 ML VIAL IV PRN (20:52)
[2020-10-28] MEDS: PREGABALIN 25 MG CAPSULE PO SCH (21:15)
[2020-10-29] MEDS: ALBUTEROL/IPRATROPIUM 3 ML NEB RESP TX SCH ×4 (00:03→20:04)
[2020-10-29] MEDS: MORPHINE 4 MG/1 ML VIAL IV PRN ×5 (00:20→19:47)
[2020-10-29] MEDS: HEPARIN 5,000 UNIT/1 ML VIAL SUBCUT SCH ×2 (08:21→22:03)
[2020-10-29] MEDS: INSULIN LISPRO 100 UNIT/ML SUBCUT SCH ×4 (08:22→22:03)
[2020-10-29] MEDS: INSULIN GLARGINE 100 UNIT/ML SUBCUT SCH (08:22)
[2020-10-29] MEDS: lisinopriL 10 MG TABLET PO SCH (08:22)
[2020-10-29] MEDS: SEVELAMER CARBONATE 800 MG TABLET PO SCH ×3 (08:22→17:09)
[2020-10-29] MEDS: METOCLOPRAMIDE 5 MG TABLET PO SCH ×4 (08:22→20:08)
[2020-10-29] MEDS: NIFEdipine 10 MG CAPSULE PO SCH ×3 (08:22→20:08)
[2020-10-29] MEDS: POLYETHYLENE GLYCOL POWDER 17 GM PACK PO SCH (08:22)
[2020-10-29] MEDS: PANTOPRAZOLE 40 MG TABLET PO SCH (08:23)
[2020-10-29] MEDS: SODIUM BICARBONATE 650 MG TABLET PO SCH ×2 (08:23→20:08)
[2020-10-29] MEDS: calcitrioL 0.25 MCG CAPSULE PO SCH (08:23)
[2020-10-29] MEDS: ONDANSETRON 4 MG/2 ML VIAL IV PRN (08:23)
[2020-10-29] MEDS: oxyCODONE/ACETAMINOPHEN 5-325 MG TABLET PO PRN ×2 (08:23→17:09)
[2020-10-29] MEDS: HydrOXYzine PAMOATE 25 MG CAPSULE PO SCH ×3 (08:23→20:08)
[2020-10-29] MEDS: PROMETHAZINE 25 MG/1 ML VIAL IM PRN ×2 (10:31→17:09)
[2020-10-29] MEDS: PREGABALIN 25 MG CAPSULE PO SCH (20:08)
[2020-10-30] MEDS: MORPHINE 4 MG/1 ML VIAL IV PRN ×4 (00:33→22:16)
[2020-10-30] MEDS: oxyCODONE/ACETAMINOPHEN 5-325 MG TABLET PO PRN ×3 (03:00→16:10)
[2020-10-30 05:43] LABS: Basophils % 0.3 % (0.0-0.8); Eosinophils # 0.2 10*3/uL (0.0-0.87); Hematocrit 26.6 VOL% (35.7-47.0); Immature Granulocytes % 0.7 %; Immature Granulocytes Absolute 0.05 #; Lymphocytes # 0.7 10*3/uL (1.4-4.0); Lymphocytes % 9.4 % (21.3-54.2); Mean Corpuscular HGB Conc 30.1 GM/DL (32-36); Mean Platelet Volume 10.4 FL (9.6-12.0); Monocytes % 6.9 % (1.7-12.7); Neutrophils % 80.7 % (38.7-73.9); Platelet Count 147 T/CUMM (130-400); Red Blood Count 2.83 MC/CUMM (3.8-5.5); Red Cell Distribution Width 15.6 % (9.3-17.3); White Blood Count 7.5 T/CUMM (4-12)
[2020-10-30 06:08] LABS: Calcium 8.3 MG/DL (8.5-10.1); Osmolality,Calculated 278.1 MOS/KG (273-304); Potassium 4.2 MMOL/L (3.5-5.1)
[2020-10-30] MEDS: ALBUTEROL/IPRATROPIUM 3 ML NEB RESP TX SCH ×4 (06:46→20:05)
[2020-10-30] MEDS: INSULIN LISPRO 100 UNIT/ML SUBCUT SCH ×4 (08:17→22:15)
[2020-10-30] MEDS: SODIUM BICARBONATE 650 MG TABLET PO SCH ×2 (09:03→22:13)
[2020-10-30] MEDS: HEPARIN 5,000 UNIT/1 ML VIAL SUBCUT SCH ×2 (09:03→23:29)
[2020-10-30] MEDS: NIFEdipine 10 MG CAPSULE PO SCH ×3 (09:04→22:13)
[2020-10-30] MEDS: SEVELAMER CARBONATE 800 MG TABLET PO SCH ×3 (09:04→16:10)
[2020-10-30] MEDS: calcitrioL 0.25 MCG CAPSULE PO SCH (09:04)
[2020-10-30] MEDS: PANTOPRAZOLE 40 MG TABLET PO SCH (09:04)
[2020-10-30] MEDS: lisinopriL 10 MG TABLET PO SCH (09:04)
[2020-10-30] MEDS: HydrOXYzine PAMOATE 25 MG CAPSULE PO SCH ×3 (09:04→22:13)
[2020-10-30] MEDS: METOCLOPRAMIDE 5 MG TABLET PO SCH ×4 (09:04→22:13)
[2020-10-30] MEDS: INSULIN GLARGINE 100 UNIT/ML SUBCUT SCH (09:05)
[2020-10-30] MEDS: POLYETHYLENE GLYCOL POWDER 17 GM PACK PO SCH (09:05)
[2020-10-30] MEDS: ONDANSETRON 4 MG/2 ML VIAL IV PRN (11:45)
[2020-10-30] MEDS: PREGABALIN 25 MG CAPSULE PO SCH (22:13)
[2020-10-31] MEDS: ALBUTEROL/IPRATROPIUM 3 ML NEB RESP TX SCH ×4 (02:25→19:12)
[2020-10-31 05:47] LABS: Basophils % 0.1 % (0.0-0.8); Eosinophils # 0.1 10*3/uL (0.0-0.87); Hematocrit 28.8 VOL% (35.7-47.0); Hemoglobin 8.5 GM/DL (12.0-16.0); Immature Granulocytes % 0.7 %; Immature Granulocytes Absolute 0.05 #; Lymphocytes # 0.5 10*3/uL (1.4-4.0); Lymphocytes % 7.9 % (21.3-54.2); Mean Corpuscular HGB Conc 29.5 GM/DL (32-36); Mean Platelet Volume 10.1 FL (9.6-12.0); Monocytes % 5.9 % (1.7-12.7); Neutrophils % 83.4 % (38.7-73.9); Platelet Count 156 T/CUMM (130-400); Red Blood Count 3.03 MC/CUMM (3.8-5.5); Red Cell Distribution Width 15.4 % (9.3-17.3); White Blood Count 6.8 T/CUMM (4-12)
[2020-10-31 06:09] LABS: Calcium 8.4 MG/DL (8.5-10.1); Osmolality,Calculated 292.8 MOS/KG (273-304); Potassium 4.6 MMOL/L (3.5-5.1)
[2020-10-31] MEDS: MORPHINE 4 MG/1 ML VIAL IV PRN ×5 (07:50→23:48)
[2020-10-31] MEDS: lisinopriL 10 MG TABLET PO SCH (08:59)
[2020-10-31] MEDS: PANTOPRAZOLE 40 MG TABLET PO SCH (08:59)
[2020-10-31] MEDS: SEVELAMER CARBONATE 800 MG TABLET PO SCH ×3 (08:59→16:02)
[2020-10-31] MEDS: METOCLOPRAMIDE 5 MG TABLET PO SCH ×4 (08:59→21:23)
[2020-10-31] MEDS: NIFEdipine 10 MG CAPSULE PO SCH ×3 (08:59→21:23)
[2020-10-31] MEDS: calcitrioL 0.25 MCG CAPSULE PO SCH (08:59)
[2020-10-31] MEDS: SODIUM BICARBONATE 650 MG TABLET PO SCH ×2 (08:59→21:23)
[2020-10-31] MEDS: HydrOXYzine PAMOATE 25 MG CAPSULE PO SCH ×3 (08:59→21:23)
[2020-10-31] MEDS: HEPARIN 5,000 UNIT/1 ML VIAL SUBCUT SCH ×2 (09:00→21:24)
[2020-10-31] MEDS: INSULIN GLARGINE 100 UNIT/ML SUBCUT SCH (09:00)
[2020-10-31] MEDS: INSULIN LISPRO 100 UNIT/ML SUBCUT SCH ×4 (09:00→21:28)
[2020-10-31] MEDS: oxyCODONE/ACETAMINOPHEN 5-325 MG TABLET PO PRN (09:13)
[2020-10-31] MEDS: POLYETHYLENE GLYCOL POWDER 17 GM PACK PO SCH (10:09)
[2020-10-31] MEDS: ONDANSETRON 4 MG/2 ML VIAL IV PRN (12:01)
[2020-10-31] MEDS: PREGABALIN 25 MG CAPSULE PO SCH (21:23)
[2020-11-01] MEDS: ALBUTEROL/IPRATROPIUM 3 ML NEB RESP TX SCH ×4 (00:12→19:45)
[2020-11-01] MEDS: MORPHINE 4 MG/1 ML VIAL IV PRN ×4 (03:53→21:38)
[2020-11-01 04:51] LABS: Basophils % 0.2 % (0.0-0.8); Eosinophils # 0.1 10*3/uL (0.0-0.87); Eosinophils % 1.6 % (0.00-10.9); Hematocrit 26.8 VOL% (35.7-47.0); Hemoglobin 8.3 GM/DL (12.0-16.0); Immature Granulocytes % 0.7 %; Immature Granulocytes Absolute 0.06 #; Lymphocytes # 0.8 10*3/uL (1.4-4.0); Lymphocytes % 9.2 % (21.3-54.2); Mean Platelet Volume 9.9 FL (9.6-12.0); Neutrophils % 81.3 % (38.7-73.9); Platelet Count 171 T/CUMM (130-400); Red Blood Count 2.85 MC/CUMM (3.8-5.5); Red Cell Distribution Width 15.4 % (9.3-17.3); White Blood Count 8.2 T/CUMM (4-12)
[2020-11-01 05:00] LABS: Calcium 8.6 MG/DL (8.5-10.1); Osmolality,Calculated 284.1 MOS/KG (273-304); Potassium 5.1 MMOL/L (3.5-5.1)
[2020-11-01] MEDS ORDERED: CLINDAMYCIN INJ 900 MG in PREMIX 1 EACH IV ONE (07:28)
[2020-11-01] MEDS: SEVELAMER CARBONATE 800 MG TABLET PO SCH ×3 (08:48→17:32)
[2020-11-01] MEDS: METOCLOPRAMIDE 5 MG TABLET PO SCH ×4 (08:48→21:31)
[2020-11-01] MEDS: POLYETHYLENE GLYCOL POWDER 17 GM PACK PO SCH (08:50)
[2020-11-01] MEDS: INSULIN GLARGINE 100 UNIT/ML SUBCUT SCH (08:58)
[2020-11-01] MEDS: INSULIN LISPRO 100 UNIT/ML SUBCUT SCH ×4 (08:58→21:31)
[2020-11-01] MEDS: HEPARIN 5,000 UNIT/1 ML VIAL SUBCUT SCH ×2 (09:11→21:29)
[2020-11-01] MEDS: HydrOXYzine PAMOATE 25 MG CAPSULE PO SCH ×3 (09:15→21:31)
[2020-11-01] MEDS: SODIUM BICARBONATE 650 MG TABLET PO SCH ×2 (09:15→21:31)
[2020-11-01] MEDS: PANTOPRAZOLE 40 MG TABLET PO SCH (09:15)
[2020-11-01] MEDS: calcitrioL 0.25 MCG CAPSULE PO SCH (09:15)
[2020-11-01] MEDS: NIFEdipine 10 MG CAPSULE PO SCH ×3 (09:15→21:31)
[2020-11-01] MEDS: lisinopriL 10 MG TABLET PO SCH (10:15)
[2020-11-01] MEDS ORDERED: BUPIVACAINE MPF 0.25% 30 ML VIAL ONE (14:21)
[2020-11-01] MEDS ORDERED: LIDOCAINE 1%/EPI INJ 20 ML VIAL ONE (14:21)
[2020-11-01] MEDS ORDERED: ONDANSETRON 4 MG/2 ML VIAL ONE (15:33)
[2020-11-01] MEDS ORDERED: LIDOCAINE 2% 5 ML VIAL ONE (15:33)
[2020-11-01] MEDS ORDERED: propofoL 200 MG/20 ML VIAL IV ONE (15:33)
[2020-11-01] MEDS ORDERED: SODIUM CHLORIDE 0.9% 100 ML IV ONE (15:33)
[2020-11-01] MEDS ORDERED: fentaNYL 100 MCG/2 ML VIAL ONE (15:34)
[2020-11-01] MEDS ORDERED: MIDAZOLAM 2 MG/2 ML VIAL ONE (15:34)
[2020-11-01] MEDS: PREGABALIN 25 MG CAPSULE PO SCH (21:31)
[2020-11-01] MEDS: oxyCODONE/ACETAMINOPHEN 5-325 MG TABLET PO PRN (23:52)
[2020-11-01] MEDS: ONDANSETRON 4 MG/2 ML VIAL IV PRN (23:54)
[2020-11-02] MEDS: MORPHINE 4 MG/1 ML VIAL IV PRN ×4 (01:52→16:30)
[2020-11-02] MEDS: ALBUTEROL/IPRATROPIUM 3 ML NEB RESP TX SCH ×3 (02:13→13:54)
[2020-11-02 06:42] LABS: Basophils % 0.3 % (0.0-0.8); Eosinophils # 0.1 10*3/uL (0.0-0.87); Eosinophils % 1.3 % (0.00-10.9); Hematocrit 26.6 VOL% (35.7-47.0); Hemoglobin 8.1 GM/DL (12.0-16.0); Immature Granulocytes % 0.7 %; Immature Granulocytes Absolute 0.05 #; Lymphocytes # 0.6 10*3/uL (1.4-4.0); Lymphocytes % 9.1 % (21.3-54.2); Mean Corpuscular HGB Conc 30.5 GM/DL (32-36); Mean Corpuscular Volume 94.7 FL (87-102); Mean Platelet Volume 11.1 FL (9.6-12.0); Monocytes % 5.5 % (1.7-12.7); Neutrophils % 83.1 % (38.7-73.9); Platelet Count 135 T/CUMM (130-400); Red Blood Count 2.81 MC/CUMM (3.8-5.5); Red Cell Distribution Width 15.3 % (9.3-17.3); White Blood Count 6.7 T/CUMM (4-12)
[2020-11-02 06:53] LABS: Calcium 8.4 MG/DL (8.5-10.1); Osmolality,Calculated 278.1 MOS/KG (273-304); Potassium 4.6 MMOL/L (3.5-5.1)
[2020-11-02 07:02] LABS: Hypochromasia 1+; Microcytosis 1+
[2020-11-02] MEDS: INSULIN LISPRO 100 UNIT/ML SUBCUT SCH ×3 (08:12→16:50)
[2020-11-02] MEDS: SEVELAMER CARBONATE 800 MG TABLET PO SCH ×3 (08:30→17:34)
[2020-11-02] MEDS: lisinopriL 10 MG TABLET PO SCH (08:30)
[2020-11-02] MEDS: INSULIN GLARGINE 100 UNIT/ML SUBCUT SCH (08:30)
[2020-11-02] MEDS: oxyCODONE/ACETAMINOPHEN 5-325 MG TABLET PO PRN ×2 (08:30→14:48)
[2020-11-02] MEDS: PANTOPRAZOLE 40 MG TABLET PO SCH (08:30)
[2020-11-02] MEDS: HEPARIN 5,000 UNIT/1 ML VIAL SUBCUT SCH (08:30)
[2020-11-02] MEDS: NIFEdipine 10 MG CAPSULE PO SCH ×2 (08:30→14:48)
[2020-11-02] MEDS: calcitrioL 0.25 MCG CAPSULE PO SCH (08:30)
[2020-11-02] MEDS: SODIUM BICARBONATE 650 MG TABLET PO SCH (08:30)
[2020-11-02] MEDS: HydrOXYzine PAMOATE 25 MG CAPSULE PO SCH ×2 (08:31→15:17)
[2020-11-02] MEDS: POLYETHYLENE GLYCOL POWDER 17 GM PACK PO SCH (09:34)
[2020-11-02] MEDS: METOCLOPRAMIDE 5 MG TABLET PO SCH ×3 (09:34→16:50)
[2020-11-02 16:08] VITALS: BP 115/58
[2020-11-02] MEDS: ONDANSETRON 4 MG/2 ML VIAL IV PRN (16:30)
== END 2020-11-02 19:42 | DRG 466 ==
LOC: EDBD → EDUNIT# → N.ED 04:54 → SUATTDRO 08:22 → N.EDINP 08:22 → N.3E 08:55
PROVIDERS: ADMIT Emergency Medicine; ATTEND Internal Medicine

== ENCOUNTER 2020-12-08 06:15 | Inpatient (IN) ==
[2020-12-08] MEDS ORDERED: DEXTROSE 50% 25 GM/50 ML VIAL IV STA (06:26)
[2020-12-08] MEDS ORDERED: CALCIUM CHLORIDE 1,000 MG/10 ML SYRINGE IV STA (06:26)
[2020-12-08] MEDS ORDERED: INSULIN REGULAR 100 UNIT/ML IV STA (06:26)
[2020-12-08] MEDS ORDERED: CALCIUM CHLORIDE 1,000 MG/10 ML SYRINGE IV ONE (06:27)
[2020-12-08] MEDS ORDERED: SODIUM BICARBONATE 50 MEQ/50 ML VIAL IV ONE (06:27)
[2020-12-08] MEDS ORDERED: INSULIN REGULAR 100 UNIT/ML ONE (06:28)
[2020-12-08] MEDS ORDERED: SODIUM BICARBONATE 50 MEQ/50 ML VIAL IV STA (06:29)
[2020-12-08 06:35] LABS: ABG Base Excess -8.9 MMOL/L (-2.5-2.5); ABG HCO3 17.2 MMOL/L (20-26); ABG Oxygen Saturation 97.9 % (95-100); ABG TCO2 24.4 MMOL/L (23-27)
[2020-12-08 06:37] LABS: ABG PH 6.987 (7.35-7.45)
[2020-12-08] MEDS ORDERED: NOREPINEPHRINE 4 MG/4 ML VIAL IV ONE (06:40)
[2020-12-08 06:41] LABS: Basophils % 0.3 % (0.0-0.8); Eosinophils # 0.1 10*3/uL (0.0-0.87); Eosinophils % 1.1 % (0.00-10.9); Hematocrit 29.1 VOL% (35.7-47.0); Hemoglobin 8.4 GM/DL (12.0-16.0); Immature Granulocytes % 2.5 %; Immature Granulocytes Absolute 0.19 #; Lymphocytes # 2.4 10*3/uL (1.4-4.0); Lymphocytes % 32.7 % (21.3-54.2); Mean Corpuscular HGB Conc 28.9 GM/DL (32-36); Mean Corpuscular Volume 98.3 FL (87-102); Mean Platelet Volume 11.7 FL (9.6-12.0); Monocytes % 4.4 % (1.7-12.7); NRBC # 0.03 10*3/uL; Red Blood Count 2.96 MC/CUMM (3.8-5.5); Red Cell Distribution Width 16.5 % (9.3-17.3); White Blood Count 7.5 T/CUMM (4-12)
[2020-12-08 06:43] LABS: Platelet Count 86 T/CUMM (130-400)
[2020-12-08] MEDS: NOREPINEPHRINE 8 MG in SODIUM CHLORIDE 0.9% 242 ML IV PRN (06:49)
[2020-12-08] MEDS ORDERED: AMPICILLIN/SULBACTAM 3,000 MG in SODIUM CHLORIDE 0.9% 100 ML IV STA (06:52)
[2020-12-08] MEDS ORDERED: AMPICILLIN/SULBACTAM 3,000 MG VIAL ONE (06:52)
[2020-12-08] MEDS ORDERED: SODIUM CHLORIDE 0.9% 100 ML IV ONE (06:53)
[2020-12-08 06:56] LABS: Albumin 2.3 G/DL (3.4-5.0); Bilirubin,Total 0.5 MG/DL (0.2-1.0); Calcium 8.4 MG/DL (8.5-10.1); Osmolality,Calculated 286.3 MOS/KG (273-304); Potassium 3.6 MMOL/L (3.5-5.1); Total Protein 7.2 G/DL (6.4-8.2)
[2020-12-08 06:59] LABS: Anisocytosis 2+; Platelet Estimate Decreased; Polychromasia Slight; Tear Drop Cells Few
[2020-12-08 07:00] LABS: Howell-Jolly Bodies Slight
[2020-12-08] MEDS ORDERED: ALBUTEROL 2.5 MG/3 ML NEB RESP TX PRN (08:08)
[2020-12-08] MEDS ORDERED: NOREPINEPHRINE 16 MG in SODIUM CHLORIDE 0.9% 234 ML IV PRN (08:17)
[2020-12-08] MEDS ORDERED: fentaNYL INJ 2,500 MCG in SODIUM CHLORIDE 0.9% 75 ML IV PRN (08:17)
[2020-12-08] MEDS ORDERED: CISATRACURIUM 10 MG/5 ML VIAL IV PRN (08:19)
[2020-12-08] MEDS ORDERED: DEXTROSE 50% 25 GM/50 ML VIAL IV PRN (08:20)
[2020-12-08] MEDS ORDERED: GLUCAGON 1 MG VIAL IM PRN (08:20)
[2020-12-08] MEDS ORDERED: fentaNYL 100 MCG/2 ML VIAL IV PRN (08:24)
[2020-12-08] MEDS ORDERED: PIPERACILLIN/TAZOBACTAM 3,375 MG in SODIUM CHLORIDE 0.9% 100 ML IV SCH (08:30)
[2020-12-08 08:46] LABS: ABG Base Excess 0.8 MMOL/L (-2.5-2.5); ABG HCO3 25.2 MMOL/L (20-26); ABG Oxygen Saturation 99.7 % (95-100); ABG PCO2 46.7 MM HG (35-48); ABG PH 7.362 (7.35-7.45); ABG TCO2 24.7 MMOL/L (23-27)
[2020-12-08 09:00] LABS: Barbiturates Screen,Urine Negative (Negative); Benzodiazepines Screen,Urine Negative (Negative); Cannabinoid Screen,Urine Negative (Negative); Opiate Screen,Urine Positive (Negative); Phencyclidine Screen,Urine Negative (Negative)
[2020-12-08 09:17] LABS: INR 1.2; Partial Thromboplastin Time 28.7 SECS (23.9-33.8)
[2020-12-08 09:47] VITALS: BP 217/119
[2020-12-08 09:56] LABS: CKMB % 4.1 %; Osmolality,Calculated 287.3 MOS/KG (273-304); Potassium 3.2 MMOL/L (3.5-5.1)
[2020-12-08] MEDS ORDERED: hydrALAZINE 20 MG/1 ML VIAL IV ONE (10:08)
[2020-12-08] MEDS ORDERED: hydrALAZINE 20 MG/1 ML VIAL ONE (10:09)
[2020-12-08] MEDS: FAMOTIDINE 20 MG/2 ML VIAL IV SCH (10:41)
[2020-12-08] MEDS: MEROPENEM 500 MG in SODIUM CHLORIDE 0.9% 100 ML IV SCH ×2 (10:41→17:30)
[2020-12-08] MEDS: APIXABAN 5 MG TABLET PO SCH ×2 (10:41→20:15)
[2020-12-08] MEDS: METOPROLOL TARTRATE 25 MG TABLET PO SCH ×2 (10:41→20:07)
[2020-12-08] MEDS: RIFAXIMIN 550 MG TABLET PO SCH ×2 (10:41→20:15)
[2020-12-08] MEDS ORDERED: NIFEdipine 10 MG CAPSULE PO SCH (11:00)
[2020-12-08] MEDS: amLODIPine 10 MG TABLET PO SCH (11:01)
[2020-12-08] MEDS: lisinopriL 10 MG TABLET PER TUBE SCH (11:02)
[2020-12-08] MEDS: INSULIN REGULAR 100 UNIT/ML IV SCH ×3 (12:29→20:06)
[2020-12-08 14:57] LABS: ABG Base Excess 5.7 MMOL/L (-2.5-2.5); ABG HCO3 29.6 MMOL/L (20-26); ABG PCO2 30.3 MM HG (35-48); ABG PH 7.571 (7.35-7.45)
[2020-12-08 15:07] LABS: Basophils % 0.2 % (0.0-0.8); Eosinophils # 0.1 10*3/uL (0.0-0.87); Eosinophils % 1.1 % (0.00-10.9); Hematocrit 24.3 VOL% (35.7-47.0); Hemoglobin 7.8 GM/DL (12.0-16.0); Immature Granulocytes % 0.3 %; Immature Granulocytes Absolute 0.02 #; Lymphocytes # 0.6 10*3/uL (1.4-4.0); Lymphocytes % 9.5 % (21.3-54.2); Mean Corpuscular HGB Conc 32.1 GM/DL (32-36); Mean Corpuscular Volume 88.7 FL (87-102); Mean Platelet Volume 10.1 FL (9.6-12.0); Monocytes % 4.4 % (1.7-12.7); Neutrophils % 84.5 % (38.7-73.9); Platelet Count 152 T/CUMM (130-400); Red Blood Count 2.74 MC/CUMM (3.8-5.5); Red Cell Distribution Width 16.3 % (9.3-17.3); White Blood Count 6.4 T/CUMM (4-12)
[2020-12-08 15:18] LABS: INR 1.3; Partial Thromboplastin Time 30.3 SECS (23.9-33.8)
[2020-12-08 15:33] LABS: Blood Urea Nitrogen 25 MG/DL (7-18); CKMB % 4.5 %; Calcium 8.4 MG/DL (8.5-10.1); Carbon Dioxide 28 MMOL/L (21-32); Estimated Glom Filtration Rate 27 ML/MIN; Glucose 163 MG/DL (74-106); Potassium 2.9 MMOL/L (3.5-5.1); Sodium 143 MMOL/L (136-145)
[2020-12-08] MEDS: MINERAL OIL/PETROLATUM OPH OINT 3.5 GM TUBE BOTH EYES SCH ×2 (17:02→20:15)
[2020-12-08 17:31] LABS: ABG Base Excess 6.6 MMOL/L (-2.5-2.5); ABG HCO3 30.5 MMOL/L (20-26); ABG PCO2 30.2 MM HG (35-48); ABG PH 7.585 (7.35-7.45); ABG TCO2 26.8 MMOL/L (23-27)
[2020-12-08 19:56] LABS: ABG Base Excess 5.3 MMOL/L (-2.5-2.5); ABG HCO3 29.3 MMOL/L (20-26); ABG PH 7.449 (7.35-7.45); ABG TCO2 27.8 MMOL/L (23-27)
[2020-12-08 21:35] LABS: Basophils % 0.7 % (0.0-0.8); Eosinophils # 0.2 10*3/uL (0.0-0.87); Eosinophils % 3.6 % (0.00-10.9); Hemoglobin 7.4 GM/DL (12.0-16.0); Immature Granulocytes % 0.7 %; Immature Granulocytes Absolute 0.03 #; Lymphocytes # 0.8 10*3/uL (1.4-4.0); Lymphocytes % 18.3 % (21.3-54.2); Mean Corpuscular HGB Conc 32.2 GM/DL (32-36); Mean Corpuscular Volume 89.1 FL (87-102); Mean Platelet Volume 9.5 FL (9.6-12.0); Neutrophils % 72.7 % (38.7-73.9); Platelet Count 148 T/CUMM (130-400); Red Blood Count 2.58 MC/CUMM (3.8-5.5); Red Cell Distribution Width 16.4 % (9.3-17.3); White Blood Count 4.5 T/CUMM (4-12)
[2020-12-08 21:54] LABS: CKMB % 4.9 %; High Sensitive Troponin I* 1691.1 ng/L (0-54); Osmolality,Calculated 290.8 MOS/KG (273-304); Potassium 2.9 MMOL/L (3.5-5.1)
[2020-12-08 22:07] LABS: INR 1.2; PT Patient Result 13.7 SECS (10.5-12.0); Partial Thromboplastin Time 29.8 SECS (23.9-33.8)
[2020-12-08] MEDS: POTASSIUM CHLORIDE RIDER 10 MEQ/100 ML PREMIX IV SCH ×2 (22:22→23:27)
[2020-12-09] MEDS: INSULIN REGULAR 100 UNIT/ML IV SCH ×10 (00:33→23:56)
[2020-12-09] MEDS: POTASSIUM CHLORIDE RIDER 10 MEQ/100 ML PREMIX IV SCH ×2 (00:34→02:01)
[2020-12-09] MEDS: MEROPENEM 500 MG in SODIUM CHLORIDE 0.9% 100 ML IV SCH ×3 (01:01→17:12)
[2020-12-09 03:54] LABS: Basophils % 1.2 % (0.0-0.8); Eosinophils # 0.2 10*3/uL (0.0-0.87); Immature Granulocytes % 0.3 %; Immature Granulocytes Absolute 0.01 #; Lymphocytes # 0.8 10*3/uL (1.4-4.0); Lymphocytes % 23.3 % (21.3-54.2); Mean Corpuscular HGB Conc 31.8 GM/DL (32-36); Mean Corpuscular Volume 89.4 FL (87-102); Mean Platelet Volume 10.3 FL (9.6-12.0); Monocytes % 3.5 % (1.7-12.7); Neutrophils % 64.7 % (38.7-73.9); Platelet Count 135 T/CUMM (130-400); Red Blood Count 2.46 MC/CUMM (3.8-5.5); Red Cell Distribution Width 16.6 % (9.3-17.3); White Blood Count 3.4 T/CUMM (4-12)
[2020-12-09 03:55] LABS: ABG Base Excess 5.5 MMOL/L (-2.5-2.5); ABG HCO3 29.4 MMOL/L (20-26); ABG Oxygen Saturation 99.8 % (95-100); ABG PCO2 41.8 MM HG (35-48); ABG TCO2 28.1 MMOL/L (23-27)
[2020-12-09 04:07] LABS: INR 1.3; PT Patient Result 14.3 SECS (10.5-12.0); Partial Thromboplastin Time 32.2 SECS (23.9-33.8)
[2020-12-09 04:10] LABS: CKMB % 5.2 %; Calcium 8.1 MG/DL (8.5-10.1); Potassium 3.1 MMOL/L (3.5-5.1)
[2020-12-09 04:23] LABS: High Sensitive Troponin I* 1362.2 ng/L (0-54)
[2020-12-09 04:39] LABS: Hypochromasia 1+
[2020-12-09 04:40] LABS: Microcytosis 1+; Tear Drop Cells Slight
[2020-12-09 04:41] LABS: Platelet Estimate Adequate
[2020-12-09 05:49] LABS: Albumin 1.6 G/DL (3.4-5.0); Bilirubin,Total 0.4 MG/DL (0.2-1.0); Potassium 3.2 MMOL/L (3.5-5.1); Total Protein 5.3 G/DL (6.4-8.2)
[2020-12-09] MEDS ORDERED: SODIUM CHLORIDE 0.9% 1,000 ML IV PRN (07:36)
[2020-12-09] MEDS: DEXAMETHASONE 10 MG/1 ML VIAL IV SCH ×3 (08:39→20:42)
[2020-12-09] MEDS: MINERAL OIL/PETROLATUM OPH OINT 3.5 GM TUBE BOTH EYES SCH ×3 (08:43→21:09)
[2020-12-09] MEDS: RIFAXIMIN 550 MG TABLET PO SCH ×2 (09:01→21:11)
[2020-12-09] MEDS: FAMOTIDINE 20 MG/2 ML VIAL IV SCH (09:02)
[2020-12-09 09:35] LABS: Basophils % 0.8 % (0.0-0.8); Eosinophils # 0.2 10*3/uL (0.0-0.87); Eosinophils % 6.1 % (0.00-10.9); Hematocrit 20.9 VOL% (35.7-47.0); Hemoglobin 7.1 GM/DL (12.0-16.0); Immature Granulocytes % 0.8 %; Immature Granulocytes Absolute 0.02 #; Lymphocytes # 0.5 10*3/uL (1.4-4.0); Lymphocytes % 20.2 % (21.3-54.2); Mean Corpuscular Volume 85.3 FL (87-102); Mean Platelet Volume 10.2 FL (9.6-12.0); Monocytes % 2.7 % (1.7-12.7); Neutrophils % 69.4 % (38.7-73.9); Platelet Count 123 T/CUMM (130-400); Red Blood Count 2.45 MC/CUMM (3.8-5.5); Red Cell Distribution Width 16.8 % (9.3-17.3); White Blood Count 2.6 T/CUMM (4-12)
[2020-12-09 09:40] LABS: INR 1.3; PT Patient Result 14.5 SECS (10.5-12.0); Partial Thromboplastin Time 31.4 SECS (23.9-33.8)
[2020-12-09 09:46] LABS: Calcium 7.9 MG/DL (8.5-10.1)
[2020-12-09] MEDS: METOPROLOL TARTRATE 25 MG TABLET PO SCH (09:51)
[2020-12-09] MEDS: amLODIPine 10 MG TABLET PO SCH (09:51)
[2020-12-09] MEDS: lisinopriL 10 MG TABLET PER TUBE SCH (09:52)
[2020-12-09] MEDS ORDERED: MAGNESIUM SULF RIDER 4 GM/100 ML PREMIX IV PRN (15:44)
[2020-12-09] MEDS ORDERED: MAGNESIUM SULF RIDER 2 GM/50 ML PREMIX IV PRN (15:44)
[2020-12-09 16:45] LABS: Basophils % 0.3 % (0.0-0.8); Eosinophils % 0.6 % (0.00-10.9); Hematocrit 27.3 VOL% (35.7-47.0); Hemoglobin 8.9 GM/DL (12.0-16.0); Immature Granulocytes % 0.3 %; Immature Granulocytes Absolute 0.01 #; Lymphocytes # 0.4 10*3/uL (1.4-4.0); Lymphocytes % 10.8 % (21.3-54.2); Mean Corpuscular HGB Conc 32.6 GM/DL (32-36); Mean Corpuscular Volume 87.8 FL (87-102); Mean Platelet Volume 9.9 FL (9.6-12.0); Monocytes % 1.8 % (1.7-12.7); Neutrophils % 86.2 % (38.7-73.9); Platelet Count 137 T/CUMM (130-400); Red Blood Count 3.11 MC/CUMM (3.8-5.5); Red Cell Distribution Width 16.6 % (9.3-17.3); White Blood Count 3.3 T/CUMM (4-12)
[2020-12-09 16:56] LABS: INR 1.3; PT Patient Result 13.9 SECS (10.5-12.0); Partial Thromboplastin Time 30.6 SECS (23.9-33.8)
[2020-12-09 17:00] LABS: Calcium 7.9 MG/DL (8.5-10.1); Osmolality,Calculated 275.5 MOS/KG (273-304); Potassium 3.2 MMOL/L (3.5-5.1)
[2020-12-09] MEDS ORDERED: HEPARIN 10,000 UNIT/10 ML VIAL IV SCH (17:15)
[2020-12-09 21:40] LABS: Basophils % 0.2 % (0.0-0.8); Eosinophils % 0.2 % (0.00-10.9); Hematocrit 28.3 VOL% (35.7-47.0); Hemoglobin 9.2 GM/DL (12.0-16.0); Immature Granulocytes % 0.5 %; Immature Granulocytes Absolute 0.02 #; Lymphocytes # 0.5 10*3/uL (1.4-4.0); Lymphocytes % 12.6 % (21.3-54.2); Mean Corpuscular HGB Conc 32.5 GM/DL (32-36); Mean Corpuscular Volume 87.6 FL (87-102); Mean Platelet Volume 11.2 FL (9.6-12.0); Monocytes % 1.5 % (1.7-12.7); Platelet Count 142 T/CUMM (130-400); Red Blood Count 3.23 MC/CUMM (3.8-5.5); Red Cell Distribution Width 16.5 % (9.3-17.3); White Blood Count 4.1 T/CUMM (4-12)
[2020-12-09 21:48] LABS: Calcium 7.6 MG/DL (8.5-10.1); Osmolality,Calculated 282.4 MOS/KG (273-304); Potassium 3.7 MMOL/L (3.5-5.1)
[2020-12-09 21:49] LABS: INR 1.2; PT Patient Result 13.5 SECS (10.5-12.0); Partial Thromboplastin Time 31.1 SECS (23.9-33.8)
[2020-12-09] MEDS ORDERED: NOREPINEPHRINE 4 MG/4 ML VIAL IV ONE (23:07)
[2020-12-09] MEDS: NOREPINEPHRINE 8 MG in SODIUM CHLORIDE 0.9% 242 ML IV PRN (23:34)
[2020-12-10] MEDS: MEROPENEM 500 MG in SODIUM CHLORIDE 0.9% 100 ML IV SCH ×3 (01:09→17:36)
[2020-12-10 02:15] LABS: ABG Base Excess -1.6 MMOL/L (-2.5-2.5); ABG Oxygen Saturation 97.2 % (95-100); ABG PCO2 30.4 MM HG (35-48); ABG PH 7.457 (7.35-7.45); ABG PO2 87.6 MM HG (80-95); ABG TCO2 19.5 MMOL/L (23-27)
[2020-12-10] MEDS: INSULIN REGULAR 100 UNIT/ML IV SCH (02:27)
[2020-12-10 02:30] LABS: INR 1.2; PT Patient Result 13.2 SECS (10.5-12.0)
[2020-12-10 02:34] LABS: CKMB % 5.8 %
[2020-12-10] MEDS: DEXAMETHASONE 10 MG/1 ML VIAL IV SCH ×3 (02:40→16:44)
[2020-12-10 02:41] LABS: High Sensitive Troponin I* 749.2 ng/L (0-54)
[2020-12-10 04:30] LABS: Eosinophils % 0.2 % (0.00-10.9); Hematocrit 32.2 VOL% (35.7-47.0); Hemoglobin 10.2 GM/DL (12.0-16.0); Immature Granulocytes % 0.5 %; Immature Granulocytes Absolute 0.03 #; Lymphocytes # 0.5 10*3/uL (1.4-4.0); Lymphocytes % 8.5 % (21.3-54.2); Mean Corpuscular HGB Conc 31.7 GM/DL (32-36); Mean Corpuscular Volume 89.2 FL (87-102); Mean Platelet Volume 11.6 FL (9.6-12.0); Monocytes % 1.3 % (1.7-12.7); Neutrophils % 89.5 % (38.7-73.9); Platelet Count 179 T/CUMM (130-400); Red Blood Count 3.61 MC/CUMM (3.8-5.5); Red Cell Distribution Width 17.3 % (9.3-17.3); White Blood Count 6.1 T/CUMM (4-12)
[2020-12-10 04:49] LABS: Albumin 1.6 G/DL (3.4-5.0); Bilirubin,Total 0.4 MG/DL (0.2-1.0); Osmolality,Calculated 278.8 MOS/KG (273-304); Potassium 3.9 MMOL/L (3.5-5.1); Total Protein 5.7 G/DL (6.4-8.2)
[2020-12-10] MEDS: INSULIN REGULAR 100 UNIT/ML SUBCUT SCH ×4 (04:53→17:36)
[2020-12-10] MEDS: FAMOTIDINE 20 MG/2 ML VIAL IV SCH (08:02)
[2020-12-10] MEDS: MINERAL OIL/PETROLATUM OPH OINT 3.5 GM TUBE BOTH EYES SCH ×2 (08:04→16:38)
[2020-12-10] MEDS: RIFAXIMIN 550 MG TABLET PO SCH (08:04)
[2020-12-10 10:54] LABS: INR 1.2; PT Patient Result 12.9 SECS (10.5-12.0); Partial Thromboplastin Time 30.6 SECS (23.9-33.8)
[2020-12-10] MEDS ORDERED: MORPHINE 4 MG/1 ML VIAL IV PRN (17:23)
[2020-12-10] MEDS ORDERED: LORazepam 2 MG/1 ML VIAL IV PRN (17:23)
== END 2020-12-10 18:00 | disposition expired | DRG 812 ==
LOC: EDUNIT# → EDBD → N.ED 06:15 → SUATTDRO 08:08 → N.EDINP 08:08 → N.CC 08:45
PROVIDERS: ADMIT Internal Medicine; ATTEND Internal Medicine